=== PATIENT | male | born 1940 | race Caucasian/White ===

== ENCOUNTER 2019-01-13 16:33 | Inpatient (IN) | payer MEDICARE ==
[2019-01-13] MEDS ORDERED: SODIUM CHLORIDE 0.9% 1,000 ML IV STA ×2 (16:54→18:44)
--- NOTE | 2019-01-13 16:54 | ED ---
Weakness HPI - General Chief complaint: Weakness Stated complaint: Fall Time Seen by Provider: 01/13/19 16:40 Source: patient, family, EMS, RN notes reviewed, old records reviewed Mode of arrival: EMS Limitations: physical limitation - History of Present Illness Initial comments: This is a 78-year-old male the ER for evaluation patient is a poor historian presents with daughter for evaluation of weakness and inability to ambulate inability to stand up. Patient has significant medical history history of dementia is a poor historian. Patient unable to history history obtained from prior charting as well as patient, patient is no prior ER visits this hospital. Very rarely does go to the hospital. No recent trauma no headaches or chest pain or shortness breath or abdominal pain MD Complaint: generalized weakness, lack of energy, difficulty walking -: days(s) Location: generalized, LLE, RLE Severity: mild Severity scale (1-10): 3 Consistency: constant Improves with: none Worsens with: none Context: history of similar Associated Symptoms: denies other symptoms - Related Data Home Medications Medication Instructions Recorded Confirmed Acetaminophen/Diphenhydramine 2 tab PO HS 01/13/19 01/13/19 [Tylenol PM 500-25mg] Aspirin 81 mg PO AC-BRKFST 01/13/19 01/13/19 Atorvastatin [Lipitor] 40 mg PO HS 01/13/19 01/13/19 Bumetanide 1 mg PO AC-BRKFST 01/13/19 01/13/19 Carvedilol [Coreg] 3.125 mg PO AC-BID 01/13/19 01/13/19 Cholecalciferol [Vitamin D3 (25 1,000 unit PO AC-BRKFST 01/13/19 01/13/19 Mcg = 1000 Iu)] Donepezil [Aricept] 10 mg PO AC-BRKFST 01/13/19 01/13/19 Fluticasone Nasal [place] [Flonase 2 spr EA NOSTRIL DAILY PRN 01/13/19 01/13/19 Nasal [place]] Gabapentin [Neurontin] 300 mg PO ACHS 01/13/19 01/13/19 Glucagon Emergency Kit 1 mg IM ONCE PRN 01/13/19 01/13/19 Hydroxychloroquine Sulfate 200 mg PO AC-BID 01/13/19 01/13/19 [Plaquenil] Insulin Detemir [Levemir Flextouch] 78 unit SQ HS 01/13/19 01/13/19 Insulin Detemir [Levemir Flextouch] 80 unit SQ AC-BRKFST 01/13/19 01/13/19 Insulin Lispro [humaLOG Kwikpen] 10 unit SQ AC-BRKFST 01/13/19 01/13/19 Insulin Lispro [humaLOG Kwikpen] 14 unit SQ AC-LUNCH 01/13/19 01/13/19 Insulin Lispro [humaLOG Kwikpen] 17 unit SQ AC-SUPPER 01/13/19 01/13/19 Magnesium Oxide 400 mg PO AC-BID 01/13/19 01/13/19 Metoclopramide [Reglan] 5 mg PO ACHS 01/13/19 01/13/19 Metolazone [Zaroxolyn] 2.5 mg PO AC-BID 01/13/19 01/13/19 Nitroglycerin Sl Tabs [Nitrostat] 0.4 mg SUBLINGUAL Q5M PRN 01/13/19 01/13/19 Olopatadine HCl [Patanol] 2 drops BOTH EYES DAILY PRN 01/13/19 01/13/19 [place]-3 Fatty Acids/Fish Oil [Fish 1 cap PO AC-LUNCH 01/13/19 01/13/19 Oil 1,000 mg Softgel] Potassium Chloride ER [K-Dur 10] 10 meq PO TID 01/13/19 01/13/19 Tamsulosin [Flomax] 0.4 mg PO AC-SUPPER 01/13/19 01/13/19 Triamcinolone 0.1% Cream [Kenalog 1 applic TOPICAL BID PRN 01/13/19 01/13/19 0.1% Cream] clonazePAM [Klonopin ODT Wafer] 0.25 mg PO BID@0900,1700 01/13/19 01/13/19 clonazePAM [Klonopin ODT Wafer] 0.5 mg PO HS 01/13/19 01/13/19 metFORMIN HCL [Glucophage] 1,000 mg PO AC-LUNCH 01/13/19 01/13/19 Allergies Allergy/AdvReac Type Severity Reaction Status Date / Time clarithromycin [From Biaxin] Allergy Rash/Hives Verified 01/13/19 17:51 ibuprofen [From Motrin] Allergy Unknown Verified 01/13/19 17:51 Penicillins Allergy Rash/Hives Verified 01/13/19 17:51 Review of Systems ROS Statement: Those systems with pertinent positive or pertinent negative responses have been documented in the HPI. ROS Other: All systems not noted in ROS Statement are negative. Past Medical History Past Medical History: Dementia, Diabetes Mellitus, Hyperlipidemia, Hypertension, Rheumatoid Arthritis (RA) Additional Past Medical History / Comment(s): Neuropathy Past Surgical History: Heart Catheterization With Stent, Orthopedic Surgery Additional Past Surgical History / Comment(s): Right knee replacement, Past Psychological History: Anxiety Smoking Status: Former smoker Past Alcohol Use History: None Reported Past Drug Use History: None Reported General Exam Limitations: physical limitation General appearance: alert, in no apparent distress Head exam: Present: atraumatic, normocephalic, normal inspection Eye exam: Present: normal appearance, PERRL, EOMI. Absent: scleral icterus, conjunctival injection, periorbital swelling ENT exam: Present: normal exam, mucous membranes moist Neck exam: Present: normal inspection. Absent: tenderness, meningismus, lymphadenopathy Respiratory exam: Present: normal lung sounds bilaterally. Absent: respiratory distress, wheezes, rales, rhonchi, stridor Cardiovascular Exam: Present: regular rate, normal rhythm, normal heart sounds. Absent: systolic murmur, diastolic murmur, rubs, gallop, clicks GI/Abdominal exam: Present: soft, normal bowel sounds. Absent: distended, tenderness, guarding, rebound, rigid Extremities exam: Present: normal inspection, full ROM, normal capillary refill. Absent: tenderness, pedal edema, joint swelling, calf tenderness Back exam: Present: normal inspection Neurological exam: Present: alert, oriented X3, CN II-XII intact Psychiatric exam: Present: normal affect, normal mood Skin exam: Present: warm, dry, intact, normal color. Absent: rash Course Vital Signs 01/13/19 16:36 Temperature 98.2 F Pulse Rate 70 Respiratory 18 Rate Blood Pressure 126/53 O2 Sat by Pulse 96 Oximetry - Reevaluation(s) Reevaluation #1: 01/13/19 18:46 medical record reviewed Reevaluation #2: 01/13/19 18:46 No improvement in symptoms EKG Findings - EKG Comments: EKG Findings:: EKG shows sinus rhythm rate of 69, DE 200, QRS 90, QTc 304 Medical Decision Making - Medical Decision Making 78 male the ER for evaluation weakness significant weakness and inability to ambulate inability to stand up from sitting. Patient be admitted for further evaluation of dehydration. Elevated lactic acid, abnormal lab values - Lab Data Result diagrams: 01/13/19 17:12 01/13/19 17:12 Lab Results 01/13/19 01/13/19 01/13/19 Range/Units 17:12 17:12 17:12 WBC 11.1 H (3.8-10.6) k/uL RBC 4.32 (4.30-5.90) m/uL Hgb 11.9 L (13.0-17.5) gm/dL Hct 36.5 L (39.0-53.0) % MCV 84.5 (80.0-100.0) fL MCH 27.7 (25.0-35.0) pg MCHC 32.7 (31.0-37.0) g/dL RDW 16.1 H (11.5-15.5) % Plt Count 226 (150-450) k/uL Neutrophils % 79 % Lymphocytes % 14 % Monocytes % 3 % Eosinophils % 3 % Basophils % 0 % Neutrophils # 8.8 H (1.3-7.7) k/uL Lymphocytes # 1.5 (1.0-4.8) k/uL Monocytes # 0.4 (0-1.0) k/uL Eosinophils # 0.3 (0-0.7) k/uL Basophils # 0.0 (0-0.2) k/uL Poikilocytosis Slight Anisocytosis Slight PT (9.0-12.0) sec INR (<1.2) APTT (22.0-30.0) sec Sodium 140 (137-145) mmol/L Potassium 4.5 (3.5-5.1) mmol/L Chloride 98 (98-107) mmol/L Carbon Dioxide 31 H (22-30) mmol/L Anion Gap 11 mmol/L BUN 34 H (9-20) mg/dL Creatinine 1.35 H (0.66-1.25) mg/dL Est GFR (CKD-EPI)AfAm 57 (>60 ml/min/1.73 sqM) Est GFR (CKD-EPI)NonAf 50 (>60 ml/min/1.73 sqM) Glucose 101 H (74-99) mg/dL Plasma Lactic Acid Alon 3.7 H* (0.7-2.0) mmol/L Calcium 9.4 (8.4-10.2) mg/dL Phosphorus 3.4 (2.5-4.5) mg/dL Magnesium 1.7 (1.6-2.3) mg/dL Total Bilirubin 0.9 (0.2-1.3) mg/dL AST 59 (17-59) U/L ALT 17 L (21-72) U/L Alkaline Phosphatase 91 (38-126) U/L Creatine Kinase 84 (55-170) U/L Troponin I (0.000-0.034) ng/mL Total Protein 7.0 (6.3-8.2) g/dL Albumin 3.9 (3.5-5.0) g/dL TSH 2.630 (0.465-4.680) mIU/L 01/13/19 01/13/19 Range/Units 17:12 17:12 WBC (3.8-10.6) k/uL RBC (4.30-5.90) m/uL Hgb (13.0-17.5) gm/dL Hct (39.0-53.0) % MCV (80.0-100.0) fL MCH (25.0-35.0) pg MCHC (31.0-37.0) g/dL RDW (11.5-15.5) % Plt Count (150-450) k/uL Neutrophils % % Lymphocytes % % Monocytes % % Eosinophils % % Basophils % % Neutrophils # (1.3-7.7) k/uL Lymphocytes # (1.0-4.8) k/uL Monocytes # (0-1.0) k/uL Eosinophils # (0-0.7) k/uL Basophils # (0-0.2) k/uL Poikilocytosis Anisocytosis PT 11.0 (9.0-12.0) sec INR 1.0 (<1.2) APTT 25.2 (22.0-30.0) sec Sodium (137-145) mmol/L Potassium (3.5-5.1) mmol/L Chloride (98-107) mmol/L Carbon Dioxide (22-30) mmol/L Anion Gap mmol/L BUN (9-20) mg/dL Creatinine (0.66-1.25) mg/dL Est GFR (CKD-EPI)AfAm (>60 ml/min/1.73 sqM) Est GFR (CKD-EPI)NonAf (>60 ml/min/1.73 sqM) Glucose (74-99) mg/dL Plasma Lactic Acid Alon (0.7-2.0) mmol/L Calcium (8.4-10.2) mg/dL Phosphorus (2.5-4.5) mg/dL Magnesium (1.6-2.3) mg/dL Total Bilirubin (0.2-1.3) mg/dL AST (17-59) U/L ALT (21-72) U/L Alkaline Phosphatase (38-126) U/L Creatine Kinase (55-170) U/L Troponin I <0.012 (0.000-0.034) ng/mL Total Protein (6.3-8.2) g/dL Albumin (3.5-5.0) g/dL TSH (0.465-4.680) mIU/L - Radiology Data Radiology results: report reviewed (Chest x-rays negative for acute disease), image reviewed Disposition Clinical Impression: Dehydration, Weakness, Lactic acidosis Disposition: ADMITTED IP TO THIS [facility] Condition: Fair Is patient prescribed a controlled substance at d/c from ED?: No Referrals: Isis Reyes DO [Primary Care Provider] - 1-2 days
[2019-01-13 17:25] LABS: Anisocytosis Slight; Basophils % (A) 0 %; Eosinophils # (A) 0.3 k/uL (0-0.7); Eosinophils % (A) 3 %; HCT 36.5 % (39.0-53.0); HGB 11.9 gm/dL (13.0-17.5); Lymphocytes # (A) 1.5 k/uL (1.0-4.8); Lymphocytes % (A) 14 %; MCH 27.7 pg (25.0-35.0); MCHC 32.7 g/dL (31.0-37.0); MCV 84.5 fL (80.0-100.0); Mean Platelet Volume 7.2; Monocytes # (A) 0.4 k/uL (0-1.0); Monocytes % (A) 3 %; Neutrophils # (A) 8.8 k/uL (1.3-7.7); Neutrophils % (A) 79 %; Platelet Count 226 k/uL (150-450); Poikilocytosis Slight; RBC 4.32 m/uL (4.30-5.90); RDW 16.1 % (11.5-15.5); WBC 11.1 k/uL (3.8-10.6)
[2019-01-13 17:33] LABS: Partial Thromboplastin Time 25.2 sec (22.0-30.0)
[2019-01-13 17:36] LABS: Albumin 3.9 g/dL (3.5-5.0); Calcium 9.4 mg/dL (8.4-10.2); Magnesium 1.7 mg/dL (1.6-2.3); Phosphorus 3.4 mg/dL (2.5-4.5); Potassium 4.5 mmol/L (3.5-5.1); Total Bilirubin 0.9 mg/dL (0.2-1.3)
--- NOTE | 2019-01-13 17:57 | XR ---
EXAMINATION TYPE: XR chest 2V DATE OF EXAM: 01/13/2019 COMPARISON: NONE HISTORY: Weakness TECHNIQUE: Frontal and lateral views of the chest are obtained. FINDINGS: There is no heart failure nor confluent pneumonic infiltrate. Costophrenic angles are júnior r. Bony thorax is intact. IMPRESSION: No active cardiopulmonary disease.
[2019-01-13] MEDS ORDERED: ONDANSETRON 4 MG/2 ML VIAL IVP STA (18:44)
[2019-01-13] MEDS ORDERED: ONDANSETRON 4 MG/2 ML VIAL IVP PRN (18:44)
[2019-01-13] MEDS ORDERED: SODIUM CHLORIDE 0.9% 1,000 ML IV ONE (18:44)
[2019-01-13] MEDS ORDERED: SODIUM CHLORIDE 0.9% 500 ML 500 ML IV STA (18:44)
[2019-01-14 04:37] LABS: Appearance,Urine Clear (Clear); Bilirubin,Urine Negative (Negative); Blood,Urine Negative (Negative); Color,Urine Yellow; Glucose,Urine (UA) Negative (Negative); Ketones,Urine Negative (Negative); Leukocyte Esterase,Urine Negative (Negative); Nitrite,Urine Negative (Negative); PH, Urine 5.5 (5.0-8.0); Protein,Urine Trace (Negative); Specific Gravity,Urine 1.018 (1.001-1.035); Urobilinogen,Urine <2.0 mg/dL (<2.0)
[2019-01-14 07:12] LABS: Glucose,Whole Blood 136 mg/dL (75-99)
[2019-01-14 11:18] LABS: Glucose,Whole Blood 194 mg/dL (75-99)
[2019-01-14 12:44] VITALS: BMI 38.7
[2019-01-14] MEDS ORDERED: FLUTICASONE 50MCG/SPRAY NASAL 16GM EA NOSTRIL PRN (13:12)
[2019-01-14] MEDS ORDERED: TRIAMCINOLONE 0.1% CREAM 80 GM TUBE TOPICAL PRN (13:12)
[2019-01-14] MEDS ORDERED: GLUCAGON 1 MG/ML VIAL IM PRN (13:12)
[2019-01-14] MEDS ORDERED: NITROGLYCERIN SL TABS 0.4 MG TAB SUBLINGUAL PRN (13:12)
[2019-01-14] MEDS ORDERED: KETOTIFEN 0.025% OPHTH DROPS 5 ML BTL BOTH EYES PRN (13:12)
--- NOTE | 2019-01-14 14:01 | CT ---
EXAMINATION TYPE: CT brain wo con DATE OF EXAM: 01/14/2019 COMPARISON: None HISTORY: weakness, confusion, possible parkinson's CT DLP: 1072.3 mGycm Automated exposure control for dose reduction was used. TECHNIQUE: CT scan of the head is performed without contrast. FINDINGS: There is no acute intracranial hemorrhage or midline shift identified. There is diffuse v entricular and sulcal prominence consistent with diffuse age-related cerebral atrophy. There is low- attenuation in the periventricular white matter consistent with chronic small vessel ischemic change. The globes are intact and the visualized sinuses are clear. There is an old fracture deformity of the left lamina papyracea. Cerumen is incidentally noted within the bilateral external auditory canal s. Atherosclerosis is seen of the intracranial vasculature. IMPRESSION: 1. No acute intracranial hemorrhage or midline shift. 2. Diffuse age-related cerebral atrophy and chronic small vessel ischemic change noted. Regarding the possible diagnosis of Parkinson's syndrome Nori scan could be considered for further evaluation.
[2019-01-14] MEDS: INSULIN ASPART (NovoLOG) 100 UNIT/ML VIAL SQ SCH ×4 (14:35→21:39)
[2019-01-14] MEDS: POTASSIUM CHLORIDE ER 10 MEQ TAB.ER.PRT PO SCH ×2 (15:24→21:44)
--- NOTE | 2019-01-14 15:33 | HP ---
HISTORY AND PHYSICAL DATE OF SERVICE: 01/14/2019 CHIEF COMPLAINT: Weakness and fall. HISTORY OF PRESENT ILLNESS: This is a 78-year-old gentleman with a past medical history of multiple medical problems including dementia, diabetes, hyperlipidemia, hypertension, rheumatoid, neuropathy, history of CAD, stent being followed by Dr. Reyes in the outpatient setting. Patient recently moved from the [facility]. The patient apparently had weakness. The patient able to stand up and patient had multiple falls and patient was taken to [facility] for further evaluation and treatment. The patient is mildly confused, I am unable to give a coherent history. Most of the history taken from my discussion staff and review of chart at this time. PAST MEDICAL HISTORY: History of dementia, diabetes, hypertension, hyperlipidemia, rheumatoid arthritis, neuropathy, history of CAD, stent. MEDICATIONS: Home medications are: 1. Glucophage 1000 mg p.o. a.c. lunch. 2. Klonopin 0.25 mg p.o. b.i.d. 3. Kenalog 1 application b.i.d. p.r.n. 4. Flomax 0.4 daily. 5. K-Dur 10 mg p.o. t.i.d. 6. Fish oil 1 p.o. a.c. lunch. 7. Patanol 2 drops p.r.n. 8. Nitrostat 0.4 sublingual p.r.n. 9. Zaroxolyn 2.5 mg p.o. b.i.d. 10.Reglan 5 mg q. a.c. and at bedtime. 11.Magnesium oxide 400 mg a.c. b.i.d. 12.Humalog 14 units a.c. lunch, 10 units breakfast, 17 supper, and 8 units breakfast and 78 units q.h.s. 13.Plaquenil 200 mg a.c. b.i.d. 14.Glucagon Emergency Kit 1 mg IM p.r.n. 15.Neurontin 300 mg q.h.s. 16.Flonase 2 sprays daily p.r.n. 17.Aricept 10 mg a.c. breakfast. 18.Vitamin D3 1000 p.o. with breakfast. 19.Coreg 3.125 mg p.o. b.i.d. 20.Bumex 1 mg p.o. breakfast. 21.Lipitor 40 mg q.h.s. 22.Aspirin 81 mg a.c. breakfast. 23.Tylenol 500 mg 2 tablets p.o. q.h.s. ALLERGIES: BIAXIN, MOTRIN, PENICILLIN. FAMILY HISTORY: History of CVA, TIA, gastric ulcer surgical repair. SOCIAL HISTORY: Previous history of smoking. No history of current smoking, alcohol intake. REVIEW OF SYSTEMS: Could not be taken because the patient is mildly confused. PHYSICAL EXAM: Patient is conscious, confused. Pulse 64, blood pressure 115/60, respirations 17, temperature is 98.6, pulse ox 100% on room air. HEENT: Conjunctivae normal. Oral mucosa moist. NECK: No jugular venous distention. No lymph node enlargement. CARDIOVASCULAR: S1, S2, no stenosis. RESPIRATION: Breath sounds diminished at the bases. A few scattered rhonchi, no crackles. ABDOMEN: Soft, nontender. No mass. LEGS: Nontender. NERVOUS SYSTEM: Please note diffuse tremors, parkinsonian tremors, increased tone also present. Gait dysfunction present. LYMPHATICS: No lymph nodes present in the neck of axillae. JOINTS: No active arthropathy. LABS: WBC 11.9, hemoglobin is 11.9, sodium 140, potassium 4.5. Lactic acid 2.7. UA noted. The chest x-ray personally reviewed by me showed no acute abnormality. A CT of the brain was also ordered today which showed no acute abnormality. Diffuse age-related atrophy and chronic small-vessel disease. ASSESSMENT: 1. Weakness and gait dysfunction, possible acute Parkinson's syndrome, rule out acute stroke. 2. Dementia. 3. History of multiple falls. 4. Diabetes type 2. 5. Hyperlipidemia. 6. Hypertension. 7. Rheumatoid arthritis history. 8. History of neuropathy. 9. History of coronary artery disease, stent. 10.History of anxiety. 11.Remote history of nicotine dependence. 12.Obesity, body mass of 38.7. RECOMMENDATION: In this 78-year-old gentleman who presented with multiple complex medical issues, at this time I recommend to continue current medical management and symptomatic treatment. Neuro checks. CT scan did not show any acute abnormality. Monitor blood sugars closely. Antiplatelet agents. DVT prophylaxis. I would also recommend Neurology consultation. PT,OT evaluation and social work consultation for possible ECF rehab. The prognosis extremely guarded because of multiple complex medical issues. Please note patient has significant gait instability at this point, and increased tones and tremors as well. MMODL / IJN: [id number] /
--- NOTE | 2019-01-14 16:00 | P.CNNES ---
History of Present Illness Consult date: 01/14/19 Requesting physician: Tamiko Sellers Reason for Consult: Weakness ?PD Chief complaint: Falls History of Present Illness: This is a 78 RH male h/o HTN, DM, dementia, RA, neuropathy, CAD s/p angioplasty here because of recurrent falls. at bedside states patient has been having a tremor in his hands for over 10 years. It started in the left hand then several years moved to the right. It is primarily present at rest and disappears on action. Patient denies any previous head/neck trauma, concussion or [employer] infection. No Lhermitte's or cervical radicular symptoms. No tremor elsewhere in his body, e.g. head/chin, voice, neck, trunk, legs. The tremor does affect his fine motor tasks because if he pauses his hands in motion, his tremor returns. Denies any hypophonia, hoarseness or bulbar dysfunction. Denies any postural dizziness or urinary or fecal incontinence. 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 Also confounding the picture is h/o right knee surgery x2. believes since his 2nd surgery, his walking/balance has declined. does not recall him ever seen a neurologist. Review of Systems I have performed a 14-point organ ROS with patient; pertinents are as per HPI. Past Medical History Past Medical History: Dementia, Diabetes Mellitus, Hyperlipidemia, Hypertension, Rheumatoid Arthritis (RA) Additional Past Medical History / Comment(s): Neuropathy History of Any Multi-Drug Resistant Organisms: None Reported Past Surgical History: Heart Catheterization With Stent, Orthopedic Surgery Additional Past Surgical History / Comment(s): 2 stents per patient, Right knee replacement, hernia repair, Past Anesthesia/Blood Transfusion Reactions: No Reported Reaction Additional Past Anesthesia/Blood Transfusion Reaction / Comment(s): per patient he has had a blood transfusion without reaction Date of Last Stent Placement:: unk Past Psychological History: Anxiety Smoking Status: Former smoker Past Alcohol Use History: None Reported Past Drug Use History: None Reported Additional Drug Use History / Comment(s): patient states he used to chew tobacco mainly, but also smoked lightly. - Past Family History Father Additional Family Medical History / Comment(s): gastric ulcers with surgical repair. Mother Family Medical History: CVA/TIA Medications and Allergies Home Medications Medication Instructions Recorded Confirmed Type Acetaminophen/Diphenhydramine 2 tab PO HS 01/13/19 01/13/19 History [Tylenol PM 500-25mg] Aspirin 81 mg PO AC-BRKFST 01/13/19 01/13/19 History Atorvastatin [Lipitor] 40 mg PO 01/13/19 01/13/19 History Bumetanide 1 mg PO AC-BRKFST 01/13/19 01/13/19 History Carvedilol [Coreg] 3.125 mg PO AC-BID 01/13/19 01/13/19 History Cholecalciferol [Vitamin D3 (25 1,000 unit PO AC-BRKFST 01/13/19 01/13/19 History Mcg = 1000 Iu)] Donepezil [Aricept] 10 mg PO AC-BRKFST 01/13/19 01/13/19 History Fluticasone Nasal [place] [Flonase 2 spr EA NOSTRIL DAILY PRN 01/13/19 01/13/19 History Nasal [place]] Gabapentin [Neurontin] 300 mg PO [facility] 01/13/19 01/13/19 History Glucagon Emergency Kit 1 mg IM ONCE PRN 01/13/19 01/13/19 History Hydroxychloroquine Sulfate 200 mg PO AC-BID 01/13/19 01/13/19 History [Plaquenil] Insulin Detemir [Levemir Flextouch] 78 unit SQ 01/13/19 01/13/19 History Insulin Detemir [Levemir Flextouch] 80 unit SQ AC-BRKFST 01/13/19 01/13/19 History Insulin Lispro [humaLOG Kwikpen] 10 unit SQ AC-BRKFST 01/13/19 01/13/19 History Insulin Lispro [humaLOG Kwikpen] 14 unit SQ AC-LUNCH 01/13/19 01/13/19 History Insulin Lispro [humaLOG Kwikpen] 17 unit SQ AC-SUPPER 01/13/19 01/13/19 History Magnesium Oxide 400 mg PO AC-BID 01/13/19 01/13/19 History Metoclopramide [Reglan] 5 [facility] 01/13/19 01/13/19 History Metolazone [Zaroxolyn] 2.5 mg PO AC-BID 01/13/19 01/13/19 History Nitroglycerin Sl Tabs [Nitrostat] 0.4 mg SUBLINGUAL Q5M PRN 01/13/19 01/13/19 History Olopatadine HCl [Patanol] 2 drops BOTH EYES DAILY PRN 01/13/19 01/13/19 History [place]-3 Fatty Acids/Fish Oil [Fish 1 cap PO AC-LUNCH 01/13/19 01/13/19 History Oil 1,000 mg Softgel] Potassium Chloride ER [K-Dur 10] 10 meq PO TID 01/13/19 01/13/19 History Tamsulosin [Flomax] 0.4 mg PO AC-SUPPER 01/13/19 01/13/19 History Triamcinolone 0.1% Cream [Kenalog 1 applic TOPICAL BID PRN 01/13/19 01/13/19 History 0.1% Cream] clonazePAM [Klonopin ODT Wafer] 0.25 mg PO BID@0900,1700 01/13/19 01/13/19 History clonazePAM [Klonopin ODT Wafer] 0.5 mg PO HS 01/13/19 01/13/19 History metFORMIN HCL [Glucophage] 1,000 mg PO AC-LUNCH 01/13/19 01/13/19 History Allergies Allergy/AdvReac Type Severity Reaction Status Date / Time clarithromycin [From Biaxin] Allergy Rash/Hives Verified 01/13/19 17:51 ibuprofen [From Motrin] Allergy Unknown Verified 01/13/19 17:51 Penicillins Allergy Rash/Hives Verified 01/13/19 17:51 Physical Examination - Vital Signs Vital Signs: Vital Signs Temp Pulse Pulse Pulse Resp BP BP 01/14/19 11:43 98.6 F 64 17 115/63 01/14/19 08:00 64 16 01/14/19 05:04 97.5 F L 64 16 116/65 01/13/19 23:00 98.8 F 64 16 99/52 01/13/19 22:15 98.0 F 66 18 117/61 01/13/19 19:16 65 18 117/46 01/13/19 16:36 98.2 F 70 18 126/53 Pulse Ox 01/14/19 11:43 100 01/14/19 08:00 01/14/19 05:04 96 01/13/19 23:00 94 L 01/13/19 22:15 97 01/13/19 19:16 95 01/13/19 16:36 96 Intake and Output 01/14/19 01/14/19 01/14/19 06:59 14:59 22:59 Output Total 400 Balance -400 Output: Urine 400 Other: Voiding Method Urinal Urinal # Voids 3 Weight 108.862 kg Gen NAD Pleasant and cooperative HEENT NCAT Sclera without icterus O/P clear Neck Supple No carotid bruits Cor RRR no m/r/g Lungs Distant BS bilaterally Abd Obese o/w soft NT +BS Ext Right knee surgical scar Warm to touch Neuro MS A+Ox2 Able to provide some history Occasional phonemic but no semantic paraphasia Mild perseveration but no echolalia or echopraxia, word salad or neologism Able to follow 2-step commands consistently CN PERRL Blinks to threat bilaterally EOMI no nystagmus but hypometric saccades No ORI V1-3 intact to LT Decreased eye blink frequency and facial expressions Symmetric smile Hearing intact to normal voice bilaterally Speech not dysarthric or hypophonic Equal elevation of palate Tongue midline with symmetric shrug bilaterally Motor Normal bulk Some cogwheeling in bilateral elbow Low amplitude resting tremor in bilateral hand that disappears on action No other adventitious movements Bradykinesia on bilateral finger tapping No pronator or leg drift Strength 4+/5 sym throughout Sens Diminished to PP/temp in distal BLE No obvious neglect Coord No dysmetria on FTN bilaterally He does have a sensory ataxia on HTS bilaterally DTRs Tr throughout Toes mute bilaterally no ankle clonus Gait Deferred Results - Laboratory Findings CBC and BMP: 01/13/19 17:12 01/13/19 17:12 Abnormal Lab Findings: Abnormal Labs 01/13/19 01/13/19 01/13/19 17:12 17:12 17:12 WBC 11.1 H Hgb 11.9 L Hct 36.5 L RDW 16.1 H Neutrophils # 8.8 H Carbon Dioxide 31 H BUN 34 H Creatinine 1.35 H Glucose 101 H POC Glucose (mg/dL) Plasma Lactic Acid Alon 3.7 H* ALT 17 L Urine Protein 01/13/19 01/14/19 01/14/19 20:46 01:37 04:00 WBC Hgb Hct RDW Neutrophils # Carbon Dioxide BUN Creatinine Glucose POC Glucose (mg/dL) Plasma Lactic Acid Alon 2.7 H* 2.1 H* ALT Urine Protein Trace H 01/14/19 01/14/19 07:10 11:18 WBC Hgb Hct RDW Neutrophils # Carbon Dioxide BUN Creatinine Glucose POC Glucose (mg/dL) 136 H 194 H Plasma Lactic Acid Alon ALT Urine Protein - Diagnostic Findings Additional findings: CT Head wo cont 01/14/19. No ICH. Nil acute. Global atrophy. Ventricular size not disproportionate to the degree of cerebral atrophy. I have reviewed neuroimages myself. 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 The full trial of levodopa will need to be carried on as outpatient. Please make referral to one of the local neurologists upon discharge -hga1c, B12, RPR, SPEP, immunofixation as part of his PN labs (and also reversible labs for dementia) -PT/OT evals. May need rehab -Fall precautions -d/w patient/family in detail. All questions answered -Neurology will be available again on 01/17/19. Thank you for this consultation. Please call with ?. Time with Patient: Greater than 30 (Time spent in direct patient care, greater than 50% of which was spent in [id number] counseling and coordination of care: 70 minutes)
[2019-01-14 17:09] LABS: Glucose,Whole Blood 148 mg/dL (75-99)
[2019-01-14] MEDS: CARVEDILOL 3.125 MG TAB PO SCH (17:24)
[2019-01-14] MEDS: clonazePAM 0.5 MG TAB PO SCH ×2 (17:24→21:44)
[2019-01-14] MEDS: MAGNESIUM OXIDE 400 MG TAB PO SCH (17:24)
[2019-01-14] MEDS: GABAPENTIN 300 MG CAP PO SCH ×2 (17:25→21:44)
[2019-01-14] MEDS: HYDROXYCHLOROQUINE SULFATE 200 MG TAB PO SCH (17:27)
[2019-01-14] MEDS: METOLAZONE 2.5 MG TAB PO SCH (17:29)
[2019-01-14] MEDS: METOCLOPRAMIDE 5 MG TAB PO SCH ×2 (17:29→21:44)
[2019-01-14] MEDS: TAMSULOSIN 0.4 MG CAP.ER.24H PO SCH (17:29)
[2019-01-14] MEDS: CARBIDOPA-LEVODOPA 25-100 MG 1 EACH TAB PO SCH (17:29)
[2019-01-14 21:17] LABS: Glucose,Whole Blood 122 mg/dL (75-99)
[2019-01-14] MEDS: INSULIN DETEMIR (LEVEMIR) 100 UNIT/ML SYR SQ SCH (21:44)
[2019-01-14] MEDS: ATORVASTATIN 40 MG TAB PO SCH (21:44)
[2019-01-14] MEDS: ACETAMINOPHEN TAB 500 MG TAB PO SCH (21:44)
[2019-01-14] MEDS: diphenhydrAMINE 25 MG CAP PO SCH (21:44)
[2019-01-15 07:21] LABS: Glucose,Whole Blood 119 mg/dL (75-99)
[2019-01-15] MEDS: INSULIN ASPART (NovoLOG) 100 UNIT/ML VIAL SQ SCH ×7 (08:20→20:46)
[2019-01-15] MEDS: POTASSIUM CHLORIDE ER 10 MEQ TAB.ER.PRT PO SCH ×3 (08:29→21:23)
[2019-01-15] MEDS: clonazePAM 0.5 MG TAB PO SCH ×3 (08:29→21:23)
[2019-01-15] MEDS: HYDROXYCHLOROQUINE SULFATE 200 MG TAB PO SCH ×2 (08:29→17:35)
[2019-01-15] MEDS: METOLAZONE 2.5 MG TAB PO SCH ×2 (08:29→17:36)
[2019-01-15] MEDS: ASPIRIN 81 MG PO SCH (08:30)
[2019-01-15] MEDS: CHOLECALCIFEROL 1,000 UNIT TAB PO SCH (08:30)
[2019-01-15] MEDS: CARVEDILOL 3.125 MG TAB PO SCH ×2 (08:30→17:35)
[2019-01-15] MEDS: INSULIN DETEMIR (LEVEMIR) 100 UNIT/ML SYR SQ SCH ×2 (08:30→21:24)
[2019-01-15] MEDS: DONEPEZIL 10 MG TAB PO SCH (08:30)
[2019-01-15] MEDS: BUMETANIDE 1 MG TAB PO SCH (08:30)
[2019-01-15] MEDS: GABAPENTIN 300 MG CAP PO SCH ×4 (08:30→21:23)
[2019-01-15] MEDS: CARBIDOPA-LEVODOPA 25-100 MG 1 EACH TAB PO SCH ×2 (08:30→21:24)
[2019-01-15] MEDS: METOCLOPRAMIDE 5 MG TAB PO SCH ×4 (08:30→21:24)
[2019-01-15] MEDS: MAGNESIUM OXIDE 400 MG TAB PO SCH ×2 (08:30→17:35)
[2019-01-15 11:46] LABS: Glucose,Whole Blood 181 mg/dL (75-99)
[2019-01-15] MEDS ORDERED: NON-FORMULARY DRUG (Omega-3 Fatty Acids/Fish Oil [Fish Oil 1,000 Mg Softgel] 1 CAP) PO SCH (12:30)
[2019-01-15] MEDS: metFORMIN 500 MG TAB PO SCH (12:52)
[2019-01-15] MEDS ORDERED: BISACODYL 10 MG SUPP RECTAL STA (13:37)
--- NOTE | 2019-01-15 16:42 | PN ---
PROGRESS NOTE DATE OF SERVICE: 01/15/2019 This 78-year-old gentleman who was admitted with weakness and gait dysfunction is being closely monitored at this time. The patient is also being evaluated for rehab. No chest pain. No palpitation. The patient has been on a trial of carbidopa levodopa by Neurology for possible Parkinson's disease. The patient also complains of constipation. The patient also has urinary retention. Past medical history reviewed. REVIEW OF SYSTEMS: CARDIOVASCULAR SYSTEM: No angina, palpitations. RESPIRATORY SYSTEM: As mentioned earlier. GI: No nausea, vomiting. : No dysuria or retention. NERVOUS SYSTEM: No numbness, weakness. CURRENT MEDICATIONS: Reviewed. They include: 1. Tylenol 100 mg at bedtime p.r.n. 2. Aspirin 81 mg. 3. Lipitor 40 mg. 4. Bumex 1 mg b.i.d. 5. Sinemet 25/100 p.o. b.i.d. 6. Coreg 3.125 mg b.i.d. 7. Vitamin D3. 8. Klonopin 0.25 mg. 9. Benadryl. 10.Aricept 10 mg. 11.Flonase. 12.Neurontin 300 mg. 13.Glucagon. 14.Plaquenil 200 mg p.o. b.i.d. 15.NovoLog scale 14, 17 and 10 units. 16.Levemir 78 units subcutaneously at bedtime and 80 mg subcutaneously. 17.Zaditor at bedtime. 18.Magnesium oxide 400 mg b.i.d. 19.Glucophage 1000 mg. 20.Reglan 5 mg before meals and at bedtime. 21.Zaroxolyn 2.5 mg before meals b.i.d. 22.Nitrostat. 23.Zofran. 24.K-Dur. 25.Flomax 0.4. 26.Kenalog. PHYSICAL EXAMINATION: Patient is alert, oriented x3. Pulse 67, blood pressure 179/72, respirations 16, temperature 97.8, pulse ox 93% on room air. HEENT: Conjunctivae normal. NECK: No jugular venous distention. CARDIOVASCULAR SYSTEM: S1, S2 muffled. RESPIRATORY SYSTEM: Breath sounds diminished at the bases. A few scattered rhonchi and crackles. ABDOMEN: Soft, non-tender. LEGS: No edema. No swelling. NERVOUS SYSTEM: Diffusely weak. LABS: Today's labs are not available. Creatinine was 1.35. ASSESSMENT: 1. Weakness and gait dysfunction; possible Parkinson's syndrome. Stroke unlikely. 2. Dementia. 3. History of multiple falls. 4. Gait dysfunction. 5. Diabetes mellitus, type 2. 6. Hypertension. 7. Hyperlipidemia. 8. History of rheumatoid arthritis. 9. History of neuropathy. 10.Urinary retention. 11.History of coronary artery disease, stent. 12.History of anxiety. 13.Remote history of nicotine dependence. 14.Obesity with body mass index of 38.7. 15.Constipation. 16.FULL CODE. RECOMMENDATIONS AND DISCUSSION: In this 78-year-old gentleman who presented with multiple medical issues, we will monitor the patient closely, continue the current management, continue symptomatic treatment. Otherwise at this time I recommend continuing the current medications, continue with Sinemet. Otherwise, I would also recommend q.6 bladder scan. If is more than 300, straight cath. Continue to monitor. Continue the Flomax. Continue with PT/OT evaluation; possible ECF rehab. Colace for constipation. Prognosis guarded because of multiple complex medical issues as listed above. Further recommendations to follow. MMODL / IJN: [id number] /
[2019-01-15] MEDS ORDERED: NA PHOS,M-B/NA PHOS,DI-BA 133 ML ENEMA RECTAL ONE (16:45)
[2019-01-15 16:58] LABS: Glucose,Whole Blood 150 mg/dL (75-99)
[2019-01-15 17:02] LABS: Protein, Total 5.5 g/dL (6.2-8.2)
[2019-01-15] MEDS: TAMSULOSIN 0.4 MG CAP.ER.24H PO SCH (17:35)
[2019-01-15 18:18] LABS: Hemoglobin A1C 6.2 % (4.0-6.0)
[2019-01-15 20:02] LABS: Glucose,Whole Blood 120 mg/dL (75-99)
[2019-01-15] MEDS: ACETAMINOPHEN TAB 500 MG TAB PO SCH (21:23)
[2019-01-15] MEDS: diphenhydrAMINE 25 MG CAP PO SCH (21:23)
[2019-01-15] MEDS: ATORVASTATIN 40 MG TAB PO SCH (21:23)
[2019-01-15] MEDS: DOCUSATE 100 MG CAP PO SCH (21:23)
[2019-01-16 07:01] LABS: Glucose,Whole Blood 76 mg/dL (75-99)
[2019-01-16 07:58] LABS: Calcium 8.4 mg/dL (8.4-10.2); Potassium 3.1 mmol/L (3.5-5.1)
[2019-01-16] MEDS: METOCLOPRAMIDE 5 MG TAB PO SCH ×4 (09:14→21:06)
[2019-01-16] MEDS: DONEPEZIL 10 MG TAB PO SCH (09:14)
[2019-01-16] MEDS: MAGNESIUM OXIDE 400 MG TAB PO SCH ×2 (09:14→17:01)
[2019-01-16] MEDS: CARVEDILOL 3.125 MG TAB PO SCH ×2 (09:15→17:01)
[2019-01-16] MEDS: BUMETANIDE 1 MG TAB PO SCH (09:15)
[2019-01-16] MEDS: GABAPENTIN 300 MG CAP PO SCH ×4 (09:15→21:05)
[2019-01-16] MEDS: clonazePAM 0.5 MG TAB PO SCH ×3 (09:15→21:05)
[2019-01-16] MEDS: POTASSIUM CHLORIDE ER 10 MEQ TAB.ER.PRT PO SCH ×3 (09:15→21:11)
[2019-01-16] MEDS: METOLAZONE 2.5 MG TAB PO SCH ×2 (09:15→17:01)
[2019-01-16] MEDS: HYDROXYCHLOROQUINE SULFATE 200 MG TAB PO SCH ×2 (09:15→17:01)
[2019-01-16] MEDS: ASPIRIN 81 MG PO SCH (09:15)
[2019-01-16] MEDS: CARBIDOPA-LEVODOPA 25-100 MG 1 EACH TAB PO SCH ×2 (09:15→21:06)
[2019-01-16] MEDS: CHOLECALCIFEROL 1,000 UNIT TAB PO SCH (09:15)
[2019-01-16] MEDS: DOCUSATE 100 MG CAP PO SCH ×2 (09:15→20:45)
[2019-01-16] MEDS: INSULIN DETEMIR (LEVEMIR) 100 UNIT/ML SYR SQ SCH ×2 (09:15→20:45)
[2019-01-16] MEDS: INSULIN ASPART (NovoLOG) 100 UNIT/ML VIAL SQ SCH ×7 (09:16→20:45)
[2019-01-16 09:22] LABS: Anisocytosis Slight; Basophils % (A) 0 %; Eosinophils # (A) 0.3 k/uL (0-0.7); Eosinophils % (A) 4 %; HCT 34.5 % (39.0-53.0); Hypochromasia Slight; Lymphocytes # (A) 1.1 k/uL (1.0-4.8); Lymphocytes % (A) 13 %; MCH 27.8 pg (25.0-35.0); MCHC 31.9 g/dL (31.0-37.0); MCV 87.1 fL (80.0-100.0); Mean Platelet Volume 7.4; Monocytes # (A) 0.3 k/uL (0-1.0); Monocytes % (A) 4 %; Neutrophils # (A) 6.8 k/uL (1.3-7.7); Neutrophils % (A) 79 %; Platelet Count 222 k/uL (150-450); RBC 3.96 m/uL (4.30-5.90); RDW 16.2 % (11.5-15.5); WBC 8.6 k/uL (3.8-10.6)
[2019-01-16 11:23] LABS: Glucose,Whole Blood 113 mg/dL (75-99)
[2019-01-16] MEDS: metFORMIN 500 MG TAB PO SCH (13:02)
[2019-01-16] MEDS ORDERED: Potassium Replacement Protocol 1 EACH MISC MISCELLANE PRN (15:04)
[2019-01-16] MEDS: TAMSULOSIN 0.4 MG CAP.ER.24H PO SCH (17:01)
[2019-01-16 17:29] LABS: Glucose,Whole Blood 98 mg/dL (75-99)
--- NOTE | 2019-01-16 18:25 | PN ---
PROGRESS NOTE DATE OF SERVICE: 01/16/2019. This 78-year-old gentleman was admitted with gait dysfunction is suspected of Parkinsonian disorder. The patient also has significant difficulties with falls and gait dysfunction. ECF rehab is being contemplated. Patient also has urinary difficulties at this time. Patient is already taking Flomax. No chest pain. No palpitations. No shortness of breath. PHYSICAL EXAM: Alert and oriented times two. Pulse 62, blood pressure 126/69, respiration 18, temperature 97.8, pulse ox 99% on room air. HEENT is conjunctivae normal. Oral mucosa moist. NECK is no jugular venous distention. No carotid bruit. No lymph node enlargement. CARDIOVASCULAR: S1, S2 muffled. RESPIRATION: Breath sounds diminished in the bases. No rhonchi. No crackles. ABDOMEN: Soft, obese, nontender. LEGS no edema. NERVOUS SYSTEM: Diffusely weak. LABS: WBC 8.2, hemoglobin 11. Glucose 113. ASSESSMENT: 1. Weakness and gait dysfunction, possible Parkinson's syndrome, stroke, unlikely. 2. Dementia. 3. History of multiple falls. 4. Gait dysfunction. 5. Diabetes type 2. 6. Hypertension. 7. History of hyperlipidemia. 8. History of rheumatoid arthritis. 9. History of neuropathy. 10.History of urinary retention. 11.History of coronary artery disease/stent. 12.History of anxiety. 13.Remote history of nicotine dependence. 14.Obesity with body mass index of 38.7. 15.Constipation. 16.FULL CODE. RECOMMENDATIONS AND DISCUSSION: Recommend to continue current medications, continue symptomatic treatment. Otherwise, continue with carbidopa, L-dopa. Continue with antiplatelet agents. PT/OT evaluation, possible ECF rehab. Continue with Flomax. Increase ambulation. Further recommendations to follow. Also recommend close followup with Dr. Reyes after discharge from the ECF. MMODL / IJN: [id number] /
[2019-01-16 20:17] LABS: Glucose,Whole Blood 91 mg/dL (75-99)
[2019-01-16] MEDS: ATORVASTATIN 40 MG TAB PO SCH (21:05)
[2019-01-16] MEDS: diphenhydrAMINE 25 MG CAP PO SCH (21:05)
[2019-01-16] MEDS: ACETAMINOPHEN TAB 500 MG TAB PO SCH (21:07)
[2019-01-17 06:54] LABS: Glucose,Whole Blood 102 mg/dL (75-99)
[2019-01-17] MEDS: clonazePAM 0.5 MG TAB PO SCH ×3 (08:50→21:45)
[2019-01-17] MEDS: POTASSIUM CHLORIDE ER 10 MEQ TAB.ER.PRT PO SCH ×3 (08:51→21:46)
[2019-01-17] MEDS: ASPIRIN 81 MG PO SCH (08:51)
[2019-01-17] MEDS: CARVEDILOL 3.125 MG TAB PO SCH ×2 (08:51→17:28)
[2019-01-17] MEDS: MAGNESIUM OXIDE 400 MG TAB PO SCH ×2 (08:51→17:28)
[2019-01-17] MEDS: DOCUSATE 100 MG CAP PO SCH ×2 (08:51→21:45)
[2019-01-17] MEDS: CHOLECALCIFEROL 1,000 UNIT TAB PO SCH (08:51)
[2019-01-17] MEDS: GABAPENTIN 300 MG CAP PO SCH ×4 (08:51→21:45)
[2019-01-17] MEDS: BUMETANIDE 1 MG TAB PO SCH (08:52)
[2019-01-17] MEDS: DONEPEZIL 10 MG TAB PO SCH (08:52)
[2019-01-17] MEDS: METOCLOPRAMIDE 5 MG TAB PO SCH ×4 (08:53→21:46)
[2019-01-17] MEDS: HYDROXYCHLOROQUINE SULFATE 200 MG TAB PO SCH ×2 (08:53→17:27)
[2019-01-17] MEDS: CARBIDOPA-LEVODOPA 25-100 MG 1 EACH TAB PO SCH ×2 (08:54→21:44)
[2019-01-17] MEDS: METOLAZONE 2.5 MG TAB PO SCH ×2 (08:54→17:28)
[2019-01-17] MEDS: INSULIN ASPART (NovoLOG) 100 UNIT/ML VIAL SQ SCH ×7 (08:59→22:17)
[2019-01-17 09:15] LABS: Basophils % (A) 0 %; Eosinophils # (A) 0.3 k/uL (0-0.7); Eosinophils % (A) 4 %; HCT 32.7 % (39.0-53.0); HGB 10.6 gm/dL (13.0-17.5); Lymphocytes % (A) 12 %; MCH 27.2 pg (25.0-35.0); MCHC 32.3 g/dL (31.0-37.0); MCV 84.2 fL (80.0-100.0); Mean Platelet Volume 6.3; Monocytes # (A) 0.3 k/uL (0-1.0); Monocytes % (A) 4 %; Neutrophils # (A) 6.1 k/uL (1.3-7.7); Neutrophils % (A) 79 %; Platelet Count 213 k/uL (150-450); RBC 3.88 m/uL (4.30-5.90); RDW 15.7 % (11.5-15.5); WBC 7.8 k/uL (3.8-10.6)
[2019-01-17] MEDS: INSULIN DETEMIR (LEVEMIR) 100 UNIT/ML SYR SQ SCH ×2 (09:16→21:45)
[2019-01-17 09:25] LABS: Calcium 8.2 mg/dL (8.4-10.2); Potassium 3.4 mmol/L (3.5-5.1)
[2019-01-17 11:23] LABS: Glucose,Whole Blood 153 mg/dL (75-99)
[2019-01-17] MEDS: metFORMIN 500 MG TAB PO SCH (12:45)
--- NOTE | 2019-01-17 12:47 | P.PN ---
Subjective Progress Note Date: 01/17/19 Principal diagnosis: Falls Possible PD Started carbidopa/levodopa 25/100mg one tab po bid since 3 days ago. Patient denies any side effects, e.g. nausea, dizziness, confusion, palpitations, leg swelling. Tremor around the same. Awaiting placement. No new neuro c/o. Objective - Vital Signs Vital signs: Vital Signs Temp 98.1 F 01/17/19 12:25 Pulse 69 01/17/19 12:25 Resp 17 01/17/19 12:25 BP 145/70 01/17/19 12:25 Pulse Ox 100 01/17/19 12:25 Intake & Output 01/16/19 01/17/19 01/17/19 18:59 06:59 18:59 Intake Total 240 Output Total 221 523 Balance -221 -283 Intake: Oral 240 Output: Urine 300 Post Void Residual 221 223 Other: Voiding Method Diaper Urinal Incontinent Diaper Incontinent # Voids 1 2 # Bowel Movements 1 - Exam Gen NAD Pleasant and cooperative MS A+Ox2 Speech fluent Able to follow 2-step commands consistently CN Decreased facial expressions/eyeblink frequency and hypometric saccades o/w II-XII grossly intact no nystagmus Motor Normal bulk Some cogwheeling in bilateral elbow Low amplitude resting tremor in bilateral hand that disappears on action Bradykinesia on bilateral finger tapping Strength 4+/5 sym throughout Sens Diminished to PP/temp in distal BLE Coord No dysmetria on FTN bilaterally DTRs Tr throughout Gait Deferred - Labs CBC & Chem 7: 01/17/19 08:37 01/17/19 08:37 Labs: Abnormal Lab Results - Last 24 Hours (Table) 01/17/19 01/17/19 01/17/19 Range/Units 06:52 08:37 08:37 RBC 3.88 L (4.30-5.90) m/uL Hgb 10.6 L (13.0-17.5) gm/dL Hct 32.7 L (39.0-53.0) % RDW 15.7 H (11.5-15.5) % Potassium 3.4 L (3.5-5.1) mmol/L Carbon Dioxide 32 H (22-30) mmol/L Glucose 131 H (74-99) mg/dL POC Glucose (mg/dL) 102 H (75-99) mg/dL Calcium 8.2 L (8.4-10.2) mg/dL 01/17/19 Range/Units 11:22 RBC (4.30-5.90) m/uL Hgb (13.0-17.5) gm/dL Hct (39.0-53.0) % RDW (11.5-15.5) % Potassium (3.5-5.1) mmol/L Carbon Dioxide (22-30) mmol/L Glucose (74-99) mg/dL POC Glucose (mg/dL) 153 H (75-99) mg/dL Calcium (8.4-10.2) mg/dL TSH 2.63 B12 790 TPPA NR Assessment and Plan Assessment: Possible Parkinson's disease 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 This will need to be followed up as outpatient. Primary team please refer to outpatient neurology for follow-up in next 3 weeks -Dosing instructions and potential side effects of levodopa again explained to patient -Most PN/reversible labs have returned unrevealing; some still pending -Fall precautions -PT/OT/placement -d/w patient in detail. All questions answered -Fine for discharge from acute neuro standpoint. Will revisit prn. Please call with new ?. Thank you again for this consultation. Time with Patient: Less than 30 (Time spent in direct patient care, greater than 50% of which was spent in [id number] counseling and coordination of care: 25 minutes)
--- NOTE | 2019-01-17 16:52 | P.PN ---
Subjective Progress Note Date: 01/17/19 Principal diagnosis: Gait ataxia Patient is a 78-year-old male with a known history of diabetes type 2 insulin independent, diabetic peripheral neuropathy and morbid obesity and other multiple medical problems was admitted to the hospital with gait dysfunction and suspected of possibly is disease. Patient also has significant difficulties with falls and gait dysfunction. Patient was having tremors. Patient was seen by neurology and was started on carbidopa/ levodopa this time. Patients, seems to be improved. No complaints of chest pain or shortness of breath. No nausea vomiting or abdominal pain. Patient is undergoing PT OT and will need rehab transfer. Patient did have some urinary retention problems. Currently taking Flomax. No fever no chills. No other acute overnight issues. Current medications reviewed. Active Medications Acetaminophen (Tylenol Tab) 100 mg PO [facility] Last Admin: 01/16/19 21:07 Dose: 100 mg Documented by: Aspirin (Aspirin) 81 mg PO -[facility] Last Admin: 01/17/19 08:51 Dose: 81 mg Documented by: Atorvastatin Calcium (Lipitor) 40 mg PO [facility] Last Admin: 01/16/19 21:05 Dose: 40 mg Documented by: Bumetanide (Bumex) 1 mg PO -[facility] Last Admin: 01/17/19 08:52 Dose: 1 mg Documented by: Carbidopa/Levodopa (Sinemet 25-100) 1 each PO BID [facility] Last Admin: 01/17/19 08:54 Dose: 1 each Documented by: Carvedilol (Coreg) 3.125 mg PO AC-BID [facility] Last Admin: 01/17/19 08:51 Dose: 3.125 mg Documented by: Cholecalciferol (Vitamin D3 (25 Mcg = 1000 Iu)) 1,000 unit PO -[facility] Last Admin: 01/17/19 08:51 Dose: 1,000 unit Documented by: Clonazepam (Klonopin) 0.5 mg PO [facility] Last Admin: 01/16/19 21:05 Dose: 0.5 mg Documented by: Clonazepam (Klonopin) 0.25 mg PO BID@0900,1700 [facility] Last Admin: 01/17/19 08:50 Dose: 0.25 mg Documented by: Diphenhydramine HCl (Benadryl) 50 mg PO [facility] Last Admin: 01/16/19 21:05 Dose: 50 mg Documented by: Docusate Sodium (Colace) 100 mg PO BID [facility] Last Admin: 01/17/19 08:51 Dose: 100 mg Documented by: Donepezil HCl (Aricept) 10 mg PO AC-BRKFST [facility] Last Admin: 01/17/19 08:52 Dose: 10 mg Documented by: Fluticasone Propionate (Flonase Nasal [place]) 2 spray EA NOSTRIL DAILY PRN PRN Reason: Allergy Symptoms Gabapentin (Neurontin) 300 mg PO [facility] Last Admin: 01/17/19 12:45 Dose: 300 mg Documented by: Glucagon (Glucagon) 1 mg IM ONCE PRN PRN Reason: Hypoglycemia Hydroxychloroquine Sulfate (Plaquenil) 200 mg PO AC-BID [facility] Last Admin: 01/17/19 08:53 Dose: 200 mg Documented by: Insulin Aspart (Novolog) 0 unit SQ [facility]; Protocol Last Admin: 01/17/19 12:45 Dose: 2 unit Documented by: Insulin Aspart (Novolog) 17 unit SQ AC-SUPPER [facility] Last Admin: 01/16/19 17:35 Dose: Not Given Documented by: Insulin Aspart (Novolog) 14 unit SQ AC-LUNCH [facility] Last Admin: 01/17/19 12:46 Dose: Not Given Documented by: Insulin Aspart (Novolog) 10 unit SQ -KT [facility] Last Admin: 01/17/19 09:00 Dose: Not Given Documented by: Insulin Detemir (Levemir) 80 unit SQ AC-BRKFST [facility] Last Admin: 01/17/19 09:16 Dose: 80 unit Documented by: Insulin Detemir (Levemir) 78 unit SQ [facility] Last Admin: 01/16/19 20:45 Dose: Not Given Documented by: Ketotifen Fumarate (Zaditor) 1 drops BOTH EYES DAILY PRN PRN Reason: Allergy Symptoms Magnesium Oxide (Mag-Ox) 400 mg PO AC-BID [facility] Last Admin: 01/17/19 08:51 Dose: 400 mg Documented by: Metformin HCl (Glucophage) 1,000 mg PO AC-LUNCH [facility] Last Admin: 01/17/19 12:45 Dose: 1,000 mg Documented by: Metoclopramide HCl (Reglan) 5 mg PO [facility] Last Admin: 01/17/19 13:33 Dose: 5 mg Documented by: Metolazone (Zaroxolyn) 2.5 mg PO AC-BID [facility] Last Admin: 01/17/19 08:54 Dose: 2.5 mg Documented by: Miscellaneous Information (Potassium Per Protocol) 1 each MISCELLANE DAILY PRN; Protocol PRN Reason: Per Protocol Nitroglycerin (Nitrostat) 0.4 mg SUBLINGUAL Q5M PRN PRN Reason: Chest Pain Ondansetron HCl (Zofran) 4 mg IVP Q6HR PRN PRN Reason: Nausea And Vomiting Potassium Chloride (K-Dur 10) 10 meq PO TID [facility] Last Admin: 01/17/19 08:51 Dose: 10 meq Documented by: Tamsulosin HCl (Flomax) 0.4 mg PO AC-SUPPER [facility] Last Admin: 01/16/19 17:01 Dose: 0.4 mg Documented by: Triamcinolone Acetonide (Kenalog) 1 applic TOPICAL BID PRN PRN Reason: Rash Objective - Vital Signs Vital signs: Vital Signs Temp 98.1 F 01/17/19 12:25 Pulse 69 01/17/19 12:25 Resp 17 01/17/19 16:00 BP 145/70 01/17/19 12:25 Pulse Ox 100 01/17/19 12:25 Intake & Output 01/16/19 01/17/19 01/17/19 18:59 06:59 18:59 Intake Total 240 960 Output Total 221 523 416 Balance -221 -283 544 Intake: Oral 240 960 Output: Urine 300 300 Post Void Residual 221 223 116 Other: Voiding Method Diaper Urinal Urinal Incontinent Diaper Diaper Incontinent Incontinent # Voids 1 2 4 # Bowel Movements 1 - Exam PHYSICAL EXAMINATION: Patient is lying in the bed comfortably, no acute distress, awake alert and oriented. Mildly obese. HEENT: Normocephalic. Neck is supple. Pupils reactive. Nostrils clear. Oral cavity is moist. Ears reveal no drainage. Neck reveals no JVD, carotid bruits, or thyromegaly. CHEST EXAMINATION: Trachea is central. Symmetrical expansion. Bibasilar diminished air entry. Lung espitia clear to auscultation and percussion. CARDIAC: Normal S1, S2 with no gallops. No murmurs ABDOMEN: Soft. Bowel sounds normal. No organomegaly. No abdominal bruits. Extremities: 2+ edema. No clubbing or cyanosis Neurologically awake, alert, oriented x3 with well-coordinated movements. No focal deficits noted Skin: No rash or skin lesions. Psychiatric: Coperative. Nonsuicidal Musculoskeletal: No joint swelling or deformity. Normal range of motion. - Labs CBC & Chem 7: 01/17/19 08:37 01/17/19 08:37 Labs: Abnormal Lab Results - Last 24 Hours (Table) 01/17/19 01/17/19 01/17/19 Range/Units 06:52 08:37 08:37 RBC 3.88 L (4.30-5.90) m/uL Hgb 10.6 L (13.0-17.5) gm/dL Hct 32.7 L (39.0-53.0) % RDW 15.7 H (11.5-15.5) % Potassium 3.4 L (3.5-5.1) mmol/L Carbon Dioxide 32 H (22-30) mmol/L Glucose 131 H (74-99) mg/dL POC Glucose (mg/dL) 102 H (75-99) mg/dL Calcium 8.2 L (8.4-10.2) mg/dL 01/17/19 Range/Units 11:22 RBC (4.30-5.90) m/uL Hgb (13.0-17.5) gm/dL Hct (39.0-53.0) % RDW (11.5-15.5) % Potassium (3.5-5.1) mmol/L Carbon Dioxide (22-30) mmol/L Glucose (74-99) mg/dL POC Glucose (mg/dL) 153 H (75-99) mg/dL Calcium (8.4-10.2) mg/dL Assessment and Plan Assessment: Weakness and ataxic gait dysfunction possible Parkinson's disease. Unlikely CK CVA. Seen by neurology. Started on carbidopa/levodopa Dementia History of multiple falls Gait dysfunction Diabetes type 2 insulin-dependent Hypertension hyperlipidemia Rheumatoid arthritis Diabetic peripheral neuropathy Urinary retention currently on Flomax History of coronary artery disease status post and placement Anxiety Previous history of nicotine dependence Morbid obesity BMI of 38.7 Constipation improved DVT prophylaxis with Lovenox subcutaneous. Plan: Patient was started on carbidopa/levodopa as per neurology. Continue with home medications and insulin dosing. Continue with home diuretics in the form of metolazone. PT OT follow-up. Bladder scan as needed for urinary retention. Increase ambulation and activity. Patient will need rehab transfer. Prognosis is guarded with multiple medical problems and comorbid conditions. Discussed with his at bedside in detail. Time with Patient: Greater than 30
[2019-01-17 16:56] LABS: Glucose,Whole Blood 126 mg/dL (75-99)
[2019-01-17] MEDS: TAMSULOSIN 0.4 MG CAP.ER.24H PO SCH (17:28)
[2019-01-17] MEDS ORDERED: ENOXAPARIN 40 MG/0.4 ML SYRINGE SQ SCH (18:00)
[2019-01-17 20:24] LABS: Glucose,Whole Blood 142 mg/dL (75-99)
[2019-01-17] MEDS ORDERED: ACETAMINOPHEN TAB 500 MG TAB PO SCH (21:15)
[2019-01-17] MEDS: ATORVASTATIN 40 MG TAB PO SCH (21:44)
[2019-01-17] MEDS: diphenhydrAMINE 25 MG CAP PO SCH (21:45)
[2019-01-17] MEDS: ACETAMINOPHEN TAB 500 MG TAB PO SCH (22:16)
[2019-01-18 02:50] LABS: Glucose,Whole Blood 76 mg/dL (75-99)
[2019-01-18 05:21] LABS: Glucose,Whole Blood 73 mg/dL (75-99)
[2019-01-18 07:03] LABS: Glucose,Whole Blood 89 mg/dL (75-99)
[2019-01-18] MEDS: HYDROXYCHLOROQUINE SULFATE 200 MG TAB PO SCH (07:34)
[2019-01-18] MEDS: METOCLOPRAMIDE 5 MG TAB PO SCH ×2 (07:34→12:53)
[2019-01-18] MEDS: BUMETANIDE 1 MG TAB PO SCH (07:34)
[2019-01-18] MEDS: ASPIRIN 81 MG PO SCH (07:34)
[2019-01-18] MEDS: GABAPENTIN 300 MG CAP PO SCH ×2 (07:34→12:52)
[2019-01-18] MEDS: POTASSIUM CHLORIDE ER 10 MEQ TAB.ER.PRT PO SCH (07:35)
[2019-01-18] MEDS: CARBIDOPA-LEVODOPA 25-100 MG 1 EACH TAB PO SCH (07:35)
[2019-01-18] MEDS: DOCUSATE 100 MG CAP PO SCH (07:35)
[2019-01-18] MEDS: clonazePAM 0.5 MG TAB PO SCH (07:35)
[2019-01-18] MEDS: METOLAZONE 2.5 MG TAB PO SCH (07:35)
[2019-01-18] MEDS: CARVEDILOL 3.125 MG TAB PO SCH (07:35)
[2019-01-18] MEDS: CHOLECALCIFEROL 1,000 UNIT TAB PO SCH (07:35)
[2019-01-18] MEDS: DONEPEZIL 10 MG TAB PO SCH (07:35)
[2019-01-18] MEDS: MAGNESIUM OXIDE 400 MG TAB PO SCH (07:35)
[2019-01-18 09:11] LABS: Potassium 3.7 mmol/L (3.5-5.1)
[2019-01-18] MEDS: INSULIN ASPART (NovoLOG) 100 UNIT/ML VIAL SQ SCH ×4 (09:18→12:52)
[2019-01-18] MEDS: INSULIN DETEMIR (LEVEMIR) 100 UNIT/ML SYR SQ SCH (09:20)
[2019-01-18 09:21] LABS: Glucose,Whole Blood 187 mg/dL (75-99)
[2019-01-18 09:32] LABS: Anisocytosis Slight; Basophils % (A) 0 %; Eosinophils # (A) 0.3 k/uL (0-0.7); Eosinophils % (A) 5 %; HCT 36.3 % (39.0-53.0); HGB 11.4 gm/dL (13.0-17.5); Lymphocytes % (A) 15 %; MCH 27.2 pg (25.0-35.0); MCHC 31.5 g/dL (31.0-37.0); MCV 86.6 fL (80.0-100.0); Mean Platelet Volume 6.8; Monocytes # (A) 0.2 k/uL (0-1.0); Monocytes % (A) 3 %; Neutrophils # (A) 5.1 k/uL (1.3-7.7); Neutrophils % (A) 75 %; Platelet Count 242 k/uL (150-450); RBC 4.19 m/uL (4.30-5.90); RDW 16.2 % (11.5-15.5); WBC 6.8 k/uL (3.8-10.6)
[2019-01-18 11:27] LABS: Glucose,Whole Blood 185 mg/dL (75-99)
[2019-01-18 12:35] VITALS: BP 146/83; PULSE 67; RESP 16; TEMP 97.6
[2019-01-18] MEDS: metFORMIN 500 MG TAB PO SCH (12:52)
[2019-01-18 13:20] LABS: Albumin 2.66 g/dL (3.80-4.90); Gamma Globulin 0.68 g/dL (0.70-1.50)
--- NOTE | 2019-01-18 14:29 | P.DS ---
Providers Date of admission: 01/15/19 15:36 Expected date of discharge: 01/18/19 Attending physician: Tamiko Sellers Consults: 01/14/19 12:46 Consult Physician Routine Consulting Provider: Casie Anderson Consult Reason/Comments: weakness, possible parkinsons Do you want consulting provider notified?: Yes Primary care physician: Isis Reyes Hospital Course: Discharge diagnosis Weakness and ataxic gait dysfunction possible Parkinson's disease. Started on carbidopa/levodopa. Unlikely acute CVA. Seen by neurology. Dementia with mild cognitive impairment. History of multiple falls Gait dysfunction Diabetes type 2 insulin-dependent Hypertension hyperlipidemia Rheumatoid arthritis Diabetic peripheral neuropathy Urinary retention currently on Flomax History of coronary artery disease status post and placement Anxiety Previous history of nicotine dependence Morbid obesity BMI of 38.7 Constipation improved DVT prophylaxis with Lovenox subcutaneous. Hospital course Patient is a 78-year-old male with a known history of diabetes type 2 insulin independent, diabetic peripheral neuropathy and morbid obesity and other multiple medical problems was admitted to the hospital with gait dysfunction and suspected of possibly is disease. Patient also has significant difficulties with falls and gait dysfunction. Patient was having tremors. Patient was seen by neurology and was started on carbidopa/ levodopa this time. Patients, seems to be improved. No complaints of chest pain or shortness of breath. No nausea vomiting or abdominal pain. Patient is undergoing PT OT and will need rehab transfer. Patient did have some urinary retention problems. Currently taking Flomax. No fever no chills. No other acute overnight issues. patient is to be follow-up with neurology in the clinic. PHYSICAL EXAMINATION: Patient is lying in the bed comfortably, no acute distress, awake alert and oriented. Mildly obese. HEENT: Normocephalic. Neck is supple. Pupils reactive. Nostrils clear. Oral cavity is moist. Ears reveal no drainage. Neck reveals no JVD, carotid bruits, or thyromegaly. CHEST EXAMINATION: Trachea is central. Symmetrical expansion. Bibasilar diminished air entry. Lung espitia clear to auscultation and percussion. CARDIAC: Normal S1, S2 with no gallops. No murmurs ABDOMEN: Soft. Bowel sounds normal. No organomegaly. No abdominal bruits. Extremities: 2+ edema. No clubbing or cyanosis Neurologically awake, alert, oriented x3 with well-coordinated movements. No focal deficits noted Skin: No rash or skin lesions. Psychiatric: Coperative. Nonsuicidal Musculoskeletal: No joint swelling or deformity. Normal range of motion. Vital Signs 01/18/19 01/18/19 08:17 12:16 Temperature 97.6 F Pulse Rate [ 67 Pulse Oximetery ] Respiratory 16 Rate Blood Pressure 146/83 [Right Arm] O2 Sat by Pulse 94 L 95 Oximetry Total time taken greater than 35 minutes including 18 minutes for counseling and coordination of care. Patient Condition at Discharge: Fair Plan - Discharge Summary Discharge Rx Participant: No New Discharge Prescriptions: New Carbidopa-Levodopa 25-100 mg [Sinemet 25-100 mg] 1 each PO BID #30 tab Continue Triamcinolone 0.1% Cream [Kenalog 0.1% Cream] 1 applic TOPICAL BID PRN PRN Reason: Rash Nitroglycerin Sl Tabs [Nitrostat] 0.4 mg SUBLINGUAL Q5M PRN PRN Reason: Chest Pain Olopatadine HCl [Patanol] 2 drops BOTH EYES DAILY PRN PRN Reason: Allergy Symptoms Tamsulosin [Flomax] 0.4 mg PO AC-SUPPER Metoclopramide [Reglan] 5 mg PO ACHS Fluticasone Nasal [place] [Flonase Nasal [place]] 2 spr EA NOSTRIL DAILY PRN PRN Reason: Allergy Symptoms Carvedilol [Coreg] 3.125 mg PO AC-BID Hydroxychloroquine Sulfate [Plaquenil] 200 mg PO AC-BID Donepezil [Aricept] 10 mg PO AC-BRKFST Bumetanide 1 mg PO AC-BRKFST Atorvastatin [Lipitor] 40 mg PO HS Gabapentin [Neurontin] 300 mg PO ACHS Acetaminophen/Diphenhydramine [Tylenol PM 500-25mg] 2 tab PO HS Aspirin 81 mg PO AC-BRKFST Magnesium Oxide 400 mg PO AC-BID Cholecalciferol [Vitamin D3 (25 Mcg = 1000 Iu)] 1,000 unit PO AC-BRKFST Potassium Chloride ER [K-Dur 10] 10 meq PO TID [place]-3 Fatty Acids/Fish Oil [Fish Oil 1,000 mg Softgel] 1 cap PO AC-LUNCH metFORMIN HCL [Glucophage] 1,000 mg PO AC-LUNCH clonazePAM [Klonopin ODT Wafer] 0.5 mg PO HS clonazePAM [Klonopin ODT Wafer] 0.25 mg PO BID@0900,1700 Metolazone [Zaroxolyn] 2.5 mg PO AC-BID Insulin Lispro [humaLOG Kwikpen] 17 unit SQ AC-SUPPER Insulin Lispro [humaLOG Kwikpen] 10 unit SQ AC-BRKFST Insulin Lispro [humaLOG Kwikpen] 14 unit SQ AC-LUNCH Insulin Detemir [Levemir Flextouch] 78 unit SQ HS Insulin Detemir [Levemir Flextouch] 80 unit SQ AC-BRKFST Glucagon Emergency Kit 1 mg IM ONCE PRN PRN Reason: Hypoglycemia Discharge Medication List Acetaminophen/Diphenhydramine [Tylenol PM 500-25mg] 2 tab PO HS 01/13/19 [History] Aspirin 81 mg PO AC-BRKFST 01/13/19 [History] Atorvastatin [Lipitor] 40 mg PO HS 01/13/19 [History] Bumetanide 1 mg PO AC-BRKFST 01/13/19 [History] Carvedilol [Coreg] 3.125 mg PO AC-BID 01/13/19 [History] Cholecalciferol [Vitamin D3 (25 Mcg = 1000 Iu)] 1,000 unit PO AC-BRKFST 01/13/19 [History] Donepezil [Aricept] 10 mg PO AC-BRKFST 01/13/19 [History] Fluticasone Nasal [place] [Flonase Nasal [place]] 2 spr EA NOSTRIL DAILY PRN 01/13/19 [History] Gabapentin [Neurontin] 300 mg PO [facility] 01/13/19 [History] Glucagon Emergency Kit 1 mg IM ONCE PRN 01/13/19 [History] Hydroxychloroquine Sulfate [Plaquenil] 200 mg PO AC-BID 01/13/19 [History] Insulin Detemir [Levemir Flextouch] 78 unit SQ [facility] 01/13/19 [History] Insulin Detemir [Levemir Flextouch] 80 unit SQ AC-BRKFST 01/13/19 [History] Insulin Lispro [humaLOG Kwikpen] 10 unit SQ AC-BRKFST 01/13/19 [History] Insulin Lispro [humaLOG Kwikpen] 14 unit SQ AC-LUNCH 01/13/19 [History] Insulin Lispro [humaLOG Kwikpen] 17 unit SQ AC-SUPPER 01/13/19 [History] Magnesium Oxide 400 mg PO AC-BID 01/13/19 [History] Metoclopramide [Reglan] 5 mg PO ACHS 01/13/19 [History] Metolazone [Zaroxolyn] 2.5 mg PO AC-BID 01/13/19 [History] Nitroglycerin Sl Tabs [Nitrostat] 0.4 mg SUBLINGUAL Q5M PRN 01/13/19 [History] Olopatadine HCl [Patanol] 2 drops BOTH EYES DAILY PRN 01/13/19 [History] [place]-3 Fatty Acids/Fish Oil [Fish Oil 1,000 mg Softgel] 1 cap PO AC-LUNCH 01/13/19 [History] Potassium Chloride ER [K-Dur 10] 10 meq PO TID 01/13/19 [History] Tamsulosin [Flomax] 0.4 mg PO AC-SUPPER 01/13/19 [History] Triamcinolone 0.1% Cream [Kenalog 0.1% Cream] 1 applic TOPICAL BID PRN 01/13/19 [History] clonazePAM [Klonopin ODT [place]] 0.25 mg PO BID@0900,1700 01/13/19 [History] clonazePAM [Klonopin ODT [place]] 0.5 mg PO HS 01/13/19 [History] metFORMIN HCL [Glucophage] 1,000 mg PO AC-LUNCH 01/13/19 [History] Carbidopa-Levodopa 25-100 mg [Sinemet 25-100 mg] 1 each PO BID #30 tab 01/17/19 [Rx] Follow up Appointment(s)/Referral(s): Isis Reyes DO [Primary Care Provider] - 1-2 days Discharge Disposition: TRANSFER TO SNF/ECF
== END 2019-01-18 15:25 | DRG 57 ==
LOC: EC 16:33 → 3NMEDONC 18:44 → OBSVTOIN 01-15 15:36
PROVIDERS: ADMIT Hospitalist; ATTEND Hospitalist
DX: G20 Parkinson's disease (principal); E87.2 Acidosis; E11.42 Type 2 diabetes mellitus with diabetic polyneuropathy; E86.0 Dehydration; E66.01 Morbid (severe) obesity due to excess calories; F02.80 Dementia in other diseases classified elsewhere, unspecified severity, without behavioral disturbance, psychotic disturbance, mood disturbance, and anxiety; M06.9 Rheumatoid arthritis, unspecified; E78.5 Hyperlipidemia, unspecified; I10 Essential (primary) hypertension; I25.10 Atherosclerotic heart disease of native coronary artery without angina pectoris; L82.1 Other seborrheic keratosis; K59.00 Constipation, unspecified; F41.9 Anxiety disorder, unspecified; R29.6 Repeated falls; R33.9 Retention of urine, unspecified; R32 Unspecified urinary incontinence; R26.0 Ataxic gait; Z68.38 Body mass index [BMI] 38.0-38.9, adult; Z79.4 Long term (current) use of insulin; Z79.899 Other long term (current) drug therapy; Z79.82 Long term (current) use of aspirin; Z88.6 Allergy status to analgesic agent; Z88.1 Allergy status to other antibiotic agents; Z88.0 Allergy status to penicillin; Z87.891 Personal history of nicotine dependence; Z96.651 Presence of right artificial knee joint; Z95.5 Presence of coronary angioplasty implant and graft
CPT/HCPCS: 36415; 70450; 71046; 80048; 80053; 81003; 82550; 82607; 83036; 83605; 83735; 84100; 84165; 84443; 84484; 85025; 85610; 85730; 86334; 86780; 87086; 93005; 94760; 96361; 96374; 99285

== ENCOUNTER → 2019-03-01 | Outpatient (CLI) | payer MEDICARE ==
[2019-03-01 12:04] LABS: Basophils % (A) 0 %; Eosinophils # (A) 0.4 k/uL (0-0.7); Eosinophils % (A) 4 %; HCT 38.7 % (39.0-53.0); HGB 12.5 gm/dL (13.0-17.5); Lymphocytes # (A) 1.1 k/uL (1.0-4.8); Lymphocytes % (A) 12 %; MCH 27.1 pg (25.0-35.0); MCHC 32.3 g/dL (31.0-37.0); MCV 83.8 fL (80.0-100.0); Mean Platelet Volume 6.9; Monocytes # (A) 0.2 k/uL (0-1.0); Monocytes % (A) 3 %; Neutrophils # (A) 7.2 k/uL (1.3-7.7); Neutrophils % (A) 80 %; Platelet Count 225 k/uL (150-450); Poikilocytosis Slight; RBC 4.61 m/uL (4.30-5.90); RDW 15.9 % (11.5-15.5)
[2019-03-01 17:27] LABS: T4, Free (Free Thyroxine) 1.1 ng/dL (0.80-1.80)
[2019-03-01 17:53] LABS: African American GFR (CKD) 73.6 (60.0-200.0); Albumin 4.4 g/dL (3.80-4.90); Albumin/Globulin Ratio 2.1 (1.60-3.17); Anion Gap 12.5 mmol/L (4.00-12.00); BUN/Creat Ratio 18.18 Ratio (12.00-20.00); Calcium 9.5 mg/dL (8.7-10.3); Carbon Dioxide 32.5 mmol/L (21.6-31.8); Globulin 2.1 g/dL (1.6-3.3); Potassium 3.6 mmol/L (3.5-5.5); Total Bilirubin 0.3 mg/dL (0.3-1.2); Total Protein 6.5 g/dL (6.2-8.2)
[2019-03-01 18:32] LABS: Vitamin D 25 Hydroxy 32.3 ng/mL (30.0-100.0)
== END | disposition home or self-care (01) ==
LOC: LABWHC1 11:17
PROVIDERS: ATTEND Nurse Practitioner Acute Care
DX: E55.9 Vitamin D deficiency, unspecified (principal); R41.3 Other amnesia
CPT/HCPCS: 36415; 80053; 82306; 82607; 84207; 84439; 84443; 84481; 85025

== ENCOUNTER → 2019-03-10 | Outpatient (CLI) | payer MEDICARE ==
[~2019-03-10] MED LIST: IODINE/POTASS IOD (LUGOLS) 8 ML BTL TOPICAL ONE
--- NOTE | 2019-03-11 16:25 | NM ---
EXAMINATION TYPE: NM DatScan Brain SPECT DATE OF EXAM: 03/10/2019 COMPARISON: CT brain 01/14/2019 HISTORY: Tremor TECHNIQUE: 10 drops of Lugol's solution was administered 1 hour prior to injection as a thyroid bloc corry agent. After the administration of 4.26 mCi I-123 Ioflupane DaTscan. Images obtained 3 hours p ost injection. SPECT images of the brain were acquired with axial and coronal reconstructions. FINDINGS: Radiopharmaceutical uptake along the striata is symmetric and comma shaped. IMPRESSION: Normal MAURILIO scan
== END | disposition home or self-care (01) ==
LOC: RADNMMAIN 10:45
PROVIDERS: ATTEND Psychiatry & Neurology Neurology
DX: G25.0 Essential tremor (principal)
CPT/HCPCS: 78607; A9584

== ENCOUNTER → 2019-03-10 | Outpatient (CLI) | payer MEDICARE ==
[2019-03-10 17:52] LABS: African American GFR (CKD) 73.6 (60.0-200.0); Albumin 4.1 g/dL (3.80-4.90); Albumin/Globulin Ratio 2.16 (1.60-3.17); Anion Gap 12.6 mmol/L (4.00-12.00); BUN/Creat Ratio 15.45 Ratio (12.00-20.00); Carbon Dioxide 31.4 mmol/L (21.6-31.8); Chol/HDL Ratio 2.68; Globulin 1.9 g/dL (1.6-3.3); LDL Cholesterol,Calculated 19.2 mg/dL (0.0-131.0); Potassium 3.4 mmol/L (3.5-5.5); Total Bilirubin 0.4 mg/dL (0.3-1.2); VLDL Calculation 27.8 mg/dL (5.00-40.00)
== END | disposition home or self-care (01) ==
LOC: LABWHC1 09:41
PROVIDERS: ATTEND Internal Medicine Interventional Cardiology
DX: E78.2 Mixed hyperlipidemia (principal); Z12.5 Encounter for screening for malignant neoplasm of prostate
CPT/HCPCS: 80061; 80053; 36415; G0103

== ENCOUNTER 2019-05-26 14:09 | Inpatient (IN) | payer MEDICARE ==
[2019-05-26] MEDS ORDERED: SODIUM CHLORIDE 0.9% 500 ML 500 ML IV STA ×2 (14:32→16:12)
--- NOTE | 2019-05-26 14:35 | ED ---
General Adult HPI - General Chief complaint: Weakness Stated complaint: Fall Time Seen by Provider: 05/26/19 14:18 Source: patient, RN notes reviewed Mode of arrival: EMS Limitations: no limitations - History of Present Illness Initial comments: 78-year-old male with a past medical history of diabetes, dementia, hyperlipidemia, hypertension presents to the emergency department for a chief complaint of multiple falls. Patient fell 3 times in the past 4 days. The last time was when he was getting out of bed. States that he feels generally weak and his legs gave out. States that he may have hit his head but does not have headache at this time. Patient is noted to be taking Plavix. Patient does have a cardiac history and has had 2 previous stents. He denies any specific complaints at this time.Patient has no other complaints at this time including shortness of breath, chest pain, abdominal pain, nausea or vomiting, headache, or visual changes. - Related Data Home Medications Medication Instructions Recorded Confirmed Acetaminophen/Diphenhydramine 2 tab PO 01/13/19 01/13/19 [Tylenol PM 500-25mg] Aspirin 81 mg PO AC-BRKFST 01/13/19 01/13/19 Atorvastatin [Lipitor] 40 mg PO 01/13/19 01/13/19 Bumetanide 1 mg PO AC-BRKFST 01/13/19 01/13/19 Carvedilol [Coreg] 3.125 mg PO AC-BID 01/13/19 01/13/19 Cholecalciferol [Vitamin D3 (25 1,000 unit PO AC-T 01/13/19 01/13/19 Mcg = 1000 Iu)] Donepezil [Aricept] 10 mg PO AC-BRKFST 01/13/19 01/13/19 Fluticasone Nasal Patriot [Flonase 2 spr EA NOSTRIL DAILY PRN 01/13/19 01/13/19 Nasal Patriot] Gabapentin [Neurontin] 300 mg PO [facility] 01/13/19 01/13/19 Glucagon Emergency Kit 1 mg IM ONCE PRN 01/13/19 01/13/19 Hydroxychloroquine Sulfate 200 mg PO AC-BID 01/13/19 01/13/19 [Plaquenil] Insulin Detemir [Levemir Flextouch] 78 unit SQ HS 01/13/19 01/13/19 Insulin Detemir [Levemir Flextouch] 80 unit SQ AC-BRKFST 01/13/19 01/13/19 Insulin Lispro [humaLOG Kwikpen] 10 unit SQ AC-BRKFST 01/13/19 01/13/19 Insulin Lispro [humaLOG Kwikpen] 14 unit SQ AC-LUNCH 01/13/19 01/13/19 Insulin Lispro [humaLOG Kwikpen] 17 unit SQ AC-SUPPER 01/13/19 01/13/19 Magnesium Oxide 400 mg PO AC-BID 01/13/19 01/13/19 Metoclopramide [Reglan] 5 mg PO ACHS 01/13/19 01/13/19 Metolazone [Zaroxolyn] 2.5 mg PO AC-BID 01/13/19 01/13/19 Nitroglycerin Sl Tabs [Nitrostat] 0.4 mg SUBLINGUAL Q5M PRN 01/13/19 01/13/19 Olopatadine HCl [Patanol] 2 drops BOTH EYES DAILY PRN 01/13/19 01/13/19 [place]-3 Fatty Acids/Fish Oil [Fish 1 cap PO AC-LUNCH 01/13/19 01/13/19 Oil 1,000 mg Softgel] Potassium Chloride ER [K-Dur 10] 10 meq PO TID 01/13/19 01/13/19 Tamsulosin [Flomax] 0.4 mg PO AC-SUPPER 01/13/19 01/13/19 Triamcinolone 0.1% Cream [Kenalog 1 applic TOPICAL BID PRN 01/13/19 01/13/19 0.1% Cream] clonazePAM [Klonopin ODT Wafer] 0.25 mg PO BID@0900,1700 01/13/19 01/13/19 clonazePAM [Klonopin ODT Wafer] 0.5 mg PO HS 01/13/19 01/13/19 metFORMIN HCL [Glucophage] 1,000 mg PO AC-LUNCH 01/13/19 01/13/19 Previous Rx's Medication Instructions Recorded Carbidopa-Levodopa 25-100 mg 1 each PO BID #30 tab 01/17/19 [Sinemet 25-100 mg] Allergies Allergy/AdvReac Type Severity Reaction Status Date / Time clarithromycin [From Biaxin] Allergy Rash/Hives Verified 05/26/19 14:23 ibuprofen [From Motrin] Allergy Unknown Verified 05/26/19 14:23 Penicillins Allergy Rash/Hives Verified 05/26/19 14:23 Review of Systems ROS Statement: Those systems with pertinent positive or pertinent negative responses have been documented in the HPI. ROS Other: All systems not noted in ROS Statement are negative. Past Medical History Past Medical History: Dementia, Diabetes Mellitus, Hyperlipidemia, Hypertension, Rheumatoid Arthritis (RA) Additional Past Medical History / Comment(s): Neuropathy History of Any Multi-Drug Resistant Organisms: MRSA Date of last positivie culture/infection: 03/31/19 MDRO Source:: Toe,Left first Past Surgical History: Heart Catheterization With Stent, Orthopedic Surgery Additional Past Surgical History / Comment(s): 2 stents per patient, Right knee replacement, hernia repair, Past Anesthesia/Blood Transfusion Reactions: No Reported Reaction Additional Past Anesthesia/Blood Transfusion Reaction / Comment(s): per patient he has had a blood transfusion without reaction Date of Last Stent Placement:: unk Past Psychological History: Anxiety Smoking Status: Former smoker Past Alcohol Use History: None Reported Past Drug Use History: None Reported - Past Family History Father Additional Family Medical History / Comment(s): gastric ulcers with surgical repair. Mother Family Medical History: CVA/TIA General Exam Limitations: no limitations General appearance: alert, in no apparent distress Head exam: Present: atraumatic, normocephalic, normal inspection Eye exam: Present: normal appearance, PERRL, EOMI. Absent: scleral icterus, conjunctival injection, periorbital swelling ENT exam: Present: normal exam, mucous membranes moist Neck exam: Present: normal inspection, full ROM. Absent: tenderness, meningismus, lymphadenopathy Respiratory exam: Present: normal lung sounds bilaterally. Absent: respiratory distress, wheezes, rales, rhonchi, stridor Cardiovascular Exam: Present: regular rate, normal rhythm, normal heart sounds. Absent: systolic murmur, diastolic murmur, rubs, gallop, clicks GI/Abdominal exam: Present: soft, normal bowel sounds. Absent: distended, tenderness, guarding, rebound, rigid exam: Present: normal inspection, other (Celia BRITT present for exam). Absent: testicular tenderness, urethral discharge, scrotal swelling, vertical testicular lie, circumcision Extremities exam: Present: normal capillary refill (dp pulses 2+ and equal bilat, cap refill < 2 seconds) Neurological exam: Present: alert, oriented X3, other (GCS 15) Course Vital Signs 05/26/19 14:21 Temperature 98.2 F Pulse Rate 78 Respiratory 20 Rate Blood Pressure 141/89 O2 Sat by Pulse 94 L Oximetry - Reevaluation(s) Reevaluation #1: 05/26/19 14:36 Pt was admitted in December for significant difficulty with falls and gait dysfunction. He was started on carbidopa and levodopa for tremors at that time. EKG Findings - EKG Comments: EKG Findings:: Normal sinus rhythm, ventricular rate 88, NE interval 164, QTC 452 Medical Decision Making - Medical Decision Making 78-year-old male presents to the emergency department for a chief complaint of falls. Patient has had 3 falls in 4 days due to generalized weakness. States his legs give out because he feels so weak. Patient needs assistance sitting up in bed. CBC does show a mild psychosis of 12.7. CMP generally unremarkable. Lactic is 2.3, likely related to dehydration. Patient does not meet sepsis criteria Patient was given a liter of fluids. Magnesium of 1.5 was replaced orally. Chest x-ray shows stable cardiomegaly no acute process. CT shows no acute fracture or dislocation in the cervical spine. No acute intracranial hemorrhage, mass effect, or midline shift. There is diffuse cerebral atrophy and redemonstration of nonspecific white matter change. It is noted that patient was admitted for similar complaints in December and was started on levodopa/carbidopa with neurology. I did attempt in the patient and patient could not even stand up out of bed. Given patient's degree of weakness and high risk for falls on blood thinners he'll be admitted for further evaluation and possible rehabilitation. Dr. Fung discussed this case with Dr. Sellers who accepted this admission. - Lab Data Result diagrams: 05/26/19 14:34 05/26/19 14:34 Lab Results 05/26/19 05/26/19 05/26/19 Range/Units 14:34 14:34 14:34 WBC 12.7 H (3.8-10.6) k/uL RBC 4.37 (4.30-5.90) m/uL Hgb 12.0 L (13.0-17.5) gm/dL Hct 36.8 L (39.0-53.0) % MCV 84.2 (80.0-100.0) fL MCH 27.4 (25.0-35.0) pg MCHC 32.5 (31.0-37.0) g/dL RDW 15.9 H (11.5-15.5) % Plt Count 205 (150-450) k/uL Neutrophils % 86 % Lymphocytes % 8 % Monocytes % 4 % Eosinophils % 1 % Basophils % 0 % Neutrophils # 10.9 H (1.3-7.7) k/uL Lymphocytes # 1.1 (1.0-4.8) k/uL Monocytes # 0.5 (0-1.0) k/uL Eosinophils # 0.1 (0-0.7) k/uL Basophils # 0.0 (0-0.2) k/uL PT (9.0-12.0) sec INR (<1.2) APTT (22.0-30.0) sec Sodium 139 (137-145) mmol/L Potassium 3.9 (3.5-5.1) mmol/L Chloride 97 L (98-107) mmol/L Carbon Dioxide 33 H (22-30) mmol/L Anion Gap 9 mmol/L BUN 19 (9-20) mg/dL Creatinine 1.12 (0.66-1.25) mg/dL Est GFR (CKD-EPI)AfAm 72 (>60 ml/min/1.73 sqM) Est GFR (CKD-EPI)NonAf 62 (>60 ml/min/1.73 sqM) Glucose 198 H (74-99) mg/dL Plasma Lactic Acid Alon 2.3 H* (0.7-2.0) mmol/L Calcium 9.0 (8.4-10.2) mg/dL Magnesium 1.5 L (1.6-2.3) mg/dL Total Bilirubin 0.8 (0.2-1.3) mg/dL AST 24 (17-59) U/L ALT 23 (21-72) U/L Alkaline Phosphatase 91 (38-126) U/L Troponin I (0.000-0.034) ng/mL NT-Pro-B Natriuret Pep pg/mL Total Protein 6.5 (6.3-8.2) g/dL Albumin 3.7 (3.5-5.0) g/dL TSH 2.180 (0.465-4.680) mIU/L Urine Color Urine Appearance (Clear) Urine pH (5.0-8.0) Ur Specific [place] (1.001-1.035) Urine Protein (Negative) Urine Glucose (UA) (Negative) Urine Ketones (Negative) Urine Blood (Negative) Urine Nitrite (Negative) Urine Bilirubin (Negative) Urine Urobilinogen (<2.0) mg/dL Ur Leukocyte Esterase (Negative) 05/26/19 05/26/19 05/26/19 Range/Units 14:34 14:34 14:34 WBC (3.8-10.6) k/uL RBC (4.30-5.90) m/uL Hgb (13.0-17.5) gm/dL Hct (39.0-53.0) % MCV (80.0-100.0) fL MCH (25.0-35.0) pg MCHC (31.0-37.0) g/dL RDW (11.5-15.5) % Plt Count (150-450) k/uL Neutrophils % % Lymphocytes % % Monocytes % % Eosinophils % % Basophils % % Neutrophils # (1.3-7.7) k/uL Lymphocytes # (1.0-4.8) k/uL Monocytes # (0-1.0) k/uL Eosinophils # (0-0.7) k/uL Basophils # (0-0.2) k/uL PT 11.2 (9.0-12.0) sec INR 1.1 (<1.2) APTT 26.2 (22.0-30.0) sec Sodium (137-145) mmol/L Potassium (3.5-5.1) mmol/L Chloride (98-107) mmol/L Carbon Dioxide (22-30) mmol/L Anion Gap mmol/L BUN (9-20) mg/dL Creatinine (0.66-1.25) mg/dL Est GFR (CKD-EPI)AfAm (>60 ml/min/1.73 sqM) Est GFR (CKD-EPI)NonAf (>60 ml/min/1.73 sqM) Glucose (74-99) mg/dL Plasma Lactic Acid Alon (0.7-2.0) mmol/L Calcium (8.4-10.2) mg/dL Magnesium (1.6-2.3) mg/dL Total Bilirubin (0.2-1.3) mg/dL AST (17-59) U/L ALT (21-72) U/L Alkaline Phosphatase (38-126) U/L Troponin I <0.012 (0.000-0.034) ng/mL NT-Pro-B Natriuret Pep 548 pg/mL Total Protein (6.3-8.2) g/dL Albumin (3.5-5.0) g/dL TSH (0.465-4.680) mIU/L Urine Color Urine Appearance (Clear) Urine pH (5.0-8.0) Ur Specific [place] (1.001-1.035) Urine Protein (Negative) Urine Glucose (UA) (Negative) Urine Ketones (Negative) Urine Blood (Negative) Urine Nitrite (Negative) Urine Bilirubin (Negative) Urine Urobilinogen (<2.0) mg/dL Ur Leukocyte Esterase (Negative) 05/26/19 Range/Units 14:34 WBC (3.8-10.6) k/uL RBC (4.30-5.90) m/uL Hgb (13.0-17.5) gm/dL Hct (39.0-53.0) % MCV (80.0-100.0) fL MCH (25.0-35.0) pg MCHC (31.0-37.0) g/dL RDW (11.5-15.5) % Plt Count (150-450) k/uL Neutrophils % % Lymphocytes % % Monocytes % % Eosinophils % % Basophils % % Neutrophils # (1.3-7.7) k/uL Lymphocytes # (1.0-4.8) k/uL Monocytes # (0-1.0) k/uL Eosinophils # (0-0.7) k/uL Basophils # (0-0.2) k/uL PT (9.0-12.0) sec INR (<1.2) APTT (22.0-30.0) sec Sodium (137-145) mmol/L Potassium (3.5-5.1) mmol/L Chloride (98-107) mmol/L Carbon Dioxide (22-30) mmol/L Anion Gap mmol/L BUN (9-20) mg/dL Creatinine (0.66-1.25) mg/dL Est GFR (CKD-EPI)AfAm (>60 ml/min/1.73 sqM) Est GFR (CKD-EPI)NonAf (>60 ml/min/1.73 sqM) Glucose (74-99) mg/dL Plasma Lactic Acid Alon (0.7-2.0) mmol/L Calcium (8.4-10.2) mg/dL Magnesium (1.6-2.3) mg/dL Total Bilirubin (0.2-1.3) mg/dL AST (17-59) U/L ALT (21-72) U/L Alkaline Phosphatase (38-126) U/L Troponin I (0.000-0.034) ng/mL NT-Pro-B Natriuret Pep pg/mL Total Protein (6.3-8.2) g/dL Albumin (3.5-5.0) g/dL TSH (0.465-4.680) mIU/L Urine Color Light Yellow Urine Appearance Clear (Clear) Urine pH 7.0 (5.0-8.0) Ur Specific [place] 1.009 (1.001-1.035) Urine Protein Negative (Negative) Urine Glucose (UA) Negative (Negative) Urine Ketones Negative (Negative) Urine Blood Negative (Negative) Urine Nitrite Negative (Negative) Urine Bilirubin Negative (Negative) Urine Urobilinogen <2.0 (<2.0) mg/dL Ur Leukocyte Esterase Negative (Negative) Disposition Clinical Impression: Ataxia, Weakness Disposition: ADMITTED IP TO THIS HOSP Condition: Fair Is patient prescribed a controlled substance at d/c from ED?: No Referrals: Isis Reyes DO [Primary Care Provider] - 1-2 days Time of Disposition: 16:15
[2019-05-26 14:57] LABS: Basophils % (A) 0 %; Eosinophils # (A) 0.1 k/uL (0-0.7); Eosinophils % (A) 1 %; HCT 36.8 % (39.0-53.0); Lymphocytes # (A) 1.1 k/uL (1.0-4.8); Lymphocytes % (A) 8 %; MCH 27.4 pg (25.0-35.0); MCHC 32.5 g/dL (31.0-37.0); MCV 84.2 fL (80.0-100.0); Mean Platelet Volume 6.3; Monocytes # (A) 0.5 k/uL (0-1.0); Monocytes % (A) 4 %; Neutrophils # (A) 10.9 k/uL (1.3-7.7); Neutrophils % (A) 86 %; Platelet Count 205 k/uL (150-450); RBC 4.37 m/uL (4.30-5.90); RDW 15.9 % (11.5-15.5); WBC 12.7 k/uL (3.8-10.6)
[2019-05-26 14:58] LABS: Albumin 3.7 g/dL (3.5-5.0); Magnesium 1.5 mg/dL (1.6-2.3); Potassium 3.9 mmol/L (3.5-5.1); Total Bilirubin 0.8 mg/dL (0.2-1.3); Total Protein 6.5 g/dL (6.3-8.2)
[2019-05-26 15:00] LABS: Appearance,Urine Clear (Clear); Bilirubin,Urine Negative (Negative); Blood,Urine Negative (Negative); Color,Urine Light Yellow; Glucose,Urine (UA) Negative (Negative); Ketones,Urine Negative (Negative); Leukocyte Esterase,Urine Negative (Negative); Nitrite,Urine Negative (Negative); Protein,Urine Negative (Negative); Specific Gravity,Urine 1.009 (1.001-1.035); Urobilinogen,Urine <2.0 mg/dL (<2.0)
[2019-05-26 15:02] LABS: INR 1.1 (<1.2); Partial Thromboplastin Time 26.2 sec (22.0-30.0); Prothrombin Time 11.2 sec (9.0-12.0)
--- NOTE | 2019-05-26 15:16 | XR ---
EXAMINATION TYPE: XR chest 2V DATE OF EXAM: 05/26/2019 COMPARISON: 01/13/2019 HISTORY: Weakness TECHNIQUE: Frontal and lateral views of the chest are obtained. FINDINGS: There is no focal air space opacity, pleural effusion, or pneumothorax seen. The cardiac silhouette size is enlarged. The osseous structures are intact. IMPRESSION: And stable cardiomegaly. No acute cardiopulmonary process.
--- NOTE | 2019-05-26 15:35 | CT ---
EXAMINATION TYPE: CT brain maria m mcgrath DATE OF EXAM: 05/26/2019 COMPARISON: 01/14/2019 HISTORY: Frequent falls. Head and neck pain. CT DLP: 1830.2 mGycm. Automated Exposure Control for Dose Reduction was Utilized. TECHNIQUE: CT scan of the head and cervical spine are performed without contrast. FINDINGS: There is no acute intracranial hemorrhage or midline shift identified. There is diffuse v entricular and sulcal prominence consistent with diffuse age-related cerebral atrophy. There is low- attenuation in the periventricular white matter consistent with chronic small vessel ischemic change. The globes are intact and the visualized sinuses are clear. Old fracture deformity of the left lami na papyracea. There is some patient motion slightly limiting the evaluation of the cervical spine. Multilevel uncov ertebral hypertrophy and facet arthropathy are seen with small posterior disc osteophyte complexes. O verall moderate degenerative disc disease of the cervical spine. Spinal canal limited on CT however n o high-grade spinal canal stenosis is seen. There is straightening of usual cervical lordosis. Athero sclerosis of the carotid arteries is seen. Cervical spine is visualized in its entirety from C1 throu gh upper thoracic levels and demonstrates satisfactory alignment without evidence of acute fracture o r dislocation. Prevertebral soft tissue appears within normal limits. The C1-C2 articulation is unr emarkable. IMPRESSION: 1. There is no acute fracture or dislocation evident in the cervical spine. 2. No acute intracranial hemorrhage, mass effect, or midline shift is seen. 3. Moderate degenerative disc disease of the cervical spine and straightening of the usual cervical l ordosis that may relate to muscular sprain/spasm or patient positioning. 4. Diffuse cerebral atrophy and redemonstration of nonspecific white matter change, likely on the bas is of chronic microangiopathy.
[2019-05-26] MEDS ORDERED: MAGNESIUM OXIDE 400 MG TAB PO STA (15:41)
[2019-05-26] MEDS ORDERED: DIPH,PERTUS(ACELL)TETVAC-LF 0.5 ML VIAL IM ONE (16:12)
[2019-05-26] MEDS ORDERED: NALOXONE 0.4 MG/ML 1 ML VIAL IV PRN (16:15)
[2019-05-26] MEDS: SODIUM CHLORIDE 0.9% 1,000 ML IV SCH (16:26)
[2019-05-26] MEDS ORDERED: MORPHINE SULFATE 4 MG/ML SYRINGE IVP PRN (17:12)
[2019-05-26] MEDS: HYDROcodone/APAP 5-325MG 1 EACH TAB PO PRN (18:24)
[2019-05-26] MEDS ORDERED: FLUTICASONE 50MCG/SPRAY NASAL 16GM EA NOSTRIL PRN (20:43)
[2019-05-26] MEDS ORDERED: KETOTIFEN 0.025% OPHTH DROPS 5 ML BTL BOTH EYES PRN (20:43)
[2019-05-26] MEDS ORDERED: TRIAMCINOLONE 0.1% CREAM 80 GM TUBE TOPICAL PRN (20:43)
[2019-05-26] MEDS ORDERED: NITROGLYCERIN SL TABS 0.4 MG TAB SUBLINGUAL PRN (20:43)
[2019-05-26] MEDS ORDERED: METOCLOPRAMIDE 5 MG TAB PO PRN (20:43)
[2019-05-26] MEDS ORDERED: TEMAZEPAM 15 MG CAP PO PRN (20:46)
[2019-05-26] MEDS: INSULIN ASPART (NovoLOG) 100 UNIT/ML VIAL SQ SCH ×2 (21:06→22:32)
[2019-05-26 21:13] LABS: Glucose,Whole Blood 173 mg/dL (75-99)
[2019-05-26] MEDS: HEPARIN SODIUM,PORCINE 5,000 UNIT/ML 1 ML VIAL SQ SCH (22:31)
[2019-05-26] MEDS: GABAPENTIN 300 MG CAP PO SCH (22:31)
[2019-05-26] MEDS: ASPIRIN 81 MG PO SCH (22:31)
[2019-05-26] MEDS: ATORVASTATIN 40 MG TAB PO SCH (22:31)
[2019-05-26] MEDS: INSULIN DETEMIR (LEVEMIR) 100 UNIT/ML SYR SQ SCH (22:32)
--- NOTE | 2019-05-27 00:08 | HP ---
HISTORY AND PHYSICAL DATE OF SERVICE: 05/26/2019. CHIEF COMPLAINTS: Shortness of breath and weakness. HISTORY OF PRESENT ILLNESS: This 78-year-old gentleman with a past medical history of multiple medical problems including history of dementia, history of diabetes, hypertension, hyperlipidemia, rheumatoid, arthritis,neuropathy, history of MRSA, history of coronary artery disease stent being followed by Dr. Reyes in the outpatient setting was previously admitted to [facility] a couple months ago. The patient had possible Parkinson disease and the patient started on carbidopa L-dopa. The patient was sent to the rehab at that time. The patient improved significantly from the rehab, but currently the patient is having increasing falls and as well as some shortness of breath and weakness. The patient also has epigastric discomfort and the patient was taken to [facility] and admitted to the hospital for further evaluation and treatment. There is no history of fever, rigors or chills. No history of headache, loss of consciousness, seizures at this time. PAST MEDICAL HISTORY: History of dementia, diabetes type 2, hypertension, hyperlipidemia, history of rheumatoid arthritis, history of neuropathy, CAD, stent, history of Parkinson's. MEDICATIONS: Prior to admission include home medications are: 1. Kenalog cream 1 application topically b.i.d. p.r.n. 2. Flomax 0.4 daily. 3. Patanol 2 drops both eyes. 4. Nitrostat 0.4 mg p.r.n. 5. Glucovance Emergency Kit. 6. Glucophage 1000 mg a.c. lunch. 7. Klonopin 0.5 mg q.h.s. 8. Fish oil 1 p.o. Q lunch. 9. Reglan 5 mg q.i.d. a.c. and q.h.s. 10.14 units subcu a.c. lunch and 17 units supper. 11.Flonase 2 sprays daily p.r.n. 12.Lipitor 40 mg q.h.s. 13.Aspirin 81 mg q.48 hours. 14.Tylenol p.m. 1000 mg 2 tablets p.o. q.h.s. 15.Detrol LA 4 mg p.o. daily. 16.Aricept 10 mg a.c. breakfast. 17.Zaroxolyn 2.5 mg a.c. b.i.d. 18.Magnesium oxide 400 mg p.o. b.i.d. 19.Levemir 40 units subcu a.c. b.i.d. 20.Vitamin D3 1000 daily. 21.K-Dur 40 mEq p.o. daily. 22.Humalog 10 units a.c. with breakfast. 23.Plaquenil 200 mg a.c. b.i.d. 24.Neurontin 300 mg p.o. daily. 25.Coreg 3.125 mg p.o. b.i.d. 26.Bumex 1 mg a.c. breakfast. 27.Klonopin 0.5 mg b.i.d. ALLERGIES: BIAXIN, MOTRIN, PENICILLIN. FAMILY HISTORY: History of CVA, TIA, gastric ulcers family. SOCIAL HISTORY: Previous history of smoking. No history of current smoking, alcohol intake. REVIEW OF SYSTEMS: ENT diminished vision. Diminished hearing. CARDIOVASCULAR: No angina. RESPIRATION as mentioned earlier. GI: No nausea or vomiting. no dysuria or hematuria. Nervous systems: No numbness or weakness. ALLERGIES/IMMUNOLOGY: No asthma or hayfever. MUSCULOSKELETAL as mentioned earlier. HEMATOLOGY: No history of anemia. ENDOCRINE: Diabetes and hypothyroidism. CONSTITUTIONAL: As mentioned earlier. DERMATOLOGY: Negative. RHEUMATOLOGY negative. PSYCHIATRY as mentioned. PHYSICAL EXAMINATION: Alert and oriented x3. Pulse is 74. Blood pressure is 144/67, respiration 18, temperature 99.8, pulse ox 98% on room air. Conjunctivae normal. Oral mucosa moist. Neck is no jugular venous distention. No lymph node enlargement. Cardiovascular system: S1, S2 muffled. RESPIRATORY: Breath sounds diminished in the bases. A few scattered rhonchi and crackles. ABDOMEN: Soft obese, nontender. No mass palpable. LEGS: Minimal edema. NERVOUS SYSTEM: Higher functions as mentioned earlier. Moves all four extremities. SKIN: No ulcer, no rash and no bleeding. JOINTS: No active arthropathy. Chest x-ray personally reviewed by me showed evidence of stable cardiomegaly and CT of the cervical spine and head shows no acute fracture, moderate DJD disease and labs are WBC 12.2, hemoglobin is 12, sodium 130, potassium 3.9 and creatinine is 1.12. Lactic acid 2.3, UA noted. ASSESSMENT: 1. Generalized tiredness and weakness possibly dehydration with gait dysfunction. 2. Multiple falls and possible degenerative joint disease. 3. Parkinson disease. 4. Increased WBC. 5. Elevated lactic acid with no evidence of infection. 6. History of dementia. 7. Diabetes mellitus type 2. 8. Hypertension. 9. Hyperlipidemia. 10.History of peripheral neuropathy history of MRSA. 11.History of coronary artery disease stent. 12.History of anxiety. 13.Remote history of nicotine dependence. RECOMMENDATIONS AND DISCUSSION: This 78-year-old gentleman with multiple complex medical issues, we will monitor the patient closely continue the current management and symptomatic treatment. Otherwise, at this time I recommend resume the home medications. Gentle hydration. Otherwise continue to monitor. Prognosis guarded because of multiple complex medical conditions. Repeat OT evaluation also considered. MMODL / IJN: [id number] / IVAN
[2019-05-27] MEDS: SODIUM CHLORIDE 0.9% 1,000 ML IV SCH ×2 (02:10→15:48)
[2019-05-27 07:28] LABS: Glucose,Whole Blood 143 mg/dL (75-99)
[2019-05-27] MEDS: CHOLECALCIFEROL 1,000 UNIT TAB PO SCH (07:30)
[2019-05-27] MEDS: POTASSIUM CHLORIDE ER 20 MEQ TAB.ER PO SCH ×3 (07:30→11:40)
[2019-05-27] MEDS: CARVEDILOL 3.125 MG TAB PO SCH ×2 (07:30→16:51)
[2019-05-27] MEDS: DONEPEZIL 10 MG TAB PO SCH (07:30)
[2019-05-27] MEDS: PANTOPRAZOLE 40 MG TABLET PO SCH (07:30)
[2019-05-27] MEDS ORDERED: BUMETANIDE 1 MG TAB PO SCH (07:30)
[2019-05-27] MEDS: INSULIN DETEMIR (LEVEMIR) 100 UNIT/ML SYR SQ SCH ×2 (07:30→21:18)
[2019-05-27] MEDS: INSULIN ASPART (NovoLOG) 100 UNIT/ML VIAL SQ SCH ×7 (07:31→21:17)
[2019-05-27] MEDS: MAGNESIUM OXIDE 400 MG TAB PO SCH ×2 (07:31→16:51)
[2019-05-27] MEDS: OXYBUTYNIN XL 5 MG TAB.ER.24 PO SCH (07:31)
[2019-05-27] MEDS: HEPARIN SODIUM,PORCINE 5,000 UNIT/ML 1 ML VIAL SQ SCH ×2 (07:31→21:17)
[2019-05-27] MEDS: HYDROXYCHLOROQUINE SULFATE 200 MG TAB PO SCH ×2 (07:31→16:52)
[2019-05-27] MEDS: HYDROcodone/APAP 5-325MG 1 EACH TAB PO PRN (07:35)
[2019-05-27] MEDS: GABAPENTIN 300 MG CAP PO SCH ×4 (07:35→21:17)
[2019-05-27 09:23] LABS: Basophils % (A) 0 %; Eosinophils # (A) 0.3 k/uL (0-0.7); Eosinophils % (A) 3 %; HCT 33.4 % (39.0-53.0); HGB 11.1 gm/dL (13.0-17.5); Lymphocytes % (A) 10 %; MCH 28.3 pg (25.0-35.0); MCHC 33.2 g/dL (31.0-37.0); MCV 85.1 fL (80.0-100.0); Monocytes # (A) 0.3 k/uL (0-1.0); Monocytes % (A) 3 %; Neutrophils # (A) 8.1 k/uL (1.3-7.7); Neutrophils % (A) 82 %; Platelet Count 193 k/uL (150-450); RBC 3.92 m/uL (4.30-5.90); RDW 15.6 % (11.5-15.5); WBC 9.8 k/uL (3.8-10.6)
[2019-05-27 09:38] LABS: Calcium 8.2 mg/dL (8.4-10.2); Potassium 3.4 mmol/L (3.5-5.1)
--- NOTE | 2019-05-27 09:55 | CDI ---
Documentation Clarification Form Date: 05/27/2019 9:45:43 AM From: Soheila Campoverde RN CCDS Admit Date: 05/26/2019 4:09:00 PM Patient Name: Andrade Bran Visit Number: [id number] Discharge Date: ATTENTION: The Clinical Documentation Specialists (CDI) and [facility] Coding Staff appreciate your assistance in clarifying documentation. Please respond to the clarification below the line at the bottom and electronically sign. The CDI & [facility] Coding staff will review the response and follow-up if needed. Please note: Queries are made part of the Legal Health Record. If you have any questions, please contact the author of this message via ITS. Dr. Tamiko Sellers Elevated lactic acid with no evidence of infection is documented in the H & P Past medical history/Risk Factors: 78-year-old male presents to the ED for increasing falls, shortness of breath and weakness. Medical History - DM2; RA; HTN; CAD; Possible Parkinsons Clinical Indicators: 05/26/2019 Lactic Acid 2.3; re check 05/26 1.4 Vital signs: 141/89 78 98.2 20 94% ra Treatment: 0.9ns 500cc/bolus x2 followed by 75cc/hr In your professional opinion, can you please clarify if the above clinical indicators and treatment signify any of the following? * Lactic Acidosis * Metabolic Acidosis * Unable to determine * Other, please specify (Last Revision: March 2017) Unable to determine MTDD
[2019-05-27] MEDS ORDERED: Potassium Replacement Protocol 1 EACH MISC MISCELLANE PRN (10:11)
[2019-05-27] MEDS: MULTIVITAMINS, THERA 1 EACH TAB PO SCH (11:39)
[2019-05-27] MEDS: FOLIC ACID 1 MG TAB PO SCH (11:39)
[2019-05-27] MEDS: metFORMIN 500 MG TAB PO SCH (11:40)
[2019-05-27] MEDS: IPRATROPIUM-ALBUTEROL 3 ML NEB INHALATION SCH ×3 (11:41→18:57)
[2019-05-27 12:03] LABS: Glucose,Whole Blood 186 mg/dL (75-99)
[2019-05-27] MEDS ORDERED: NON FORMULARY DRUG (Omega-3 Fatty Acids/Fish Oil [Fish Oil 1,000 Mg Softgel] 1 CAP) PO SCH (12:30)
[2019-05-27] MEDS: FUROSEMIDE 10 MG/ML 4 ML VIAL IV SCH (15:48)
--- NOTE | 2019-05-27 16:26 | PN ---
PROGRESS NOTE DATE OF SERVICE: 05/27/2019 This 78-year-old gentleman admitted with shortness of breath exacerbation as well as weakness is being closely monitored at this time. Chest x-ray showed some cardiomegaly and evidence of some CHF, although ejection fraction was normal previously. The patient is also started on bronchodilators as well as monitoring of the blood sugars. Patient is being closely monitored. Past medical history reviewed. REVIEW OF SYSTEMS: CARDIOVASCULAR SYSTEM: No angina, palpitations. RESPIRATORY SYSTEM: As mentioned earlier. GI: As mentioned earlier. : No dysuria or retention. NERVOUS SYSTEM: No numbness, weakness. CURRENT MEDICATIONS: Reviewed. They include: 1. [place] 5 mg q.4 p.r.n. 2. DuoNeb q.i.d. and p.r.n. 3. Aspirin 81 mg. 4. Lipitor 40 mg. 5. Coreg 3.125 mg p.o. b.i.d. 6. Vitamin D3 daily. 7. Aricept 10 mg daily. 8. Flonase. 9. Folic acid 1 mg p.o. daily. 10.Lasix 40 mg IV daily. 11.Neurontin 300 mg at bedtime. 12.Heparin 5000 units subcutaneously b.i.d. 13.Plaquenil 200 mg before meals b.i.d. 14.NovoLog scale. 15.Levemir 45 units subcutaneously b.i.d. 16.Zaditor. 17.Glucophage 1000 mg with lunch. 18.Potassium supplementation. 19.Narcan. 20.Nitrostat. 21.Ditropan XL 10 mg p.o. daily. 22.Protonix 40 mg daily. 23.K-Dur 20 mEq. 24.Flomax. 25.Restoril. 26.Kenalog application. PHYSICAL EXAMINATION: Patient is alert, oriented x3. Pulse is 103, blood pressure 121/82, respirations 16, temperature 98.1, pulse ox 98% on room air. HEENT: Conjunctivae normal. Oral mucosa moist. NECK: No jugular venous distention. No carotid bruit. No lymph node enlargement. CARDIOVASCULAR SYSTEM: S1, S2 muffled. RESPIRATORY SYSTEM: Breath sounds diminished at the bases. A few scattered rhonchi and crackles. Expiratory wheezing also present. ABDOMEN: Soft, obese, non-tender. LEGS: Minimal edema. NERVOUS SYSTEM: Higher functions as mentioned earlier. Moves all 4 limbs. No focal motor or sensory deficit. LYMPHATICS: No lymph node palpable in neck, axillae or groin. SKIN: No ulcer, rash, bleeding. JOINTS: No active deforming arthropathy. LABS: WBC 9.8, hemoglobin 11.1. Glucose 186. Calcium is 8.2. ASSESSMENT: 1. Shortness of breath, possibly multifactorial, with chronic obstructive pulmonary disease, acute exacerbation. 2. Rule out congestive heart failure, acute exacerbation; ejection fraction unknown. 3. Generalized tiredness and weakness; possible dehydration and gait dysfunction. 4. Multiple falls and possible degenerative joint disease. 5. Parkinson's disease. 6. Increased white count. 7. Elevated lactic acid with no evidence of infections. 8. History of dementia. 9. Diabetes mellitus, type 2. 10.Hypertension. 11.Hyperlipidemia. 12.History of peripheral neuropathy with methicillin-resistant Staphylococcus aeruginosa. 13.History of coronary artery disease, stent. 14.History of anxiety. 15.Remote history of nicotine dependence. RECOMMENDATIONS AND DISCUSSION: At this time I recommend to continue current medications, continue with the monitoring, symptomatic treatment. I recommend adding a small dose of diuretics 40 mg IV daily. Monitor fluid/electrolyte balance closely. Continue the rest of the medications. Will monitor closely. PT/OT evaluation; evaluate for possible ECF rehab. Guarded prognosis because of multiple complex medical issues. Further recommendations to follow. MMODL / IJN: [id number] /
[2019-05-27 16:50] LABS: Glucose,Whole Blood 164 mg/dL (75-99)
[2019-05-27] MEDS: TAMSULOSIN 0.4 MG CAP.ER.24H PO SCH (16:51)
[2019-05-27 21:00] LABS: Glucose,Whole Blood 159 mg/dL (75-99)
[2019-05-27] MEDS: ATORVASTATIN 40 MG TAB PO SCH (21:17)
[2019-05-28] MEDS: SODIUM CHLORIDE 0.9% 1,000 ML IV SCH ×2 (03:57→21:18)
[2019-05-28] MEDS: IPRATROPIUM-ALBUTEROL 3 ML NEB INHALATION SCH ×4 (07:00→18:49)
[2019-05-28 07:12] LABS: Glucose,Whole Blood 108 mg/dL (75-99)
[2019-05-28] MEDS: FOLIC ACID 1 MG TAB PO SCH (08:05)
[2019-05-28] MEDS: DONEPEZIL 10 MG TAB PO SCH (08:05)
[2019-05-28] MEDS: PANTOPRAZOLE 40 MG TABLET PO SCH (08:06)
[2019-05-28] MEDS: OXYBUTYNIN XL 5 MG TAB.ER.24 PO SCH (08:06)
[2019-05-28] MEDS: MAGNESIUM OXIDE 400 MG TAB PO SCH ×2 (08:06→16:51)
[2019-05-28] MEDS: HEPARIN SODIUM,PORCINE 5,000 UNIT/ML 1 ML VIAL SQ SCH ×2 (08:06→21:18)
[2019-05-28] MEDS: POTASSIUM CHLORIDE ER 20 MEQ TAB.ER PO SCH (08:06)
[2019-05-28] MEDS: CHOLECALCIFEROL 1,000 UNIT TAB PO SCH (08:06)
[2019-05-28] MEDS: CARVEDILOL 3.125 MG TAB PO SCH ×2 (08:06→16:53)
[2019-05-28] MEDS: GABAPENTIN 300 MG CAP PO SCH ×4 (08:06→21:18)
[2019-05-28] MEDS: MULTIVITAMINS, THERA 1 EACH TAB PO SCH (08:06)
[2019-05-28] MEDS: FUROSEMIDE 10 MG/ML 4 ML VIAL IV SCH (08:07)
[2019-05-28] MEDS: INSULIN DETEMIR (LEVEMIR) 100 UNIT/ML SYR SQ SCH ×2 (08:07→21:17)
[2019-05-28] MEDS: HYDROXYCHLOROQUINE SULFATE 200 MG TAB PO SCH ×2 (08:07→16:51)
[2019-05-28] MEDS: INSULIN ASPART (NovoLOG) 100 UNIT/ML VIAL SQ SCH ×7 (08:08→21:08)
[2019-05-28 08:31] LABS: Basophils % (A) 0 %; Eosinophils # (A) 0.2 k/uL (0-0.7); Eosinophils % (A) 2 %; HCT 37.7 % (39.0-53.0); HGB 12.2 gm/dL (13.0-17.5); Lymphocytes # (A) 1.6 k/uL (1.0-4.8); Lymphocytes % (A) 12 %; MCH 27.7 pg (25.0-35.0); MCHC 32.5 g/dL (31.0-37.0); MCV 85.4 fL (80.0-100.0); Mean Platelet Volume 6.2; Monocytes # (A) 0.4 k/uL (0-1.0); Monocytes % (A) 3 %; Neutrophils # (A) 10.8 k/uL (1.3-7.7); Neutrophils % (A) 82 %; Platelet Count 280 k/uL (150-450); RBC 4.41 m/uL (4.30-5.90); RDW 15.8 % (11.5-15.5); WBC 13.2 k/uL (3.8-10.6)
[2019-05-28 08:50] LABS: Calcium 8.6 mg/dL (8.4-10.2)
[2019-05-28 09:02] LABS: Potassium 4.2 mmol/L (3.5-5.1)
[2019-05-28 11:37] LABS: Glucose,Whole Blood 165 mg/dL (75-99)
[2019-05-28] MEDS: metFORMIN 500 MG TAB PO SCH (12:26)
--- NOTE | 2019-05-28 14:16 | P.CNNES ---
History of Present Illness Consult date: 05/27/19 Reason for Consult: Ataxia, weakness Chief complaint: Multiple falls History of Present Illness: HISTORY OF PRESENT ILLNESS: Thank you for allowing me to evaluate Mr. Andrade Bran. Mr. Bran is a 78-year-old male with past medical history of diabetes, dementia, hyperlipidemia, hypertension, rheumatoid arthritis, neuropathy, anxiety, presents [facility] for multiple falls, consulting neurology for ataxia and weakness. Patient states that he lives his daughter, and he has been having difficulty with walking for almost 2 years. His daughter usually comes to wake him up in the morning, and once he's up, he's able to get around somewhat but still needs assistance. Has been using a walker for years. Patient noticed that he was having more difficulty with walking and started falling more frequently. He doesn't say that it was from feeling off-balance, but his legs would just "give out." Does not report having lost consciousness during these falls. He always fell on his buttocks. Denies recent sickness, fever, nausea, vomiting, double/blurry vision, headache, dizziness, numbness, tingling. He states he always feels week. PAST MEDICAL HISTORY: diabetes, dementia, hyperlipidemia, hypertension, rheumatoid arthritis, neuropathy, anxiety PAST SURGICAL HISTORY: Heart catheterization with stent, right knee replacement, hernia repair HOME MEDICATIONS: Aspirin, atorvastatin, bumetanide, carvedilol, omeprazole, Flonase, gabapentin, insulin, hydroxychloroquine, magnesium oxide, Reglan, metolazone, omega-3, potassium chloride, tamsulosin, clonazepam, metformin ALLERGIES: Clarithromycin, ibuprofen, penicillins SOCIAL HISTORY: Former smoker. FAMILY HISTORY: Father had gastric ulcers. Mother had/TIA REVIEW OF SYSTEMS: The 14 systems are reviewed and no additional points are identified compared to the review of systems documented history and physical PHYSICAL EXAMINATION: VITAL SIGNS: T 98.2 HR 69 RR 18 BP 153/70 O2 sat 94% on RA GEN.: NAD, pleasant and cooperative HEENT: NCAT, sclera without icterus NECK: Supple SKIN AND EXTREMITIES: Warm to touch, no edema NEURO: MENTAL STATUS: Patient alert and oriented to self, place, time. Able to name the current president. Speech fluent, able to name and repeat, following all commands readily. No right and left disorientation neglect. CRANIAL NERVES II THROUGH XII: II: Pupils are equal and reactive to light symmetrically. No afferent pupillary defect. Visual espitia are intact. III, IV, : No ptosis. Extraocular movements full. No nystagmus. V: Facial sensation intact from V1-3. VII. No clear facial asymmetry. VIII: Hearing intact to finger rub bilaterally. IX, X: Symmetric palate elevation. XI: Shoulder shrug intact. XII: Tongue midline without fasciculation or atrophy. MOTOR: Normal bulk/tone. No pronator drift or tremor. Strength is 5/5 throughout all 4 extremities. SENSORY: Intact to light touch in all 4 extremities. REFLEXES: 1+ throughout. Toes are downgoing. No clonus. Ish's is absent COORDINATION: Finger to nose intact. No dysmetria. GAIT: Needs much assistance to sit him up, but once he's sitting down, he's able to keep himself in a seated position. Was able to get him to stand with a walker, took a few steps, but patient reported feeling tired and wanted to sit s oon after. Atalgic gait even with walker, favoring L side. DIAGNOSTIC TESTING: LABORATORY: WBC 9.8 hemoglobin 11.1 platelet 193 sodium 140 potassium 3.4 chloride 99 bicarb 31 BUN 18 creatinine 0.97 glucose 185 AST 24 ALT 23 alk phos 91 troponin <0.012 TSH 2.180 urinalysis negative TSH 2.180 03/10/19: Total cholesterol 75 LDL 19 HDL 28 TG 139 IMAGING: CT head and C-spine without contrast 05/26/2019: There is no acute fracture or dislocation evident in the cervical spine. No acute intracranial hemorrhage, mass effect, or midline shift is seen. Diffuse cerebral atrophy and redemonstration of nonspecific white matter change, likely on the basis of chronic microangiopathy. EKG: Normal sinus rhythm ASSESSMENT/RECOMMENDATIONS: 78-year-old male with past medical history of diabetes, dementia, hyperlipidemi a, hypertension, rheumatoid arthritis, neuropathy, anxiety, presents [facility] for multiple falls, consulting neurology for ataxia and weakness. At this time, patient with no focal neuro deficit. Patient has been having chronic issues with gait, likely due to his weight, pain in R knee, and generalized weakness from mostly being bed-bound. However, patient also with multiple risk factors for stroke. Will obtain MRI brain w/o contrast and then consider further stroke work-up and management. Neurology is not available over the weekend in- house. However, feel free to [employer] message me over the weekend if you have any questions or concerns Past Medical History Past Medical History: Dementia, Diabetes Mellitus, Hyperlipidemia, Hypertension, Rheumatoid Arthritis (RA) Additional Past Medical History / Comment(s): Neuropathy History of Any Multi-Drug Resistant Organisms: MRSA Date of last positivie culture/infection: 03/31/19 MDRO Source:: Toe,Left first Past Surgical History: Heart Catheterization With Stent, Orthopedic Surgery Additional Past Surgical History / Comment(s): 2 stents per patient, Right knee replacement, hernia repair, Past Anesthesia/Blood Transfusion Reactions: No Reported Reaction Additional Past Anesthesia/Blood Transfusion Reaction / Comment(s): per patient he has had a blood transfusion without reaction Date of Last Stent Placement:: unk Past Psychological History: Anxiety Smoking Status: Never smoker Past Alcohol Use History: None Reported Past Drug Use History: None Reported Additional Drug Use History / Comment(s): patient states he used to chew tobacco mainly, but also smoked lightly. - Past Family History Father Additional Family Medical History / Comment(s): gastric ulcers with surgical repair. Mother Family Medical History: CVA/TIA Medications and Allergies Home Medications Medication Instructions Recorded Confirmed Type Acetaminophen/Diphenhydramine 2 tab PO HS 01/13/19 05/26/19 History [Tylenol PM 500-25mg] Aspirin 81 mg PO Q48H 01/13/19 05/26/19 History Atorvastatin [Lipitor] 40 mg PO HS 01/13/19 05/26/19 History Bumetanide 1 mg PO AC-BRKFST 01/13/19 05/26/19 History Carvedilol [Coreg] 3.125 mg PO AC-BID 01/13/19 05/26/19 History Cholecalciferol [Vitamin D3 (25 1,000 unit PO AC-BRKFST 01/13/19 05/26/19 History Mcg = 1000 Iu)] Donepezil [Aricept] 10 mg PO AC-BRKFST 01/13/19 05/26/19 History Fluticasone Nasal [place] [Flonase 2 spr EA NOSTRIL DAILY PRN 01/13/19 05/26/19 History Nasal [place]] Gabapentin [Neurontin] 300 mg PO ACHS 01/13/19 05/26/19 History Glucagon Emergency Kit 1 mg IM ONCE PRN 01/13/19 05/26/19 History Hydroxychloroquine Sulfate 200 mg PO AC-BID 01/13/19 05/26/19 History [Plaquenil] Insulin Detemir [Levemir Flextouch] 45 unit SQ BID 01/13/19 05/26/19 History Insulin Lispro [humaLOG Kwikpen] 10 unit SQ AC-BRKFST 01/13/19 05/26/19 History Insulin Lispro [humaLOG Kwikpen] 14 unit SQ AC-LUNCH 01/13/19 05/26/19 History Insulin Lispro [humaLOG Kwikpen] 17 unit SQ AC-SUPPER 01/13/19 05/26/19 History Magnesium Oxide 400 mg PO AC-BID 01/13/19 05/26/19 History Metoclopramide [Reglan] 5 mg PO ACHS PRN 01/13/19 05/26/19 History Metolazone [Zaroxolyn] 2.5 mg PO AC-BID 01/13/19 05/26/19 History Nitroglycerin Sl Tabs [Nitrostat] 0.4 mg SUBLINGUAL Q5M PRN 01/13/19 05/26/19 History Olopatadine HCl [Patanol] 2 drops BOTH EYES DAILY PRN 01/13/19 05/26/19 History [place]-3 Fatty Acids/Fish Oil [Fish 1 cap PO AC-LUNCH 01/13/19 05/26/19 History Oil 1,000 mg Softgel] Tamsulosin [Flomax] 0.4 mg PO AC-SUPPER 01/13/19 05/26/19 History Triamcinolone 0.1% Cream [Kenalog 1 applic TOPICAL BID PRN 01/13/19 05/26/19 History 0.1% Cream] clonazePAM [Klonopin ODT Wafer] 0.25 mg PO BID@0900,1700 01/13/19 05/26/19 History clonazePAM [Klonopin ODT Wafer] 0.5 mg PO HS 01/13/19 05/26/19 History metFORMIN HCL [Glucophage] 1,000 mg PO AC-LUNCH 01/13/19 05/26/19 History Potassium Chloride ER [K-Dur 20] 40 meq PO DAILY 05/26/19 05/26/19 History Tolterodine Tartrate [Detrol LA] 4 mg PO DAILY 05/26/19 05/26/19 History Allergies Allergy/AdvReac Type Severity Reaction Status Date / Time clarithromycin [From Biaxin] Allergy Rash/Hives Verified 05/26/19 17:49 ibuprofen [From Motrin] Allergy Unknown Verified 05/26/19 17:49 Penicillins Allergy Rash/Hives Verified 05/26/19 17:49 Physical Examination - Vital Signs Vital Signs: Vital Signs Temp Pulse Pulse Resp BP BP Pulse Ox 05/27/19 06:23 98.2 F 69 18 153/70 94 L 05/26/19 23:00 98.2 F 75 24 134/77 94 L 05/26/19 20:31 75 18 143/67 94 L 05/26/19 19:34 99.8 F H 76 18 144/67 96 05/26/19 16:31 116/56 05/26/19 16:29 98.1 F 74 19 98 05/26/19 14:21 98.2 F 78 20 141/89 94 L Intake and Output 05/26/19 05/27/19 05/27/19 22:59 06:59 14:59 Other: # Voids 1 2 Weight 125.645 kg Results - Laboratory Findings CBC and BMP: 05/28/19 08:02 05/28/19 08:02 Abnormal Lab Findings: Abnormal Labs 05/26/19 05/26/19 05/26/19 14:34 14:34 14:34 WBC 12.7 H RBC Hgb 12.0 L Hct 36.8 L RDW 15.9 H Neutrophils # 10.9 H Potassium Chloride 97 L Carbon Dioxide 33 H Glucose 198 H POC Glucose (mg/dL) Plasma Lactic Acid Alon 2.3 H* Calcium Magnesium 1.5 L 05/26/19 05/27/19 05/27/19 21:10 07:26 08:56 WBC RBC 3.92 L Hgb 11.1 L Hct 33.4 L RDW 15.6 H Neutrophils # 8.1 H Potassium Chloride Carbon Dioxide Glucose POC Glucose (mg/dL) 173 H 143 H Plasma Lactic Acid Alon Calcium Magnesium 05/27/19 08:56 WBC RBC Hgb Hct RDW Neutrophils # Potassium 3.4 L Chloride Carbon Dioxide 31 H Glucose 185 H POC Glucose (mg/dL) Plasma Lactic Acid Alon Calcium 8.2 L Magnesium
[2019-05-28 16:49] LABS: Glucose,Whole Blood 83 mg/dL (75-99)
[2019-05-28] MEDS: TAMSULOSIN 0.4 MG CAP.ER.24H PO SCH (16:52)
--- NOTE | 2019-05-28 20:53 | PN ---
PROGRESS NOTE DATE OF SERVICE: 05/28/2019. This 78-year-old gentleman admitted with shortness of breath, possibly multifactorial, COPD and CHF acute exacerbation, also had complaints of generalized weakness and tiredness. The patient apparently does not want to go to the previous rehab because of the prior bad experience according to him. The patient is being seen by multiple consultants including neurology who recommended further workup also. The patient is being closely monitored at this time. MRI of the brain is pending which ordered by Dr. Hayes to rule out the possibility of acute stroke. PAST MEDICAL HISTORY: Reviewed. REVIEW OF SYSTEMS: Cardiovascular: As mentioned earlier. Respiration as mentioned earlier. GI as mentioned earlier. : No dysuria or retention. CENTRAL NERVOUS SYSTEM: No numbness or weakness. CURRENT MEDICATIONS: Reviewed and include: 1. [place] 5 mg q.4 p.r.n. 2. DuoNeb q.i.d. and p.r.n. 3. Aspirin 81 mg q.48 hours. 4. Coreg 3.125 mg b.i.d. 5. Vitamin D3 1000 daily. 6. Aricept 10 mg daily. 7. Flonase. 8. Folic acid 1 mg daily. 9. Lasix 40 mg IV daily. 10.Neurontin 300 mg q.h.s. 11.Heparin 5000 subcu b.i.d. 12.Plaquenil 200 mg a.c. b.i.d. 13.NovoLog scale. 14.Levemir 45 units subcutaneously b.i.d. 16.Glucophage 1000 mg p.o. a.c. lunch. 17.Morphine sulfate. 18.Narcan. 19.Ditropan. 20.K-Dur. 21.Flomax. 22.Restoril. 23.Kenalog. Doses are reviewed. PHYSICAL EXAM: Patient is alert, oriented x3. Pulse is 72. Blood pressure 94/60, respirations 16, temp 97.5, pulse ox 98% on room air. HEENT: Conjunctivae normal. NECK: No JVD. CARDIOVASCULAR: S1, S2 muffled. RESPIRATORY SYSTEM: Breath sounds diminished at the bases. A few scattered rhonchi and crackles. ABDOMEN: Soft, nontender. No mass palpable. LEGS: No edema. No swelling. NERVOUS SYSTEM: Higher functions as mentioned earlier. Moves all four extremities. Mild diffuse weakness. LYMPHATICS: No lymph nodes palpable in the neck, axillae or groin. SKIN: No ulcer. No rashes. No bleeding. JOINTS: No active deforming arthropathy. LABS: WBC 13.2, hemoglobin 12.2, sodium 141, potassium 4.2. ASSESSMENT: 1. Shortness of breath possibly multifactorial including chronic obstructive pulmonary disease acute exacerbation as well as congestive heart failure acute exacerbation with ejection fraction unknown. 2. Dullness, tiredness and weakness possibly dehydration, gait dysfunction. Rule out acute stroke. MRI pending. 3. Multiple falls and possible degenerative joint disease. 4. Parkinson disease. 5. Increased WBC. 6. Elevated lactic acid with no evidence of infections. 7. History of dementia. 8. Diabetes mellitus type 2. 9. Hypertension. 10.Hyperlipidemia. 11.History of peripheral neuropathy with MRSA. 12.History of coronary artery disease/ stent. 13.History of anxiety. 14.Remote history of nicotine dependence. 15.FULL CODE. RECOMMENDATIONS AND DISCUSSION: In this 78-year-old gentleman who presented with multiple complex medical issues, we will monitor the patient closely, continue the current medications, management and symptomatic treatment. Continue with a small dose of IV diuretics. Monitor fluid and electrolytes balance closely. Monitor blood sugars closely. Continue the antiplatelet agents. Closely follow with Neurology and MRI scan. Otherwise, continue to monitor. PT/OT evaluation. Guarded prognosis. Further recommendations to follow. See orders for details. MMODL / IJN: [id number] / MTDD
[2019-05-28 21:03] LABS: Glucose,Whole Blood 99 mg/dL (75-99)
[2019-05-28] MEDS: ASPIRIN 81 MG PO SCH (21:18)
[2019-05-28] MEDS: ATORVASTATIN 40 MG TAB PO SCH (21:18)
[2019-05-29 07:06] LABS: Glucose,Whole Blood 165 mg/dL (75-99)
[2019-05-29] MEDS: IPRATROPIUM-ALBUTEROL 3 ML NEB INHALATION SCH ×4 (07:09→19:35)
[2019-05-29] MEDS: CHOLECALCIFEROL 1,000 UNIT TAB PO SCH (07:52)
[2019-05-29] MEDS: MULTIVITAMINS, THERA 1 EACH TAB PO SCH (07:52)
[2019-05-29] MEDS: GABAPENTIN 300 MG CAP PO SCH ×4 (07:53→21:04)
[2019-05-29] MEDS: FUROSEMIDE 10 MG/ML 4 ML VIAL IV SCH (07:53)
[2019-05-29] MEDS: POTASSIUM CHLORIDE ER 20 MEQ TAB.ER PO SCH (07:53)
[2019-05-29] MEDS: OXYBUTYNIN XL 5 MG TAB.ER.24 PO SCH (07:53)
[2019-05-29] MEDS: PANTOPRAZOLE 40 MG TABLET PO SCH (07:53)
[2019-05-29] MEDS: FOLIC ACID 1 MG TAB PO SCH (07:53)
[2019-05-29] MEDS: MAGNESIUM OXIDE 400 MG TAB PO SCH ×2 (07:53→17:19)
[2019-05-29] MEDS: DONEPEZIL 10 MG TAB PO SCH (07:53)
[2019-05-29] MEDS: CARVEDILOL 3.125 MG TAB PO SCH ×2 (07:53→17:19)
[2019-05-29] MEDS: HEPARIN SODIUM,PORCINE 5,000 UNIT/ML 1 ML VIAL SQ SCH ×2 (07:54→21:04)
[2019-05-29] MEDS: INSULIN ASPART (NovoLOG) 100 UNIT/ML VIAL SQ SCH ×7 (07:54→20:54)
[2019-05-29] MEDS: HYDROXYCHLOROQUINE SULFATE 200 MG TAB PO SCH ×2 (07:55→17:19)
[2019-05-29] MEDS: INSULIN DETEMIR (LEVEMIR) 100 UNIT/ML SYR SQ SCH ×2 (07:58→21:04)
[2019-05-29] MEDS: SODIUM CHLORIDE 0.9% 1,000 ML IV SCH (07:59)
[2019-05-29 08:05] LABS: Basophils % (A) 0 %; Eosinophils # (A) 0.3 k/uL (0-0.7); Eosinophils % (A) 3 %; HCT 35.2 % (39.0-53.0); HGB 11.8 gm/dL (13.0-17.5); Lymphocytes # (A) 1.3 k/uL (1.0-4.8); Lymphocytes % (A) 16 %; MCH 28.7 pg (25.0-35.0); MCHC 33.4 g/dL (31.0-37.0); MCV 85.7 fL (80.0-100.0); Mean Platelet Volume 7.3; Monocytes # (A) 0.2 k/uL (0-1.0); Monocytes % (A) 3 %; Neutrophils # (A) 6.4 k/uL (1.3-7.7); Neutrophils % (A) 77 %; Platelet Count 258 k/uL (150-450); RBC 4.11 m/uL (4.30-5.90); RDW 15.6 % (11.5-15.5); WBC 8.4 k/uL (3.8-10.6)
[2019-05-29 08:18] LABS: Calcium 8.2 mg/dL (8.4-10.2)
[2019-05-29 11:55] LABS: Glucose,Whole Blood 155 mg/dL (75-99)
[2019-05-29] MEDS: metFORMIN 500 MG TAB PO SCH (12:08)
[2019-05-29 17:11] LABS: Glucose,Whole Blood 110 mg/dL (75-99)
[2019-05-29] MEDS: TAMSULOSIN 0.4 MG CAP.ER.24H PO SCH (17:19)
--- NOTE | 2019-05-29 19:25 | PN ---
PROGRESS NOTE DATE OF SERVICE: 05/29/2019 This 78-year-old gentleman admitted with shortness of breath which is multifactorial, COPD, CHF exacerbation being closely monitored at this time. The patient also had significant weakness and gait dysfunction. MRI of the brain is pending at this time. Neurology is following the patient closely. PT/OT evaluation is also ongoing at this time. EXAM: Alert and oriented x2. Pulse is 57, blood pressure 114/60, respirations 16, temperature 97.9, pulse ox 94% on room air. skin: Normal. HEENT: Conjunctivae normal. Oral mucosa moist. NECK: No jugular venous distention. No lymph node enlargement. CARDIOVASCULAR: S1, S2. RESPIRATORY: Diminished breath sounds at the bases. A few scattered rhonchi and crackles. ABDOMEN: Soft, obese, nontender. LEGS: No edema, no swelling. NERVOUS SYSTEM: No focal deficits. LABS: WBC 8.2, hemoglobin 11.8, sodium 139, potassium 4, calcium is 8.2. ASSESSMENT: 1. Shortness of breath possibly multifactorial including chronic obstructive pulmonary disease acute exacerbation as well as congestive heart failure acute exacerbation with ejection fraction unknown. 2. Tiredness, weakness possibly secondary to dehydration and gait dysfunction. Rule out acute stroke. MRI of the brain pending. 3. Multiple falls and possible degenerative joint disease. 4. Parkinson's disease. 5. Increased WBC. 6. Elevated lactic acid with no evidence of infection. 7. History of dementia. 8. Diabetes mellitus type 2. 9. Hypertension. 10.Hyperlipidemia. 11.History of peripheral neuropathy and MRSA. 12.History of coronary artery disease, stent. 13.History of anxiety. 14.Remote history of nicotine dependence. 15.FULL CODE. RECOMMENDATIONS AND DISCUSSION: Recommend to continue current medical management, continue to monitor and symptomatic treatment. Continue with combination of diuretics and bronchodilators. I would continue with current medications. Monitor blood sugars closely. PT/OT evaluation, possible ECF rehab. Guarded prognosis. Further recommendations to follow. MMODL / IJN: [id number] /
[2019-05-29 20:00] LABS: Glucose,Whole Blood 116 mg/dL (75-99)
[2019-05-29] MEDS: ATORVASTATIN 40 MG TAB PO SCH (21:04)
[2019-05-30] MEDS: IPRATROPIUM-ALBUTEROL 3 ML NEB INHALATION SCH ×4 (07:15→19:51)
[2019-05-30 07:19] LABS: Glucose,Whole Blood 183 mg/dL (75-99)
[2019-05-30] MEDS: INSULIN DETEMIR (LEVEMIR) 100 UNIT/ML SYR SQ SCH ×2 (08:30→21:05)
[2019-05-30] MEDS: FOLIC ACID 1 MG TAB PO SCH (08:31)
[2019-05-30] MEDS: MULTIVITAMINS, THERA 1 EACH TAB PO SCH (08:31)
[2019-05-30] MEDS: CARVEDILOL 3.125 MG TAB PO SCH ×2 (08:31→16:59)
[2019-05-30] MEDS: MAGNESIUM OXIDE 400 MG TAB PO SCH ×2 (08:31→16:59)
[2019-05-30] MEDS: DONEPEZIL 10 MG TAB PO SCH (08:31)
[2019-05-30] MEDS: PANTOPRAZOLE 40 MG TABLET PO SCH (08:31)
[2019-05-30] MEDS: GABAPENTIN 300 MG CAP PO SCH ×4 (08:31→21:07)
[2019-05-30] MEDS: OXYBUTYNIN XL 5 MG TAB.ER.24 PO SCH (08:31)
[2019-05-30] MEDS: CHOLECALCIFEROL 1,000 UNIT TAB PO SCH (08:32)
[2019-05-30] MEDS: HEPARIN SODIUM,PORCINE 5,000 UNIT/ML 1 ML VIAL SQ SCH ×2 (08:32→21:07)
[2019-05-30] MEDS: POTASSIUM CHLORIDE ER 20 MEQ TAB.ER PO SCH (08:32)
[2019-05-30] MEDS: FUROSEMIDE 10 MG/ML 4 ML VIAL IV SCH (08:32)
[2019-05-30] MEDS: HYDROXYCHLOROQUINE SULFATE 200 MG TAB PO SCH ×2 (08:33→17:02)
--- NOTE | 2019-05-30 08:38 | P.PN ---
Subjective This is a pleasant 78 years old male with past medical history of dementia, diabetes mellitus, hyperlipidemia, hypertension, rheumatoid arthritis, n europathy and chronic ataxia, coronary artery disease status post stent placement, osteoarthritis mainly in the right knee status post replacement. Patient presents because he fell 3 times over 2 days without losing consciousness, patient states that he has chronic ataxia and he uses a walker however over the last 2 weeks his been getting slightly weaker, he denies respiratory or urinary symptoms however this morning he said he is a little bit short of breath, and on examination he has some suprapubic discomfort. On reviewing his medical records he has few spikes of leukocytosis and he had a fever one time 2 days ago, no more fever over the last 2 days. Repeat labs from this morning are pending. Patient had regular bowel movement, no rash. No chest pain, no coughing. Patient has been evaluated by neurologist and recommended MRI of the brain and echo which are pending. Review of systems CONSTITUTIONAL: No fever, no malaise, no fatigue. HEENT: No recent visual problems or hearing problems. Denied any sore throat. CARDIOVASCULAR: No orthopnea, PND, no palpitations, no syncope. PULMONARY: no cough, no hemoptysis. GASTROINTESTINAL: No diarrhea, no nausea, no vomiting, no abdominal pain. Normoactive bowel sounds. NEUROLOGICAL: No headaches, no weakness, no numbness. HEMATOLOGICAL: Denies any bleeding or petechiae. GENITOURINARY: Denies any burning micturition, frequency, or urgency. MUSCULOSKELETAL/RHEUMATOLOGICAL: Denies any joint pain, swelling, or any muscle pain. ENDOCRINE: Denies any polyuria or polydipsia. Active Medications Generic Name Dose Route Start Last Admin Trade Name Kongq PRN Reason Stop Dose Admin Hydrocodone Bitart/Acetaminophen 1 each 05/26/19 18:09 05/27/19 07:35 [place] 5-325 PO 1 each Q4HR PRN Administration Pain Albuterol/Ipratropium 3 ml 05/27/19 12:00 05/30/19 07:15 Duoneb 0.5 Mg-3 Mg/3 Ml Soln INHALATION 3 ml RT-QID FERNANDO Administration Aspirin 81 mg 05/26/19 21:00 05/28/19 21:18 Aspirin PO 81 mg Q48H FERNANDO Administration Atorvastatin Calcium 40 mg 05/26/19 21:00 05/29/19 21:04 Lipitor PO 40 mg HS FERNANDO Administration Carvedilol 3.125 mg 05/27/19 07:30 05/30/19 08:31 Coreg PO 3.125 mg AC-BID FERNANDO Administration Cholecalciferol 1,000 unit 05/27/19 07:30 05/30/19 08:32 Vitamin D3 (25 Mcg = 1000 Iu) PO 1,000 unit AC-BRKFST FERNANDO Administration Donepezil HCl 10 mg 05/27/19 07:30 05/30/19 08:31 Aricept PO 10 mg AC-BRKFST FERNANDO Administration Fluticasone Propionate 2 spray 05/26/19 20:43 Flonase Nasal [place] EA NOSTRIL DAILY PRN Allergy Symptoms Folic Acid 1 mg 05/27/19 12:00 05/30/19 08:31 Folic Acid PO 1 mg DAILY@1200 FERNANDO Administration Furosemide 40 mg 05/27/19 15:45 05/30/19 08:32 Lasix IV 40 mg DAILY FERNANDO Administration Gabapentin 300 mg 05/26/19 21:00 05/30/19 08:31 Neurontin PO 300 mg ACHS FERNANDO Administration Heparin Sodium (Porcine) 5,000 unit 05/26/19 21:00 05/30/19 08:32 Heparin SQ 5,000 unit Q12HR FERNANDO Administration Hydroxychloroquine Sulfate 200 mg 05/27/19 07:30 05/30/19 08:33 Plaquenil PO 200 mg AC-BID FERNANDO Administration Insulin Aspart 0 unit 05/26/19 17:30 05/29/19 20:54 Novolog SQ Not Given ACHS [facility] Protocol Insulin Aspart 17 unit 05/27/19 17:30 05/29/19 17:15 Novolog SQ Not Given AC-SUPPER FERNANDO Insulin Aspart 14 unit 05/27/19 12:30 05/29/19 12:08 Novolog SQ 14 unit AC-LUNCH FERNANDO Administration Insulin Aspart 10 unit 05/27/19 07:30 05/29/19 07:54 Novolog SQ 10 unit AC-BRKFST FERNANDO Administration Insulin Detemir 45 unit 05/26/19 21:00 05/30/19 08:30 Levemir SQ 45 unit BID@0700,2100 FERNANDO Administration Ketotifen Fumarate 2 drops 05/26/19 20:43 Zaditor BOTH EYES DAILY PRN Allergy Symptoms Magnesium Oxide 400 mg 05/27/19 07:30 05/30/19 08:31 Mag-Ox PO 400 mg AC-BID FERNANDO Administration Metformin HCl 1,000 mg 05/27/19 12:30 05/29/19 12:08 Glucophage PO 1,000 mg AC-LUNCH FERNANDO Administration Metoclopramide HCl 5 mg 05/26/19 20:43 Reglan PO ACHS PRN GERD Miscellaneous Information 1 each 05/27/19 10:11 Potassium Per Protocol MISCELLANE DAILY PRN Per Protocol Protocol Morphine Sulfate 4 mg 05/26/19 17:12 05/26/19 17:23 Morphine Sulfate (Inj) IVP 4 mg Q6HR PRN Administration Pain Multivitamins 1 each 05/27/19 12:00 05/30/19 08:31 Theragran PO 1 each DAILY@1200 FERNANDO Administration Naloxone HCl 0.2 mg 05/26/19 16:15 Narcan IV Q2M PRN Opioid Reversal Nitroglycerin 0.4 mg 05/26/19 20:43 Nitrostat SUBLINGUAL Q5M PRN Chest Pain Oxybutynin Chloride 10 mg 05/27/19 09:00 05/30/19 08:31 Ditropan Xl PO 10 mg DAILY FERNANDO Administration Pantoprazole Sodium 40 mg 05/27/19 07:30 05/30/19 08:31 Protonix PO 40 mg AC-BRKFST FERNANDO Administration Potassium Chloride 40 meq 05/27/19 09:00 05/30/19 08:32 K-Dur 20 PO 40 meq DAILY FERNANDO Administration Tamsulosin HCl 0.4 mg 05/27/19 17:30 05/29/19 17:19 Flomax PO 0.4 mg AC-SUPPER FERNANDO Administration Temazepam 15 mg 05/26/19 20:46 Restoril PO HS PRN Insomnia Triamcinolone Acetonide 1 applic 05/26/19 20:43 Kenalog TOPICAL BID PRN Rash Objective - Vital Signs Vital signs: Vital Signs Temp 97.8 F 05/30/19 04:30 Pulse 98 05/30/19 07:26 Resp 20 05/30/19 04:30 BP 136/72 05/30/19 04:30 Pulse Ox 95 05/30/19 04:30 Intake & Output 05/29/19 05/30/19 05/30/19 18:59 06:59 18:59 Intake Total 0 300 Balance 0 300 Intake: Intake, IV Titration 0 Amount Sodium Chloride 0.9% 1, 0 000 ml @ 75 mls/hr IV . [id number] FERNANDO Rx#:[id number] Oral 300 Other: # Voids 1 - Exam -GENERAL: The patient is alert and oriented x3, not in any acute distress. Obese HEENT: Pupils are round and equally reacting to light. EOMI. No scleral icterus. No conjunctival pallor. Normocephalic, atraumatic. No pharyngeal erythema. No thyromegaly. CARDIOVASCULAR: S1 and S2 present. No murmurs, rubs, or gallops. PULMONARY: Chest is clear to auscultation, no wheezing or crackles. ABDOMEN: Soft, nontender, nondistended, normoactive bowel sounds. No palpable organomegaly. MUSCULOSKELETAL: No joint swelling or deformity. -EXTREMITIES: No cyanosis, clubbing, or pedal edema. About 3 inches ecchymosis in the left upper forearm with redness and swelling no tenderness, the area is more warm than the surrounding area, and there is close want NEUROLOGICAL: Gross neurological examination did not reveal any focal deficits. SKIN: No rashes. no petechiae. - Labs CBC & Chem 7: 05/29/19 07:39 05/29/19 07:39 Labs: Abnormal Lab Results - Last 24 Hours (Table) 05/29/19 05/29/19 05/29/19 Range/Units 11:49 17:10 19:56 POC Glucose (mg/dL) 155 H 110 H 116 H (75-99) mg/dL 05/30/19 Range/Units 07:09 POC Glucose (mg/dL) 183 H (75-99) mg/dL Assessment and Plan Assessment: Multiple falls Left forearm ecchymosis and possible cellulitis Generalized weakness Obesity History of mild dementia Diabetes mellitus Hyperlipidemia Hypertension Chronic rheumatoid arthritis including right hand for 10 years Chronic ataxia for 4-5 years Neuropathy Primary osteoarthritis status post right knee replacement Plan: This is a pleasant 78 years old male who presents with multiple falls and ecchymosis on the left forearm, patient has been evaluated by neurologist who recommended MRI of the brain and echocardiogram which are pending. Patient is suspected to have infection in his body, possible place is the ecchymosis and cellulitis of the left forearm as it is more warm than the surrounding area, redness is obscured by the ecchymosis. However we'll repeat urinalysis and chest x-ray. start the patient on Keflex for possible cellulitis.. Follow-up recommendation by neurologist. Labs and medication were reviewed.. Continue same treatment. Continue with symptomatic treatment. Resume home medication. Monitor lytes and vitals. DVT and GI prophylaxis. Further recommendations of the clinical course of the patient DVT prophylaxis: Subcutaneous heparin GI Prophylaxis: Protonix PT/OT: Pending Prognosis is guarded
[2019-05-30 09:03] LABS: Basophils % (A) 0 %; Eosinophils # (A) 0.3 k/uL (0-0.7); Eosinophils % (A) 4 %; HCT 36.6 % (39.0-53.0); HGB 12.2 gm/dL (13.0-17.5); Lymphocytes # (A) 1.4 k/uL (1.0-4.8); Lymphocytes % (A) 16 %; MCH 28.6 pg (25.0-35.0); MCHC 33.3 g/dL (31.0-37.0); MCV 85.8 fL (80.0-100.0); Mean Platelet Volume 6.4; Monocytes # (A) 0.3 k/uL (0-1.0); Monocytes % (A) 3 %; Neutrophils # (A) 6.7 k/uL (1.3-7.7); Neutrophils % (A) 75 %; Platelet Count 293 k/uL (150-450); RBC 4.26 m/uL (4.30-5.90); RDW 15.9 % (11.5-15.5); WBC 8.9 k/uL (3.8-10.6)
[2019-05-30 09:06] LABS: Appearance,Urine Clear (Clear); Bilirubin,Urine Negative (Negative); Blood,Urine Negative (Negative); Color,Urine Yellow; Glucose,Urine (UA) Negative (Negative); Ketones,Urine Negative (Negative); Leukocyte Esterase,Urine Negative (Negative); Nitrite,Urine Negative (Negative); Protein,Urine Trace (Negative); Specific Gravity,Urine 1.014 (1.001-1.035); Urobilinogen,Urine <2.0 mg/dL (<2.0)
[2019-05-30 09:38] LABS: Calcium 8.8 mg/dL (8.4-10.2); Magnesium 1.6 mg/dL (1.6-2.3); Potassium 4.1 mmol/L (3.5-5.1)
[2019-05-30] MEDS: CLINDAMYCIN 150 MG CAP PO SCH ×2 (09:55→21:07)
[2019-05-30] MEDS: INSULIN ASPART (NovoLOG) 100 UNIT/ML VIAL SQ SCH ×7 (09:57→21:02)
[2019-05-30 09:59] LABS: Glucose,Whole Blood 257 mg/dL (75-99)
[2019-05-30 11:59] LABS: Glucose,Whole Blood 212 mg/dL (75-99)
[2019-05-30] MEDS: metFORMIN 500 MG TAB PO SCH (12:35)
--- NOTE | 2019-05-30 13:10 | ECHOF ---
Referral Reason:chf MEASUREMENTS -------- HEIGHT: 167.6 cm WEIGHT: 125.6 kg BP: 123/71 RVIDd: 3.9 cm (< 3.3) IVSd: 1.5 cm (0.6 - 1.1) LVIDd: 4.0 cm (3.9 - 5.3) LVPWd: 1.5 cm (0.6 - 1.1) IVSs: 1.9 cm LVIDs: 2.5 cm LVPWs: 2.2 cm LA Diam: 4.0 cm (2.7 - 3.8) LAESV Index (A-L): 41.98 ml/m Ao Diam: 3.2 cm (2.0 - 3.7) AV Cusp: 1.9 cm (1.5 - 2.6) MV EXCURSION: 17.007 mm (> 18.000) MV EF SLOPE: 75 mm/s (70 - 150) EPSS: 0.3 cm AV maxP.00 mmHg AV meanP.04 mmHg AR PHT: 1006 ms RAP: 15.00 mmHg RVSP: 42.51 mmHg FINDINGS -------- Atrial fibrillation. This was a technically difficult study with suboptimal views. The left ventricular size is normal. There is moderate concentric left ventricular hypertrophy. O verall left ventricular systolic function is normal with, an EF between 55 - 60 %. The right ventricle is mild to moderately enlarged. LA is severely dilated >40 ml/m2 The right atrium was not well visualized. 5 ml of Lumason was utilized for enhancement of images. Interatrial and interventricular septum intact. There is mild aortic valve sclerosis. There is mild aortic regurgitation. There is mild aortic st enosis present. Peak/mean gradient across the Aortic Valve is 20.00mmHg / 11.04mmHg. Mild mitral annular calcification present. Mild tricuspid regurgitation present. There is mild pulmonary hypertension. The right ventricular systolic pressure, as measured by Doppler, is 42.51mmHg. The pulmonic valve was not well visualized. The aortic root size is normal. The inferior vena cava is dilated with poor inspiratory collapse which is consistent with estimated r ight atrial pressure of 15 mmHg. There is no pericardial effusion. CONCLUSIONS -------- 1. Atrial fibrillation. 2. This was a technically difficult study with suboptimal views. 3. The left ventricular size is normal. 4. There is moderate concentric left ventricular hypertrophy. 5. Overall left ventricular systolic function is normal with, an EF between 55 - 60 %. 6. The right ventricle is mild to moderately enlarged. 7. LA is severely dilated >40 ml/m2 8. The right atrium was not well visualized. 9. 5 ml of Lumason was utilized for enhancement of images. 10. Interatrial and interventricular septum intact. 11. There is mild aortic valve sclerosis. 12. There is mild aortic regurgitation. 13. There is mild aortic stenosis present. 14. Peak/mean gradient across the Aortic Valve is 20.00mmHg / 11.04mmHg. 15. Mild mitral annular calcification present. 16. Mild tricuspid regurgitation present. 17. There is mild pulmonary hypertension. 18. The right ventricular systolic pressure, as measured by Doppler, is 42.51mmHg. 19. The pulmonic valve was not well visualized. 20. The aortic root size is normal. 21. The inferior vena cava is dilated with poor inspiratory collapse which is consistent with estimat ed right atrial pressure of 15 mmHg. 22. There is no pericardial effusion. CRTS: Clementina Morales RDCS
--- NOTE | 2019-05-30 15:12 | XR ---
EXAMINATION TYPE: XR chest 1V DATE OF EXAM: 05/30/2019 COMPARISON: 05/26/2019 HISTORY: Shortness of breath TECHNIQUE: Single frontal view of the chest is obtained. FINDINGS: There is no focal air space opacity, pleural effusion, or pneumothorax seen. The cardiac silhouette size is enlarged. The osseous structures are intact. IMPRESSION: Stable cardiomegaly. No acute process.
[2019-05-30 16:52] LABS: Glucose,Whole Blood 110 mg/dL (75-99)
[2019-05-30] MEDS: TAMSULOSIN 0.4 MG CAP.ER.24H PO SCH (16:59)
[2019-05-30 18:11] LABS: Glucose,Whole Blood 91 mg/dL (75-99)
--- NOTE | 2019-05-30 19:47 | P.PN ---
Subjective Progress Note Date: 05/30/19 Patient is laying comfortably in the bed. Offers no complaints. Patient states that he came to the hospital because he fell 3 times in 2 days. His legs got weak and fell. MRI was initiated by Dr. Hayes, but patient could not fit in the MRI scanner. Patient denies any neck pain. He does have back pain since he had low back surgery 10-15 years ago but is "livable". Denies any numbness or tingling in the legs. He has diabetes. Patient also has been seen by Dr. Anderson in December 2018. Parkinson's was suspected and he was given a trial of Sinemet. Patient is on Reglan, 5 mg at night as needed. Although it is not a large toes, but still can produce drug-induced parkinsonism. Patient's computed tomography scan of the head showed no acute fracture or dislocation of the cervical spine. No acute intracranial process. Moderate degenerative disc disease of the cervical spine and straightening of the usual cervical lordosis that may related to muscular strain/spasm or patient positioning. Diffuse white matter change likely on the basis of chronic microangiopathy. Patient has a normal MAURILIO scan on 03/11/2019. Patient's blood test shows negative RPR, hemoglobin A1c 6.2 on 01/15/2019. B12 1890 on 03/01/2019 with B6 low 4. Thyroid functions are normal. Immune fixation electrophoresis was difficult to exclude a paraprotein in the IgG and [place] region. Correlation needed. Objective - Vital Signs Vital signs: Vital Signs Temp 97.2 F L 05/30/19 12:40 Pulse 87 05/30/19 15:42 Resp 18 05/30/19 12:40 BP 151/89 05/30/19 12:40 Pulse Ox 98 05/30/19 15:28 Intake & Output 05/30/19 05/30/19 05/31/19 06:59 18:59 06:59 Intake Total 300 Balance 300 Intake: Oral 300 Other: # Voids 1 2 - Exam Patient's mental status, speech and language functions appear stable. His muscle strength is normal in the arms and legs. Reflexes are trace and symmetric and plantars are possible withdrawal. No clonus. - Labs CBC & Chem 7: 05/30/19 08:42 05/30/19 08:42 Labs: Abnormal Lab Results - Last 24 Hours (Table) 05/29/19 05/30/19 05/30/19 Range/Units 19:56 07:09 08:40 RBC (4.30-5.90) m/uL Hgb (13.0-17.5) gm/dL Hct (39.0-53.0) % RDW (11.5-15.5) % BUN (9-20) mg/dL Glucose (74-99) mg/dL POC Glucose (mg/dL) 116 H 183 H (75-99) mg/dL Urine Protein Trace H (Negative) 05/30/19 05/30/19 05/30/19 Range/Units 08:42 08:42 09:57 RBC 4.26 L (4.30-5.90) m/uL Hgb 12.2 L (13.0-17.5) gm/dL Hct 36.6 L (39.0-53.0) % RDW 15.9 H (11.5-15.5) % BUN 23 H (9-20) mg/dL Glucose 215 H (74-99) mg/dL POC Glucose (mg/dL) 257 H (75-99) mg/dL Urine Protein (Negative) 05/30/19 05/30/19 Range/Units 11:50 16:41 RBC (4.30-5.90) m/uL Hgb (13.0-17.5) gm/dL Hct (39.0-53.0) % RDW (11.5-15.5) % BUN (9-20) mg/dL Glucose (74-99) mg/dL POC Glucose (mg/dL) 212 H 110 H (75-99) mg/dL Urine Protein (Negative) Assessment and Plan Assessment: * Frequent falls, possible multifactorial. Patient has possible mild diabetic neuropathy, with sensory ataxia. 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 MAURILIO negative for idiopathic Parkinson's disease. * Vitamin B6 deficiency * History of lumbar surgery in the past. Plan: * Suggest discontinuing Reglan, if possible. * We will start vitamin B6 50 mg daily for vitamin B6 deficiency. * Consider PT and OT. * Your medical management.
[2019-05-30 20:18] LABS: Glucose,Whole Blood 86 mg/dL (75-99)
[2019-05-30] MEDS: ASPIRIN 81 MG PO SCH (21:07)
[2019-05-30] MEDS: ATORVASTATIN 40 MG TAB PO SCH (21:07)
[2019-05-31 07:23] LABS: Glucose,Whole Blood 172 mg/dL (75-99)
[2019-05-31] MEDS: HEPARIN SODIUM,PORCINE 5,000 UNIT/ML 1 ML VIAL SQ SCH ×2 (07:23→20:33)
[2019-05-31] MEDS: INSULIN DETEMIR (LEVEMIR) 100 UNIT/ML SYR SQ SCH ×2 (07:23→21:03)
[2019-05-31] MEDS: INSULIN ASPART (NovoLOG) 100 UNIT/ML VIAL SQ SCH ×7 (07:23→21:02)
[2019-05-31] MEDS: GABAPENTIN 300 MG CAP PO SCH ×4 (07:24→20:33)
[2019-05-31] MEDS: FUROSEMIDE 10 MG/ML 4 ML VIAL IV SCH (07:24)
[2019-05-31] MEDS: POTASSIUM CHLORIDE ER 20 MEQ TAB.ER PO SCH (07:24)
[2019-05-31] MEDS: CARVEDILOL 3.125 MG TAB PO SCH (07:24)
[2019-05-31] MEDS: PANTOPRAZOLE 40 MG TABLET PO SCH (07:24)
[2019-05-31] MEDS: CLINDAMYCIN 150 MG CAP PO SCH ×2 (07:24→21:02)
[2019-05-31] MEDS: HYDROXYCHLOROQUINE SULFATE 200 MG TAB PO SCH ×2 (07:24→19:03)
[2019-05-31] MEDS: MAGNESIUM OXIDE 400 MG TAB PO SCH ×2 (07:24→17:23)
[2019-05-31] MEDS: CHOLECALCIFEROL 1,000 UNIT TAB PO SCH (07:24)
[2019-05-31] MEDS: PYRIDOXINE 50 MG TAB PO SCH (07:25)
[2019-05-31] MEDS: OXYBUTYNIN XL 5 MG TAB.ER.24 PO SCH (07:25)
[2019-05-31] MEDS: DONEPEZIL 10 MG TAB PO SCH (07:25)
[2019-05-31] MEDS: IPRATROPIUM-ALBUTEROL 3 ML NEB INHALATION SCH ×4 (07:33→21:05)
[2019-05-31 09:24] LABS: Basophils % (A) 0 %; Eosinophils # (A) 0.2 k/uL (0-0.7); Eosinophils % (A) 3 %; HCT 36.2 % (39.0-53.0); HGB 11.4 gm/dL (13.0-17.5); Lymphocytes % (A) 12 %; MCH 27.1 pg (25.0-35.0); MCHC 31.6 g/dL (31.0-37.0); MCV 85.8 fL (80.0-100.0); Mean Platelet Volume 6.3; Monocytes # (A) 0.3 k/uL (0-1.0); Monocytes % (A) 3 %; Neutrophils # (A) 6.9 k/uL (1.3-7.7); Neutrophils % (A) 82 %; Platelet Count 280 k/uL (150-450); RBC 4.21 m/uL (4.30-5.90); RDW 15.8 % (11.5-15.5); WBC 8.4 k/uL (3.8-10.6)
[2019-05-31 09:34] LABS: Calcium 8.6 mg/dL (8.4-10.2); Magnesium 1.4 mg/dL (1.6-2.3); Potassium 3.7 mmol/L (3.5-5.1)
--- NOTE | 2019-05-31 11:39 | P.PN ---
Subjective This is a pleasant 78 years old male with past medical history of dementia, diabetes mellitus, hyperlipidemia, hypertension, rheumatoid arthritis, n europathy and chronic ataxia, coronary artery disease status post stent placement, osteoarthritis mainly in the right knee status post replacement. Patient presents because he fell 3 times over 2 days without losing consciousness, patient states that he has chronic ataxia and he uses a walker however over the last 2 weeks his been getting slightly weaker, he denies respiratory or urinary symptoms however this morning he said he is a little bit short of breath, and on examination he has some suprapubic discomfort. On reviewing his medical records he has few spikes of leukocytosis and he had a fever one time 2 days ago, no more fever over the last 2 days. Repeat labs from this morning are pending. Patient had regular bowel movement, no rash. No chest pain, no coughing. Patient has been evaluated by neurologist and recommended MRI of the brain and echo which are pending. 05/31/2019 Patient feels stronger today about 80% better, however he still feeling wobbly although also there is improvement in his balance problem, patient could not do MRI of the brain because of his body habitus, however echocardiogram is showing ejection fraction of 55-60% with moderate concentric left ventricular hypertrophy and atrial fibrillation, we will check EKG and we are going to consult cardiology. Low magnesium is been replaced. Reglan has been is continuing as per neurologist recommendation however patient was not getting it completely. Objective - Vital Signs Vital signs: Vital Signs Temp 97.6 F 05/31/19 04:45 Pulse 80 05/31/19 11:31 Resp 20 05/31/19 04:45 BP 149/76 05/31/19 04:45 Pulse Ox 93 L 05/31/19 07:35 Intake & Output 05/30/19 05/31/19 05/31/19 18:59 06:59 18:59 Intake Total 300 Balance 300 Intake: Oral 300 Other: Voiding Method Urinal # Voids 2 2 # Bowel Movements 1 - Exam -GENERAL: The patient is alert and oriented x3, not in any acute distress. Obese HEENT: Pupils are round and equally reacting to light. EOMI. No scleral icterus. No conjunctival pallor. Normocephalic, atraumatic. No pharyngeal erythema. No thyromegaly. CARDIOVASCULAR: S1 and S2 present. No murmurs, rubs, or gallops. PULMONARY: Chest is clear to auscultation, no wheezing or crackles. ABDOMEN: Soft, nontender, nondistended, normoactive bowel sounds. No palpable organomegaly. MUSCULOSKELETAL: No joint swelling or deformity. -EXTREMITIES: No cyanosis, clubbing, or pedal edema. About 3 inches ecchymosis in the left upper forearm with redness and swelling no tenderness, the area is more warm than the surrounding area, and there is close want NEUROLOGICAL: Gross neurological examination did not reveal any focal deficits. SKIN: No rashes. no petechiae. - Labs CBC & Chem 7: 05/31/19 08:39 05/31/19 08:39 Labs: Abnormal Lab Results - Last 24 Hours (Table) 05/30/19 05/30/19 05/31/19 Range/Units 11:50 16:41 07:16 RBC (4.30-5.90) m/uL Hgb (13.0-17.5) gm/dL Hct (39.0-53.0) % RDW (11.5-15.5) % Chloride (98-107) mmol/L BUN (9-20) mg/dL Glucose (74-99) mg/dL POC Glucose (mg/dL) 212 H 110 H 172 H (75-99) mg/dL Magnesium (1.6-2.3) mg/dL 05/31/19 05/31/19 Range/Units 08:39 08:39 RBC 4.21 L (4.30-5.90) m/uL Hgb 11.4 L (13.0-17.5) gm/dL Hct 36.2 L (39.0-53.0) % RDW 15.8 H (11.5-15.5) % Chloride 97 L (98-107) mmol/L BUN 23 H (9-20) mg/dL Glucose 187 H (74-99) mg/dL POC Glucose (mg/dL) (75-99) mg/dL Magnesium 1.4 L (1.6-2.3) mg/dL Assessment and Plan Assessment: Multiple falls Left forearm ecchymosis and possible cellulitis, improving Generalized weakness, improving Abnormal echocardiogram with atrial fibrillation and LVH. Ejection fraction 55- 60% Obesity History of mild dementia Diabetes mellitus Hyperlipidemia Hypertension Chronic rheumatoid arthritis including right hand for 10 years Chronic ataxia for 4-5 years Neuropathy Primary osteoarthritis status post right knee replacement Plan: This is a pleasant 78 years old male who presents with multiple falls and ecchymosis on the left forearm, patient has been evaluated by neurologist who recommended MRI of the brain could not be done because of body habitus. Left forearm cellulitis is better, strength is better. Continue with oral clindamycin. Consult cardiology for his abnormal echo with LVH and atrial fibrillation. Labs and medication were reviewed.. Continue same treatment. Continue with symptomatic treatment. Resume home medication. Monitor lytes and vitals. DVT and GI prophylaxis. Further recommendations of the clinical course of the patient DVT prophylaxis: Subcutaneous heparin GI Prophylaxis: Protonix PT/OT: Recommended subacute rehab, patient was reluctant. Discussed with the patient and he is thinking about it Prognosis is guarded
[2019-05-31 11:46] LABS: Glucose,Whole Blood 178 mg/dL (75-99)
[2019-05-31] MEDS: FOLIC ACID 1 MG TAB PO SCH (11:48)
[2019-05-31] MEDS: MULTIVITAMINS, THERA 1 EACH TAB PO SCH (11:48)
[2019-05-31] MEDS: MAGNESIUM SULFATE-D5W PMX 1 GM in DEXTROSE/WATER 1 100ML.BAG IVPB SCH ×3 (11:48→14:20)
[2019-05-31] MEDS: metFORMIN 500 MG TAB PO SCH (11:48)
--- NOTE | 2019-05-31 13:00 | P.CRDCN ---
History of Present Illness History of present illness: HISTORY OF PRESENTING ILLNESS This is a pleasant 78-year-old male past medical history significant for coronary artery disease status post PCI in [place] exact details unavailable, hypertension, dyslipidemia, diabetes mellitus, chronic lower extremity edema and dementia. He follows in the office with Dr. Beach. We have been asked to see in consultation for abnormal echocardiogram. He initially presented to the emergency department with symptoms of generalized weakness and ataxia. He has been seen by neurology and an MRI requested, however he has been unable to complete. Questionable parkinsonian symptoms vs neuropathy. He is seen and examined sitting up in the chair in no acute distress. He denies chest pain, dizziness, shortness of breath, palpitations or diaphoresis. He also denies any LOC and states that when he falls it is due to loss of balance and lower extremity weakness. He states his stenting was done over 5-yrs ago in [place], he recently established here in [facility] with Dr. Beach and underwent a Lexiscan stress test that showed partial reversibility in the apex. Echocardiogram obtained also at that time revealed preserved LV systolic func tion with EF 55%, mild-moderate AR, mild MR, mild and mild TR. Repeat done here per PCP was similar. There was a comment about a-fib in the findings prompting this consultation. DIAGNOSTICS EKG reveals sinus mechanism heart rate of 73. Chest xray on admission negative for an acute cardiopulmonary process. Repeat yesterday stable with no acute cardiopulmonary process. CT of the brain is negative for an acute process with moderate degenerative disc disease of the cervical spine and straightening of the usual cervical lordosis. Diffuse cerebral atrophy with nonspecific white matter changes likely the basis of chronic microangiopathy. Laboratory reviewed, WBC 8.4, hemoglobin 11.4, platelets 280, sodium 139, potassium 3.7, creatinine 1.4, magnesium 1.4, cardiac enzymes negative 1, NT pr oBNP 548, lactic acid on admission 2. 3 repeat 1.4. Current cardiac medications include Bumex 1 mg daily, carvedilol 3.125 mg twice a day, Zaroxolyn 2.5 mg twice a day, aspirin 81 mg every other day and atorvastatin 40 mg at that time. REVIEW OF SYSTEMS At the time of my exam: CONSTITUTIONAL: Denies fever or chills. CARDIOVASCULAR: Denies chest pain, shortness of breath, orthopnea, PND or palpit ations. RESPIRATORY: Denies cough. GASTROINTESTINAL: Denies abdominal pain, diarrhea, constipation, nausea or vomiting. MUSCULOSKELETAL: Denies myalgias. NEUROLOGIC: Denies numbness, tingling or weakness. ENDOCRINE: Denies fatigue, weight change, polydipsia or polyurina. GENITOURINARY: Denies burning, hematuria or urgency with micturation. HEMATOLOGIC: Denies history of anemia or bleeding. PHYSICAL EXAMINATION Blood pressure 149/76 heart rate 88 afebrile and maintaining oxygen saturation on room air. CONSTITUTIONAL: No apparent distress. Obese. HEENT: Head is normocephalic. Pupils are equal, round. Sclerae anicteric. Mucous membranes of the mouth are moist. No JVD. No carotid bruit. CHEST EXAMINATION: Lungs are clear to auscultation. No chest wall tenderness is noted on palpation or with deep breathing. Diminished bilaterally. HEART EXAMINATION: Irregular rate and rhythm. S1, S2 heard. Systolic ejection murmurs, gallops or rub. Distant and tachycardic. ABDOMEN: Soft, nontender. Positive bowel sounds. EXTREMITIES: 1+ peripheral pulses, bilateral 1+ pitting lower extremity edema and no calf tenderness. Ecchymosis and skin tears noted to left arm below the elbow. NEUROLOGIC EXAMINATION: Patient is awake, alert and oriented x3. ASSESSMENT Paroxysmal atrial fibrillation with variable ventricular rates Frequent falls Generalized weakness Hypomagnesemia Valvular heart disease History of coronary artery disease status post prior PCI, exact details unavailable Hypertension Dyslipidemia Diabetes mellitus Obesity, BMI 44 History of dementia PLAN Replace magnesium per protocol. Repeat EKG. Transfer to [facility] with telemetry for closer monitoring. detention anti-coagulation should be considered for thrombo-embolic protection, however given his frequent falls and ataxia this may not be appropriate at this time. Will discuss with neurology. Increase coreg to 6.25 mg BID. Thank you kindly for this consultation. Nurse Practitioner note has been reviewed, I agree with a documented findings and plan of care. Patient was seen and examined. Past Medical History Past Medical History: Dementia, Diabetes Mellitus, Hyperlipidemia, Hypertension, Rheumatoid Arthritis (RA) Additional Past Medical History / Comment(s): Neuropathy History of Any Multi-Drug Resistant Organisms: MRSA Date of last positivie culture/infection: 03/31/19 MDRO Source:: Toe,Left first Past Surgical History: Heart Catheterization With Stent, Orthopedic Surgery Additional Past Surgical History / Comment(s): 2 stents per patient, Right knee replacement, hernia repair, Past Anesthesia/Blood Transfusion Reactions: No Reported Reaction Additional Past Anesthesia/Blood Transfusion Reaction / Comment(s): per patient he has had a blood transfusion without reaction Date of Last Stent Placement:: unk Past Psychological History: Anxiety Smoking Status: Never smoker Past Alcohol Use History: None Reported Past Drug Use History: None Reported Additional Drug Use History / Comment(s): patient states he used to chew tobacco mainly, but also smoked lightly. - Past Family History Father Additional Family Medical History / Comment(s): gastric ulcers with surgical repair. Mother Family Medical History: CVA/TIA Medications and Allergies Home Medications Medication Instructions Recorded Confirmed Type Acetaminophen/Diphenhydramine 2 tab PO HS 01/13/19 05/26/19 History [Tylenol PM 500-25mg] Aspirin 81 mg PO Q48H 01/13/19 05/26/19 History Atorvastatin [Lipitor] 40 mg PO HS 01/13/19 05/26/19 History Bumetanide 1 mg PO AC-BRKFST 01/13/19 05/26/19 History Carvedilol [Coreg] 3.125 mg PO AC-BID 01/13/19 05/26/19 History Cholecalciferol [Vitamin D3 (25 1,000 unit PO AC-BRKFST 01/13/19 05/26/19 History Mcg = 1000 Iu)] Donepezil [Aricept] 10 mg PO AC-BRKFST 01/13/19 05/26/19 History Fluticasone Nasal [place] [Flonase 2 spr EA NOSTRIL DAILY PRN 01/13/19 05/26/19 History Nasal [place]] Gabapentin [Neurontin] 300 mg PO ACHS 01/13/19 05/26/19 History Glucagon Emergency Kit 1 mg IM ONCE PRN 01/13/19 05/26/19 History Hydroxychloroquine Sulfate 200 mg PO AC-BID 01/13/19 05/26/19 History [Plaquenil] Insulin Detemir [Levemir Flextouch] 45 unit SQ BID 01/13/19 05/26/19 History Insulin Lispro [humaLOG Kwikpen] 10 unit SQ AC-BRKFST 01/13/19 05/26/19 History Insulin Lispro [humaLOG Kwikpen] 14 unit SQ AC-LUNCH 01/13/19 05/26/19 History Insulin Lispro [humaLOG Kwikpen] 17 unit SQ AC-SUPPER 01/13/19 05/26/19 History Magnesium Oxide 400 mg PO AC-BID 01/13/19 05/26/19 History Metoclopramide [Reglan] 5 mg PO ACHS PRN 01/13/19 05/26/19 History Metolazone [Zaroxolyn] 2.5 mg PO AC-BID 01/13/19 05/26/19 History Nitroglycerin Sl Tabs [Nitrostat] 0.4 mg SUBLINGUAL Q5M PRN 01/13/19 05/26/19 History Olopatadine HCl [Patanol] 2 drops BOTH EYES DAILY PRN 01/13/19 05/26/19 History [place]-3 Fatty Acids/Fish Oil [Fish 1 cap PO AC-LUNCH 01/13/19 05/26/19 History Oil 1,000 mg Softgel] Tamsulosin [Flomax] 0.4 mg PO AC-SUPPER 01/13/19 05/26/19 History Triamcinolone 0.1% Cream [Kenalog 1 applic TOPICAL BID PRN 01/13/19 05/26/19 History 0.1% Cream] clonazePAM [Klonopin ODT Wafer] 0.25 mg PO BID@0900,1700 01/13/19 05/26/19 History clonazePAM [Klonopin ODT Wafer] 0.5 mg PO HS 01/13/19 05/26/19 History metFORMIN HCL [Glucophage] 1,000 mg PO AC-LUNCH 01/13/19 05/26/19 History Potassium Chloride ER [K-Dur 20] 40 meq PO DAILY 05/26/19 05/26/19 History Tolterodine Tartrate [Detrol LA] 4 mg PO DAILY 05/26/19 05/26/19 History Allergies Allergy/AdvReac Type Severity Reaction Status Date / Time clarithromycin [From Biaxin] Allergy Rash/Hives Verified 05/26/19 17:49 ibuprofen [From Motrin] Allergy Unknown Verified 05/26/19 17:49 Penicillins Allergy Rash/Hives Verified 05/26/19 17:49 Physical Exam Vitals: Vital Signs Temp Pulse Pulse Resp BP Pulse Ox 05/31/19 11:42 88 05/31/19 11:31 80 05/31/19 07:47 88 05/31/19 07:35 88 93 L 05/31/19 04:45 97.6 F 91 20 149/76 93 L 05/30/19 22:00 98.1 F 104 H 20 117/71 95 05/30/19 20:05 76 05/30/19 19:51 76 05/30/19 15:42 87 05/30/19 15:28 87 98 05/30/19 12:40 97.2 F L 91 18 151/89 100 Intake and Output 05/30/19 05/31/19 05/31/19 22:59 06:59 14:59 Intake Total 200 100 Balance 200 100 Intake: Oral 200 100 Other: Voiding Method Urinal # Voids 1 2 # Bowel Movements 1 Results 05/31/19 08:39 05/31/19 08:39 CBC 05/31/19 Range/Units 08:39 WBC 8.4 (3.8-10.6) k/uL RBC 4.21 L (4.30-5.90) m/uL Hgb 11.4 L (13.0-17.5) gm/dL Hct 36.2 L (39.0-53.0) % Plt Count 280 (150-450) k/uL Comprehensive Metabolic Panel 05/31/19 Range/Units 08:39 Sodium 139 (137-145) mmol/L Potassium 3.7 (3.5-5.1) mmol/L Chloride 97 L (98-107) mmol/L Carbon Dioxide 29 (22-30) mmol/L BUN 23 H (9-20) mg/dL Creatinine 1.24 (0.66-1.25) mg/dL Glucose 187 H (74-99) mg/dL Calcium 8.6 (8.4-10.2) mg/dL Current Medications Generic Name Dose Route Start Last Admin Trade Name Freq PRN Reason Stop Dose Admin Hydrocodone Bitart/Acetaminophen 1 each 05/26/19 18:09 05/27/19 07:35 [place] 5-325 PO 1 each Q4HR PRN Administration Pain Albuterol/Ipratropium 3 ml 05/27/19 12:00 05/31/19 11:29 Duoneb 0.5 Mg-3 Mg/3 Ml Soln INHALATION 3 ml RT-QID FERNANDO Administration Aspirin 81 mg 05/26/19 21:00 05/30/19 21:07 Aspirin PO 81 mg Q48H FERNANDO Administration Atorvastatin Calcium 40 mg 05/26/19 21:00 05/30/19 21:07 Lipitor PO 40 mg HS FERNANDO Administration Carvedilol 3.125 mg 05/27/19 07:30 05/31/19 07:24 Coreg PO 3.125 mg AC-BID FERNANDO Administration Cholecalciferol 1,000 unit 05/27/19 07:30 05/31/19 07:24 Vitamin D3 (25 Mcg = 1000 Iu) PO 1,000 unit AC-BRKFST FERNANDO Administration Clindamycin HCl 300 mg 05/30/19 09:00 05/31/19 07:24 Cleocin PO 06/02/19 09:01 300 mg BID FERNANDO Administration Donepezil HCl 10 mg 05/27/19 07:30 05/31/19 07:25 Aricept PO 10 mg AC-BRKFST FERNANDO Administration Fluticasone Propionate 2 spray 05/26/19 20:43 Flonase Nasal [place] EA NOSTRIL DAILY PRN Allergy Symptoms Folic Acid 1 mg 05/27/19 12:00 05/31/19 11:48 Folic Acid PO 1 mg DAILY@1200 FERNANDO Administration Furosemide 40 mg 05/27/19 15:45 05/31/19 07:24 Lasix IV 40 mg DAILY FERNANDO Administration Gabapentin 300 mg 05/26/19 21:00 05/31/19 11:48 Neurontin PO 300 mg ACHS FERNANDO Administration Heparin Sodium (Porcine) 5,000 unit 05/26/19 21:00 05/31/19 07:23 Heparin SQ 5,000 unit Q12HR FERNANDO Administration Hydroxychloroquine Sulfate 200 mg 05/27/19 07:30 05/31/19 07:24 Plaquenil PO 200 mg AC-BID FERNANDO Administration Magnesium Sulfate/Dextrose 1 100 mls @ 100 mls/hr 05/31/19 12:00 gm/ IV Solution IVPB 05/31/19 13:59 Q1H FERNANDO Insulin Aspart 0 unit 05/26/19 17:30 05/31/19 07:23 Novolog SQ 2 unit ACHS FERNANDO Administration Protocol Insulin Aspart 17 unit 05/27/19 17:30 05/30/19 18:10 Novolog SQ Not Given AC-SUPPER FERNANDO Insulin Aspart 14 unit 05/27/19 12:30 05/30/19 12:35 Novolog SQ 14 unit AC-LUNCH FERNANDO Administration Insulin Aspart 10 unit 05/27/19 07:30 05/31/19 07:23 Novolog SQ 10 unit AC-BRKFST FERNANDO Administration Insulin Detemir 45 unit 05/26/19 21:00 05/31/19 07:23 Levemir SQ 45 unit BID@0700,2100 FERNANDO Administration Ketotifen Fumarate 2 drops 05/26/19 20:43 Zaditor BOTH EYES DAILY PRN Allergy Symptoms Magnesium Oxide 400 mg 05/27/19 07:30 05/31/19 07:24 Mag-Ox PO 400 mg AC-BID FERNANDO Administration Metformin HCl 1,000 mg 05/27/19 12:30 05/31/19 11:48 Glucophage PO 1,000 mg AC-LUNCH FERNANDO Administration Miscellaneous Information 1 each 05/27/19 10:11 Potassium Per Protocol MISCELLANE DAILY PRN Per Protocol Protocol Morphine Sulfate 4 mg 05/26/19 17:12 05/26/19 17:23 Morphine Sulfate (Inj) IVP 4 mg Q6HR PRN Administration Pain Multivitamins 1 each 05/27/19 12:00 05/31/19 11:48 Theragran PO 1 each DAILY@1200 FERNANDO Administration Naloxone HCl 0.2 mg 05/26/19 16:15 Narcan IV Q2M PRN Opioid Reversal Nitroglycerin 0.4 mg 05/26/19 20:43 Nitrostat SUBLINGUAL Q5M PRN Chest Pain Oxybutynin Chloride 10 mg 05/27/19 09:00 05/31/19 07:25 Ditropan Xl PO 10 mg DAILY FERNANDO Administration Pantoprazole Sodium 40 mg 05/27/19 07:30 05/31/19 07:24 Protonix PO 40 mg AC-BRKFST FERNANDO Administration Potassium Chloride 40 meq 05/27/19 09:00 05/31/19 07:24 K-Dur 20 PO 40 meq DAILY FERNANDO Administration Pyridoxine HCl 50 mg 05/31/19 09:00 05/31/19 07:25 Vitamin B-6 PO 50 mg DAILY FERNANDO Administration Tamsulosin HCl 0.4 mg 05/27/19 17:30 05/30/19 16:59 Flomax PO 0.4 mg AC-SUPPER FERNANDO Administration Temazepam 15 mg 05/26/19 20:46 Restoril PO HS PRN Insomnia Triamcinolone Acetonide 1 applic 05/26/19 20:43 Kenalog TOPICAL BID PRN Rash Intake and Output 05/30/19 05/31/19 05/31/19 22:59 06:59 14:59 Intake Total 200 100 Balance 200 100 Intake: Oral 200 100 Other: Voiding Method Urinal # Voids 1 2 # Bowel Movements 1 05/31/19 08:39 05/31/19 08:39
--- NOTE | 2019-05-31 16:47 | P.PN ---
Subjective Progress Note Date: 05/31/19 Patient is laying comfortably in the recliner. Offers no complaints. Patient now has been diagnosed with atrial fibrillation for which cardiology has seen the patient. Patient states that he came to the hospital because he fell 3 times in 2 days. His legs got weak and fell. Patient states that he has history of falls in the past. He is a walker at home. MRI of the brain was initiated by Dr. Hayes, but patient could not fit in the MRI scanner. Patient denies any neck pain. He does have back pain since he had low back surgery 10-15 years ago but the pain is "livable". Denies any numbness or tingling in the legs. He has diabetes. Patient also has been seen by Dr. Anderson in December 2018. Parkinson's was suspected and he was given a trial of Sinemet. Patient is on Reglan, 5 mg at night as nee ded. Although it is not a large dose, but still can produce drug-induced parkinsonism. Patient's computed tomography scan of the head showed no acute fracture or dislocation of the cervical spine. No acute intracranial process. Moderate degenerative disc disease of the cervical spine and straightening of the usual cervical lordosis that may related to muscular strain/spasm or patient positioni ng. Diffuse white matter change likely on the basis of chronic microangiopathy. Patient has a normal MAURILIO scan on 03/11/2019. Patient's blood test shows negative RPR, hemoglobin A1c 6.2 on 01/15/2019. B12 1890 on 03/01/2019 with B6 low 4. Thyroid functions are normal. Immune fixation electrophoresis was difficult to exclude a paraprotein in the IgG and [place] region. Correlation needed. Objective - Vital Signs Vital signs: Vital Signs Temp 98.0 F 05/31/19 13:46 Pulse 94 05/31/19 16:14 Resp 18 05/31/19 13:46 BP 105/65 05/31/19 13:46 Pulse Ox 93 L 05/31/19 16:09 Intake & Output 05/30/19 05/31/19 05/31/19 18:59 06:59 18:59 Intake Total 300 540 Balance 300 540 Intake: Oral 300 540 Other: Voiding Method Urinal # Voids 2 2 2 # Bowel Movements 1 - Exam Patient's mental status, speech and language functions appear stable. His muscle strength is normal in the arms and legs. Reflexes are trace and symmetric and plantars are possible withdrawal. No clonus. - Labs CBC & Chem 7: 05/31/19 08:39 05/31/19 08:39 Labs: Abnormal Lab Results - Last 24 Hours (Table) 05/30/19 05/31/19 05/31/19 Range/Units 16:41 07:16 08:39 RBC 4.21 L (4.30-5.90) m/uL Hgb 11.4 L (13.0-17.5) gm/dL Hct 36.2 L (39.0-53.0) % RDW 15.8 H (11.5-15.5) % Chloride (98-107) mmol/L BUN (9-20) mg/dL Glucose (74-99) mg/dL POC Glucose (mg/dL) 110 H 172 H (75-99) mg/dL Magnesium (1.6-2.3) mg/dL 05/31/19 05/31/19 Range/Units 08:39 11:43 RBC (4.30-5.90) m/uL Hgb (13.0-17.5) gm/dL Hct (39.0-53.0) % RDW (11.5-15.5) % Chloride 97 L (98-107) mmol/L BUN 23 H (9-20) mg/dL Glucose 187 H (74-99) mg/dL POC Glucose (mg/dL) 178 H (75-99) mg/dL Magnesium 1.4 L (1.6-2.3) mg/dL Assessment and Plan Assessment: * Frequent falls, possible multifactorial. Patient has possible mild diabetic neuropathy, with sensory ataxia. 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 MAURILIO negative for idiopathic Parkinson's disease. * Paroxysmal atrial fibrillation. * Vitamin B6 deficiency, on replacement * History of lumbar surgery in the past. Plan: * Patient has paroxysmal atrial fibrillation. He does have multiple vascular risk factors. May start anticoagulation, although need to discuss risks and benefits of long-term anticoagulation with the patient. I tried to explain the patient about the risk and benefits, and he understands. He was recommended to use walker regularly to prevent falls. Neurologically clear for starting anticoagulation. * Suggest discontinuing Reglan, if possible. * PT and OT evaluate gait and fall risk. * Your medical management.
[2019-05-31 16:52] LABS: Glucose,Whole Blood 112 mg/dL (75-99)
[2019-05-31] MEDS: TAMSULOSIN 0.4 MG CAP.ER.24H PO SCH (17:23)
[2019-05-31] MEDS: CARVEDILOL 6.25 MG TAB PO SCH (17:23)
[2019-05-31 20:14] LABS: Glucose,Whole Blood 89 mg/dL (75-99)
[2019-05-31] MEDS: ATORVASTATIN 40 MG TAB PO SCH (20:33)
[2019-05-31] MEDS ORDERED: SIMETHICONE 80 MG CHEWABLE PO PRN (21:00)
[2019-06-01 06:48] LABS: Basophils % (A) 0 %; Eosinophils # (A) 0.3 k/uL (0-0.7); Eosinophils % (A) 3 %; HGB 10.7 gm/dL (13.0-17.5); Lymphocytes # (A) 1.1 k/uL (1.0-4.8); Lymphocytes % (A) 12 %; MCH 26.9 pg (25.0-35.0); MCHC 31.6 g/dL (31.0-37.0); Mean Platelet Volume 6.9; Monocytes # (A) 0.3 k/uL (0-1.0); Monocytes % (A) 4 %; Neutrophils # (A) 7.7 k/uL (1.3-7.7); Neutrophils % (A) 80 %; Platelet Count 265 k/uL (150-450); RDW 15.9 % (11.5-15.5); WBC 9.5 k/uL (3.8-10.6)
[2019-06-01] MEDS: CHOLECALCIFEROL 1,000 UNIT TAB PO SCH (06:48)
[2019-06-01] MEDS: CARVEDILOL 6.25 MG TAB PO SCH ×2 (06:48→17:58)
[2019-06-01] MEDS: DONEPEZIL 10 MG TAB PO SCH (06:48)
[2019-06-01] MEDS: PANTOPRAZOLE 40 MG TABLET PO SCH ×2 (06:48→17:58)
[2019-06-01] MEDS: GABAPENTIN 300 MG CAP PO SCH ×4 (06:48→21:02)
[2019-06-01] MEDS: MAGNESIUM OXIDE 400 MG TAB PO SCH ×2 (06:48→17:58)
[2019-06-01] MEDS: HYDROXYCHLOROQUINE SULFATE 200 MG TAB PO SCH ×2 (06:48→17:58)
[2019-06-01 06:56] LABS: Calcium 8.7 mg/dL (8.4-10.2); Magnesium 1.8 mg/dL (1.6-2.3); Potassium 3.5 mmol/L (3.5-5.1)
[2019-06-01 07:02] LABS: Glucose,Whole Blood 100 mg/dL (75-99)
[2019-06-01] MEDS: INSULIN DETEMIR (LEVEMIR) 100 UNIT/ML SYR SQ SCH ×2 (07:09→21:01)
[2019-06-01] MEDS: INSULIN ASPART (NovoLOG) 100 UNIT/ML VIAL SQ SCH ×7 (07:09→21:02)
[2019-06-01] MEDS: CALCIUM CARBONATE 500 MG CHEWABLE PO PRN (07:09)
[2019-06-01] MEDS: IPRATROPIUM-ALBUTEROL 3 ML NEB INHALATION SCH ×4 (08:51→20:58)
[2019-06-01] MEDS: FUROSEMIDE 10 MG/ML 4 ML VIAL IV SCH (08:57)
[2019-06-01] MEDS: HEPARIN SODIUM,PORCINE 5,000 UNIT/ML 1 ML VIAL SQ SCH (08:58)
[2019-06-01] MEDS: OXYBUTYNIN XL 5 MG TAB.ER.24 PO SCH (08:58)
[2019-06-01] MEDS: POTASSIUM CHLORIDE ER 20 MEQ TAB.ER PO SCH (08:58)
[2019-06-01] MEDS: CLINDAMYCIN 150 MG CAP PO SCH ×2 (08:59→21:02)
[2019-06-01] MEDS: PYRIDOXINE 50 MG TAB PO SCH (08:59)
[2019-06-01 10:12] VITALS: RESP 18
--- NOTE | 2019-06-01 10:19 | P.PN ---
Subjective This is a pleasant 78 years old male with past medical history of dementia, diabetes mellitus, hyperlipidemia, hypertension, rheumatoid arthritis, n europathy and chronic ataxia, coronary artery disease status post stent placement, osteoarthritis mainly in the right knee status post replacement. Patient presents because he fell 3 times over 2 days without losing consciousness, patient states that he has chronic ataxia and he uses a walker however over the last 2 weeks his been getting slightly weaker, he denies respiratory or urinary symptoms however this morning he said he is a little bit short of breath, and on examination he has some suprapubic discomfort. On reviewing his medical records he has few spikes of leukocytosis and he had a fever one time 2 days ago, no more fever over the last 2 days. Repeat labs from this morning are pending. Patient had regular bowel movement, no rash. No chest pain, no coughing. Patient has been evaluated by neurologist and recommended MRI of the brain and echo which are pending. 05/31/2019 Patient feels stronger today about 80% better, however he still feeling wobbly although also there is improvement in his balance problem, patient could not do MRI of the brain because of his body habitus, however echocardiogram is showing ejection fraction of 55-60% with moderate concentric left ventricular hypertrophy and atrial fibrillation, we will check EKG and we are going to consult cardiology. Low magnesium is been replaced. Reglan has been is continuing as per neurologist recommendation however patient was not getting it completely. 06/01/2019 Patient is awake and alert, he was transferred to the select unit yesterday because he was found to be in A. fib. Today he was complaining from some epigastric discomfort with gas, no specific pain however he has some mild tenderness,his discomfort was not relieved by Tums which she requested yesterday. We will increase his Protonix. In view of his A. fib , patient was recommended to start on anticoagulation and cleared by neurologist to start him on before meals. I explained in details the risks and benefits of anticoagulation and he verbalized understanding to start the therapy. Strength feels better today. Left arm cellulitis is improving Discussed with staff Review of systems CONSTITUTIONAL: No fever, no malaise, HEENT: No recent visual problems or hearing problems. Denied any sore throat. CARDIOVASCULAR: No orthopnea, PND, no palpitations, no syncope. PULMONARY: No shortness of breath, no cough, no hemoptysis. GASTROINTESTINAL: No diarrhea, no nausea, no vomiting, no abdominal pain. Normoactive bowel sounds. NEUROLOGICAL: No headaches, no specific limb weakness, no numbness. HEMATOLOGICAL: Denies any bleeding or petechiae. GENITOURINARY: Denies any burning micturition, frequency, or urgency. MUSCULOSKELETAL/RHEUMATOLOGICAL: Denies any joint pain, swelling, or any muscle pain. Active Medications Generic Name Dose Route Start Last Admin Trade Name Freq PRN Reason Stop Dose Admin Hydrocodone Bitart/Acetaminophen 1 each 05/26/19 18:09 05/27/19 07:35 [place] 5-325 PO 1 each Q4HR PRN Administration Pain Albuterol/Ipratropium 3 ml 05/27/19 12:00 06/01/19 08:51 Duoneb 0.5 Mg-3 Mg/3 Ml Soln INHALATION 3 ml RT-QID FERNANDO Administration Aspirin 81 mg 05/26/19 21:00 05/30/19 21:07 Aspirin PO 81 mg Q48H FERNANDO Administration Atorvastatin Calcium 40 mg 05/26/19 21:00 05/31/19 20:33 Lipitor PO 40 mg HS FERNANDO Administration Calcium Carbonate/Glycine 500 mg 05/31/19 22:03 06/01/19 07:09 Tums PO 500 mg QID PRN Administration Heartburn Carvedilol 6.25 mg 05/31/19 17:30 06/01/19 06:48 Coreg PO 6.25 mg BID-W/MEALS FERNANDO Administration Cholecalciferol 1,000 unit 05/27/19 07:30 06/01/19 06:48 Vitamin D3 (25 Mcg = 1000 Iu) PO 1,000 unit AC-BRKFST FERNANDO Administration Clindamycin HCl 300 mg 05/30/19 09:00 06/01/19 08:59 Cleocin PO 06/02/19 09:01 300 mg BID FERNANDO Administration Donepezil HCl 10 mg 05/27/19 07:30 06/01/19 06:48 Aricept PO 10 mg AC-BRKFST FERNANDO Administration Fluticasone Propionate 2 spray 05/26/19 20:43 Flonase Nasal [place] EA NOSTRIL DAILY PRN Allergy Symptoms Folic Acid 1 mg 05/27/19 12:00 05/31/19 11:48 Folic Acid PO 1 mg DAILY@1200 FERNANDO Administration Furosemide 40 mg 05/27/19 15:45 06/01/19 08:57 Lasix IV 40 mg DAILY FERNANDO Administration Gabapentin 300 mg 05/26/19 21:00 06/01/19 06:48 Neurontin PO 300 mg ACHS FERNANDO Administration Heparin Sodium (Porcine) 5,000 unit 05/26/19 21:00 06/01/19 08:58 Heparin SQ 5,000 unit Q12HR FRENANDO Administration Hydroxychloroquine Sulfate 200 mg 05/27/19 07:30 06/01/19 06:48 Plaquenil PO 200 mg AC-BID FERNANDO Administration Insulin Aspart 0 unit 05/26/19 17:30 06/01/19 08:11 Novolog SQ Not Given ACHS FERNANDO Protocol Insulin Aspart 17 unit 05/27/19 17:30 05/31/19 17:23 Novolog SQ 17 unit AC-SUPPER FERNANDO Administration Insulin Aspart 14 unit 05/27/19 12:30 05/31/19 12:29 Novolog SQ 14 unit AC-LUNCH FERNANDO Administration Insulin Aspart 10 unit 05/27/19 07:30 06/01/19 07:09 Novolog SQ 10 unit AC-BRKFST FERNANDO Administration Insulin Detemir 45 unit 05/26/19 21:00 06/01/19 07:09 Levemir SQ 45 unit BID@0700,2100 FERNANDO Administration Ketotifen Fumarate 2 drops 05/26/19 20:43 Zaditor BOTH EYES DAILY PRN Allergy Symptoms Magnesium Oxide 400 mg 05/27/19 07:30 06/01/19 06:48 Mag-Ox PO 400 mg AC-BID FERNANDO Administration Metformin HCl 1,000 mg 05/27/19 12:30 05/31/19 11:48 Glucophage PO 1,000 mg AC-LUNCH FERNANDO Administration Miscellaneous Information 1 each 05/27/19 10:11 Potassium Per Protocol MISCELLANE DAILY PRN Per Protocol Protocol Morphine Sulfate 4 mg 05/26/19 17:12 05/26/19 17:23 Morphine Sulfate (Inj) IVP 4 mg Q6HR PRN Administration Pain Multivitamins 1 each 05/27/19 12:00 05/31/19 11:48 Theragran PO 1 each DAILY@1200 FERNANDO Administration Naloxone HCl 0.2 mg 05/26/19 16:15 Narcan IV Q2M PRN Opioid Reversal Nitroglycerin 0.4 mg 05/26/19 20:43 Nitrostat SUBLINGUAL Q5M PRN Chest Pain Oxybutynin Chloride 10 mg 05/27/19 09:00 06/01/19 08:58 Ditropan Xl PO 10 mg DAILY FERNANDO Administration Pantoprazole Sodium 40 mg 06/01/19 17:30 Protonix PO AC-BID FERNANDO Potassium Chloride 40 meq 05/27/19 09:00 06/01/19 08:58 K-Dur 20 PO 40 meq DAILY FERNANDO Administration Pyridoxine HCl 50 mg 05/31/19 09:00 06/01/19 08:59 Vitamin B-6 PO 50 mg DAILY FERANNDO Administration Simethicone 240 mg 05/31/19 21:00 05/31/19 21:41 Mylicon Chew PO 240 mg BID PRN Administration Bloating Tamsulosin HCl 0.4 mg 05/27/19 17:30 05/31/19 17:23 Flomax PO 0.4 mg AC-SUPPER FERNANDO Administration Temazepam 15 mg 05/26/19 20:46 Restoril PO HS PRN Insomnia Triamcinolone Acetonide 1 applic 05/26/19 20:43 Kenalog TOPICAL BID PRN Rash Objective - Vital Signs Vital signs: Vital Signs Temp 97.5 F L 06/01/19 03:57 Pulse 88 06/01/19 09:03 Resp 20 06/01/19 03:57 BP 121/58 06/01/19 03:57 Pulse Ox 97 06/01/19 03:57 Intake & Output 05/31/19 06/01/19 06/01/19 18:59 06:59 18:59 Intake Total 740 240 Output Total 400 500 Balance 340 -500 240 Weight 127.6 kg Intake: Intake, IV Titration 200 Amount Magnesium Sulfate-D5w Pmx 200 1 gm In Dextrose/Water 1 100ml.bag @ 100 mls/hr IVPB Q1H FERNANDO Rx#: [id number] Oral 540 240 Output: Urine 400 500 Other: Voiding Method Urinal Urinal # Voids 1 - Exam -GENERAL: The patient is alert and oriented x3, not in any acute distress. Obese HEENT: Pupils are round and equally reacting to light. EOMI. No scleral icterus. No conjunctival pallor. Normocephalic, atraumatic. No pharyngeal erythema. No thyromegaly. CARDIOVASCULAR: S1 and S2 present. No murmurs, rubs, or gallops. PULMONARY: Chest is clear to auscultation, no wheezing or crackles. ABDOMEN: Soft, nontender, nondistended, normoactive bowel sounds. No palpable organomegaly. MUSCULOSKELETAL: No joint swelling or deformity. -EXTREMITIES: No cyanosis, clubbing, or pedal edema. About 3 inches ecchymosis in the left upper forearm with redness and swelling no tenderness, the area is less warm and less red NEUROLOGICAL: Gross neurological examination did not reveal any focal deficits. SKIN: No rashes. no petechiae. - Labs CBC & Chem 7: 06/01/19 06:16 06/01/19 06:16 Labs: Abnormal Lab Results - Last 24 Hours (Table) 05/31/19 05/31/19 06/01/19 Range/Units 11:43 16:50 06:16 RBC 4.00 L (4.30-5.90) m/uL Hgb 10.7 L (13.0-17.5) gm/dL Hct 34.0 L (39.0-53.0) % RDW 15.9 H (11.5-15.5) % POC Glucose (mg/dL) 178 H 112 H (75-99) mg/dL 06/01/19 Range/Units 07:01 RBC (4.30-5.90) m/uL Hgb (13.0-17.5) gm/dL Hct (39.0-53.0) % RDW (11.5-15.5) % POC Glucose (mg/dL) 100 H (75-99) mg/dL Assessment and Plan Assessment: new onset atrial fibrillation Multiple falls Left forearm ecchymosis and cellulitis, improving Generalized weakness, improving Abnormal echocardiogram with atrial fibrillation and LVH. Ejection fraction 55- 60% Obesity History of mild dementia Diabetes mellitus Hyperlipidemia Hypertension Chronic rheumatoid arthritis including right hand for 10 years Chronic ataxia for 4-5 years Neuropathy Primary osteoarthritis status post right knee replacement Plan: This is a pleasant 78 years old male who presents with multiple falls and ecchymosis on the left forearm, patient has been evaluated by neurologist who recommended MRI of the brain could not be done because of body habitus. Left forearm cellulitis is better, strength is better. Continue with oral clindamycin. cardiology consult is appreciated. The recommended to start the patient on anticoagulation which neurologist is agreeable. I discussed the benefits and risks with the patient and he agrees to start anticoagulation.we will discuss with cardiology team about the best options.increase Protonix to twice daily. Labs and medication were reviewed.. Continue same treatment. Continue with symptomatic treatment. Resume home medication. Monitor lytes and vitals. DVT and GI prophylaxis. Further recommendations of the clinical course of the patient DVT prophylaxis: Subcutaneous heparin GI Prophylaxis: Protonix PT/OT: Recommended subacute rehab, patient was agreeable this time. Prognosis is guarded
[2019-06-01] MEDS: MULTIVITAMINS, THERA 1 EACH TAB PO SCH (11:51)
[2019-06-01] MEDS: metFORMIN 500 MG TAB PO SCH (11:52)
[2019-06-01] MEDS: FOLIC ACID 1 MG TAB PO SCH (11:52)
[2019-06-01 11:59] LABS: Glucose,Whole Blood 62 mg/dL (75-99)
--- NOTE | 2019-06-01 14:49 | P.PN ---
Subjective Progress Note Date: 06/01/19 Patient is laying comfortably in the recliner. Offers no complaints. Patient now has been diagnosed with atrial fibrillation for which cardiology has seen the patient. Patient states that he walked in the hallway with the therapist using his walker. He did not feel dizzy. Patient states that he came to the hospital because he fell 3 times in 2 days. His legs got weak and fell. Patient states that he has history of falls in the past. He is a walker at home. MRI of the brain was initiated by Dr. Hayes, but patient could not fit in the MRI scanner. Patient denies any neck pain. He does have back pain since he had low back surgery 10-15 years ago but the pain is "livable". Denies any numbness or tingling in the legs. He has diabetes. Patient also has been seen by Dr. Anderson in December 2018. Parkinson's was suspected and he was given a trial of Sinemet. Patient is on Reglan, 5 mg at night as needed. Although it is not a large dose, but still can produce drug-induced parkinsonism. Patient's computed tomography scan of the head showed no acute fracture or dislocation of the cervical spine. No acute intracranial process. Moderate degenerative disc disease of the cervical spine and straightening of the usual cervical lordosis that may related to muscular strain/spasm or patient po sitioning. Diffuse white matter change likely on the basis of chronic microangiopathy. Patient has a normal MAURILIO scan on 03/11/2019. Patient's blood test shows negative RPR, hemoglobin A1c 6.2 on 01/15/2019. B12 1890 on 03/01/2019 with B6 low 4. Thyroid functions are normal. Immune fixation electrophoresis was difficult to exclude a paraprotein in the IgG and [place] region. Correlation needed. Objective - Vital Signs Vital signs: Vital Signs Temp 97.7 F 06/01/19 08:00 Pulse 73 06/01/19 14:03 Resp 18 06/01/19 08:00 BP 125/66 06/01/19 14:03 Pulse Ox 97 06/01/19 08:00 Intake & Output 05/31/19 06/01/19 06/01/19 18:59 06:59 18:59 Intake Total 740 480 Output Total 400 500 Balance 340 -500 480 Weight 127.6 kg Intake: Intake, IV Titration 200 Amount Magnesium Sulfate-D5w Pmx 200 1 gm In Dextrose/Water 1 100ml.bag @ 100 mls/hr IVPB Q1H [facility] Rx#: [id number] Oral 540 480 Output: Urine 400 500 Other: Voiding Method Urinal Urinal # Voids 1 1 - Exam Patient's mental status, speech and language functions appear stable. His muscle strength is normal in the arms and legs. Reflexes are trace and symmetric and plantars are possible withdrawal. No clonus. Patient has no tremors of outstretched hands. No significant tremors for [id number] testing. Occasional tremor at rest was noted in the right hand. Orthostatics was performed. His supine blood pressure was 125/66 with pulse rate 72. On standing up the blood pressure was 122/69 with pulse rate of 77. - Labs CBC & Chem 7: 06/01/19 06:16 06/01/19 06:16 Labs: Abnormal Lab Results - Last 24 Hours (Table) 05/31/19 06/01/19 06/01/19 Range/Units 16:50 06:16 07:01 RBC 4.00 L (4.30-5.90) m/uL Hgb 10.7 L (13.0-17.5) gm/dL Hct 34.0 L (39.0-53.0) % RDW 15.9 H (11.5-15.5) % POC Glucose (mg/dL) 112 H 100 H (75-99) mg/dL 06/01/19 Range/Units 11:56 RBC (4.30-5.90) m/uL Hgb (13.0-17.5) gm/dL Hct (39.0-53.0) % RDW (11.5-15.5) % POC Glucose (mg/dL) 62 L (75-99) mg/dL Assessment and Plan Assessment: * Frequent falls, possible multifactorial. Patient has possible mild diabetic neuropathy, with sensory ataxia. 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 MAURILIO negative for idiopathic Parkinson's disease. * Paroxysmal atrial fibrillation. * Vitamin B6 deficiency, on replacement * History of lumbar surgery in the past. * Morbid obesity. Plan: * Patient has paroxysmal atrial fibrillation. He does have multiple vascular risk factors. May start anticoagulation, although need to discuss risks and benefits of long-term anticoagulation with the patient. * Patient is off Reglan now. * We will check carotid Doppler because of recurrent falls, to rule out carotid stenosis. * PT and OT evaluate gait and fall risk.
--- NOTE | 2019-06-01 15:52 | P.PN ---
Subjective Progress Note Date: 06/01/19 This is a pleasant 78-year-old male past medical history significant for coronary artery disease status post PCI in [place] exact details unavailable, hypertension, dyslipidemia, diabetes mellitus, chronic lower extremity edema and dementia. He follows in the office with Dr. Beach. We have been asked to see in consultation for abnormal echocardiogram. He initially presented to the emergency department with symptoms of generalized weakness and ataxia. He has been seen by neurology and an MRI requested, however he has been unable to complete. Questionable parkinsonian symptoms vs neuropathy. He is seen and examined sitting up in the chair in no acute distress. He denies chest pain, dizziness, shortness of breath, palpitations or diaphoresis. He also denies any LOC and states that when he falls it is due to loss of balance and lower extremity weakness. He states his stenting was done over 5-yrs ago in [place], he recently established here in [facility] with Dr. Beach and underwent a Lexiscan stress test that showed partial reversibility in the apex. Echocardiogram obtained also at that time revealed preserved LV systolic function with EF 55%, mild-moderate AR, mild MR, mild and mild TR. Repeat done here per PCP was similar. There was a comment about a-fib which was recent cardiology was initially consulted. He is in atrial fibrillation today the rate remains under adequate control. Blood pressures are stable, no orthostatics, heart rate in the 70s. Objective - Vital Signs Vital signs: Vital Signs Temp 97.7 F 06/01/19 08:00 Pulse 88 06/01/19 15:46 Resp 18 06/01/19 08:00 BP 125/66 06/01/19 14:03 Pulse Ox 97 06/01/19 08:00 Intake & Output 05/31/19 06/01/19 06/01/19 18:59 06:59 18:59 Intake Total 740 480 Output Total 400 500 Balance 340 -500 480 Weight 127.6 kg Intake: Intake, IV Titration 200 Amount Magnesium Sulfate-D5w Pmx 200 1 gm In Dextrose/Water 1 100ml.bag @ 100 mls/hr IVPB Q1H [facility]ERNA[facility]O Rx#: [id number] Oral 540 480 Output: Urine 400 500 Other: Voiding Method Urinal Urinal # Voids 1 1 - Exam PHYSICAL EXAMINATION Blood pressure 149/76 heart rate 88 afebrile and maintaining oxygen saturation on room air. CONSTITUTIONAL: No apparent distress. Obese. HEENT: Head is normocephalic. Pupils are equal, round. Sclerae anicteric. Mucous membranes of the mouth are moist. No JVD. No carotid bruit. CHEST EXAMINATION: Lungs are clear to auscultation. No chest wall tenderness is noted on palpation or with deep breathing. Diminished bilaterally. HEART EXAMINATION: Irregular rate and rhythm. S1, S2 heard. Systolic ejection mu rmurs, gallops or rub. Distant and tachycardic. ABDOMEN: Soft, nontender. Positive bowel sounds. EXTREMITIES: 1+ peripheral pulses, bilateral 1+ pitting lower extremity edema and no calf tenderness. Ecchymosis and skin tears noted to left arm below the elbow. NEUROLOGIC EXAMINATION: Patient is awake, alert and oriented x3. - Labs CBC & Chem 7: 06/01/19 06:16 06/01/19 06:16 Labs: Abnormal Lab Results - Last 24 Hours (Table) 05/31/19 06/01/19 06/01/19 Range/Units 16:50 06:16 07:01 RBC 4.00 L (4.30-5.90) m/uL Hgb 10.7 L (13.0-17.5) gm/dL Hct 34.0 L (39.0-53.0) % RDW 15.9 H (11.5-15.5) % POC Glucose (mg/dL) 112 H 100 H (75-99) mg/dL 06/01/19 Range/Units 11:56 RBC (4.30-5.90) m/uL Hgb (13.0-17.5) gm/dL Hct (39.0-53.0) % RDW (11.5-15.5) % POC Glucose (mg/dL) 62 L (75-99) mg/dL Assessment and Plan Plan: ASSESSMENT and plan and #1 Paroxysmal atrial fibrillation with variable ventricular rates #2Frequent falls #3Generalized weakness #4Hypomagnesemia #5Valvular heart disease #6History of coronary artery disease status post prior PCI, exact details unavailable #7Hypertension #8Dyslipidemia #9Diabetes mellitus #10Obesity, BMI 44 #11History of dementia Plan From cardiology's perspective, we'll recommend to continue the patient on his current medications. He may be transferred to medical surgical unit from our perspective. DNP note has been reviewed, I agree with a documented findings and plan of care. Patient was seen and examined.
--- NOTE | 2019-06-01 16:29 | US ---
EXAMINATION TYPE: US carotid duplex BILAT DATE OF EXAM: 06/01/2019 COMPARISON: NONE CLINICAL HISTORY: Recurrent falls, rule out stenosis. Stenosis, exam done portable. EXAM MEASUREMENTS: RIGHT: Peak Systolic Velocity (PSV) cm/sec ----- Right CCA: 43.1 ----- Right ICA: 96.7 ----- Right ECA: 86.3 ICA/CCA ratio: 2.2 RIGHT: End Diastole cm/sec ----- Right CCA: 8.3 ----- Right ICA: 27.3 ----- Right ECA: 0.0 LEFT: Peak Systolic Velocity (PSV) cm/sec ----- Left CCA: 49.1 ----- Left ICA: 86.2 ----- Left ECA: 87.4 ICA/CCA ratio: 1.8 LEFT: End Diastole cm/sec ----- Left CCA: 10.6 ----- Left ICA: 23.8 ----- Left ECA: 0.0 VERTEBRALS (direction of flow): Right Vertebral: Antegrade Left Vertebral: Antegrade Rhythm: Normal Difficult and limited study due to patient body habitus and thick neck IMPRESSION: Bilateral intimal thickening, plaque bilateral bulb, no elevated velocities, right ICA/C CA ratio 2.2 Criteria for Assigning % of Stenosis / Diameter reduction (Estimation based on the indirect measurements of the internal carotid artery velocities (ICA PSV). 1. Normal (no stenosis)=ICA PSV < 125 cm/s: ratio < 2.0: ICA EDV<40 cm/s. 2. Less than 50% stenosis=ICA PSV < 125 cm/s: ratio < 2.0: ICA EDV<40 cm/s. 3. 50 to 69% stenosis=ICA PSV of 125 to 230 cm/s: ration 2.0 ? 4.0: ICA EDV 40-100 cm/s. 4. Greater than 70% stenosis to near occlusion= ICA PSV > 230 cm/s: ratio > 4.0: ICA EDV > 100 cm/s. 5. Near occlusion= ICA PSV velocities may be low or undetectable: variable ratio and ICA EDV. 6. Total occlusion=unable to detect flow.
[2019-06-01 16:59] LABS: Glucose,Whole Blood 127 mg/dL (75-99)
[2019-06-01] MEDS: TAMSULOSIN 0.4 MG CAP.ER.24H PO SCH (17:58)
[2019-06-01 20:12] LABS: Glucose,Whole Blood 136 mg/dL (75-99)
[2019-06-01] MEDS: APIXABAN 5 MG TAB PO SCH (21:02)
[2019-06-01] MEDS: ATORVASTATIN 40 MG TAB PO SCH (21:02)
[2019-06-01] MEDS: ASPIRIN 81 MG PO SCH (21:02)
[2019-06-02 02:00] LABS: Glucose,Whole Blood 95 mg/dL (75-99)
[2019-06-02] MEDS: CALCIUM CARBONATE 500 MG CHEWABLE PO PRN (06:32)
[2019-06-02] MEDS: CARVEDILOL 6.25 MG TAB PO SCH (06:33)
[2019-06-02] MEDS: DONEPEZIL 10 MG TAB PO SCH (06:33)
[2019-06-02] MEDS: MAGNESIUM OXIDE 400 MG TAB PO SCH (06:33)
[2019-06-02] MEDS: CHOLECALCIFEROL 1,000 UNIT TAB PO SCH (06:33)
[2019-06-02] MEDS: GABAPENTIN 300 MG CAP PO SCH ×2 (06:33→12:25)
[2019-06-02] MEDS: PANTOPRAZOLE 40 MG TABLET PO SCH (06:33)
[2019-06-02] MEDS: HYDROXYCHLOROQUINE SULFATE 200 MG TAB PO SCH (06:34)
[2019-06-02] MEDS: IPRATROPIUM-ALBUTEROL 3 ML NEB INHALATION SCH ×2 (06:41→11:26)
[2019-06-02 06:51] LABS: Glucose,Whole Blood 96 mg/dL (75-99)
[2019-06-02] MEDS: INSULIN DETEMIR (LEVEMIR) 100 UNIT/ML SYR SQ SCH (06:52)
[2019-06-02] MEDS: INSULIN ASPART (NovoLOG) 100 UNIT/ML VIAL SQ SCH ×4 (06:52→12:25)
[2019-06-02 07:15] LABS: Anisocytosis Slight; Basophils % (A) 0 %; Eosinophils # (A) 0.3 k/uL (0-0.7); Eosinophils % (A) 3 %; HCT 33.3 % (39.0-53.0); HGB 10.6 gm/dL (13.0-17.5); Lymphocytes % (A) 10 %; MCH 27.5 pg (25.0-35.0); MCHC 31.9 g/dL (31.0-37.0); MCV 86.3 fL (80.0-100.0); Monocytes # (A) 0.3 k/uL (0-1.0); Monocytes % (A) 3 %; Neutrophils # (A) 8.3 k/uL (1.3-7.7); Neutrophils % (A) 83 %; Platelet Count 256 k/uL (150-450); RBC 3.86 m/uL (4.30-5.90); RDW 16.1 % (11.5-15.5)
[2019-06-02] MEDS: POTASSIUM CHLORIDE ER 20 MEQ TAB.ER PO SCH (10:35)
[2019-06-02] MEDS: FUROSEMIDE 10 MG/ML 4 ML VIAL IV SCH (10:35)
[2019-06-02] MEDS: FOLIC ACID 1 MG TAB PO SCH (10:36)
[2019-06-02] MEDS: PYRIDOXINE 50 MG TAB PO SCH (10:36)
[2019-06-02] MEDS: OXYBUTYNIN XL 5 MG TAB.ER.24 PO SCH (10:36)
[2019-06-02] MEDS: CLINDAMYCIN 150 MG CAP PO SCH (10:36)
[2019-06-02] MEDS: APIXABAN 5 MG TAB PO SCH (10:36)
[2019-06-02 11:26] VITALS: BMI 45.6
[2019-06-02] MEDS ORDERED: DOCUSATE 100 MG CAP PO SCH (12:00)
[2019-06-02 12:20] LABS: Glucose,Whole Blood 145 mg/dL (75-99)
[2019-06-02] MEDS: metFORMIN 500 MG TAB PO SCH (12:25)
[2019-06-02] MEDS: MULTIVITAMINS, THERA 1 EACH TAB PO SCH (12:26)
--- NOTE | 2019-06-02 12:44 | CDI ---
Documentation Clarification Form Date: 06/02/2019 12:40pm From: Soheila Campoverde RN CCDS Admit Date: 05/26/2019 4:09:00 PM Patient Name: Andrade Bran Visit Number: [id number] Discharge Date: ATTENTION: The Clinical Documentation Specialists (CDI) and [facility] Coding Staff appreciate your assistance in clarifying documentation. Please respond to the clarification below the line at the bottom and electronically sign. The CDI & [facility] Coding staff will review the response and follow-up if needed. Please note: Queries are made part of the Legal Health Record. If you have any questions, please contact the author of this message via ITS. Dr. Figueroa Sheet The patients principal diagnosis has not been clearly identified and requires clarification. 78-year-old male presents with increasing falls, shortness of breath and weakness. History/Risk factors: Falling, chronic ataxia, morbid obesity, Parkinsons. Medical history Dementia; DM2; HTN, Hyperlipidemia, RA , History of neuropathy, CAD with stent; Parkinsons Clinical Indicators: Lab findings: 05/26/2019 Wbc 12.7; Neutrophils 10.9; chl 97; carbon dioxide 33; Lactic acid 2.3; BNP 538; mag 1.5; Echo 05/30/2019 moderate concentric left ventricular hypertrophy. Overall left ventricular systolic function is normal with an EF between 55-60% Vital Signs: 05/26/2019 141/89 78 98.2 20 94% ra Other Clinical Indicators: Treatment:05/26 NovoLog ACHS; Levemir 45Units bid: Duoneb; Coreg 3.125 mg po bid; Lasix 40mg iv daily; Bumex 1mg po x1; 05/31 Coreg po bid; 05/30 Clindamycin 300 mg po bid; Consults: Neuro _05/31 frequent falls, possible multifactorial. Patient has possible mild diabetic neuropathy, with sensory ataxia. 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 MAURILIO negative for idopathic In your professional opinion, can you please clarify which diagnoses, after study, accounted for the patients presenting symptoms and was the reason chiefly responsible for the admission? Shortness of breath due to COPD exacerbation ruled in or ruled out Shortness of breath due to CHF exacerbation ruled in or ruled out, Frequent Falls due to mild diabetic neuropathy, with sensory ataxia rule in or rule out Frequent Falls due to mild parkinsonism, which is possible medication induced vs vascular rule in or rule out Other i think pt shortness of breath is related to his a fib , with possible effect from his infection as well (Last Revision: September 2017) MTDD
[2019-06-02 13:07] VITALS: BP 113/56; PULSE 58; TEMP 97.9
--- NOTE | 2019-06-02 13:10 | P.DS ---
Providers Date of admission: 05/26/19 16:09 Attending physician: Tamiko Sellers Consults: 05/26/19 16:16 Consult Physician Routine Consulting Provider: Renee Hayes Consult Reason/Comments: ataxia, weakness Do you want consulting provider notified?: Yes 05/31/19 11:36 Consult Physician Urgent Consulting Provider: Sandra Finch Consult Reason/Comments: Atrial fibrillation and LVH on echocardiogram Do you want consulting provider notified?: Yes Primary care physician: Isis Reyes [facility] Course: Diagnoses: Multiple falls, neurologist recommended MRI of the brain however patient could not fit New onset A. fib noticed on echocardiogram Left forearm ecchymosis and possible cellulitis. Improved Hypomagnesemia Low vitamin B6 Generalized weakness Obesity History of mild dementia Diabetes mellitus Hyperlipidemia Hypertension Chronic rheumatoid arthritis including right hand for 10 years Chronic ataxia for 4-5 years Neuropathy Primary osteoarthritis status post right knee replacement Hospital course: This is a pleasant 78 years old male with past medical history of dementia, diabetes mellitus, hyperlipidemia, hypertension, rheumatoid arthritis, neuropathy and chronic ataxia, coronary artery disease status post stent placement, osteoarthritis mainly in the right knee status post replacement. Patient presents because he fell 3 times over 2 days without losing consciousness, patient states that he has chronic ataxia and he uses a walker however over the last 2 weeks his been getting slightly weaker, On reviewing his medical records he has few spikes of leukocytosis and he had a fever one time 2 days ago, no more fever over the last 2-3 days. Patient had regular bowel movement, no rash. No chest pain, no coughing. No new urinary symptoms. However he has ecchymosis in his left upper forearm which looks infected as it was more warm and more red, patient was started on a short course of oral clindamycin and area is improving with less redness and warmth. Echocardiogram showing atrial fibrillation, ejection fraction 55-60% with moderate concentric left ventricular hypertrophy, with mild aortic stenosis.. Fruit Or Nut Farmworker recommended starting anticoagulation with Eliquis cleared by neurologist which he did. I explained the risks of Eliquis to the patient extensively over several occasions including but not limited to the risk of intracerebral hemorrhage/Samra bleeding, GI bleed, organ dysfunction and/or and he verbalized understanding and agrees to continue with therapy. Patient has been evaluated by neurologist and recommended MRI of the brain however patient could not fit into the machine, patient is referred to outpatient. Physical therapist recommended subacute rehab, patient was reluctant to go to rehab however I discussed the case with him and explained the benefits and the risks and he agrees to talk to the social director. Patient was cleared for discharge by cardiology and neurology team Problems and management plan were discussed with the patient and he verbalized understanding and acceptance Patient was found stable and can be discharged home however he needs follow-up as an outpatient. Patient was instructed to follow up with PCP within one week and patient agrees. Patient agrees with the appointments made for him with the neurologist on 06/17 at 11:00 am , cardiology office will contact the patient for appointment and he agrees. Gen: patient is a AAOx3, no distress CVS: S1-S2, RRR, no murmur Lungs: B/L CTA, no wheezing Abdomen: soft, no distention, no tenderness, positive bowel sounds Extremity: no leg edema or induration Time spent more than 35 minutes Patient Condition at Discharge: Fair Plan - Discharge Summary New Discharge Prescriptions: New Carvedilol [Coreg] 6.25 mg PO BID-W/MEALS tab Ipratropium-Albuterol Nebulize [Duoneb 0.5 mg-3 mg/3 ml Soln] 3 ml INHALATION RT-QID PRN ampul.neb PRN Reason: Shortness Of Breath Or Wheezing Apixaban [Eliquis] 5 mg PO BID tab Furosemide [Lasix] 40 mg PO DAILY #30 tablet Simethicone Chew [Mylicon Chew] 240 mg PO BID PRN chew PRN Reason: Bloating INSULIN ASPART (NovoLOG) [NovoLOG (formulary)] 0 unit SQ ACHS vial Pantoprazole [Protonix] 40 mg PO AC-BID tablet. Calcium Carbonate [Tums] 500 mg PO QID PRN chew PRN Reason: Heartburn Pyridoxine [Vitamin B-6] 50 mg PO DAILY tab HYDROcodone/APAP 5-325MG [[place] 5-325] 1 tab PO DAILY PRN 3 Days #3 tab PRN Reason: Pain Continue Triamcinolone 0.1% Cream [Kenalog 0.1% Cream] 1 applic TOPICAL BID PRN PRN Reason: Rash Nitroglycerin Sl Tabs [Nitrostat] 0.4 mg SUBLINGUAL Q5M PRN PRN Reason: Chest Pain Olopatadine HCl [Patanol] 2 drops BOTH EYES DAILY PRN PRN Reason: Allergy Symptoms Tamsulosin [Flomax] 0.4 mg PO AC-SUPPER Fluticasone Nasal [place] [Flonase Nasal [place]] 2 spr EA NOSTRIL DAILY PRN PRN Reason: Allergy Symptoms Hydroxychloroquine Sulfate [Plaquenil] 200 mg PO AC-BID Donepezil [Aricept] 10 mg PO AC-BRKFST Atorvastatin [Lipitor] 40 mg PO HS Acetaminophen/Diphenhydramine [Tylenol PM 500-25mg] 2 tab PO HS Magnesium Oxide 400 mg PO AC-BID Cholecalciferol [Vitamin D3 (25 Mcg = 1000 Iu)] 1,000 unit PO AC-BRKFST [place]-3 Fatty Acids/Fish Oil [Fish Oil 1,000 mg Softgel] 1 cap PO AC-LUNCH metFORMIN HCL [Glucophage] 1,000 mg PO AC-LUNCH Insulin Lispro [humaLOG Kwikpen] 17 unit SQ AC-SUPPER Insulin Lispro [humaLOG Kwikpen] 10 unit SQ AC-BRKFST Insulin Lispro [humaLOG Kwikpen] 14 unit SQ AC-LUNCH Insulin Detemir [Levemir Flextouch] 45 unit SQ BID Tolterodine Tartrate [Detrol LA] 4 mg PO DAILY Potassium Chloride ER [K-Dur 20] 40 meq PO DAILY Gabapentin [Neurontin] 300 mg PO ACHS #4 cap Discontinued Metoclopramide [Reglan] 5 mg PO ACHS PRN PRN Reason: GERD Carvedilol [Coreg] 3.125 mg PO AC-BID Bumetanide 1 mg PO AC-BRKFST Aspirin 81 mg PO Q48H clonazePAM [Klonopin ODT Wafer] 0.5 mg PO HS clonazePAM [Klonopin ODT Wafer] 0.25 mg PO BID@0900,1700 Metolazone [Zaroxolyn] 2.5 mg PO AC-BID Glucagon Emergency Kit 1 mg IM ONCE PRN PRN Reason: Hypoglycemia Discharge Medication List Acetaminophen/Diphenhydramine [Tylenol PM 500-25mg] 2 tab PO HS 01/13/19 [History] Atorvastatin [Lipitor] 40 mg PO HS 01/13/19 [History] Cholecalciferol [Vitamin D3 (25 Mcg = 1000 Iu)] 1,000 unit PO AC-BRKFST 01/13/19 [History] Donepezil [Aricept] 10 mg PO AC-BRKFST 01/13/19 [History] Fluticasone Nasal [place] [Flonase Nasal [place]] 2 spr EA NOSTRIL DAILY PRN 01/13/19 [History] Hydroxychloroquine Sulfate [Plaquenil] 200 mg PO AC-BID 01/13/19 [History] Insulin Detemir [Levemir Flextouch] 45 unit SQ BID 01/13/19 [History] Insulin Lispro [humaLOG Kwikpen] 10 unit SQ AC-BRKFST 01/13/19 [History] Insulin Lispro [humaLOG Kwikpen] 14 unit SQ AC-LUNCH 01/13/19 [History] Insulin Lispro [humaLOG Kwikpen] 17 unit SQ AC-SUPPER 01/13/19 [History] Magnesium Oxide 400 mg PO AC-BID 01/13/19 [History] Nitroglycerin Sl Tabs [Nitrostat] 0.4 mg SUBLINGUAL Q5M PRN 01/13/19 [History] Olopatadine HCl [Patanol] 2 drops BOTH EYES DAILY PRN 01/13/19 [History] [place]-3 Fatty Acids/Fish Oil [Fish Oil 1,000 mg Softgel] 1 cap PO AC-LUNCH 01/13/19 [History] Tamsulosin [Flomax] 0.4 mg PO AC-SUPPER 01/13/19 [History] Triamcinolone 0.1% Cream [Kenalog 0.1% Cream] 1 applic TOPICAL BID PRN 01/13/19 [History] metFORMIN HCL [Glucophage] 1,000 mg PO AC-LUNCH 01/13/19 [History] Potassium Chloride ER [K-Dur 20] 40 meq PO DAILY 05/26/19 [History] Tolterodine Tartrate [Detrol LA] 4 mg PO DAILY 05/26/19 [History] Apixaban [Eliquis] 5 mg PO BID tab 06/02/19 [Rx] Calcium Carbonate [Tums] 500 mg PO QID PRN chew 06/02/19 [Rx] Carvedilol [Coreg] 6.25 mg PO BID-W/MEALS tab 06/02/19 [Rx] Furosemide [Lasix] 40 mg PO DAILY #30 tablet 06/02/19 [Rx] Gabapentin [Neurontin] 300 mg PO ACHS #4 cap 06/02/19 [Rx] HYDROcodone/APAP 5-325MG [[place] 5-325] 1 tab PO DAILY PRN 3 Days #3 tab 06/02/19 [Rx] INSULIN ASPART (NovoLOG) [NovoLOG (formulary)] 0 unit SQ ACHS vial 06/02/19 [Rx] Ipratropium-Albuterol Nebulize [Duoneb 0.5 mg-3 mg/3 ml Soln] 3 ml INHALATION RT-QID PRN ampul.neb 06/02/19 [Rx] Pantoprazole [Protonix] 40 mg PO AC-BID tablet. 06/02/19 [Rx] Pyridoxine [Vitamin B-6] 50 mg PO DAILY tab 06/02/19 [Rx] Simethicone Chew [Mylicon Chew] 240 mg PO BID PRN chew 06/02/19 [Rx] Follow up Appointment(s)/Referral(s): Dora Gupta MD [STAFF PHYSICIAN] - 06/17/19 11:15 am (need MRI as outpt , could not fit in the hospital machine ) Isis Reyes DO [Primary Care Provider] - 10 Days [facility], [NON-STAFF] - Sandra Finch MD [STAFF PHYSICIAN] - 2 Weeks ([facility] will call patient to schedule follow-up appointment) Activity/Diet/Wound Care/Special Instructions: Cardiac diet Activity is limited till you see your doctor pt was started recently on eliquis, please monitor for any signs or symptoms of bleeding and monitor hemoglobin/hematocrit closely every 2-3 days. Discharge Disposition: TRANSFER TO SNF/ECF
--- NOTE | 2019-06-02 15:01 | P.PN ---
Subjective Progress Note Date: 06/02/19 This is a pleasant 78-year-old male past medical history significant for coronary artery disease status post PCI in [place] exact details unavailable, hypertension, dyslipidemia, diabetes mellitus, chronic lower extremity edema and dementia. He follows in the office with Dr. Beach. We have been asked to see in consultation for abnormal echocardiogram. He initially presented to the emergency department with symptoms of generalized weakness and ataxia. He has been seen by neurology and an MRI requested, however he has been unable to complete. Questionable parkinsonian symptoms vs neuropathy. He is seen and examined sitting up in the chair in no acute distress. He denies chest pain, dizziness, shortness of breath, palpitations or diaphoresis. He also denies any LOC and states that when he falls it is due to loss of balance and lower extremity weakness. He states his stenting was done over 5-yrs ago in [place], he recently established here in [facility] with Dr. Beach and underwent a Lexiscan stress test that showed partial reversibility in the apex. Echocardiogram obtained also at that time revealed preserved LV systolic function with EF 55%, mild-moderate AR, mild MR, mild and mild TR. Repeat done here per PCP was similar. There was a comment about a-fib which was recent cardiology was initially consulted. He is in atrial fibrillation today the rate remains under adequate control. Blood pressures are stable, no orthostatics, heart rate in the 70s. 06/02/2019 Patient was seen and examined this morning, hemodynamically stable. Anticipating transferred to rehab today. Heart rate in the 50s. Objective - Vital Signs Vital signs: Vital Signs Temp 97.9 F 06/02/19 11:55 Pulse 58 L 06/02/19 11:55 Resp 18 06/02/19 11:55 BP 113/56 06/02/19 11:55 Pulse Ox 93 L 06/02/19 11:55 Intake & Output 06/01/19 06/02/19 06/02/19 18:59 06:59 18:59 Intake Total 720 360 Output Total 181 330 2825 Balance 420 -400 -740 Weight 128.2 kg 128.2 kg Intake: Oral 720 360 Output: Urine 203 258 6779 Other: Voiding Method Urinal # Voids 1 1 # Bowel Movements 1 - Exam PHYSICAL EXAMINATION Blood pressure 149/76 heart rate 88 afebrile and maintaining oxygen saturation on room air. CONSTITUTIONAL: No apparent distress. Obese. HEENT: Head is normocephalic. Pupils are equal, round. Sclerae anicteric. Mucous membranes of the mouth are moist. No JVD. No carotid bruit. CHEST EXAMINATION: Lungs are clear to auscultation. No chest wall tenderness is noted on palpation or with deep breathing. Diminished bilaterally. HEART EXAMINATION: Irregular rate and rhythm. S1, S2 heard. Systolic ejection murmurs, gallops or rub. Distant and tachycardic. ABDOMEN: Soft, nontender. Positive bowel sounds. EXTREMITIES: 1+ peripheral pulses, bilateral 1+ pitting lower extremity edema and no calf tenderness. Ecchymosis and skin tears noted to left arm below the elbow. NEUROLOGIC EXAMINATION: Patient is awake, alert and oriented x3. - Labs CBC & Chem 7: 06/02/19 06:51 06/01/19 06:16 Labs: Abnormal Lab Results - Last 24 Hours (Table) 06/01/19 06/01/19 06/02/19 Range/Units 16:57 20:09 06:51 RBC 3.86 L (4.30-5.90) m/uL Hgb 10.6 L (13.0-17.5) gm/dL Hct 33.3 L (39.0-53.0) % RDW 16.1 H (11.5-15.5) % Neutrophils # 8.3 H (1.3-7.7) k/uL POC Glucose (mg/dL) 127 H 136 H (75-99) mg/dL 06/02/19 Range/Units 12:12 RBC (4.30-5.90) m/uL Hgb (13.0-17.5) gm/dL Hct (39.0-53.0) % RDW (11.5-15.5) % Neutrophils # (1.3-7.7) k/uL POC Glucose (mg/dL) 145 H (75-99) mg/dL Assessment and Plan Plan: ASSESSMENT and plan and #1 Paroxysmal atrial fibrillation with variable ventricular rates #2Frequent falls #3Generalized weakness #4Hypomagnesemia #5Valvular heart disease #6History of coronary artery disease status post prior PCI, exact details unavailable #7Hypertension #8Dyslipidemia #9Diabetes mellitus #10Obesity, BMI 44 #11History of dementia Plan From cardiology's perspective, we'll recommend to continue the patient on his current medications. He may be transferred to rehab for manic perspective. DNP note has been reviewed, I agree with a documented findings and plan of care. Patient was seen and examined.
== END 2019-06-02 15:15 | DRG 603 ==
LOC: EC 14:09 → 4MS4W 16:09 → 3SCARD 05-31 14:58
PROVIDERS: ADMIT Hospitalist; ATTEND Hospitalist
DX: L03.114 Cellulitis of left upper limb (principal); J44.1 Chronic obstructive pulmonary disease with (acute) exacerbation; Z68.41 Body mass index [BMI] 40.0-44.9, adult; I48.0 Paroxysmal atrial fibrillation; E11.40 Type 2 diabetes mellitus with diabetic neuropathy, unspecified; E11.51 Type 2 diabetes mellitus with diabetic peripheral angiopathy without gangrene; E66.01 Morbid (severe) obesity due to excess calories; E78.5 Hyperlipidemia, unspecified; E83.42 Hypomagnesemia; E86.0 Dehydration; F02.80 Dementia in other diseases classified elsewhere, unspecified severity, without behavioral disturbance, psychotic disturbance, mood disturbance, and anxiety; G20 Parkinson's disease; I11.0 Hypertensive heart disease with heart failure; I25.10 Atherosclerotic heart disease of native coronary artery without angina pectoris; I50.9 Heart failure, unspecified; M06.9 Rheumatoid arthritis, unspecified; M17.11 Unilateral primary osteoarthritis, right knee; Z96.651 Presence of right artificial knee joint; M50.30 Other cervical disc degeneration, unspecified cervical region; R29.6 Repeated falls; Z87.891 Personal history of nicotine dependence; Z79.4 Long term (current) use of insulin; Z79.82 Long term (current) use of aspirin; Z79.899 Other long term (current) drug therapy; Z86.14 Personal history of Methicillin resistant Staphylococcus aureus infection; Z91.81 History of falling; Z95.5 Presence of coronary angioplasty implant and graft; Z83.79 Family history of other diseases of the digestive system; Z82.3 Family history of stroke; Z88.6 Allergy status to analgesic agent; Z88.1 Allergy status to other antibiotic agents; Z88.0 Allergy status to penicillin; I08.3 Combined rheumatic disorders of mitral, aortic and tricuspid valves; E53.1 Pyridoxine deficiency; R27.0 Ataxia, unspecified
CPT/HCPCS: 36415; 70450; 71045; 71046; 72125; 80048; 80053; 81003; 83605; 83735; 83880; 84132; 84443; 84484; 85025; 85610; 85730; 90471; 90715; 93005; 93306; 93880; 94640; 94760; 96361; 96374; 99285

== ENCOUNTER → 2020-01-25 | Outpatient (CLI) | payer MEDICARE ==
--- NOTE | 2020-01-25 09:24 | US ---
EXAMINATION TYPE: US abdomen complete DATE OF EXAM: 01/25/2020 COMPARISON: NONE CLINICAL HISTORY: R10.11 RUQ PAIN. EXAM MEASUREMENTS: Liver Length: 21.4 cm Gallbladder Wall: 0.2 cm CBD: 0.3 cm Spleen: 13.7 cm Right Kidney: 10.5 x 6.0 x 4.4 cm Left Kidney: 12.7 x 5.7 x 5.2cm Morbidly obese patient, unable to move for examiner. Non-diagnostic study. Pancreas: Obscured by bowel gas/obesity Liver: unable to penetrate, hepatomegaly Gallbladder: possible sludge, very limited visualization Evidence for sonographic Mustafa's sign: no CBD: very limited visualization Spleen: splenomegaly Right Kidney: limited views Left Kidney: measures large Upper IVC: wnl Abd Aorta: Obscured by overlying bowel gas/obesity IMPRESSION: 1. Extremely limited examination due to patient body habitus and ability to cooperate with the examin ation. 2. There may be some sludge within the gallbladder. 3. Hepatomegaly and mild fatty infiltration of the liver is present.
== END | disposition home or self-care (01) ==
LOC: RADUSWWP 08:22
PROVIDERS: ATTEND Family Medicine
DX: K76.0 Fatty (change of) liver, not elsewhere classified (principal); R16.2 Hepatomegaly with splenomegaly, not elsewhere classified; K82.8 Other specified diseases of gallbladder
CPT/HCPCS: 76700

== ENCOUNTER → 2020-02-09 | Outpatient (CLI) | payer MEDICARE, BC ==
--- NOTE | 2020-02-10 07:31 | NM ---
Nuclear medicine hepatobiliary scan. HISTORY: Pain. DOSAGE: The patient received 8 ounces of ensure plus and 5.0 mCi of Technetium 99m Choletec. FINDINGS: There is normal hepatic extraction. The gallbladder is seen by 60 minutes. There is bilia ry to bowel clearance by 30 minutes. Ejection fraction is 92%. IMPRESSION: 1. The gallbladder is seen at the upper limits of normal in time at 60 minutes. Correlate clinically. 2. Ejection fraction of 92% can occasionally be associated with hyperdynamic gallbladder correlate cl inically.
== END | disposition home or self-care (01) ==
LOC: RADNMMAIN 14:32
PROVIDERS: ATTEND Family Medicine
DX: R10.11 Right upper quadrant pain (principal); R19.7 Diarrhea, unspecified
CPT/HCPCS: 78226; A9537

== ENCOUNTER → 2020-11-15 | Outpatient (CLI) | payer MEDICARE, BC ==
--- NOTE | 2020-11-15 16:56 | CONS ---
CONSULTATION DATE OF SERVICE: 11/15/2020 This 80-year-old gentleman has [facility] for obstructive sleep apnea-hypopnea syndrome. HISTORY OF PRESENT ILLNESS/SLEEP-WAKE EVALUATION: The patient was diagnosed with obstructive sleep apnea-hypopnea syndrome about 25 years ago. He has been on treatment with CPAP since that time every night for the whole night. His last CPAP unit is about 7 years old. At present he sleeps well with the machine, with rare awakenings, but he has problems because when he puts his mask on he feels the pressure in the mask is low. His sleep schedule is from 10 p.m. to 8 a.m. Usually no problems with falling asleep. He sleeps on the back position. No significant amount of movements during sleep. No snoring with the machine. No history of sleep paralysis, cataplexy or hypnagogic hallucinations. [place] Sleepiness Scale increased to 11. Patient may take some naps during the day. I checked his CPAP unit. It is in automatic regimen. Range of the pressure is from 14 to 18, average pressure 16.3. Usage is 100% of nights and 29/30 nights for more than 4 hours, average 9.5 hours per night. Leak is L/minute, which is high. Apnea- hypopnea index is 3.7. RAMP is off. Patient is using AirTouch F20 medium-sized full- face mask. PAST MEDICAL HISTORY: Positive for hypertension, hyperlipidemia, prostate carcinoma, diabetes mellitus, atrial fibrillation, right knee problems. PAST SURGICAL HISTORY: Right knee replacement, surgery for carpal tunnel syndrome, radiation therapy for prostate carcinoma. SOCIAL HISTORY: Negative for smoking or using alcohol. MEDICATIONS: 1. Metformin 500 mg twice a day. 2. Atorvastatin 40 mg once a day. 3. [place] 5/325 mg. 4. Donepezil 10 mg once a day. 5. Tolterodine 4 mg once a day. 6. Humalog. 7. Levemir. 8. Gabapentin 300 mg once a day. 9. Hydrochloroquine 200 mg twice a day. 10.Tamsulosin 0.4 mg once a day. 11.Carvedilol 6.25 mg twice a day. 12.Pantoprazole 40 mg once a day. 13.Eliquis 5 mg twice a day. 14.Lasix 40 mg once a day. 15.Simethicone 240 mg one tablet twice a day as needed. 16.Fluticasone propionate 50 mcg 2 sprays in each nostril daily. 17.Nitroglycerin as needed. REVIEW OF SYSTEMS: No fevers. No double vision. No recent chest pain. No shortness of breath. No abdominal pain. No bleeding episodes. No blood in the urine. No seizure episodes. Sometimes sleepiness during the day. FAMILY HISTORY: during sleep. PHYSICAL EXAMINATION: GENERAL: A pleasant gentleman, significantly obese, in wheelchair, without distress. VITAL SIGNS: BP 172/64, HR 70, RR 20, height 5 feet 5 inches, weight 292.8, body mass index 48.5, temperature 95.7, oxygen saturation at room air 99%. HEENT: PERRLA, EOMI. Evaluation of oropharynx showed tongue protrudes midline. Low position of soft palate. NECK: Supple. No JVD. Thyroid is not palpable. Wide neck. LUNGS: Clear to percussion and to auscultation. Good air exchange. No wheezing or rhonchi. HEART: S1, S2 regular. No murmurs, gallops or rubs. ABDOMEN: Obese. EXTREMITIES: No clubbing or cyanosis. FRONT LOADER RESIDENTIAL DRIVER: Awake, alert, and oriented X3. Cranial nerves 2 to 7 intact. There is no fasciculation or atrophy. noted. No focal deficits observed. IMPRESSION: 1. Obstructive sleep apnea-hypopnea syndrome for 25 years. The patient continues to use his CPAP equipment 100% of the time. Normal respiration on CPAP, according to reading from the machine. Patient benefitting from CPAP treatment. 2. Morbid obesity. BMI 48.5. 3. Hypertension. 4. Hyperlipidemia. 5. History of atrial fibrillation. heart rate at the present time. 6. History of prostate carcinoma, status post radiation therapy. 7. Diabetes mellitus. 8. Status post right knee replacement. PLAN: 1. Continue treatment with CPAP equipment every night for the whole night. 2. I adjusted minimal CPAP pressure to 15. 3. I demonstrated for the patient and family how to start the machine and wait a few seconds until the pressure in the machine picks up to the level of 15, and at that time he should put the mask on. For the first few seconds, the machine is just increasing pressure and it may not be enough pressure for the patient. 4. Aggressive losing weight program. 5. No driving if feeling sleepiness. 6. I offered to write a prescription for the patient for all necessary CPAP supplies at the present time, but he told me that he has some extra masks at home and does not need any prescription at the present time. 7. Follow-up visit in 6 months. 8. To obtain results of previous sleep studies and titrations. Thank you very much for referring this patient for evaluation. Sincerely, Som Vega MD, PhD, FAASM Diplomat of [place] [employer] [place] [employer] Property Portfolio Officer of [facility] [place] MMODL / IJN: [id number] /
== END ==
LOC: SLEEP 13:59
PROVIDERS: ATTEND Internal Medicine
DX: G47.33 Obstructive sleep apnea (adult) (pediatric) (principal); E66.01 Morbid (severe) obesity due to excess calories; I10 Essential (primary) hypertension; E78.5 Hyperlipidemia, unspecified; I48.91 Unspecified atrial fibrillation; E11.9 Type 2 diabetes mellitus without complications; Z85.46 Personal history of malignant neoplasm of prostate; Z96.651 Presence of right artificial knee joint; Z92.3 Personal history of irradiation; Z68.42 Body mass index [BMI] 45.0-49.9, adult; Z88.0 Allergy status to penicillin; Z88.1 Allergy status to other antibiotic agents; Z88.8 Allergy status to other drugs, medicaments and biological substances
CPT/HCPCS: 99211

== ENCOUNTER 2020-11-29 07:09 | Day surgery (SDC) | payer MEDICARE, BC ==
[2020-11-27 15:35] VITALS: BMI 48.4
[~2020-11-29 07:09] MED LIST changes: -IODINE/POTASS IOD (LUGOLS) 8 ML BTL TOPICAL ONE; +LACTATED RINGERS 1,000 ML IV SCH
[2020-11-29 07:58] LABS: Glucose,Whole Blood 160 mg/dL (75-99)
[2020-11-29 08:00] VITALS: TEMP 96.4
[2020-11-29] MEDS ORDERED: PROPOFOL 10 MG/ML 20 ML VIAL IV ONE (08:25)
--- NOTE | 2020-11-29 08:58 | P.PCN ---
Date of Procedure: 11/29/20 Description of Procedure: BRIEF HISTORY: Patient is a 80-year-old male presenting for outpatient colonoscopy for history of colon polyps. No change in bowel habits. Patient currently on regimen for constipation. No blood per rectum. He does report occasional abdominal pain. He does report a history of colon polyps in the past. He believes his last colonoscopy was 9 years ago. PROCEDURE PERFORMED: Colonoscopy with polypectomy. PREOPERATIVE DIAGNOSIS: History of colon polyps, patient reports last colonoscopy 9 years ago. ESTIMATED BLOOD LOSS: Minimal. IV sedation per Anesthesia. PROCEDURE: After informed consent was obtained, the patient, was brought into the endoscopy unit. IV sedation was administered by Anesthesia under continuous monitoring. Digital rectal examination was normal. Initially the Olympus CF-190 flexible video colonoscope was then inserted in the rectum, gradually advanced into the cecum without any difficulty. Careful examination was performed as the scope was gradually being withdrawn. Ileocecal valve and the appendiceal orifice were visualized and appeared normal. Prep was excellent. Mucosa of the cecum, ascending colon, transverse colon, descending colon, sigmoid colon, and rectum appeared normal, with a few scattered diverticula noted in the left colon. A sessile 6 mm hepatic flexure polyp was removed with cold snare polypectomy. 2 diminutive polyps measuring 1-2 mm in size removed with cold forcep polypectomy from the transverse colon. Retroflexion was performed in the rectum and no lesions were seen, and internal hemorrhoids were seen. The patient tolerated the procedure well. IMPRESSION: Sessile hepatic flexure polyp removed with cold snare polypectomy. 2 diminutive polyps in the transverse colon removed with cold forcep polypectomy. Mild left colonic diverticulosis. Internal hemorrhoids. RECOMMENDATIONS: Findings of this examination were discussed with the patient .and his family. Okay to resume diet. Okay to resume medications, except for anticoagulation which will be resumed tomorrow. Await pathology from polypectomies. Continue current medical management. Given patient's advanced age and multiple medical comorbidities no further screening, however if any worrisome signs or symptoms develop would recommend endoscopic evaluation.
[2020-11-29 09:13] VITALS: BP 100/52; PULSE 65; RESP 18
== END 2020-11-29 09:30 | disposition home or self-care (01) ==
LOC: ORWHC2ENDO 07:09
PROVIDERS: ATTEND Internal Medicine
DX: Z12.11 Encounter for screening for malignant neoplasm of colon (principal); Z86.010 Personal history of colon polyps; K59.00 Constipation, unspecified; K57.90 Diverticulosis of intestine, part unspecified, without perforation or abscess without bleeding; D12.3 Benign neoplasm of transverse colon; K64.8 Other hemorrhoids; I48.91 Unspecified atrial fibrillation; I10 Essential (primary) hypertension; G47.33 Obstructive sleep apnea (adult) (pediatric); J44.9 Chronic obstructive pulmonary disease, unspecified; E11.9 Type 2 diabetes mellitus without complications; F03.90 Unspecified dementia, unspecified severity, without behavioral disturbance, psychotic disturbance, mood disturbance, and anxiety; Z88.0 Allergy status to penicillin; Z88.2 Allergy status to sulfonamides; K21.9 Gastro-esophageal reflux disease without esophagitis; K44.9 Diaphragmatic hernia without obstruction or gangrene; Z79.899 Other long term (current) drug therapy; Z98.890 Other specified postprocedural states
CPT/HCPCS: 88305; 45380; 45385; J2704

== ENCOUNTER 2021-01-27 15:01 | Emergency (ER) | payer MEDICARE, BC ==
[2021-01-27] MEDS ORDERED: SODIUM CHLORIDE 0.9% 1,000 ML IV STA (15:27)
[2021-01-27] MEDS ORDERED: IPRATROPIUM-ALBUTEROL 3 ML NEB INHALATION STA ×2 (15:27→17:22)
[2021-01-27 15:46] LABS: Anisocytosis Slight; Basophils % (A) 0 %; Eosinophils # (A) 0.2 k/uL (0-0.7); Eosinophils % (A) 2 %; HCT 33.6 % (39.0-53.0); HGB 11.1 gm/dL (13.0-17.5); Lymphocytes % (A) 10 %; MCH 27.9 pg (25.0-35.0); MCHC 33.1 g/dL (31.0-37.0); MCV 84.4 fL (80.0-100.0); Mean Platelet Volume 7.4; Monocytes # (A) 0.3 k/uL (0-1.0); Monocytes % (A) 3 %; Neutrophils # (A) 8.4 k/uL (1.3-7.7); Neutrophils % (A) 84 %; Platelet Count 242 k/uL (150-450); RBC 3.99 m/uL (4.30-5.90); RDW 17.3 % (11.5-15.5); WBC 9.9 k/uL (3.8-10.6)
--- NOTE | 2021-01-27 15:47 | ED ---
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 None today he denies any other complaints at this time he has used inhalers in the past but has none at this time MD Complaint: shortness of breath - Related Data Home Medications Medication Instructions Recorded Confirmed Acetaminophen/Diphenhydramine 2 tab PO HS 01/13/19 01/27/21 [Tylenol PM 500-25mg] Atorvastatin [Lipitor] 40 mg PO HS 01/13/19 01/27/21 Cholecalciferol [Vitamin D3 (25 1,000 unit PO HS 01/13/19 01/27/21 Mcg = 1000 Iu)] Donepezil [Aricept] 10 mg PO AC-BRKFST 01/13/19 01/27/21 Fluticasone Nasal [place] [Flonase 2 spr EA NOSTRIL DAILY PRN 01/13/19 01/27/21 Nasal [place]] Insulin Detemir [Levemir Flextouch] 34 unit SQ BID 01/13/19 01/27/21 Insulin Lispro [humaLOG Kwikpen] 14 unit SQ AC-BRKFST 01/13/19 01/27/21 Insulin Lispro [humaLOG Kwikpen] 16 unit SQ AC-LUNCH 01/13/19 01/27/21 Insulin Lispro [humaLOG Kwikpen] 20 unit SQ AC-SUPPER 01/13/19 01/27/21 Nitroglycerin Sl Tabs [Nitrostat] 0.4 mg SUBLINGUAL Q5M PRN 01/13/19 01/27/21 [place]-3 Fatty Acids/Fish Oil [Fish 1 cap PO AC-LUNCH 01/13/19 01/27/21 Oil 1,000 mg Softgel] Tamsulosin [Flomax] 0.4 mg PO AC-SUPPER 01/13/19 01/27/21 metFORMIN HCL [Glucophage] 1,000 mg PO AC-LUNCH 01/13/19 01/27/21 Tolterodine Tartrate [Detrol LA] 4 mg PO DAILY 05/26/19 01/27/21 Allopurinol [Zyloprim] 150 mg PO DAILY 11/27/20 01/27/21 carvediloL [Coreg] 6.25 mg PO BID 11/27/20 01/27/21 Cyanocobalamin (Vitamin B-12) 1,000 mcg PO HS 01/27/21 01/27/21 [Vitamin B-12] HYDROcodone/APAP 5-325MG [[place] 1 tab PO TID PRN 01/27/21 01/27/21 5-325] Insulin Lispro [humaLOG Kwikpen] See Protocol SQ AC-TID PRN 01/27/21 01/27/21 Previous Rx's Medication Instructions Recorded Apixaban [Eliquis] 5 mg PO BID tab 06/02/19 Furosemide [Lasix] 40 mg PO DAILY #30 tablet 06/02/19 Gabapentin [Neurontin] 300 mg PO ACHS #4 cap 06/02/19 Pantoprazole [Protonix] 40 mg PO AC-BID tablet. 06/02/19 Ipratropium/Albuterol Sulfate 2 puff INHALATION QID #1 inhaler 01/27/21 [Combivent Respimat Inhaler] predniSONE [Deltasone] 20 mg PO BID #10 tab 01/27/21 Allergies Allergy/AdvReac Type Severity Reaction Status Date / Time clarithromycin [From Biaxin] Allergy Rash/Hives Verified 01/27/21 16:15 ibuprofen [From Motrin] Allergy Unknown Verified 01/27/21 16:15 Penicillins Allergy Rash/Hives Verified 01/27/21 16:15 Review of Systems ROS Statement: Those systems with pertinent positive or pertinent negative responses have been documented in the HPI. ROS Other: All systems not noted in ROS Statement are negative. Past Medical History Past Medical History: Dementia, Diabetes Mellitus, Hyperlipidemia, Hypertension, Rheumatoid Arthritis (RA) Additional Past Medical History / Comment(s): Neuropathy History of Any Multi-Drug Resistant Organisms: MRSA Date of last positivie culture/infection: 03/31/19 MDRO Source:: Toe,Left first Past Surgical History: Heart Catheterization With Stent, Orthopedic Surgery Additional Past Surgical History / Comment(s): 2 stents per patient, Right knee replacement, hernia repair, Past Anesthesia/Blood Transfusion Reactions: No Reported Reaction Additional Past Anesthesia/Blood Transfusion Reaction / Comment(s): per patient he has had a blood transfusion without reaction Date of Last Stent Placement:: unk Past Psychological History: Anxiety Smoking Status: Never smoker Past Alcohol Use History: None Reported Past Drug Use History: None Reported - Past Family History Father Additional Family Medical History / Comment(s): gastric ulcers with surgical repair. Mother Family Medical History: CVA/TIA General Exam - General Exam Comments Initial Comments: This is a well-developed nourished awake alert oriented times 3 male Limitations: no limitations General appearance: alert, in no apparent distress Head exam: Present: atraumatic, normocephalic, normal inspection Eye exam: Present: normal appearance, PERRL, EOMI. Absent: scleral icterus, co njunctival injection, periorbital swelling ENT exam: Present: normal exam, mucous membranes moist Neck exam: Present: normal inspection. Absent: tenderness, meningismus, lymphadenopathy Respiratory exam: Present: decreased breath sounds. Absent: respiratory distress, wheezes, rales, rhonchi, stridor Cardiovascular Exam: Present: regular rate, normal rhythm, normal heart sounds. Absent: systolic murmur, diastolic murmur, rubs, gallop, clicks GI/Abdominal exam: Present: soft, normal bowel sounds. Absent: distended, tenderness, guarding, rebound, rigid Extremities exam: Present: normal inspection, full ROM, normal capillary refill. Absent: tenderness, pedal edema, joint swelling, calf tenderness Back exam: Present: normal inspection Neurological exam: Present: alert, oriented X3, CN II-XII intact Psychiatric exam: Present: normal affect, normal mood Skin exam: Present: warm, dry, intact, normal color. Absent: rash Course Vital Signs 01/27/21 01/27/21 01/27/21 15:03 15:14 15:52 Temperature 98.0 F Pulse Rate 77 76 70 Respiratory 16 20 18 Rate Blood Pressure 153/78 O2 Sat by Pulse 94 L 95 Oximetry 01/27/21 01/27/2101/27/21 15:59 16:25 17:30 Temperature Pulse Rate 73 69 70 Respiratory 18 20 18 Rate Blood Pressure 144/88 O2 Sat by Pulse 94 L Oximetry 01/27/21 01/27/21 17:42 17:48 Temperature Pulse Rate 73 69 Respiratory 18 20 Rate Blood Pressure 149/89 O2 Sat by Pulse 95 Oximetry - Reevaluation(s) Reevaluation #1: 01/27/21 17:54 Patient initially was doing well he did desaturate mildly with exertion after the initial treatment repeat is much improved with saturations in the mid 90s. He feels much better he will be discharged after her treatment is completed. Medical Decision Making - Lab Data Result diagrams: 01/27/21 15:35 01/27/21 15:35 Lab Results 01/27/21 01/27/21 01/27/21 Range/Units 15:35 15:35 15:35 WBC 9.9 (3.8-10.6) k/uL RBC 3.99 L (4.30-5.90) m/uL Hgb 11.1 L (13.0-17.5) gm/dL Hct 33.6 L (39.0-53.0) % MCV 84.4 (80.0-100.0) fL MCH 27.9 (25.0-35.0) pg MCHC 33.1 (31.0-37.0) g/dL RDW 17.3 H (11.5-15.5) % Plt Count 242 (150-450) k/uL MPV 7.4 Neutrophils % 84 % Lymphocytes % 10 % Monocytes % 3 % Eosinophils % 2 % Basophils % 0 % Neutrophils # 8.4 H (1.3-7.7) k/uL Lymphocytes # 1.0 (1.0-4.8) k/uL Monocytes # 0.3 (0-1.0) k/uL Eosinophils # 0.2 (0-0.7) k/uL Basophils # 0.0 (0-0.2) k/uL Anisocytosis Slight PT 11.7 (9.0-12.0) sec INR 1.1 (<1.2) APTT 26.0 (22.0-30.0) sec D-Dimer 0.34 (<0.60) mg/L FEU Sodium 139 (137-145) mmol/L Potassium 3.8 (3.5-5.1) mmol/L Chloride 101 (98-107) mmol/L Carbon Dioxide 29 (22-30) mmol/L Anion Gap 9 mmol/L BUN 20 (9-20) mg/dL Creatinine 0.98 (0.66-1.25) mg/dL Est GFR (CKD-EPI)AfAm 84 (>60 ml/min/1.73 sqM) Est GFR (CKD-EPI)NonAf 73 (>60 ml/min/1.73 sqM) Glucose 149 H (74-99) mg/dL Plasma Lactic Acid Alon (0.7-2.0) mmol/L Calcium 9.0 (8.4-10.2) mg/dL Magnesium 1.5 L (1.6-2.3) mg/dL Total Bilirubin 0.5 (0.2-1.3) mg/dL AST 38 (17-59) U/L ALT 43 (4-49) U/L Alkaline Phosphatase 96 (38-126) U/L Creatine Kinase 39 L (55-170) U/L Troponin I (0.000-0.034) ng/mL NT-Pro-B Natriuret Pep pg/mL Total Protein 6.3 (6.3-8.2) g/dL Albumin 3.7 (3.5-5.0) g/dL 01/27/21 01/27/21 01/27/21 Range/Units 15:35 15:35 15:35 WBC (3.8-10.6) k/uL RBC (4.30-5.90) m/uL Hgb (13.0-17.5) gm/dL Hct (39.0-53.0) % MCV (80.0-100.0) fL MCH (25.0-35.0) pg MCHC (31.0-37.0) g/dL RDW (11.5-15.5) % Plt Count (150-450) k/uL MPV Neutrophils % % Lymphocytes % % Monocytes % % Eosinophils % % Basophils % % Neutrophils # (1.3-7.7) k/uL Lymphocytes # (1.0-4.8) k/uL Monocytes # (0-1.0) k/uL Eosinophils # (0-0.7) k/uL Basophils # (0-0.2) k/uL Anisocytosis PT (9.0-12.0) sec INR (<1.2) APTT (22.0-30.0) sec D-Dimer (<0.60) mg/L FEU Sodium (137-145) mmol/L Potassium (3.5-5.1) mmol/L Chloride (98-107) mmol/L Carbon Dioxide (22-30) mmol/L Anion Gap mmol/L BUN (9-20) mg/dL Creatinine (0.66-1.25) mg/dL Est GFR (CKD-EPI)AfAm (>60 ml/min/1.73 sqM) Est GFR (CKD-EPI)NonAf (>60 ml/min/1.73 sqM) Glucose (74-99) mg/dL Plasma Lactic Acid Alon 1.5 (0.7-2.0) mmol/L Calcium (8.4-10.2) mg/dL Magnesium (1.6-2.3) mg/dL Total Bilirubin (0.2-1.3) mg/dL AST (17-59) U/L ALT (4-49) U/L Alkaline Phosphatase (38-126) U/L Creatine Kinase (55-170) U/L Troponin I <0.012 (0.000-0.034) ng/mL NT-Pro-B Natriuret Pep 777 pg/mL Total Protein (6.3-8.2) g/dL Albumin (3.5-5.0) g/dL - EKG Data -: EKG Interpreted by Ct EKG shows normal: sinus rhythm EKG Comments: Sinus rhythm a 76. Interval 166 QRS duration 78 QT since QTC 400/450 low- voltage QRS nonspecific ST configuration Disposition Clinical Impression: Acute bronchospasm Disposition: HOME SELF-CARE Condition: Good Instructions (If sedation given, give patient instructions): Bronchospasm (ED) Prescriptions: Ipratropium/Albuterol Sulfate [Combivent Respimat Inhaler] 2 puff INHALATION QID #1 inhaler predniSONE [Deltasone] 20 mg PO BID #10 tab Is patient prescribed a controlled substance at d/c from ED?: No Referrals: Isis Reyes DO [Primary Care Provider] - 1-2 days
[2021-01-27 16:00] LABS: Albumin 3.7 g/dL (3.5-5.0); Magnesium 1.5 mg/dL (1.6-2.3); Potassium 3.8 mmol/L (3.5-5.1); Total Bilirubin 0.5 mg/dL (0.2-1.3); Total Protein 6.3 g/dL (6.3-8.2)
[2021-01-27 16:05] LABS: INR 1.1 (<1.2); Prothrombin Time 11.7 sec (9.0-12.0)
--- NOTE | 2021-01-27 16:41 | XR ---
EXAMINATION TYPE: XR chest 2V DATE OF EXAM: 01/27/2021 COMPARISON: 05/30/2019 HISTORY: Short of breath TECHNIQUE: 2 views FINDINGS: There is no heart failure nor confluent pneumonic infiltrate. Costophrenic angles are clear . There are chest leads. IMPRESSION: No active cardiopulmonary disease. Normal heart. No change.
[2021-01-27] MEDS ORDERED: methylPREDNISolone SOD SUCCI 125 MG/2 ML VIAL IV STA (17:22)
[2021-01-27] MEDS ORDERED: MAGNESIUM SULFATE-D5W PMX 1 GM in DEXTROSE/WATER 1 100ML.BAG IVPB ONE (17:23)
[2021-01-27 17:53] VITALS: BP 149/89; RESP 20
[2021-01-27 18:49] VITALS: PULSE 71; TEMP 98.2
== END 2021-01-27 19:02 | disposition home or self-care (01) ==
LOC: EC 15:01
DX: J98.01 Acute bronchospasm (principal); E11.40 Type 2 diabetes mellitus with diabetic neuropathy, unspecified; E78.5 Hyperlipidemia, unspecified; I10 Essential (primary) hypertension; F03.90 Unspecified dementia, unspecified severity, without behavioral disturbance, psychotic disturbance, mood disturbance, and anxiety; F41.9 Anxiety disorder, unspecified; Z88.0 Allergy status to penicillin; Z88.6 Allergy status to analgesic agent; Z79.4 Long term (current) use of insulin; Z79.01 Long term (current) use of anticoagulants; Z96.651 Presence of right artificial knee joint
CPT/HCPCS: 99285; 96365; 96375; 96361; 36415; 94640 ×2; 93005; 85379; 83880; 80053; 82550; 83605; 83735; 84484; 85025; 85610; 85730; 71046; J2930; J3475

== ENCOUNTER 2021-04-05 15:08 | Emergency (ER) | payer MEDICARE, BC ==
[2021-04-05 15:19] VITALS: BP 143/75; PULSE 70; TEMP 98.2
[2021-04-05 15:40] VITALS: RESP 16
[2021-04-05 16:26] LABS: Anisocytosis Slight; Basophils % (A) 0 %; Eosinophils # (A) 0.3 k/uL (0-0.7); Eosinophils % (A) 3 %; HCT 33.5 % (39.0-53.0); HGB 10.6 gm/dL (13.0-17.5); Hypochromasia Slight; Lymphocytes # (A) 1.3 k/uL (1.0-4.8); Lymphocytes % (A) 15 %; MCH 26.5 pg (25.0-35.0); MCHC 31.7 g/dL (31.0-37.0); MCV 83.7 fL (80.0-100.0); Mean Platelet Volume 7.4; Monocytes # (A) 0.3 k/uL (0-1.0); Monocytes % (A) 3 %; Neutrophils # (A) 6.4 k/uL (1.3-7.7); Neutrophils % (A) 77 %; Platelet Count 242 k/uL (150-450); Poikilocytosis Slight; RBC 4.01 m/uL (4.30-5.90); RDW 16.7 % (11.5-15.5); WBC 8.3 k/uL (3.8-10.6)
[2021-04-05 16:30] LABS: Albumin 3.7 g/dL (3.5-5.0); Calcium 8.9 mg/dL (8.4-10.2); Potassium 3.9 mmol/L (3.5-5.1); Total Bilirubin 0.4 mg/dL (0.2-1.3); Total Protein 6.5 g/dL (6.3-8.2)
[2021-04-05 16:37] LABS: INR 1.1 (<1.2); Partial Thromboplastin Time 25.7 sec (22.0-30.0); Prothrombin Time 11.2 sec (9.0-12.0)
--- NOTE | 2021-04-05 16:38 | XR ---
EXAMINATION TYPE: XR chest 2V DATE OF EXAM: 04/05/2021 COMPARISON: 01/27/2021 INDICATION: Difficulty breathing, dyspnea TECHNIQUE: Frontal and lateral views of the chest are obtained. FINDINGS: The heart size is upper limits of normal. The pulmonary vasculature is normal. The lungs are clear. IMPRESSION: 1. No acute pulmonary process
--- NOTE | 2021-04-05 17:54 | ED ---
General Adult HPI - General Chief complaint: Shortness of Breath Stated complaint: O2 was at 74 SOB Time Seen by Provider: 04/05/21 15:36 Source: patient, RN notes reviewed, old records reviewed Mode of arrival: wheelchair Limitations: no limitations - History of Present Illness Initial comments: I evaluated the patient when he was placed in a room. Patient is an 80-year-old male who presents emergency Department complaining of chronic slightly worsening shortness of breath ongoing over the last few months. Patient presents today because while they were checking his vital signs at home, the pulse ox running a high heart rate as well as possible low oxygen saturations. He states he feels unchanged from earlier. They called his physician who recommended that he come to the emergency department for evaluation. Patient currently denies any chest pain, shortness breath, abdominal pain, nausea, vomiting. He is on blood thinners and denies any lower extremity acute edema or pain. He is having chronic lower extremity edema. States that the shortness of breath he experiences is intermittent and not associated with activity. He states it is harder to move around but this is chronic. Denies any cough, fevers. Was vaccinated for COVID-19. He has no other acute complaints at this time. Patient presents with his over concern for worsening shortness of breath.Denies orthopnea or paroxysmal nocturnal dyspnea. - Related Data Home Medications Medication Instructions Recorded Confirmed Acetaminophen/Diphenhydramine 2 tab PO HS 01/13/19 04/05/21 [Tylenol PM 500-25mg] Atorvastatin [Lipitor] 40 mg PO HS 01/13/19 04/05/21 Cholecalciferol [Vitamin D3 (25 1,000 unit PO HS 01/13/19 04/05/21 Mcg = 1000 Iu)] Donepezil [Aricept] 10 mg PO DAILY 01/13/19 04/05/21 Fluticasone Nasal [place] [Flonase 2 spr EA NOSTRIL DAILY PRN 01/13/19 04/05/21 Nasal [place]] Insulin Detemir [Levemir Flextouch 34 unit SQ BID 01/13/19 04/05/21 Pen] Insulin Lispro [humaLOG Kwikpen] 16 unit SQ AC-BRKFST 01/13/19 04/05/21 Insulin Lispro [humaLOG Kwikpen] 20 unit SQ AC-LUNCH 01/13/19 04/05/21 Insulin Lispro [humaLOG Kwikpen] 24 unit SQ AC-SUPPER 01/13/19 04/05/21 Nitroglycerin Sl Tabs [Nitrostat] 0.4 mg SUBLINGUAL Q5M PRN 01/13/19 04/05/21 [place]-3 Fatty Acids/Fish Oil [Fish 1 cap PO AC-LUNCH 01/13/19 04/05/21 Oil 1,000 mg Softgel] Tamsulosin [Flomax] 0.4 mg PO W/SUPPER 01/13/19 04/05/21 metFORMIN HCL [Glucophage] 1,000 mg PO AC-LUNCH 01/13/19 04/05/21 Tolterodine Tartrate [Detrol LA] 4 mg PO DAILY 05/26/19 04/05/21 Allopurinol [Zyloprim] 100 mg PO BID 11/27/20 04/05/21 carvediloL [Coreg] 6.25 mg PO BID 11/27/20 04/05/21 Cyanocobalamin (Vitamin B-12) 1,000 mcg PO HS 01/27/21 04/05/21 [Vitamin B-12] HYDROcodone/APAP 5-325MG [[place] 1 tab PO DAILY PRN 01/27/21 04/05/21 5-325] Insulin Lispro [humaLOG Kwikpen] See Protocol SQ AC-TID PRN 01/27/21 04/05/21 Ascorbic Acid [Vitamin C with [place] 1,000 mg PO DAILY 04/05/21 04/05/21 Hips] Calcium Carbonate [Tums] 500 mg PO QID PRN 04/05/21 04/05/21 Docusate [Colace] 300 mg PO HS 04/05/21 04/05/21 Magnesium Oxide [Parra] 1,000 mg PO DAILY 04/05/21 04/05/21 Pantoprazole [Protonix] 40 mg PO BID-W/MEALS 04/05/21 04/05/21 Psyllium [place] 100% [Metamucil 6 gm PO DAILY 04/05/21 04/05/21 Packet] Triamcinolone 0.1% Cream [Kenalog 1 applicatio TOPICAL DAILY PRN 04/05/21 04/05/21 0.1% Cream] Previous Rx's Medication Instructions Recorded Apixaban [Eliquis] 5 mg PO BID tab 06/02/19 Furosemide [Lasix] 40 mg PO DAILY #30 tablet 06/02/19 Gabapentin [Neurontin] 300 mg PO ACHS #4 cap 06/02/19 Allergies Allergy/AdvReac Type Severity Reaction Status Date / Time clarithromycin [From Biaxin] Allergy Rash/Hives Verified 04/05/21 16:27 ibuprofen [From Motrin] Allergy Unknown Verified 04/05/21 16:27 Penicillins Allergy Rash/Hives Verified 04/05/21 16:27 Review of Systems ROS Statement: Those systems with pertinent positive or pertinent negative responses have been documented in the HPI. Review of Systems: CONST: Denies fever EYES: Denies blurry vision ENT: Denies nasal congestion C/V: Denies Chest pain RESP: Endorses shortness of breath GI: Denies abdominal pain : Denies dysuria SKIN: Denies rash. MSK: Denies joint pain. NEURO: Denies headache ROS Other: All systems not noted in ROS Statement are negative. Past Medical History Past Medical History: Dementia, Diabetes Mellitus, Hyperlipidemia, Hypertension, Rheumatoid Arthritis (RA) Additional Past Medical History / Comment(s): Neuropathy History of Any Multi-Drug Resistant Organisms: MRSA Date of last positivie culture/infection: 03/31/19 MDRO Source:: Toe,Left first Past Surgical History: Heart Catheterization With Stent, Orthopedic Surgery Additional Past Surgical History / Comment(s): 2 stents per patient, Right knee replacement, hernia repair, biopsy on left ear Past Anesthesia/Blood Transfusion Reactions: No Reported Reaction Additional Past Anesthesia/Blood Transfusion Reaction / Comment(s): per patient he has had a blood transfusion without reaction Date of Last Stent Placement:: unk Past Psychological History: Anxiety Smoking Status: Never smoker Past Alcohol Use History: None Reported Past Drug Use History: None Reported - Past Family History Father Additional Family Medical History / Comment(s): gastric ulcers with surgical repair. Mother Family Medical History: CVA/TIA General Exam - General Exam Comments Initial Comments: General: Appears in no acute distress. HEAD: Normal with no signs of head trauma. EYES: PERRLA, EOMI, conjunctiva normal, no discharge. ENT: Hearing grossly intact, normal oropharynx. RESPIRATORY: Clear breath sounds bilaterally. No wheezes, rales, or rhonchi. C/V: Regular rate and rhythm. S1 and S2 auscultated. Peripheral pulses are 2+ intact throughout. Patient has very mild 1+ pitting edema just above the ankles bilaterally. ABD: Abd is soft, nontender, nondistended EXT: Normal range of motion, no obvious deformity SKIN: No rashes or lesions observed on exposed skin. NEURO: Alert and oriented 4. No focal deficits. Limitations: no limitations Course Vital Signs 04/05/21 04/05/21 15:15 15:35 Temperature 98.2 F Pulse Rate 70 Respiratory 18 16 Rate Blood Pressure 143/75 O2 Sat by Pulse 99 Oximetry Medical Decision Making - Medical Decision Making Based on the patient's presentation and physical exam, I'm concerned for possible cardiac versus pulmonary etiology for his current complaints. They seem to be chronic in nature. I am uncertain if the results at home were accurate as his vital signs are stable and within normal limits at this time. However we will obtain troponin, BNP, basic labs, EKG, chest x-ray. He is not requiring oxygen at this time. He is in no acute complaints at this time. Patient was in agreement with this plan. He'll be connected to continuous cardiac monitoring while he is here in the department. Patient is already on our course chronically and I have low suspicion for pulmonary embolism at this time. EKG shows no signs of ischemia. His normal sinus rhythm. Chest x-ray shows no acute cardio primary process. I will trace studies are remarkable for a normocytic anemia with a hemoglobin of 10.6. Troponin is negative. BNP is within normal limits. Covid is negative. The remainder of his labs are unremarkable. On reevaluation, patient remains asymptomatic. I discussed results of laboratory studies and imaging with him. I believe it is safer to be discharged home, as these appear to be chronic complaints and there is no reason to admit him to the hospital at this time for acute intervention. I do believe that he requires follow-up with his primary care physician which was in agreement. I instructed the patient to follow up with their PCP in the next 3 days. I explained that the patient should return to the emergency department if they experience any worsening symptoms. Strict return precautions were discussed with the patient. The patient expressed understanding of these instructions. I answered all questions that the patient had. The patient was discharged home in good condition with their prescriptions and follow up information. - Lab Data Result diagrams: 04/05/21 16:11 04/05/21 16:11 Lab Results 04/05/21 04/05/21 04/05/21 Range/Units 16:11 16:11 16:11 WBC 8.3 (3.8-10.6) k/uL RBC 4.01 L (4.30-5.90) m/uL Hgb 10.6 L (13.0-17.5) gm/dL Hct 33.5 L (39.0-53.0) % MCV 83.7 (80.0-100.0) fL MCH 26.5 (25.0-35.0) pg MCHC 31.7 (31.0-37.0) g/dL RDW 16.7 H (11.5-15.5) % Plt Count 242 (150-450) k/uL MPV 7.4 Neutrophils % 77 % Lymphocytes % 15 % Monocytes % 3 % Eosinophils % 3 % Basophils % 0 % Neutrophils # 6.4 (1.3-7.7) k/uL Lymphocytes # 1.3 (1.0-4.8) k/uL Monocytes # 0.3 (0-1.0) k/uL Eosinophils # 0.3 (0-0.7) k/uL Basophils # 0.0 (0-0.2) k/uL Hypochromasia Slight Poikilocytosis Slight Anisocytosis Slight PT 11.2 (9.0-12.0) sec INR 1.1 (<1.2) APTT 25.7 (22.0-30.0) sec Sodium 139 (137-145) mmol/L Potassium 3.9 (3.5-5.1) mmol/L Chloride 100 (98-107) mmol/L Carbon Dioxide 29 (22-30) mmol/L Anion Gap 10 mmol/L BUN 14 (9-20) mg/dL Creatinine 0.93 (0.66-1.25) mg/dL Est GFR (CKD-EPI)AfAm 89 (>60 ml/min/1.73 sqM) Est GFR (CKD-EPI)NonAf 77 (>60 ml/min/1.73 sqM) Glucose 167 H (74-99) mg/dL Calcium 8.9 (8.4-10.2) mg/dL Total Bilirubin 0.4 (0.2-1.3) mg/dL AST 32 (17-59) U/L ALT 15 (4-49) U/L Alkaline Phosphatase 94 (38-126) U/L Troponin I (0.000-0.034) ng/mL NT-Pro-B Natriuret Pep pg/mL Total Protein 6.5 (6.3-8.2) g/dL Albumin 3.7 (3.5-5.0) g/dL Coronavirus (PCR) (Not Detectd) 04/05/21 04/05/21 04/05/21 Range/Units 16:11 16:11 16:14 WBC (3.8-10.6) k/uL RBC (4.30-5.90) m/uL Hgb (13.0-17.5) gm/dL Hct (39.0-53.0) % MCV (80.0-100.0) fL MCH (25.0-35.0) pg MCHC (31.0-37.0) g/dL RDW (11.5-15.5) % Plt Count (150-450) k/uL MPV Neutrophils % % Lymphocytes % % Monocytes % % Eosinophils % % Basophils % % Neutrophils # (1.3-7.7) k/uL Lymphocytes # (1.0-4.8) k/uL Monocytes # (0-1.0) k/uL Eosinophils # (0-0.7) k/uL Basophils # (0-0.2) k/uL Hypochromasia Poikilocytosis Anisocytosis PT (9.0-12.0) sec INR (<1.2) APTT (22.0-30.0) sec Sodium (137-145) mmol/L Potassium (3.5-5.1) mmol/L Chloride (98-107) mmol/L Carbon Dioxide (22-30) mmol/L Anion Gap mmol/L BUN (9-20) mg/dL Creatinine (0.66-1.25) mg/dL Est GFR (CKD-EPI)AfAm (>60 ml/min/1.73 sqM) Est GFR (CKD-EPI)NonAf (>60 ml/min/1.73 sqM) Glucose (74-99) mg/dL Calcium (8.4-10.2) mg/dL Total Bilirubin (0.2-1.3) mg/dL AST (17-59) U/L ALT (4-49) U/L Alkaline Phosphatase (38-126) U/L Troponin I <0.012 (0.000-0.034) ng/mL NT-Pro-B Natriuret Pep 299 pg/mL Total Protein (6.3-8.2) g/dL Albumin (3.5-5.0) g/dL Coronavirus (PCR) Not Detected (Not Detectd) - EKG Data -: EKG Interpreted by Me EKG Comments: 12-lead Electrocardiogram Interpretation Note EKG was reviewed and interpreted by myself. 12-lead ECG performed at 1534 is interpreted by me as revealing normal sinus rhythm at a rate of 69 beats per minute. [place] is normal. [place] interval is 170 ms, QRS duration is 80 ms, QTc is 439 ms.. There were no ST or T wave abnormalities to suggest myocardial ischemia or injury. R wave progression across the precordium was satisfactory. By my interpretation this EKG is non-diagnostic for acute ischemia. Disposition Clinical Impression: Chronic dyspnea, Well adult exam Disposition: HOME SELF-CARE Condition: Good Instructions (If sedation given, give patient instructions): Normal Exam (ED) Is patient prescribed a controlled substance at d/c from ED?: No Referrals: Isis Reyes DO [Primary Care Provider] - 1-2 days
== END 2021-04-05 18:30 | disposition home or self-care (01) ==
LOC: EC 15:08
DX: R06.00 Dyspnea, unspecified (principal); Z00.00 Encounter for general adult medical examination without abnormal findings; E11.40 Type 2 diabetes mellitus with diabetic neuropathy, unspecified; E78.5 Hyperlipidemia, unspecified; I10 Essential (primary) hypertension; M06.9 Rheumatoid arthritis, unspecified; F41.9 Anxiety disorder, unspecified; Z79.4 Long term (current) use of insulin; Z79.01 Long term (current) use of anticoagulants
CPT/HCPCS: 36415; 71046; 80053; 83880; 84484; 85025; 85610; 85730; 87635; 93005; 99285

== ENCOUNTER 2021-04-08 15:18 | Emergency (ER) | payer MEDICARE, BC ==
--- NOTE | 2021-04-08 19:57 | ED ---
General Adult HPI - General Chief complaint: Abdominal Pain Stated complaint: Abd pain Time Seen by Provider: 04/08/21 18:30 Source: patient, family, RN notes reviewed, old records reviewed Mode of arrival: ambulatory Limitations: no limitations - History of Present Illness Initial comments: This is a 80-year-old well-appearing obese male that presents to the emergency room with complaints of abdominal pain for 3 weeks. He states that he was seen here for the shortness of breath on and had blood work and x-ray done was told to follow up with his primary care doctor. Patient states he does have an appointment with his primary care doctor on Thursday however the pain is worsened and he's been having diarrhea every day 2-3 times a day. He denies any hematochezia or hematemesis. Denies shortness of breath or chest pain. -: week(s) (3) Location: abdomen Radiation: non-radiation - Related Data Home Medications Medication Instructions Recorded Confirmed Acetaminophen/Diphenhydramine 2 tab PO HS 01/13/19 04/08/21 [Tylenol PM 500-25mg] Atorvastatin [Lipitor] 40 mg PO HS 01/13/19 04/08/21 Cholecalciferol [Vitamin D3 (25 1,000 unit PO HS 01/13/19 04/08/21 Mcg = 1000 Iu)] Donepezil [Aricept] 10 mg PO DAILY 01/13/19 04/08/21 Fluticasone Nasal [place] [Flonase 2 spr EA NOSTRIL DAILY PRN 01/13/19 04/08/21 Nasal [place]] Insulin Detemir [Levemir Flextouch 34 unit SQ BID 01/13/19 04/08/21 Pen] Insulin Lispro [humaLOG Kwikpen] 16 unit SQ AC-BRKFST 01/13/19 04/08/21 Insulin Lispro [humaLOG Kwikpen] 20 unit SQ AC-LUNCH 01/13/19 04/08/21 Insulin Lispro [humaLOG Kwikpen] 24 unit SQ AC-SUPPER 01/13/19 04/08/21 Nitroglycerin Sl Tabs [Nitrostat] 0.4 mg SUBLINGUAL Q5M PRN 01/13/19 04/08/21 [place]-3 Fatty Acids/Fish Oil [Fish 1 cap PO AC-LUNCH 01/13/19 04/08/21 Oil 1,000 mg Softgel] Tamsulosin [Flomax] 0.4 mg PO W/SUPPER 01/13/19 04/08/21 metFORMIN HCL [Glucophage] 1,000 mg PO AC-LUNCH 01/13/19 04/08/21 Tolterodine Tartrate [Detrol LA] 4 mg PO DAILY 05/26/19 04/08/21 Allopurinol [Zyloprim] 100 mg PO BID 11/27/20 04/08/21 carvediloL [Coreg] 6.25 mg PO BID 11/27/20 04/08/21 Cyanocobalamin (Vitamin B-12) 1,000 mcg PO HS 01/27/21 04/08/21 [Vitamin B-12] HYDROcodone/APAP 5-325MG [[place] 1 tab PO DAILY PRN 01/27/21 04/08/21 5-325] Insulin Lispro [humaLOG Kwikpen] See Protocol SQ AC-TID PRN 01/27/21 04/08/21 Ascorbic Acid [Vitamin C with Veronica 1,000 mg PO DAILY 04/05/21 04/08/21 Hips] Calcium Carbonate [Tums] 500 mg PO QID PRN 04/05/21 04/08/21 Docusate [Colace] 300 mg PO HS 04/05/21 04/08/21 Magnesium Oxide [Parra] 1,000 mg PO DAILY 04/05/21 04/08/21 Pantoprazole [Protonix] 40 mg PO BID-W/MEALS 04/05/21 04/08/21 Psyllium Husk 100% [Metamucil 6 gm PO DAILY 04/05/21 04/08/21 Packet] Triamcinolone 0.1% Cream [Kenalog 1 applicatio TOPICAL DAILY PRN 04/05/21 04/08/21 0.1% Cream] Previous Rx's Medication Instructions Recorded Apixaban [Eliquis] 5 mg PO BID tab 06/02/19 Furosemide [Lasix] 40 mg PO DAILY #30 tablet 06/02/19 Gabapentin [Neurontin] 300 mg PO ACHS #4 cap 06/02/19 Allergies Allergy/AdvReac Type Severity Reaction Status Date / Time clarithromycin [From Biaxin] Allergy Rash/Hives Verified 04/08/21 19:05 ibuprofen [From Motrin] Allergy Unknown Verified 04/08/21 19:05 Penicillins Allergy Rash/Hives Verified 04/08/21 19:05 Review of Systems ROS Statement: Those systems with pertinent positive or pertinent negative responses have been documented in the HPI. ROS Other: All systems not noted in ROS Statement are negative. Past Medical History Past Medical History: Dementia, Diabetes Mellitus, Hyperlipidemia, Hypertension, Rheumatoid Arthritis (RA) Additional Past Medical History / Comment(s): Neuropathy History of Any Multi-Drug Resistant Organisms: MRSA Date of last positivie culture/infection: 03/31/19 MDRO Source:: Toe,Left first Past Surgical History: Heart Catheterization With Stent, Orthopedic Surgery Additional Past Surgical History / Comment(s): 2 stents per patient, Right knee replacement, hernia repair, biopsy on left ear Past Anesthesia/Blood Transfusion Reactions: No Reported Reaction Additional Past Anesthesia/Blood Transfusion Reaction / Comment(s): per patient he has had a blood transfusion without reaction Date of Last Stent Placement:: unk Past Psychological History: Anxiety Smoking Status: Never smoker Past Alcohol Use History: None Reported Past Drug Use History: None Reported - Past Family History Father Additional Family Medical History / Comment(s): gastric ulcers with surgical repair. Mother Family Medical History: CVA/TIA General Exam Limitations: no limitations General appearance: alert, in no apparent distress Head exam: Present: atraumatic, normocephalic, normal inspection Eye exam: Present: normal appearance, EOMI ENT exam: Present: normal exam, normal oropharynx, mucous membranes moist Neck exam: Present: normal inspection, full ROM. Absent: tenderness, meningismus, lymphadenopathy Respiratory exam: Present: normal lung sounds bilaterally. Absent: respiratory distress, wheezes, rales, rhonchi, stridor, accessory muscle use Cardiovascular Exam: Present: regular rate, normal rhythm, normal heart sounds. Absent: systolic murmur, diastolic murmur, rubs, gallop, clicks GI/Abdominal exam: Present: distended, tenderness. Absent: guarding, rebound, rigid Extremities exam: Present: full ROM, pedal edema (trace). Absent: tenderness Back exam: Present: normal inspection, full ROM. Absent: tenderness, CVA tenderness (R), CVA tenderness (L), rash noted Neurological exam: Present: alert, oriented X3 Psychiatric exam: Present: normal affect, normal mood Skin exam: Present: warm, dry, intact, normal color. Absent: rash, cyanosis, diaphoretic Course Vital Signs 04/08/21 04/08/21 16:39 22:44 Temperature 98.6 F 97.8 F Pulse Rate 77 75 Respiratory 22 16 Rate Blood Pressure 140/64 138/60 O2 Sat by Pulse 98 99 Oximetry EKG Findings - EKG Results: EKG: sinus rhythm (Ventricular rate 69, [place] interval of 0.194, QRS 0.86, QTC 0.450) Medical Decision Making - Medical Decision Making CT abdomen shows an incidental 5 mm right middle lobe nodule that patient states his doctor is also aware of and they've been watching. There is no pelvic adenopathy. There is no free air. Pancreas, liver and gallbladder are unremarkable. There is no acute abnormalities within the bowel. There is a small fat-containing left inguinal hernia seen. Patient states that he has been using MiraLAX and Colace. He was directed to stop those medications related to the diarrhea. Patient does have an appointment with his primary care doctor on Thursday. Instructed to return to the emergency room with any worsening symptoms. - Lab Data Result diagrams: 04/08/21 19:55 04/08/21 19:55 Lab Results 04/08/21 04/08/21 04/08/21 Range/Units 19:55 19:55 19:55 WBC 10.7 H (3.8-10.6) k/uL RBC 4.42 (4.30-5.90) m/uL Hgb 11.5 L (13.0-17.5) gm/dL Hct 37.2 L (39.0-53.0) % MCV 84.1 (80.0-100.0) fL MCH 25.9 (25.0-35.0) pg MCHC 30.8 L (31.0-37.0) g/dL RDW 16.5 H (11.5-15.5) % Plt Count 256 (150-450) k/uL MPV 7.2 Neutrophils % 76 % Lymphocytes % 16 % Monocytes % 4 % Eosinophils % 3 % Basophils % 0 % Neutrophils # 8.1 H (1.3-7.7) k/uL Lymphocytes # 1.7 (1.0-4.8) k/uL Monocytes # 0.4 (0-1.0) k/uL Eosinophils # 0.3 (0-0.7) k/uL Basophils # 0.0 (0-0.2) k/uL Hypochromasia Moderate Poikilocytosis Slight Anisocytosis Slight PT 11.7 (9.0-12.0) sec INR 1.1 (<1.2) APTT 23.4 (22.0-30.0) sec Sodium (137-145) mmol/L Potassium (3.5-5.1) mmol/L Chloride (98-107) mmol/L Carbon Dioxide (22-30) mmol/L Anion Gap mmol/L BUN (9-20) mg/dL Creatinine (0.66-1.25) mg/dL Est GFR (CKD-EPI)AfAm (>60 ml/min/1.73 sqM) Est GFR (CKD-EPI)NonAf (>60 ml/min/1.73 sqM) Glucose (74-99) mg/dL Plasma Lactic Acid Alon (0.7-2.0) mmol/L Calcium (8.4-10.2) mg/dL Total Bilirubin (0.2-1.3) mg/dL AST (17-59) U/L ALT (4-49) U/L Alkaline Phosphatase (38-126) U/L Troponin I (0.000-0.034) ng/mL Total Protein (6.3-8.2) g/dL Albumin (3.5-5.0) g/dL Amylase (30-110) U/L Lipase (23-300) U/L Urine Color Light Yellow Urine Appearance Clear (Clear) Urine pH 5.0 (5.0-8.0) Ur Specific [place] 1.006 (1.001-1.035) Urine Protein Negative (Negative) Urine Glucose (UA) Negative (Negative) Urine Ketones Negative (Negative) Urine Blood Negative (Negative) Urine Nitrite Negative (Negative) Urine Bilirubin Negative (Negative) Urine Urobilinogen <2.0 (<2.0) mg/dL Ur Leukocyte Esterase Negative (Negative) 04/08/21 04/08/21 04/08/21 Range/Units 19:55 19:55 19:55 WBC (3.8-10.6) k/uL RBC (4.30-5.90) m/uL Hgb (13.0-17.5) gm/dL Hct (39.0-53.0) % MCV (80.0-100.0) fL MCH (25.0-35.0) pg MCHC (31.0-37.0) g/dL RDW (11.5-15.5) % Plt Count (150-450) k/uL MPV Neutrophils % % Lymphocytes % % Monocytes % % Eosinophils % % Basophils % % Neutrophils # (1.3-7.7) k/uL Lymphocytes # (1.0-4.8) k/uL Monocytes # (0-1.0) k/uL Eosinophils # (0-0.7) k/uL Basophils # (0-0.2) k/uL Hypochromasia Poikilocytosis Anisocytosis PT (9.0-12.0) sec INR (<1.2) APTT (22.0-30.0) sec Sodium 137 (137-145) mmol/L Potassium 4.7 (3.5-5.1) mmol/L Chloride 104 (98-107) mmol/L Carbon Dioxide 22 (22-30) mmol/L Anion Gap 11 mmol/L BUN 12 (9-20) mg/dL Creatinine 0.97 (0.66-1.25) mg/dL Est GFR (CKD-EPI)AfAm 85 (>60 ml/min/1.73 sqM) Est GFR (CKD-EPI)NonAf 74 (>60 ml/min/1.73 sqM) Glucose 128 H (74-99) mg/dL Plasma Lactic Acid Alon 2.0 (0.7-2.0) mmol/L Calcium 9.0 (8.4-10.2) mg/dL Total Bilirubin 0.7 (0.2-1.3) mg/dL AST 68 H (17-59) U/L ALT 18 (4-49) U/L Alkaline Phosphatase 81 (38-126) U/L Troponin I <0.012 (0.000-0.034) ng/mL Total Protein 7.2 (6.3-8.2) g/dL Albumin 4.0 (3.5-5.0) g/dL Amylase 34 (30-110) U/L Lipase 33 (23-300) U/L Urine Color Urine Appearance (Clear) Urine pH (5.0-8.0) Ur Specific [place] (1.001-1.035) Urine Protein (Negative) Urine Glucose (UA) (Negative) Urine Ketones (Negative) Urine Blood (Negative) Urine Nitrite (Negative) Urine Bilirubin (Negative) Urine Urobilinogen (<2.0) mg/dL Ur Leukocyte Esterase (Negative) Disposition Clinical Impression: (Ruled Out): Abdominal pain Disposition: HOME SELF-CARE Condition: Good Instructions (If sedation given, give patient instructions): Abdominal Pain (ED) Additional Instructions: Keep your appointment with the primary care doctor this Thursday. Return to the emergency room with any new or worsening symptoms including increased pain, fevers or bloody stools Is patient prescribed a controlled substance at d/c from ED?: No Referrals: Isis Reyes DO [Primary Care Provider] - 1-2 days Time of Disposition: 22:18
[2021-04-08 20:16] LABS: Anisocytosis Slight; Appearance,Urine Clear (Clear); Basophils % (A) 0 %; Bilirubin,Urine Negative (Negative); Blood,Urine Negative (Negative); Color,Urine Light Yellow; Eosinophils # (A) 0.3 k/uL (0-0.7); Eosinophils % (A) 3 %; Glucose,Urine (UA) Negative (Negative); HCT 37.2 % (39.0-53.0); HGB 11.5 gm/dL (13.0-17.5); Hypochromasia Moderate; Ketones,Urine Negative (Negative); Leukocyte Esterase,Urine Negative (Negative); Lymphocytes # (A) 1.7 k/uL (1.0-4.8); Lymphocytes % (A) 16 %; MCH 25.9 pg (25.0-35.0); MCHC 30.8 g/dL (31.0-37.0); MCV 84.1 fL (80.0-100.0); Mean Platelet Volume 7.2; Monocytes # (A) 0.4 k/uL (0-1.0); Monocytes % (A) 4 %; Neutrophils # (A) 8.1 k/uL (1.3-7.7); Neutrophils % (A) 76 %; Nitrite,Urine Negative (Negative); Platelet Count 256 k/uL (150-450); Poikilocytosis Slight; Protein,Urine Negative (Negative); RBC 4.42 m/uL (4.30-5.90); RDW 16.5 % (11.5-15.5); Specific Gravity,Urine 1.006 (1.001-1.035); Urobilinogen,Urine <2.0 mg/dL (<2.0); WBC 10.7 k/uL (3.8-10.6)
[2021-04-08 20:27] LABS: Total Bilirubin 0.7 mg/dL (0.2-1.3); Total Protein 7.2 g/dL (6.3-8.2)
[2021-04-08 20:28] LABS: Potassium 4.7 mmol/L (3.5-5.1)
[2021-04-08 20:32] LABS: INR 1.1 (<1.2); Partial Thromboplastin Time 23.4 sec (22.0-30.0); Prothrombin Time 11.7 sec (9.0-12.0)
--- NOTE | 2021-04-08 21:59 | CT ---
EXAMINATION TYPE: CT abdomen pelvis wo con DATE OF EXAM: 04/08/2021 COMPARISON: Ultrasound 01/25/2020. HISTORY: abd pain CT DLP: 2089 mGycm Automated exposure control for dose reduction was used. TECHNIQUE: Helical acquisition of images was performed from the lung bases through the pelvis. FINDINGS: LUNG BASES: No acute abnormality is appreciated. Incidental 5 mm right middle lobe nodule. LIVER/GB: No significant abnormality is appreciated. PANCREAS: No significant abnormality is seen. SPLEEN: No significant abnormality is seen. ADRENALS: No significant abnormality is seen. KIDNEYS: No significant abnormality is seen. FREE AIR: No free air is visualized RETROPERITONEAL ADENOPATHY: None visualized REPRODUCTIVE ORGANS: No significant abnormality is seen URINARY BLADDER: No significant abnormality is seen. PELVIC ADENOPATHY: None visualized. OSSEOUS STRUCTURES: Mild to moderate lumbar spondylosis with minimal grade 1 anterolisthesis at L4-L 5. BOWEL: No acute abnormality is seen. Small fat-containing left inguinal hernia seen. OTHER: Moderate to advanced atherosclerotic disease. IMPRESSION: Incidental 5 mm right middle lobe nodule. Per 2017 Fleischner Society guidelines, if the patient is low risk no follow up is needed unless suspicious morphology or upper lobe location, then consider 12 month follow-up. If patient is high risk (significant history of smoking or other known risk factors ), follow up CT may be obtained in 12 months to ensure resolution or stability. OTHERWISE NO ACUTE ABNORMALITY. Small left inguinal hernia.
[2021-04-08 22:46] VITALS: BP 138/60; PULSE 75; RESP 16; TEMP 97.8
== END 2021-04-08 22:47 | disposition home or self-care (01) ==
LOC: EC 15:18
DX: K40.90 Unilateral inguinal hernia, without obstruction or gangrene, not specified as recurrent (principal); I10 Essential (primary) hypertension; E11.9 Type 2 diabetes mellitus without complications; F03.90 Unspecified dementia, unspecified severity, without behavioral disturbance, psychotic disturbance, mood disturbance, and anxiety; E78.5 Hyperlipidemia, unspecified; F41.9 Anxiety disorder, unspecified; Z79.4 Long term (current) use of insulin; Z79.01 Long term (current) use of anticoagulants; Z88.0 Allergy status to penicillin; Z88.6 Allergy status to analgesic agent; Z96.651 Presence of right artificial knee joint
CPT/HCPCS: 36415; 74176; 80053; 81003; 82150; 83605; 83690; 84484; 85025; 85610; 85730; 93005; 99284

== ENCOUNTER 2021-05-20 22:38 | Inpatient (IN) | payer MEDICARE, BC ==
[2021-05-20] MEDS ORDERED: DILTIAZEM DRIP BOLUS FROM BAG 1 MG SOLN IV ONE (23:21)
--- NOTE | 2021-05-20 23:23 | ED ---
Chest Pain HPI - General Chief Complaint: Chest Pain Stated Complaint: AFIB Time Seen by Provider: 05/20/21 22:45 Source: patient, EMS Mode of arrival: EMS Limitations: no limitations - History of Present Illness MD Complaint: chest pain Onset/Timin -: hour(s) Onset: during rest Pain Location: substernal Pain Radiation: none Severity: moderate Quality: sharp Consistency: constant Improves With: nitroglycerin Worsens With: nothing Treatments Prior to Arrival: aspirin, nitroglycerin - Related Data Home Medications Medication Instructions Recorded Confirmed Acetaminophen/Diphenhydramine 2 tab PO HS 01/13/19 04/08/21 [Tylenol PM 500-25mg] Atorvastatin [Lipitor] 40 mg PO HS 01/13/19 04/08/21 Cholecalciferol [Vitamin D3 (25 1,000 unit PO HS 01/13/19 04/08/21 Mcg = 1000 Iu)] Donepezil [Aricept] 10 mg PO DAILY 01/13/19 04/08/21 Fluticasone Nasal [place] [Flonase 2 spr EA NOSTRIL DAILY PRN 01/13/19 04/08/21 Nasal [place]] Insulin Detemir [Levemir Flextouch 34 unit SQ BID 01/13/19 04/08/21 Pen] Insulin Lispro [humaLOG Kwikpen] 16 unit SQ AC-BRKFST 01/13/19 04/08/21 Insulin Lispro [humaLOG Kwikpen] 20 unit SQ AC-LUNCH 01/13/19 04/08/21 Insulin Lispro [humaLOG Kwikpen] 24 unit SQ AC-SUPPER 01/13/19 04/08/21 Nitroglycerin Sl Tabs [Nitrostat] 0.4 mg SUBLINGUAL Q5M PRN 01/13/19 04/08/21 [place]-3 Fatty Acids/Fish Oil [Fish 1 cap PO AC-LUNCH 01/13/19 04/08/21 Oil 1,000 mg Softgel] Tamsulosin [Flomax] 0.4 mg PO W/SUPPER 01/13/19 04/08/21 metFORMIN HCL [Glucophage] 1,000 mg PO AC-LUNCH 01/13/19 04/08/21 Tolterodine Tartrate [Detrol LA] 4 mg PO DAILY 05/26/19 04/08/21 Allopurinol [Zyloprim] 100 mg PO BID 11/27/20 04/08/21 carvediloL [Coreg] 6.25 mg PO BID 11/27/20 04/08/21 Cyanocobalamin (Vitamin B-12) 1,000 mcg PO HS 01/27/21 04/08/21 [Vitamin B-12] HYDROcodone/APAP 5-325MG [[place] 1 tab PO DAILY PRN 01/27/21 04/08/21 5-325] Insulin Lispro [humaLOG Kwikpen] See Protocol SQ AC-TID PRN 01/27/21 04/08/21 Ascorbic Acid [Vitamin C with Ver[place] 1,000 mg PO DAILY 04/05/21 04/08/21 Hips] Calcium Carbonate [Tums] 500 mg PO QID PRN 04/05/21 04/08/21 Docusate [Colace] 300 mg PO HS 04/05/21 04/08/21 Magnesium Oxide [Parra] 1,000 mg PO DAILY 04/05/21 04/08/21 Pantoprazole [Protonix] 40 mg PO BID-W/MEALS 04/05/21 04/08/21 Psyllium Husk 100% [Metamucil 6 gm PO DAILY 04/05/21 04/08/21 Packet] Triamcinolone 0.1% Cream [Kenalog 1 applicatio TOPICAL DAILY PRN 04/05/21 04/08/21 0.1% Cream] Previous Rx's Medication Instructions Recorded Apixaban [Eliquis] 5 mg PO BID tab 06/02/19 Furosemide [Lasix] 40 mg PO DAILY #30 tablet 06/02/19 Gabapentin [Neurontin] 300 mg PO ACHS #4 cap 06/02/19 Allergies Allergy/AdvReac Type Severity Reaction Status Date / Time clarithromycin [From Biaxin] Allergy Rash/Hives Verified 04/08/21 19:05 ibuprofen [From Motrin] Allergy Unknown Verified 04/08/21 19:05 Penicillins Allergy Rash/Hives Verified 04/08/21 19:05 Review of Systems ROS Statement: Those systems with pertinent positive or pertinent negative responses have been documented in the HPI. ROS Other: All systems not noted in ROS Statement are negative. Constitutional: Denies: fever, chills Respiratory: Denies: cough, dyspnea Cardiovascular: Reports: chest pain. Denies: palpitations, orthopnea, edema, syncope Gastrointestinal: Reports: diarrhea (Chronic intermittent). Denies: abdominal pain, nausea, vomiting, constipation, melena, hematochezia Genitourinary: Denies: dysuria, hematuria Musculoskeletal: Denies: back pain Skin: Denies: rash Neurological: Denies: headache EKG Findings - EKG Results: EKG: interpreted by ERMD EKG shows: tachycardia (Rate approximately 140 bpm), atrial fibrillation - Blocks, [place], Hypertrophy, ST Abn: Repolarization changes or abnormalities: ST suggestive of injury Past Medical History Past Medical History: Dementia, Diabetes Mellitus, Hyperlipidemia, Hypertension, Rheumatoid Arthritis (RA) Additional Past Medical History / Comment(s): Neuropathy History of Any Multi-Drug Resistant Organisms: MRSA Date of last positivie culture/infection: 03/31/19 MDRO Source:: Toe,Left first Past Surgical History: Heart Catheterization With Stent, Orthopedic Surgery Additional Past Surgical History / Comment(s): 2 stents per patient, Right knee replacement, hernia repair, biopsy on left ear Past Anesthesia/Blood Transfusion Reactions: No Reported Reaction Additional Past Anesthesia/Blood Transfusion Reaction / Comment(s): per patient he has had a blood transfusion without reaction Date of Last Stent Placement:: unk Past Psychological History: Anxiety Smoking Status: Never smoker Past Alcohol Use History: None Reported Past Drug Use History: None Reported - Past Family History Father Additional Family Medical History / Comment(s): gastric ulcers with surgical repair. Mother Family Medical History: CVA/TIA General Exam Limitations: no limitations General appearance: alert, in no apparent distress Head exam: Present: atraumatic, normocephalic Eye exam: Present: normal appearance. Absent: scleral icterus, conjunctival injection ENT exam: Present: normal oropharynx Neck exam: Present: normal inspection Respiratory exam: Present: normal lung sounds bilaterally. Absent: respiratory distress, wheezes, rales, rhonchi, stridor, accessory muscle use Cardiovascular Exam: Present: tachycardia, irregular rhythm, normal heart sounds. Absent: systolic murmur, diastolic murmur, rubs, gallop GI/Abdominal exam: Present: soft. Absent: distended, tenderness, guarding, rebound, rigid, mass Extremities exam: Present: normal inspection, normal capillary refill, pedal edema. Absent: calf tenderness Back exam: Present: normal inspection. Absent: CVA tenderness (R), CVA tenderness (L) Neurological exam: Present: alert Skin exam: Present: warm, dry, intact, normal color. Absent: rash Course Vital Signs 05/20/21 05/20/21 05/20/21 22:49 23:44 23:56 Temperature 98.0 F Pulse Rate 149 H 144 H 116 H Respiratory 18 16 20 Rate Blood Pressure 135/94 124/91 99/60 O2 Sat by Pulse 100 100 100 Oximetry 05/21/21 05/21/21 00:05 00:15 Temperature Pulse Rate 138 H 101 H Respiratory 18 14 Rate Blood Pressure 124/84 115/71 O2 Sat by Pulse 99 99 Oximetry Disposition Clinical Impression: Atrial fibrillation with rapid ventricular response, Chest pain, Hyperglycemia Disposition: ADMITTED IP TO THIS HOSP Condition: Fair Referrals: Isis Reyes DO [Primary Care Provider] - 1-2 days
--- NOTE | 2021-05-20 23:43 | XR ---
EXAMINATION TYPE: XR chest 1V portable DATE OF EXAM: 05/20/2021 COMPARISON: 04/05/2021 HISTORY: Chest pain TECHNIQUE: FINDINGS: There is no heart failure nor confluent pneumonic infiltrate. Costophrenic angles are clear . There are chest leads. There are no hilar masses. IMPRESSION: No active cardiopulmonary disease. No change.
[2021-05-20] MEDS: DILTIAZEM 125 MG in SODIUM CHLORIDE 0.9% 100 ML IV SCH (23:53)
[2021-05-20 23:59] LABS: Anisocytosis Slight; Basophils % (A) 0 %; Eosinophils # (A) 0.3 k/uL (0-0.7); Eosinophils % (A) 2 %; HCT 34.1 % (39.0-53.0); Hypochromasia Slight; Lymphocytes % (A) 8 %; MCH 26.5 pg (25.0-35.0); MCHC 32.2 g/dL (31.0-37.0); MCV 82.2 fL (80.0-100.0); Mean Platelet Volume 7.5; Monocytes # (A) 0.3 k/uL (0-1.0); Monocytes % (A) 3 %; Neutrophils # (A) 11.2 k/uL (1.3-7.7); Neutrophils % (A) 87 %; Platelet Count 250 k/uL (150-450); Poikilocytosis Slight; RBC 4.15 m/uL (4.30-5.90); RDW 18.2 % (11.5-15.5); WBC 12.9 k/uL (3.8-10.6)
[2021-05-21 00:15] LABS: Albumin 3.7 g/dL (3.5-5.0); Calcium 8.6 mg/dL (8.4-10.2); Magnesium 1.1 mg/dL (1.6-2.3); Potassium 3.7 mmol/L (3.5-5.1); Total Bilirubin 0.5 mg/dL (0.2-1.3); Total Protein 6.6 g/dL (6.3-8.2)
[2021-05-21 00:40] LABS: Partial Thromboplastin Time 24.8 sec (22.0-30.0)
[2021-05-21] MEDS ORDERED: SODIUM CHLORIDE 0.9% 500 ML 500 ML IV STA (00:58)
[2021-05-21] MEDS ORDERED: INSULIN REGULAR 100 UNIT/ML VIAL (IV) IV STA (00:58)
[2021-05-21] MEDS ORDERED: NITROGLYCERIN SL TABS 0.4 MG TAB SUBLINGUAL PRN ×2 (01:01→11:19)
[2021-05-21] MEDS: SODIUM CHLORIDE 0.9% 1,000 ML IV SCH ×2 (01:25→01:28)
[2021-05-21] MEDS ORDERED: HEPARIN SODIUM 1,000 UN/ML (10ML VL) IV ONE (08:18)
[2021-05-21] MEDS ORDERED: HEPARIN SODIUM 1,000 UN/ML (10ML VL) IV PRN (08:18)
[2021-05-21] MEDS ORDERED: METOPROLOL TARTRATE 25 MG TAB PO SCH (09:00)
[2021-05-21] MEDS: HEPARIN SOD,PORK IN 0.45% NACL 25,000 UNIT in 0.45% NACL 1 250ML.BAG IV SCH (09:22)
[2021-05-21] MEDS: NITROGLYCERIN OINT 1 INCH/GM PACKET TOPICAL SCH ×2 (09:23→15:45)
[2021-05-21 10:52] LABS: Glucose,Whole Blood 274 mg/dL (75-99)
[2021-05-21] MEDS ORDERED: COLCHICINE 0.6 MG EACH PO PRN (11:19)
[2021-05-21] MEDS ORDERED: KETOTIFEN 0.025% OPHTH DROPS 5 ML BTL BOTH EYES PRN (11:19)
[2021-05-21] MEDS ORDERED: CALCIUM CARBONATE 500 MG CHEWABLE PO PRN (11:19)
[2021-05-21] MEDS ORDERED: HYDROcodone/APAP 5-325MG 1 EACH TAB PO PRN (11:19)
[2021-05-21] MEDS ORDERED: TRIAMCINOLONE 0.1% CREAM 80 GM TUBE TOPICAL PRN (11:19)
[2021-05-21] MEDS ORDERED: NYSTATIN 100,000UNIT/GM CREAM 30 GM TUBE TOPICAL PRN (11:19)
--- NOTE | 2021-05-21 11:32 | P.HPIM ---
History of Present Illness Patient is an 80-year-old pleasant male morbidly obese with history of sleep apnea chronic diastolic dysfunction came in with the complaints of skipping beats and chest pressure like sensation patient does have history of atrial fibr illation and the patient was in A. fib patient also has mildly elevated troponin to 0.7. Patient was started on Cardizem carotid artery was consulted patient is was given IV heparin because of which is Eliquis is being held. Patient denied orthopnea paroxysmal nocturnal dyspnea. Patient chest pressure is presently better heart rate is controlled on Cardizem patient usually takes Coreg at home . The normal ejection fraction the past and patient is on oral Lasix. REVIEW OF SYSTEMS: CONSTITUTIONAL: No fever, no malaise, no fatigue. HEENT: No recent visual problems or hearing problems. Denied any sore throat. CARDIOVASCULAR: No chest pain, orthopnea, PND, no palpitations, no syncope. PULMONARY: No shortness of breath, no cough, no hemoptysis. GASTROINTESTINAL: No diarrhea, no nausea, no vomiting, no abdominal pain. NEUROLOGICAL: No headaches, no weakness, no numbness. HEMATOLOGICAL: Denies any bleeding or petechiae. GENITOURINARY: Denies any burning micturition, frequency, or urgency. MUSCULOSKELETAL/RHEUMATOLOGICAL: Denies any joint pain, swelling, or any muscle pain. ENDOCRINE: Denies any polyuria or polydipsia. The rest of the 14-point review of systems is negative. PHYSICAL EXAMINATION: GENERAL: The patient is alert and oriented x3, not in any acute distress. Well developed, well nourished. HEENT: Pupils are round and equally reacting to light. EOMI. No scleral icterus. No conjunctival pallor. Normocephalic, atraumatic. No pharyngeal erythema. No thyromegaly. CARDIOVASCULAR: S1 and S2 present. No murmurs, rubs, or gallops. PULMONARY: Chest is clear to auscultation, no wheezing or crackles. ABDOMEN: Soft, nontender, nondistended, normoactive bowel sounds. No palpable organomegaly. MUSCULOSKELETAL: No joint swelling or deformity. EXTREMITIES: No cyanosis, clubbing, or pedal edema. NEUROLOGICAL: Gross neurological examination did not reveal any focal deficits. SKIN: No rashes. Assessment and plan -Chest pain: Seconded to atrial fibrillation with rapid and regular rate patient will be continued on Cardizem, patient will be started on metoprolol 50 twice a day and try to wean off Cardizem patient is on IV heparin at this time. -Atrial fibrillation with rapid and regular rate patient has paroxysmal A. fib presently rapid ventricular rate -Mildly elevated troponins can be related to A. fib -Type 2 diabetes mellitus for which patient is on very high-dose of insulin which will be resumed along with sliding scale -History of chronic gout for which patient is on allopurinol and as needed colchicine which was resumed. -Diabetic neuropathy for which patient is on Neurontin with continued excellent- hypertension -History of coronary artery disease with stents in the past DVT prophylaxis: She is presently on IV heparin Past Medical History Past Medical History: Dementia, Diabetes Mellitus, Hyperlipidemia, Hypertension, Rheumatoid Arthritis (RA) Additional Past Medical History / Comment(s): Neuropathy History of Any Multi-Drug Resistant Organisms: MRSA Date of last positivie culture/infection: 03/31/19 MDRO Source:: Toe,Left first Past Surgical History: Heart Catheterization With Stent, Orthopedic Surgery Additional Past Surgical History / Comment(s): 2 stents per patient, Right knee replacement, hernia repair, biopsy on left ear Past Anesthesia/Blood Transfusion Reactions: No Reported Reaction Additional Past Anesthesia/Blood Transfusion Reaction / Comment(s): per patient he has had a blood transfusion without reaction Date of Last Stent Placement:: unk Past Psychological History: Anxiety Smoking Status: Never smoker Past Alcohol Use History: None Reported Past Drug Use History: None Reported - Past Family History Father Additional Family Medical History / Comment(s): gastric ulcers with surgical repair. Mother Family Medical History: CVA/TIA Medications and Allergies Home Medications Medication Instructions Recorded Confirmed Type Acetaminophen/Diphenhydramine 2 tab PO HS 01/13/19 05/21/21 History [Tylenol PM 500-25mg] Atorvastatin [Lipitor] 40 mg PO HS 01/13/19 05/21/21 History Cholecalciferol [Vitamin D3 (25 25 mcg PO HS 01/13/19 05/21/21 History Mcg = 1000 Iu)] Donepezil [Aricept] 10 mg PO DAILY 01/13/19 05/21/21 History Fluticasone Nasal [place] [Flonase 2 spr EA NOSTRIL DAILY 01/13/19 05/21/21 History Nasal [place]] Insulin Detemir [Levemir Flextouch 34 unit SQ BID 01/13/19 05/21/21 History Pen] Insulin Lispro [humaLOG Kwikpen] 16 unit SQ AC-BRKFST 01/13/19 05/21/21 History Insulin Lispro [humaLOG Kwikpen] 20 unit SQ AC-LUNCH 01/13/19 05/21/21 History Insulin Lispro [humaLOG Kwikpen] 24 unit SQ AC-SUPPER 01/13/19 05/21/21 History Nitroglycerin Sl Tabs [Nitrostat] 0.4 mg SL Q5M PRN 01/13/19 05/21/21 History [place]-3 Fatty Acids/Fish Oil [Fish 1 cap PO AC-LUNCH 01/13/19 05/21/21 History Oil 1,000 mg Softgel] Tamsulosin [Flomax] 0.4 mg PO AC-SUPPER 01/13/19 05/21/21 History metFORMIN HCL [Glucophage] 1,000 mg PO AC-LUNCH 01/13/19 05/21/21 History Tolterodine Tartrate [Detrol LA] 4 mg PO DAILY 05/26/19 05/21/21 History Apixaban [Eliquis] 5 mg PO BID tab 06/02/19 05/21/21 Rx Furosemide [Lasix] 40 mg PO DAILY #30 tablet 06/02/19 05/21/21 Rx Gabapentin [Neurontin] 300 mg PO ACHS #4 cap 06/02/19 05/21/21 Rx Allopurinol [Zyloprim] 200 mg PO BID 11/27/20 05/21/21 History carvediloL [Coreg] 6.25 mg PO BID 11/27/20 05/21/21 History Cyanocobalamin (Vitamin B-12) 1,000 mcg PO HS 01/27/21 05/21/21 History [Vitamin B-12] HYDROcodone/APAP 5-325MG [[place] 1 tab PO DAILY PRN 01/27/21 05/21/21 History 5-325] Insulin Lispro [humaLOG Kwikpen] See Protocol SQ AC-TID PRN 01/27/21 05/21/21 History Ascorbic Acid [Vitamin C with Veronica 1,000 mg PO DAILY 04/05/21 05/21/21 History Hips] Calcium Carbonate [Tums] 500 mg PO QID PRN 04/05/21 05/21/21 History Docusate [Colace] 300 mg PO HS 04/05/21 05/21/21 History Pantoprazole [Protonix] 40 mg PO AC-BID 04/05/21 05/21/21 History Psyllium Husk 100% [Metamucil 6 gm PO DAILY 04/05/21 05/21/21 History Packet] Triamcinolone 0.1% Cream [Kenalog 1 applic TOPICAL DAILY PRN 04/05/21 05/21/21 History 0.1% Cream] Colchicine 0.6 - 1.2 mg PO Q12H PRN 05/21/21 05/21/21 History Glucagon Emergency Kit 1 mg IM DAILY PRN 05/21/21 05/21/21 History Magnesium Oxide [Mag-Ox] 400 mg PO BID 05/21/21 05/21/21 History Nystatin 100,000Unit/gm Cream 1 applic TOPICAL BID PRN 05/21/21 05/21/21 History [Mycostatin Cream] Olopatadine HCl [Patanol 0.1%] 1 drop BOTH EYES BID PRN 05/21/21 05/21/21 History Pyridoxine [Vitamin B-6] 50 mg PO DAILY 05/21/21 05/21/21 History Allergies Allergy/AdvReac Type Severity Reaction Status Date / Time adhesive Allergy Rash/Hives Verified 05/21/21 08:55 clarithromycin [From Biaxin] Allergy Rash/Hives Verified 05/21/21 08:55 egg Allergy allergy Verified 05/21/21 08:55 testing ibuprofen [From Motrin] Allergy Unknown Verified 05/21/21 08:55 Penicillins Allergy Rash/Hives Verified 05/21/21 08:55 Physical Exam Vitals: Vital Signs Temp Pulse Resp BP Pulse Ox 05/21/21 09:26 102 H 05/21/21 08:17 98 05/21/21 08:06 98.3 F 97 26 H 122/80 99 05/21/21 06:20 96 20 126/69 98 05/21/21 05:07 123 H 17 127/73 100 05/21/21 04:00 92 16 108/62 100 05/21/21 03:00 108 H 17 113/63 99 05/21/21 02:00 121 H 17 113/63 99 05/21/21 01:30 106 H 18 102/66 100 05/21/21 01:00 107 H 16 123/84 100 05/21/21 00:30 128 H 18 146/70 98 05/21/21 00:15 101 H 14 115/71 99 05/21/21 00:05 138 H 18 124/84 99 05/20/21 23:56 116 H 20 99/60 100 05/20/21 23:44 144 H 16 124/91 100 05/20/21 22:49 98.0 F 149 H 18 135/94 100 Intake and Output 05/20/21 05/21/21 05/21/21 22:59 06:59 14:59 Intake Total 55.833 Balance 55.833 Intake: Intake, IV Titration 55.833 Amount Diltiazem 125 mg In 55.833 Sodium Chloride 0.9% 100 ml @ 5 MG/HR 5 mls/hr IV .Q24H [facility] Rx#:[id number] Other: Weight 129.274 kg Results CBC & Chem 7: 05/20/21 23:40 05/20/21 23:40 Labs: Abnormal Lab Results - Last 24 Hours (Table) 05/20/21 05/20/21 05/21/21 Range/Units 23:40 23:40 02:20 WBC 12.9 H (3.8-10.6) k/uL RBC 4.15 L (4.30-5.90) m/uL Hgb 11.0 L (13.0-17.5) gm/dL Hct 34.1 L (39.0-53.0) % RDW 18.2 H (11.5-15.5) % Neutrophils # 11.2 H (1.3-7.7) k/uL Glucose 304 H (74-99) mg/dL POC Glucose (mg/dL) (75-99) mg/dL Magnesium 1.1 L (1.6-2.3) mg/dL Troponin I 0.184 H* (0.000-0.034) ng/mL 05/21/21 05/21/21 Range/Units 05:06 10:51 WBC (3.8-10.6) k/uL RBC (4.30-5.90) m/uL Hgb (13.0-17.5) gm/dL Hct (39.0-53.0) % RDW (11.5-15.5) % Neutrophils # (1.3-7.7) k/uL Glucose (74-99) mg/dL POC Glucose (mg/dL) 274 H (75-99) mg/dL Magnesium (1.6-2.3) mg/dL Troponin I 0.709 H* (0.000-0.034) ng/mL
[2021-05-21] MEDS: INSULIN ASPART (NovoLOG) 100 UNIT/ML VIAL SQ SCH ×5 (11:50→20:52)
[2021-05-21] MEDS: metFORMIN 500 MG TAB PO SCH (12:05)
[2021-05-21] MEDS: MAGNESIUM SULFATE-D5W PMX 1 GM in DEXTROSE/WATER 1 100ML.BAG IVPB SCH ×3 (12:05→15:11)
[2021-05-21] MEDS: allopurinoL 100 MG TAB PO SCH ×2 (12:05→21:28)
[2021-05-21] MEDS: GABAPENTIN 300 MG CAP PO SCH ×3 (12:05→21:04)
[2021-05-21] MEDS ORDERED: NON FORMULARY DRUG (Omega-3 Fatty Acids/Fish Oil [Fish Oil 1,000 Mg Softgel] 1 EACH Capsul PO SCH (12:30)
--- NOTE | 2021-05-21 12:37 | ECHOF ---
Referral Reason:Chest pain- VO Dr Duffy MEASUREMENTS -------- HEIGHT: 167.6 cm WEIGHT: 129.3 kg BP: IVSd: 1.7 cm (0.6 - 1.1) LVIDd: 3.7 cm (3.9 - 5.3) LVPWd: 1.8 cm (0.6 - 1.1) IVSs: 2.2 cm LVIDs: 2.4 cm LVPWs: 2.6 cm Ao Diam: 3.1 cm (2.0 - 3.7) AV Cusp: 0.9 cm (1.5 - 2.6) LA Diam: 3.0 cm (2.7 - 3.8) AR PHT: 747 ms RAP: 5.00 mmHg RVSP: 9.35 mmHg FINDINGS -------- This was a technically difficult study with suboptimal views. The left ventricular size is normal. There is moderate concentric left ventricular hypertrophy. O verall left ventricular systolic function is normal with, an EF between 55 - 60 %. The RV was not well visualized. The left atrial size is normal. The right atrium was not well visualized. Lumason used Aortic valve is trileaflet and is moderately thickened. There is mild aortic valve sclerosis. The re is mild aortic regurgitation. The mitral valve is normal. Mild mitral regurgitation is present. The tricuspid valve appears structurally normal. Mild tricuspid regurgitation present. Right vent ricular systolic pressure is normal at < 35 mmHg. There is no pulmonic regurgitation present. The aortic root size is normal. IVC Not well visulized. There is no pericardial effusion. CONCLUSIONS -------- 1. The left ventricular size is normal. 2. There is moderate concentric left ventricular hypertrophy. 3. Overall left ventricular systolic function is normal with, an EF between 55 - 60 %. 4. Aortic valve is trileaflet and is moderately thickened. 5. There is mild aortic valve sclerosis. 6. There is mild aortic regurgitation. 7. Mild mitral regurgitation is present. 8. Mild tricuspid regurgitation present. 9. There is no pericardial effusion. CLIENT TECHNICAL SUPPORT ASSOCIATE: Aubree Tobias RD
--- NOTE | 2021-05-21 14:14 | CONS ---
CONSULTATION CHIEF COMPLAINT: Chest pain and shortness of breath. HISTORY OF PRESENT ILLNESS: Andrade is an 80-year-old gentleman with history of coronary artery disease, status post prior angioplasty in [place], [id number] diabetes, hypertension, gastroesophageal reflux disease, dyslipidemia, and atrial fibrillation who presented to the hospital complaining of chest tightness. He describes it as a precordial chest pressure mild to moderate intensity at rest without definite radiation to neck, arm or back. This started about 2-3 days ago. It was worse yesterday. Hence, he came into the hospital. EKG shows atrial fibrillation with poorly controlled ventricular rate and ST-T wave changes suggestive of subendocardial ischemia. The patient has history of sleep apnea and is on a BiPAP machine at home. At the time of my evaluation, his heart rate is better controlled. He is chest pain-free and hemodynamically stable. PAST MEDICAL HISTORY: Significant for coronary artery disease status post prior angioplasty, hypertension, diabetes, dyslipidemia and permanent atrial fibrillation. MEDICATIONS: Medications at home include: Eliquis 5 b.i.d., vitamin C, Lipitor 40 daily, Tums, Colace, Aricept, Nexium, Flonase, Neurontin, Lasix, insulin, Protonix, Flomax, carvedilol, and metformin. ALLERGIES: ALLERGY TO IBUPROFEN, PENICILLIN, AND BIAXIN. FAMILY HISTORY: Negative for premature coronary artery disease. SOCIAL HISTORY: Negative for current smoking, EtOH abuse or drug abuse. REVIEW OF SYSTEMS: HEENT is unremarkable. CARDIAC as described above. RESPIRATORY as described above. GI negative. GENITOURINARY: Negative. ALLERGY: None. SKIN negative. MUSCULOSKELETAL: Significant for arthritis. PSYCHOSOCIAL: Negative. ENDOCRINE: Negative. CONSTITUTIONAL: Negative. SEROLOGY TECHNICIAN: Negative. Rest of the system review is not relevant. EXAM: Patient is afebrile. Heart rate is 97 beats per minute. Blood pressure is 120/80, respiratory is 20. NECK: There is no jugular venous distention. Carotid upstroke is normal. There is no bruit. CHEST exam reveals good air entry bilaterally. HEART exam reveals first and second heart sounds, irregular rhythm and a systolic murmur at the left lower sternal border. ABDOMEN: Soft. Exam of EXTREMITIES reveals mild edema. Peripheral pulses are felt. LAB: Show a hemoglobin of 11, platelet count is 250, potassium is 3.7, creatinine is 0.96. Coronavirus test is negative. Troponin is mildly elevated at 0.01, 0.1, and 0.7. ASSESSMENT: 1. Acute non ST-segment elevation myocardial infarction. 2. Permanent atrial fibrillation with poorly controlled ventricular rate. 3. History of coronary artery disease status post angioplasty. 4. Hypertension. 5. Diabetes. 6. Dyslipidemia. PLAN: We will treat the patient with IV heparin, control the heart rate with Cardizem. Resume the beta tj, start him on nitroglycerin paste and I will consider cardiac catheterization on him tomorrow. I will obtain a 2D echo. MMODL / IJN: [id number] /
[2021-05-21] MEDS: DILTIAZEM 125 MG in SODIUM CHLORIDE 0.9% 100 ML IV SCH (15:12)
[2021-05-21 17:23] LABS: Glucose,Whole Blood 343 mg/dL (75-99)
[2021-05-21] MEDS: PANTOPRAZOLE 40 MG TABLET PO SCH (18:17)
[2021-05-21 18:19] LABS: Glucose,Whole Blood 318 mg/dL (75-99)
[2021-05-21] MEDS: TAMSULOSIN 0.4 MG CAP.ER.24H PO SCH (18:21)
[2021-05-21 20:46] LABS: Glucose,Whole Blood 269 mg/dL (75-99)
[2021-05-21] MEDS ORDERED: ATORVASTATIN 40 MG TAB PO SCH (21:00)
[2021-05-21] MEDS: INSULIN DETEMIR (LEVEMIR) 100 UNIT/ML SYR SQ SCH (21:03)
[2021-05-21] MEDS: CHOLECALCIFEROL 25 MCG (1000 IU) TABLET PO SCH (21:04)
[2021-05-21] MEDS: METOPROLOL TARTRATE 50 MG TAB PO SCH (21:04)
[2021-05-21] MEDS: MAGNESIUM OXIDE 400 MG TAB PO SCH (21:04)
[2021-05-21] MEDS: CYANOCOBALAMIN 500 MCG TAB PO SCH (21:28)
[2021-05-21] MEDS: DOCUSATE 100 MG CAP PO SCH (21:28)
[2021-05-22] MEDS: DILTIAZEM 125 MG in SODIUM CHLORIDE 0.9% 100 ML IV SCH (01:36)
[2021-05-22] MEDS: SODIUM CHLORIDE 0.9% 1,000 ML IV SCH ×4 (01:39→17:45)
[2021-05-22] MEDS: NITROGLYCERIN OINT 1 INCH/GM PACKET TOPICAL SCH ×3 (01:50→17:56)
[2021-05-22 06:13] LABS: Glucose,Whole Blood 205 mg/dL (75-99)
[2021-05-22] MEDS: INSULIN ASPART (NovoLOG) 100 UNIT/ML VIAL SQ SCH ×7 (06:59→22:08)
[2021-05-22] MEDS: GABAPENTIN 300 MG CAP PO SCH ×4 (07:00→22:07)
[2021-05-22] MEDS: HEPARIN SOD,PORK IN 0.45% NACL 25,000 UNIT in 0.45% NACL 1 250ML.BAG IV SCH ×3 (07:00→15:38)
[2021-05-22] MEDS: PANTOPRAZOLE 40 MG TABLET PO SCH ×2 (07:00→17:56)
[2021-05-22] MEDS: INSULIN DETEMIR (LEVEMIR) 100 UNIT/ML SYR SQ SCH ×2 (07:16→22:09)
[2021-05-22] MEDS ORDERED: ATORVASTATIN 80 MG TAB PO STA (08:10)
[2021-05-22] MEDS ORDERED: ASPIRIN 325 MG TAB PO STA (08:10)
[2021-05-22] MEDS ORDERED: ALPRAZolam 0.5 MG TAB PO PRN (08:10)
[2021-05-22] MEDS ORDERED: ALPRAZolam 0.25 MG TAB PO PRN (08:10)
[2021-05-22] MEDS ORDERED: NITROGLYCERIN SL TABS 0.4 MG TAB SUBLINGUAL PRN (08:10)
[2021-05-22] MEDS: OXYBUTYNIN 10 MG TAB.ER.24 PO SCH (09:39)
[2021-05-22] MEDS: PYRIDOXINE 50 MG TAB PO SCH (09:39)
[2021-05-22] MEDS: allopurinoL 100 MG TAB PO SCH ×2 (09:39→22:08)
[2021-05-22] MEDS: METOPROLOL TARTRATE 50 MG TAB PO SCH ×2 (09:40→22:07)
[2021-05-22] MEDS: MAGNESIUM OXIDE 400 MG TAB PO SCH ×2 (09:41→22:08)
[2021-05-22] MEDS: FUROSEMIDE 40 MG TAB PO SCH (09:41)
[2021-05-22 10:23] LABS: INR 1.1 (<1.2); Partial Thromboplastin Time 40.7 sec (22.0-30.0); Prothrombin Time 11.2 sec (9.0-12.0)
[2021-05-22] MEDS: FLUTICASONE 50MCG/SPRAY NASAL 16GM EA NOSTRIL SCH (10:38)
[2021-05-22 10:39] LABS: Anisocytosis Slight; Basophils % (A) 0 %; Eosinophils # (A) 0.1 k/uL (0-0.7); Eosinophils % (A) 1 %; HCT 30.3 % (39.0-53.0); HGB 9.9 gm/dL (13.0-17.5); Hypochromasia Slight; Lymphocytes # (A) 1.1 k/uL (1.0-4.8); Lymphocytes % (A) 8 %; MCH 27.2 pg (25.0-35.0); MCHC 32.7 g/dL (31.0-37.0); MCV 83.1 fL (80.0-100.0); Mean Platelet Volume 8.6; Monocytes # (A) 0.6 k/uL (0-1.0); Monocytes % (A) 4 %; Neutrophils # (A) 11.2 k/uL (1.3-7.7); Neutrophils % (A) 86 %; Platelet Count 249 k/uL (150-450); Poikilocytosis Slight; RBC 3.65 m/uL (4.30-5.90); RDW 18.4 % (11.5-15.5); WBC 13.1 k/uL (3.8-10.6)
[2021-05-22] MEDS: SODIUM CHLORIDE 0.9% 1,000 ML in EMPTY BAG 1 BAG IV SCH ×2 (10:46→17:46)
[2021-05-22 11:22] LABS: Glucose,Whole Blood 241 mg/dL (75-99)
[2021-05-22] MEDS: metFORMIN 500 MG TAB PO SCH (11:38)
[2021-05-22] MEDS ORDERED: LIDOCAINE 1% INJ 10MG/ML (20 ML MDV) ONE (11:59)
[2021-05-22] MEDS ORDERED: VERAPAMIL 2.5 MG/ML 2 ML AMP ONE (11:59)
[2021-05-22] MEDS ORDERED: HEPARIN SODIUM 1,000 UN/ML (10ML VL) ONE (12:10)
[2021-05-22] MEDS ORDERED: .fentaNYL (PF) 50 MCG/ML 2 ML AMP IVP ONE (12:15)
[2021-05-22] MEDS ORDERED: LIDOCAINE 1% INJ 10MG/ML (20 ML MDV) SQ ONE (12:17)
[2021-05-22] MEDS ORDERED: VERAPAMIL SYRINGE (5 MG/10 ML) INTRAARTER ONE (12:20)
[2021-05-22] MEDS ORDERED: HEPARIN SODIUM 1,000 UN/ML (10ML VL) IV ONE (12:25)
[2021-05-22] MEDS ORDERED: IV FLUID CONTINUATION 1,000 ML IV ONE (12:33)
[2021-05-22] MEDS ORDERED: IOPAMIDOL-370 125ML BTL INJ ONE (12:37)
[2021-05-22] MEDS ORDERED: RX INFO: IV CONTRAST WAS GIVEN 1 EACH MISC MISCELLANE PRN (12:43)
[2021-05-22] MEDS ORDERED: SODIUM CHLORIDE 0.9% 1,000 ML IV SCH (12:45)
[2021-05-22 14:36] LABS: Anisocytosis Slight; Basophils % (A) 0 %; Eosinophils # (A) 0.2 k/uL (0-0.7); Eosinophils % (A) 2 %; HCT 29.1 % (39.0-53.0); HGB 9.3 gm/dL (13.0-17.5); Hypochromasia Moderate; Lymphocytes % (A) 9 %; MCH 26.5 pg (25.0-35.0); MCV 82.8 fL (80.0-100.0); Mean Platelet Volume 7.9; Monocytes # (A) 0.4 k/uL (0-1.0); Monocytes % (A) 3 %; Neutrophils # (A) 9.5 k/uL (1.3-7.7); Neutrophils % (A) 85 %; Platelet Count 209 k/uL (150-450); Poikilocytosis Slight; RBC 3.51 m/uL (4.30-5.90); RDW 18.3 % (11.5-15.5); WBC 11.2 k/uL (3.8-10.6)
--- NOTE | 2021-05-22 14:37 | P.GSCN ---
<Aubree Coronado - Last Filed: 05/22/21 13:49> History of Present Illness Consult date: 05/22/21 Reason for Consult: Triple-vessel coronary artery disease, non-STEMI this admission, surgical revasc ularization recommendations Requesting physician: Ariel Beach History of present illness: This is an 80-year-old morbidly obese inactive gentleman who follows on an outpatient basis with Dr. Arizmendi for primary care. 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 He presented to [facility] emergency room with complaints of substernal chest pain which began a couple of days ago, it had increased in intensity and was associated with shortness of breath and heart palpitations so the patient presented to the emergency room for evaluation and treatment. Chest x-ray was completed demonstrating no acute process. EKG was completed demonstrating A. fib with RVR with heart rate [address] changes. Lab work demonstrated WBC 12.9, hemoglobin 11, creatinine 0.96, magnesium 1.1, glucose 304, and troponin which was initially 0.017 and which elevated to 0.709. The patient was ruled in for non-STEMI and was admitted for further evaluation and treatment with consultation placed to cardiology. The patient did have a transthoracic echocardiogram completed yesterday demonstrating normal left ventricular systolic function with EF 55-60%, mild aortic insufficiency, mild mitral and tricuspid regurgitation. The patient was recommended to undergo heart catheterization which was completed today and which demonstrated severe triple-vessel coronary artery disease. Consultation was placed to Dr. Blanco from cardiothoracic surgery for surgical revascularization recommendations. Review of Systems Review of systems was completed and was negative except as noted - Cardiovascular Reports as per HPI, Reports chest pain, Reports decreased exercise tolerance, Reports dyspnea on exertion, Reports leg edema, Reports rapid heart beat, Reports shortness of breath Past Medical History Past Medical History: Atrial Fibrillation, Coronary Artery Disease (CAD), Chest Pain / Angina, Heart Failure, Dementia, Diabetes Mellitus, GERD/Reflux, Hyperlipidemia, Hypertension, Myocardial Infarction (MD), Rheumatoid Arthritis (RA), Sleep Apnea/CPAP/BIPAP Additional Past Medical History / Comment(s): Neuropathy, bronchitis, low dementia, nodule on left lung - monitoring 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 MDRO Source:: Toe,Left first Past Surgical History: Ear Surgery, Heart Catheterization With Stent, Orthopedic Surgery Additional Past Surgical History / Comment(s): 3 stents per patient, Right knee replacement, hernias?, biopsy on left ear - "slow growing cancer", [place] [facility] [place] - grafted Past Anesthesia/Blood Transfusion Reactions: No Reported Reaction Additional Past Anesthesia/Blood Transfusion Reaction / Comm: per patient he has had a blood transfusion without reaction Date of Last Stent Placement:: unk Past Psychological History: No Psychological Hx Reported Smoking Status: Former smoker Past Alcohol Use History: None Reported Past Drug Use History: None Reported Additional History: Quit smoking approximately 25 years ago - Past Family History Father Additional Family Medical History / Comment(s): gastric ulcers with surgical repair. Mother Family Medical History: CVA/TIA Medications and Allergies Home Medications Medication Instructions Recorded Confirmed Type Acetaminophen/Diphenhydramine 2 tab PO HS 01/13/19 05/21/21 History [Tylenol PM 500-25mg] Atorvastatin [Lipitor] 40 mg PO HS 01/13/19 05/21/21 History Cholecalciferol [Vitamin D3 (25 25 mcg PO HS 01/13/19 05/21/21 History Mcg = 1000 Iu)] Donepezil [Aricept] 10 mg PO DAILY 01/13/19 05/21/21 History Fluticasone Nasal [place] [Flonase 2 spr EA NOSTRIL DAILY 01/13/19 05/21/21 History Nasal [place]] Insulin Detemir [Levemir Flextouch 34 unit SQ BID 01/13/19 05/21/21 History Pen] Insulin Lispro [humaLOG Kwikpen] 16 unit SQ AC-BRKFST 01/13/19 05/21/21 History Insulin Lispro [humaLOG Kwikpen] 20 unit SQ AC-LUNCH 01/13/19 05/21/21 History Insulin Lispro [humaLOG Kwikpen] 24 unit SQ AC-SUPPER 01/13/19 05/21/21 History Nitroglycerin Sl Tabs [Nitrostat] 0.4 mg SL Q5M PRN 01/13/19 05/21/21 History [place]-3 Fatty Acids/Fish Oil [Fish 1 cap PO AC-LUNCH 01/13/19 05/21/21 History Oil 1,000 mg Softgel] Tamsulosin [Flomax] 0.4 mg PO AC-SUPPER 01/13/19 05/21/21 History metFORMIN HCL [Glucophage] 1,000 mg PO AC-LUNCH 01/13/19 05/21/21 History Tolterodine Tartrate [Detrol LA] 4 mg PO DAILY 05/26/19 05/21/21 History Apixaban [Eliquis] 5 mg PO BID tab 06/02/19 05/21/21 Rx Furosemide [Lasix] 40 mg PO DAILY #30 tablet 06/02/19 05/21/21 Rx Gabapentin [Neurontin] 300 mg PO ACHS #4 cap 06/02/19 05/21/21 Rx Allopurinol [Zyloprim] 200 mg PO BID 11/27/20 05/21/21 History carvediloL [Coreg] 6.25 mg PO BID 11/27/20 05/21/21 History Cyanocobalamin (Vitamin B-12) 1,000 mcg PO HS 01/27/21 05/21/21 History [Vitamin B-12] HYDROcodone/APAP 5-325MG [Rake 1 tab PO DAILY PRN 01/27/21 05/21/21 History 5-325] Insulin Lispro [humaLOG Kwikpen] See Protocol SQ AC-TID PRN 01/27/21 05/21/21 History Ascorbic Acid [Vitamin C with Veronica 1,000 mg PO DAILY 04/05/21 05/21/21 History Hips] Calcium Carbonate [Tums] 500 mg PO QID PRN 04/05/21 05/21/21 History Docusate [Colace] 300 mg PO HS 04/05/21 05/21/21 History Pantoprazole [Protonix] 40 mg PO AC-BID 04/05/21 05/21/21 History Psyllium Husk 100% [Metamucil 6 gm PO DAILY 04/05/21 05/21/21 History Packet] Triamcinolone 0.1% Cream [Kenalog 1 applic TOPICAL DAILY PRN 04/05/21 05/21/21 History 0.1% Cream] Colchicine 0.6 - 1.2 mg PO Q12H PRN 05/21/21 05/21/21 History Glucagon Emergency Kit 1 mg IM DAILY PRN 05/21/21 05/21/21 History Magnesium Oxide [Mag-Ox] 400 mg PO BID 05/21/21 05/21/21 History Nystatin 100,000Unit/gm Cream 1 applic TOPICAL BID PRN 05/21/21 05/21/21 History [Mycostatin Cream] Olopatadine HCl [Patanol 0.1%] 1 drop BOTH EYES BID PRN 05/21/21 05/21/21 History Pyridoxine [Vitamin B-6] 50 mg PO DAILY 05/21/21 05/21/21 History Allergies Allergy/AdvReac Type Severity Reaction Status Date / Time adhesive Allergy Rash/Hives Verified 05/21/21 08:55 clarithromycin [From Biaxin] Allergy Rash/Hives Verified 05/21/21 08:55 egg Allergy allergy Verified 05/21/21 08:55 testing ibuprofen [From Motrin] Allergy Unknown Verified 05/21/21 08:55 Penicillins Allergy Rash/Hives Verified 05/21/21 08:55 Surgical - Exam Vital Signs Temp Pulse Resp BP Pulse Ox 98.0 F 149 H 18 135/94 100 05/20/21 22:49 05/20/21 22:49 05/20/21 22:49 05/20/21 22:49 05/20/21 22:49 CONSTITUTIONAL: Awake and alert, appears comfortable, cooperative, well- developed, well-nourished, no pain, no acute distress, morbidly obese EYES: Pupils equal, round, reactive to light, normal ocular movement ENT: Moist mucous membranes without oral lesions present, edentulous NECK: No masses, no bruits, trachea midline, thick neck RESPIRATORY: Lungs sounds diminished to auscultation bilaterally. Respirations even, slightly labored with speech. Currently on 2 L nasal cannula with oxygen saturation 98%. Strong cough. No chest wall deformities. No clubbing or cyanosis present CARDIOVASCULAR: S1, S2 present. Regular rate and rhythm, sinus rhythm on te lemetry. Palpable peripheral pulses bilaterally. Bilateral lower extremity edema present. No calf pain or tenderness noted. GASTROINTESTINAL: Abdomen soft, nontender, nondistended, obese without masses or organomegaly noted. There is no rebound or guarding present. Active bowel sounds present 4 quadrants. GENITOURINARY: Deferred INTEGUMENTARY: Skin is warm and dry with evidence of good perfusion. Right radial heart catheterization site without redness or drainage, T band in place NEUROLOGIC: Cranial nerves II through XII intact, normal coordination, no obvious motor or sensory deficits, speech is normal MUSKULOSKELETAL: Able to move all extremities, strength equal bilaterally, normal posture PSYCHIATRIC: Alert and oriented to person place and time, appropriate affect, intact judgment and insight Results - Labs 05/22/21 09:24 05/20/21 23:40 Abnormal Lab Results - Last 24 Hours (Table) 05/21/21 05/21/21 05/21/21 Range/Units 17:14 18:04 20:45 WBC (3.8-10.6) k/uL RBC (4.30-5.90) m/uL Hgb (13.0-17.5) gm/dL Hct (39.0-53.0) % RDW (11.5-15.5) % Neutrophils # (1.3-7.7) k/uL APTT (22.0-30.0) sec POC Glucose (mg/dL) 343 H 318 H 269 H (75-99) mg/dL 05/22/21 05/22/21 05/22/21 Range/Units 06:12 09:24 09:24 WBC 13.1 H (3.8-10.6) k/uL RBC 3.65 L (4.30-5.90) m/uL Hgb 9.9 L (13.0-17.5) gm/dL Hct 30.3 L (39.0-53.0) % RDW 18.4 H (11.5-15.5) % Neutrophils # 11.2 H (1.3-7.7) k/uL APTT 40.7 H (22.0-30.0) sec POC Glucose (mg/dL) 205 H (75-99) mg/dL 05/22/21 Range/Units 11:20 WBC (3.8-10.6) k/uL RBC (4.30-5.90) m/uL Hgb (13.0-17.5) gm/dL Hct (39.0-53.0) % RDW (11.5-15.5) % Neutrophils # (1.3-7.7) k/uL APTT (22.0-30.0) sec POC Glucose (mg/dL) 241 H (75-99) mg/dL - Imaging Chest x-ray: report reviewed, image reviewed EKG: image reviewed Additional studies: Heart catheterization and echocardiogram films reviewed Assessment and Plan Assessment: 1. Severe triple-vessel coronary artery disease, non-STEMI this admission 2. Atrial fibrillation with rapid ventricular response, present on admission, currently sinus 3. History of coronary artery disease status post previous PCI 4. Hypertension 5. Hyperlipidemia 6. Persistent atrial fibrillation on Eliquis for anticoagulation 7. Insulin-dependent diabetes with peripheral neuropathy 8. Dementia, on Aricept 9. Obstructive sleep apnea with home CPAP use 10. Left lower extremity larkin with skin graft placement 11. Frequent falls 12. 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 Previous tobacco dependence Plan: The patient was seen and examined at the bedside in the intensive care unit. Chart/diagnostics were reviewed. The case was discussed between Dr. Blanco and Dr. Beach. The usual perioperative course of open heart surgery was discussed in detail with the patient, risks and benefits were reviewed, all questions were answered. Preoperative testing was initiated. Once all testing has been completed STS risk score will be calculated and discussed with the patient. Continue aspirin, statin, beta tj therapy, IV heparin. Patient does need better blood sugar control. We will contact his daughter to update with plan of care. Medical management of other comorbidities per primary care service. More recommendations to follow. Thank you Dr. Beach for this consult. Time with Patient: Greater than 30 <Albina Brandt - Last Filed: 05/22/21 18:04> Surgical - Exam Vital Signs Temp Pulse Resp BP Pulse Ox 98.0 F 149 H 18 135/94 100 05/20/21 22:49 05/20/21 22:49 05/20/21 22:49 05/20/21 22:49 05/20/21 22:49 Results - Labs 05/22/21 14:09 05/22/21 14:09 Abnormal Lab Results - Last 24 Hours (Table) 05/21/21 05/21/21 05/22/21 Range/Units 18:04 20:45 06:12 WBC (3.8-10.6) k/uL RBC (4.30-5.90) m/uL Hgb (13.0-17.5) gm/dL Hct (39.0-53.0) % RDW (11.5-15.5) % Neutrophils # (1.3-7.7) k/uL APTT (22.0-30.0) sec BUN (9-20) mg/dL Creatinine (0.66-1.25) mg/dL Glucose (74-99) mg/dL POC Glucose (mg/dL) 318 H 269 H 205 H (75-99) mg/dL Troponin I (0.000-0.034) ng/mL Total Protein (6.3-8.2) g/dL Albumin (3.5-5.0) g/dL Triglycerides (0.00-149.00) mg/dL HDL Cholesterol (40.00-60.00) mg/dL 05/22/21 05/22/21 05/22/21 Range/Units 09:24 09:24 09:24 WBC 13.1 H (3.8-10.6) k/uL RBC 3.65 L (4.30-5.90) m/uL Hgb 9.9 L (13.0-17.5) gm/dL Hct 30.3 L (39.0-53.0) % RDW 18.4 H (11.5-15.5) % Neutrophils # 11.2 H (1.3-7.7) k/uL APTT 40.7 H (22.0-30.0) sec BUN (9-20) mg/dL Creatinine (0.66-1.25) mg/dL Glucose (74-99) mg/dL POC Glucose (mg/dL) (75-99) mg/dL Troponin I (0.000-0.034) ng/mL Total Protein (6.3-8.2) g/dL Albumin (3.5-5.0) g/dL Triglycerides 177.00 H (0.00-149.00) mg/dL HDL Cholesterol 31.40 L (40.00-60.00) mg/dL 05/22/21 05/22/21 05/22/21 Range/Units 11:20 14:09 14:09 WBC 11.2 H (3.8-10.6) k/uL RBC 3.51 L (4.30-5.90) m/uL Hgb 9.3 L (13.0-17.5) gm/dL Hct 29.1 L (39.0-53.0) % RDW 18.3 H (11.5-15.5) % Neutrophils # 9.5 H (1.3-7.7) k/uL APTT (22.0-30.0) sec BUN 26 H (9-20) mg/dL Creatinine 1.69 H (0.66-1.25) mg/dL Glucose 180 H (74-99) mg/dL POC Glucose (mg/dL) 241 H (75-99) mg/dL Troponin I (0.000-0.034) ng/mL Total Protein 6.2 L (6.3-8.2) g/dL Albumin 3.4 L (3.5-5.0) g/dL Triglycerides (0.00-149.00) mg/dL HDL Cholesterol (40.00-60.00) mg/dL 05/22/21 05/22/21 05/22/21 Range/Units 14:09 14:15 16:03 WBC (3.8-10.6) k/uL RBC (4.30-5.90) m/uL Hgb (13.0-17.5) gm/dL Hct (39.0-53.0) % RDW (11.5-15.5) % Neutrophils # (1.3-7.7) k/uL APTT 35.0 H (22.0-30.0) sec BUN (9-20) mg/dL Creatinine (0.66-1.25) mg/dL Glucose (74-99) mg/dL POC Glucose (mg/dL) 141 H (75-99) mg/dL Troponin I 0.546 H* (0.000-0.034) ng/mL Total Protein (6.3-8.2) g/dL Albumin (3.5-5.0) g/dL Triglycerides (0.00-149.00) mg/dL HDL Cholesterol (40.00-60.00) mg/dL 05/22/21 Range/Units 17:42 WBC (3.8-10.6) k/uL RBC (4.30-5.90) m/uL Hgb (13.0-17.5) gm/dL Hct (39.0-53.0) % RDW (11.5-15.5) % Neutrophils # (1.3-7.7) k/uL APTT (22.0-30.0) sec BUN (9-20) mg/dL Creatinine (0.66-1.25) mg/dL Glucose (74-99) mg/dL POC Glucose (mg/dL) 136 H (75-99) mg/dL Troponin I (0.000-0.034) ng/mL Total Protein (6.3-8.2) g/dL Albumin (3.5-5.0) g/dL Triglycerides (0.00-149.00) mg/dL HDL Cholesterol (40.00-60.00) mg/dL Diabetes panel 05/22/21 05/22/21 Range/Units 09:24 14:09 Sodium 138 (137-145) mmol/L Potassium 3.9 (3.5-5.1) mmol/L Chloride 103 (98-107) mmol/L Carbon Dioxide 24 (22-30) mmol/L BUN 26 H (9-20) mg/dL Creatinine 1.69 H (0.66-1.25) mg/dL Glucose 180 H (74-99) mg/dL Calcium 8.7 (8.4-10.2) mg/dL AST 27 (17-59) U/L ALT 17 (4-49) U/L Alkaline Phosphatase 87 (38-126) U/L Total Protein 6.2 L (6.3-8.2) g/dL Albumin 3.4 L (3.5-5.0) g/dL Triglycerides 177.00 H (0.00-149.00) mg/dL HDL Cholesterol 31.40 L (40.00-60.00) mg/dL Thyroid panel 05/22/21 Range/Units 14:09 TSH 3.160 (0.465-4.680) mIU/L Calcium panel 05/22/21 Range/Units 14:09 Calcium 8.7 (8.4-10.2) mg/dL Albumin 3.4 L (3.5-5.0) g/dL Pituitary panel 05/22/21 Range/Units 14:09 Sodium 138 (137-145) mmol/L Potassium 3.9 (3.5-5.1) mmol/L Chloride 103 (98-107) mmol/L Carbon Dioxide 24 (22-30) mmol/L BUN 26 H (9-20) mg/dL Creatinine 1.69 H (0.66-1.25) mg/dL Glucose 180 H (74-99) mg/dL Calcium 8.7 (8.4-10.2) mg/dL TSH 3.160 (0.465-4.680) mIU/L Adrenal panel 05/22/21 Range/Units 14:09 Sodium 138 (137-145) mmol/L Potassium 3.9 (3.5-5.1) mmol/L Chloride 103 (98-107) mmol/L Carbon Dioxide 24 (22-30) mmol/L BUN 26 H (9-20) mg/dL Creatinine 1.69 H (0.66-1.25) mg/dL Glucose 180 H (74-99) mg/dL Calcium 8.7 (8.4-10.2) mg/dL Total Bilirubin 0.6 (0.2-1.3) mg/dL AST 27 (17-59) U/L ALT 17 (4-49) U/L Alkaline Phosphatase 87 (38-126) U/L Total Protein 6.2 L (6.3-8.2) g/dL Albumin 3.4 L (3.5-5.0) g/dL <Meño Blanco R - Last Filed: 05/23/21 09:03> Surgical - Exam Vital Signs Temp Pulse Resp BP Pulse Ox 98.0 F 149 H 18 135/94 100 05/20/21 22:49 05/20/21 22:49 05/20/21 22:49 05/20/21 22:49 05/20/21 22:49 Results - Labs 05/23/21 07:44 05/23/21 07:44 Abnormal Lab Results - Last 24 Hours (Table) 05/22/21 05/22/21 05/22/21 Range/Units 09:24 09:24 09:24 WBC 13.1 H (3.8-10.6) k/uL RBC 3.65 L (4.30-5.90) m/uL Hgb 9.9 L (13.0-17.5) gm/dL Hct 30.3 L (39.0-53.0) % MCHC (31.0-37.0) g/dL RDW 18.4 H (11.5-15.5) % Neutrophils # 11.2 H (1.3-7.7) k/uL Lymphocytes # (1.0-4.8) k/uL APTT 40.7 H (22.0-30.0) sec BUN (9-20) mg/dL Creatinine (0.66-1.25) mg/dL Glucose (74-99) mg/dL POC Glucose (mg/dL) (75-99) mg/dL Hemoglobin A1c (4.0-6.0) % Troponin I (0.000-0.034) ng/mL Total Protein (6.3-8.2) g/dL Albumin (3.5-5.0) g/dL Triglycerides 177.00 H (0.00-149.00) mg/dL HDL Cholesterol 31.40 L (40.00-60.00) mg/dL Ur Leukocyte Esterase (Negative) Hyaline Casts (0-2) /lpf Urine Mucus (None) /hpf 05/22/21 05/22/21 05/22/21 Range/Units 11:20 14:09 14:09 WBC (3.8-10.6) k/uL RBC (4.30-5.90) m/uL Hgb (13.0-17.5) gm/dL Hct (39.0-53.0) % MCHC (31.0-37.0) g/dL RDW (11.5-15.5) % Neutrophils # (1.3-7.7) k/uL Lymphocytes # (1.0-4.8) k/uL APTT (22.0-30.0) sec BUN 26 H (9-20) mg/dL Creatinine 1.69 H (0.66-1.25) mg/dL Glucose 180 H (74-99) mg/dL POC Glucose (mg/dL) 241 H (75-99) mg/dL Hemoglobin A1c 7.7 H (4.0-6.0) % Troponin I (0.000-0.034) ng/mL Total Protein 6.2 L (6.3-8.2) g/dL Albumin 3.4 L (3.5-5.0) g/dL Triglycerides (0.00-149.00) mg/dL HDL Cholesterol (40.00-60.00) mg/dL Ur Leukocyte Esterase (Negative) Hyaline Casts (0-2) /lpf Urine Mucus (None) /hpf 05/22/21 05/22/21 05/22/21 Range/Units 14:09 14:09 14:15 WBC 11.2 H (3.8-10.6) k/uL RBC 3.51 L (4.30-5.90) m/uL Hgb 9.3 L (13.0-17.5) gm/dL Hct 29.1 L (39.0-53.0) % MCHC (31.0-37.0) g/dL RDW 18.3 H (11.5-15.5) % Neutrophils # 9.5 H (1.3-7.7) k/uL Lymphocytes # (1.0-4.8) k/uL APTT 35.0 H (22.0-30.0) sec BUN (9-20) mg/dL Creatinine (0.66-1.25) mg/dL Glucose (74-99) mg/dL POC Glucose (mg/dL) (75-99) mg/dL Hemoglobin A1c (4.0-6.0) % Troponin I 0.546 H* (0.000-0.034) ng/mL Total Protein (6.3-8.2) g/dL Albumin (3.5-5.0) g/dL Triglycerides (0.00-149.00) mg/dL HDL Cholesterol (40.00-60.00) mg/dL Ur Leukocyte Esterase (Negative) Hyaline Casts (0-2) /lpf Urine Mucus (None) /hpf 05/22/21 05/22/21 05/22/21 Range/Units 16:03 17:42 19:24 WBC (3.8-10.6) k/uL RBC (4.30-5.90) m/uL Hgb (13.0-17.5) gm/dL Hct (39.0-53.0) % MCHC (31.0-37.0) g/dL RDW (11.5-15.5) % Neutrophils # (1.3-7.7) k/uL Lymphocytes # (1.0-4.8) k/uL APTT 39.4 H (22.0-30.0) sec BUN (9-20) mg/dL Creatinine (0.66-1.25) mg/dL Glucose (74-99) mg/dL POC Glucose (mg/dL) 141 H 136 H (75-99) mg/dL Hemoglobin A1c (4.0-6.0) % Troponin I (0.000-0.034) ng/mL Total Protein (6.3-8.2) g/dL Albumin (3.5-5.0) g/dL Triglycerides (0.00-149.00) mg/dL HDL Cholesterol (40.00-60.00) mg/dL Ur Leukocyte Esterase (Negative) Hyaline Casts (0-2) /lpf Urine Mucus (None) /hpf 05/22/21 05/22/21 05/22/21 Range/Units 19:39 22:02 23:38 WBC (3.8-10.6) k/uL RBC (4.30-5.90) m/uL Hgb (13.0-17.5) gm/dL Hct (39.0-53.0) % MCHC (31.0-37.0) g/dL RDW (11.5-15.5) % Neutrophils # (1.3-7.7) k/uL Lymphocytes # (1.0-4.8) k/uL APTT 37.2 H (22.0-30.0) sec BUN (9-20) mg/dL Creatinine (0.66-1.25) mg/dL Glucose (74-99) mg/dL POC Glucose (mg/dL) 156 H (75-99) mg/dL Hemoglobin A1c (4.0-6.0) % Troponin I (0.000-0.034) ng/mL Total Protein (6.3-8.2) g/dL Albumin (3.5-5.0) g/dL Triglycerides (0.00-149.00) mg/dL HDL Cholesterol (40.00-60.00) mg/dL Ur Leukocyte Esterase Small H (Negative) Hyaline Casts 9 H (0-2) /lpf Urine Mucus Rare H (None) /hpf 05/23/21 05/23/21 05/23/21 Range/Units 06:48 07:41 07:44 WBC (3.8-10.6) k/uL RBC (4.30-5.90) m/uL Hgb (13.0-17.5) gm/dL Hct (39.0-53.0) % MCHC (31.0-37.0) g/dL RDW (11.5-15.5) % Neutrophils # (1.3-7.7) k/uL Lymphocytes # (1.0-4.8) k/uL APTT (22.0-30.0) sec BUN 23 H (9-20) mg/dL Creatinine 1.42 H (0.66-1.25) mg/dL Glucose 184 H (74-99) mg/dL POC Glucose (mg/dL) 187 H 199 H (75-99) mg/dL Hemoglobin A1c (4.0-6.0) % Troponin I (0.000-0.034) ng/mL Total Protein (6.3-8.2) g/dL Albumin (3.5-5.0) g/dL Triglycerides (0.00-149.00) mg/dL HDL Cholesterol (40.00-60.00) mg/dL Ur Leukocyte Esterase (Negative) Hyaline Casts (0-2) /lpf Urine Mucus (None) /hpf 05/23/21 05/23/21 Range/Units 07:44 07:44 WBC 13.5 H (3.8-10.6) k/uL RBC 3.78 L (4.30-5.90) m/uL Hgb 9.7 L (13.0-17.5) gm/dL Hct 31.5 L (39.0-53.0) % MCHC 30.8 L (31.0-37.0) g/dL RDW 18.2 H (11.5-15.5) % Neutrophils # 12.4 H (1.3-7.7) k/uL Lymphocytes # 0.7 L (1.0-4.8) k/uL APTT 50.6 H (22.0-30.0) sec BUN (9-20) mg/dL Creatinine (0.66-1.25) mg/dL Glucose (74-99) mg/dL POC Glucose (mg/dL) (75-99) mg/dL Hemoglobin A1c (4.0-6.0) % Troponin I (0.000-0.034) ng/mL Total Protein (6.3-8.2) g/dL Albumin (3.5-5.0) g/dL Triglycerides (0.00-149.00) mg/dL HDL Cholesterol (40.00-60.00) mg/dL Ur Leukocyte Esterase (Negative) Hyaline Casts (0-2) /lpf Urine Mucus (None) /hpf Microbiology - Last 24 Hours (Table) 05/22/21 15:43 Nasal Screen MRSA/MSSA - Preliminary Nasal Swab Diabetes panel 05/22/21 05/22/21 05/22/21 Range/Units 09:24 14:09 14:09 Sodium 138 (137-145) mmol/L Potassium 3.9 (3.5-5.1) mmol/L Chloride 103 (98-107) mmol/L Carbon Dioxide 24 (22-30) mmol/L BUN 26 H (9-20) mg/dL Creatinine 1.69 H (0.66-1.25) mg/dL Glucose 180 H (74-99) mg/dL Hemoglobin A1c 7.7 H (4.0-6.0) % Calcium 8.7 (8.4-10.2) mg/dL AST 27 (17-59) U/L ALT 17 (4-49) U/L Alkaline Phosphatase 87 (38-126) U/L Total Protein 6.2 L (6.3-8.2) g/dL Albumin 3.4 L (3.5-5.0) g/dL Triglycerides 177.00 H (0.00-149.00) mg/dL HDL Cholesterol 31.40 L (40.00-60.00) mg/dL 05/23/21 Range/Units 07:44 Sodium 140 (137-145) mmol/L Potassium 4.2 (3.5-5.1) mmol/L Chloride 103 (98-107) mmol/L Carbon Dioxide 28 (22-30) mmol/L BUN 23 H (9-20) mg/dL Creatinine 1.42 H (0.66-1.25) mg/dL Glucose 184 H (74-99) mg/dL Hemoglobin A1c (4.0-6.0) % Calcium 8.6 (8.4-10.2) mg/dL AST (17-59) U/L ALT (4-49) U/L Alkaline Phosphatase (38-126) U/L Total Protein (6.3-8.2) g/dL Albumin (3.5-5.0) g/dL Triglycerides (0.00-149.00) mg/dL HDL Cholesterol (40.00-60.00) mg/dL Thyroid panel 05/22/21 Range/Units 14:09 TSH 3.160 (0.465-4.680) mIU/L Calcium panel 05/22/21 05/23/21 Range/Units 14:09 07:44 Calcium 8.7 8.6 (8.4-10.2) mg/dL Albumin 3.4 L (3.5-5.0) g/dL Pituitary panel 05/22/21 05/23/21 Range/Units 14:09 07:44 Sodium 138 140 (137-145) mmol/L Potassium 3.9 4.2 (3.5-5.1) mmol/L Chloride 103 103 (98-107) mmol/L Carbon Dioxide 24 28 (22-30) mmol/L BUN 26 H 23 H (9-20) mg/dL Creatinine 1.69 H 1.42 H (0.66-1.25) mg/dL Glucose 180 H 184 H (74-99) mg/dL Calcium 8.7 8.6 (8.4-10.2) mg/dL TSH 3.160 (0.465-4.680) mIU/L Adrenal panel 05/22/21 05/23/21 Range/Units 14:09 07:44 Sodium 138 140 (137-145) mmol/L Potassium 3.9 4.2 (3.5-5.1) mmol/L Chloride 103 103 (98-107) mmol/L Carbon Dioxide 24 28 (22-30) mmol/L BUN 26 H 23 H (9-20) mg/dL Creatinine 1.69 H 1.42 H (0.66-1.25) mg/dL Glucose 180 H 184 H (74-99) mg/dL Calcium 8.7 8.6 (8.4-10.2) mg/dL Total Bilirubin 0.6 (0.2-1.3) mg/dL AST 27 (17-59) U/L ALT 17 (4-49) U/L Alkaline Phosphatase 87 (38-126) U/L Total Protein 6.2 L (6.3-8.2) g/dL Albumin 3.4 L (3.5-5.0) g/dL
--- NOTE | 2021-05-22 15:24 | US ---
EXAMINATION TYPE: US carotid duplex BILAT DATE OF EXAM: 05/22/2021 COMPARISON: NONE CLINICAL HISTORY: preop cardiac surgery. open heart pt, no h/o stroke EXAM MEASUREMENTS: RIGHT: Peak Systolic Velocity (PSV) cm/sec ----- Right CCA: 57.2 ----- Right ICA: 93.7 ----- Right ECA: 74.2 ICA/CCA ratio: 1.6 RIGHT: End Diastole cm/sec ----- Right CCA: 7.8 ----- Right ICA: 14.6 ----- Right ECA: 0.0 LEFT: Peak Systolic Velocity (PSV) cm/sec ----- Left CCA: 66.7 ----- Left ICA: 156 ----- Left ECA: 93.1 ICA/CCA ratio: 2.3 LEFT: End Diastole cm/sec ----- Left CCA: 11.3 ----- Left ICA: 30.6 ----- Left ECA: 0.0 VERTEBRALS (direction of flow): Right Vertebral: Antegrade Left Vertebral: unable to discern Rhythm: Normal *difficult to penetrate due to large habitus* Heterogenous plaque with no significant stenosis seen. IMPRESSION: 1. Atheromatous plaquing moderate narrowing and 16. Criteria for Assigning % of Stenosis / Diameter reduction (Estimation based on the indirect measurements of the internal carotid artery velocities (ICA PSV). 1. Normal (no stenosis)=ICA PSV < 125 cm/s: ratio < 2.0: ICA EDV<40 cm/s. 2. Less than 50% stenosis=ICA PSV < 125 cm/s: ratio < 2.0: ICA EDV<40 cm/s. 3. 50 to 69% stenosis=ICA PSV of 125 to 230 cm/s: ration 2.0 ? 4.0: ICA EDV 40-100 cm/s. 4. Greater than 70% stenosis to near occlusion= ICA PSV > 230 cm/s: ratio > 4.0: ICA EDV > 100 cm/s. 5. Near occlusion= ICA PSV velocities may be low or undetectable: variable ratio and ICA EDV. 6. Total occlusion=unable to detect flow.
--- NOTE | 2021-05-22 15:33 | P.PN ---
Subjective Progress Note Date: 05/22/21 Patient is an 80-year-old pleasant male morbidly obese with history of sleep apnea chronic diastolic dysfunction came in with the complaints of skipping beats and chest pressure like sensation patient does have history of atrial fibrillation and the patient was in A. fib patient also has mildly elevated troponin to 0.7. Patient was started on Cardizem carotid artery was consulted patient is was given IV heparin because of which is Eliquis is being held. Patient denied orthopnea paroxysmal nocturnal dyspnea. Patient chest pressure is presently better heart rate is controlled on Cardizem patient usually takes Coreg at home . The normal ejection fraction the past and patient is on oral Lasix. 05/22/2021 Patient is seen in follow-up this morning continues to be closely monitored in the ICU. Patient is currently being prepped to go to cardiac catheterization and will await report. Patient is maintained on IV heparin and IV Cardizem was discontinued. Patient denies any chest pain, palpitations, or shortness of breath. Patient is currently nothing by mouth for the procedure and denies any nausea or vomiting. Patient is weak requiring assistance with position changes and will have physical therapy evaluate the patient. Troponins continue to be elevated. Cardiology following closely. Review of systems: Constitutional: No reports of fatigue, fever, or chills Cardiovascular: No reports of chest pain or palpitations Respiratory: No reports of shortness of breath or cough GI: No reports of nausea, vomiting, or diarrhea : No reports of dysuria or retention Neurovascular: No reports of weakness or numbness All medications have been reviewed PHYSICAL EXAMINATION: GENERAL: The patient is alert and oriented x3, not in any acute distress. Well developed, well nourished. HEENT: Pupils are round and equally reacting to light. EOMI. No scleral icterus. No conjunctival pallor. Normocephalic, atraumatic. No pharyngeal erythema. No thyromegaly. CARDIOVASCULAR: S1 and S2 present. No murmurs, rubs, or gallops. PULMONARY: Chest is clear to auscultation, no wheezing or crackles. ABDOMEN: Soft, obese, nontender, nondistended, normoactive bowel sounds. No palpable organomegaly. MUSCULOSKELETAL: No joint swelling or deformity. EXTREMITIES: No cyanosis, clubbing, or pedal edema. NEUROLOGICAL: Gross neurological examination did not reveal any focal deficits. SKIN: No rashes. Assessment: -Chest pain: secondary to atrial fibrillation with rapid and regular rate home Cardizem was discontinued this morning's patient was in a controlled rhythm with cardiology following closely and will proceed with cardiac catheterization today -Atrial fibrillation with rapid and regular rate patient has paroxysmal A. fib presently rapid ventricular rate -Mildly elevated troponins can be related to A. fib -N-STEMI, triple-vessel coronary artery disease, CT surgery consulted for possible revascularization -Type 2 diabetes mellitus uncontrolled with hyperglycemia and will continue with current medication regimen and monitor closely. continue Accu-Cheks before meals and at bedtime -History of chronic gout, continue with allopurinol and colchicine as needed -Diabetic neuropathy for which patient is on Neurontin with continued -hypertension -History of coronary artery disease with stents in the past -DVT prophylaxis: on IV heparin -Full code Plan: Recommend to continue with current medications and IV Cardizem has been discontinued. Cardiothoracic surgery was consulted as patient was found to have triple-vessel coronary artery disease and recommending possible surgical interventions. Preoperative revascularization testing has been started. Patient's blood sugars continue to be mildly elevated and will continue with current medication regimen and adjust accordingly. Continue with consistent carb heart healthy diet and Accu-Cheks before meals and at bedtime. cardiology following as well and will continue to monitor closely. Prognosis is guarded. Objective - Vital Signs Vital signs: Vital Signs Temp 98.0 F 05/22/21 08:00 Pulse 68 05/22/21 08:00 Resp 23 05/22/21 08:00 BP 112/65 05/22/21 08:00 Pulse Ox 94 L 05/22/21 08:00 Intake & Output 05/21/21 05/22/21 05/22/21 18:59 06:59 18:59 Intake Total 125.000 280.931 71.734 Balance 125.000 280.931 71.734 Intake: Intake, IV Titration 125.000 280.931 71.734 Amount Diltiazem 125 mg In 125.000 116.166 Sodium Chloride 0.9% 100 ml @ 5 MG/HR 5 mls/hr IV .Q24H [facility] Rx#:[id number] Heparin Sod,Pork in 0.45% 164.765 71.734 NaCl 25,000 unit In 0.45 % NaCl 1 250ml.bag @ 7.74 UNITS/KG/HR 10.006 mls/ hr IV .Q24H [facility] Rx#: [id number] - Labs CBC & Chem 7: 05/22/21 14:09 05/20/21 23:40 Labs: Abnormal Lab Results - Last 24 Hours (Table) 05/21/21 05/21/21 05/21/21 Range/Units 10:51 17:14 18:04 POC Glucose (mg/dL) 274 H 343 H 318 H (75-99) mg/dL 05/21/21 05/22/21 Range/Units 20:45 06:12 POC Glucose (mg/dL) 269 H 205 H (75-99) mg/dL
[2021-05-22 15:37] LABS: ALT 17 U/L (4-49); AST 27 U/L (17-59); African American GFR (CKD) 43 (>60 ml/min/1.73 sqM); Albumin 3.4 g/dL (3.5-5.0); Alkaline Phosphatase 87 U/L (38-126); Anion Gap 11 mmol/L; Blood Urea Nitrogen 26 mg/dL (9-20); Calcium 8.7 mg/dL (8.4-10.2); Carbon Dioxide 24 mmol/L (22-30); Chloride 103 mmol/L (98-107); Glucose 180 mg/dL (74-99); Non-African American GFR(CKD) 37 (>60 ml/min/1.73 sqM); Potassium 3.9 mmol/L (3.5-5.1); Sodium 138 mmol/L (137-145); Total Bilirubin 0.6 mg/dL (0.2-1.3); Total Protein 6.2 g/dL (6.3-8.2)
[2021-05-22 16:05] LABS: Glucose,Whole Blood 141 mg/dL (75-99)
[2021-05-22 16:23] LABS: Chol/HDL Ratio 3.18 Ratio
--- NOTE | 2021-05-22 17:28 | CC ---
CARDIAC CATHETERIZATION REPORT Mr. Bran is an 80-year-old male with known history of coronary artery disease, status post stenting of the left circumflex and obtuse marginal branch in [place] a few years ago, history of hypertension, hyperlipidemia, diabetes mellitus and paroxysmal atrial fibrillation who presented with symptoms of chest discomfort and paroxysmal atrial fibrillation. He was found to have mild troponin elevation. He was evaluated by Dr. Duffy and recommendation was made regarding cardiac catheterization. The procedure as well as its risks and complications were discussed with the patient, who was in full understanding and agreement. PROCEDURE DESCRIPTION: Patient was brought to the rn lab in a fasting, semi-sedated state after receiving fentanyl and Benadryl and achieving a moderate conscious sedated state. Using Xylocaine anesthesia and Seldinger technique, a 6-[place] sheath was introduced in the right radial artery. Selective right and left coronary angiography was performed using 5-[place] 3.5 bend right Jeannine and 5-[place] 3.5 and subsequently 4 bend left Jeannine catheters. Multiple views were taken of the arteries, including hemiaxial views. The right Jeannine was used to cross the aortic valve and left ventricular end-diastolic pressure was calculated. Following that, catheter and sheath were removed. Hemostasis was obtained with deployment of a TR band. There was no immediate complication. Patient was returned to his room in stable condition. Of note, the patient received 5000 units of intravenous heparin as well as intra-arterial verapamil. There was no immediate complication. FINDINGS: FLUOROSCOPY: There was severe calcification involving all the coronary arteries. LEFT MAIN: This is a short-sized vessel bifurcating into left circumflex and left anterior descending artery. Left main coronary artery is heavily calcified, has a 10% to 20% plaque without any evidence of high-grade stenosis. LEFT ANTERIOR DESCENDING ARTERY: This is a large-sized vessel reaching toward the apex. The left anterior descending artery has 99% stenosis at the ostium and it gives rise to a large diagonal branch proximally that has a branching part that has diffuse intimal disease. The LAD in the mid segment has another area of stenosis of 50% to 60%. The rest of the vessel has no high-grade stenosis. LEFT CIRCUMFLEX: This is a codominant vessel, large in caliber, giving rise to one large obtuse marginal branch and distally bifurcating into PDA and posterolateral segment and branches. The ostium of the left circumflex has 99% stenosis. The ostium of the obtuse marginal branch has 90% to 95% stenosis. The distal vessel has no evidence of high-grade stenosis. RIGHT CORONARY ARTERY: This is a codominant vessel giving rise to a PDA of small to moderate caliber. The right coronary artery in the mid and mid distal segment has 99% stenosis. The rest of the vessel has no high-grade stenosis, with diffuse intimal disease. HEMODYNAMICS: There was no gradient across the aortic valve. The left ventricular end- diastolic pressure was 18 to 20 mmHg. CONCLUSION: 1. Calcified coronary arteries. 2. Severe triple-vessel coronary artery disease with ostial LAD and left circumflex severe disease. 3. Mildly elevated left ventricular end-diastolic pressure. RECOMMENDATIONS: In view of findings and anatomy, I have recommended proceeding with evaluation for coronary artery bypass grafting. Those findings and recommendations were discussed with the patient and his family, who are in full understanding and agreement. Duration of the sedation was 24 minutes. MMODL / VELMAN: [id number] /
[2021-05-22] MEDS: HEPARIN SODIUM 1,000 UN/ML (10ML VL) IV PRN (17:29)
[2021-05-22 17:55] LABS: Glucose,Whole Blood 136 mg/dL (75-99)
[2021-05-22] MEDS: TAMSULOSIN 0.4 MG CAP.ER.24H PO SCH (17:56)
[2021-05-22 20:07] LABS: Appearance,Urine Clear (Clear); Bilirubin,Urine Negative (Negative); Blood,Urine Negative (Negative); Color,Urine Light Yellow; Glucose,Urine (UA) Negative (Negative); Hyaline Casts,Urine 9 /lpf (0-2); Ketones,Urine Negative (Negative); Leukocyte Esterase,Urine Small (Negative); Mucus,Urine Rare /hpf; Nitrite,Urine Negative (Negative); Protein,Urine Negative (Negative); RBC,Urine <1 /hpf (0-5); Specific Gravity,Urine 1.027 (1.001-1.035); Squamous Epithelial Cell,Urine <1 /hpf (0-4); Urobilinogen,Urine <2.0 mg/dL (<2.0); WBC,Urine 3 /hpf (0-5)
[2021-05-22 22:03] LABS: Glucose,Whole Blood 156 mg/dL (75-99)
[2021-05-22] MEDS: ATORVASTATIN 40 MG TAB PO SCH (22:04)
[2021-05-22] MEDS: CYANOCOBALAMIN 500 MCG TAB PO SCH (22:04)
[2021-05-22] MEDS: DOCUSATE 100 MG CAP PO SCH (22:05)
[2021-05-22] MEDS: CHOLECALCIFEROL 25 MCG (1000 IU) TABLET PO SCH (22:08)
[2021-05-23] MEDS: HEPARIN SODIUM 1,000 UN/ML (10ML VL) IV PRN (00:48)
[2021-05-23] MEDS: NITROGLYCERIN OINT 1 INCH/GM PACKET TOPICAL SCH ×3 (00:48→17:11)
[2021-05-23] MEDS: SODIUM CHLORIDE 0.9% 1,000 ML in EMPTY BAG 1 BAG IV SCH ×3 (00:53→22:55)
[2021-05-23] MEDS: HEPARIN SOD,PORK IN 0.45% NACL 25,000 UNIT in 0.45% NACL 1 250ML.BAG IV SCH ×3 (00:55→19:52)
[2021-05-23 02:26] LABS: Hepatitis B Surface Antigen Nonreactive (Nonreactive); Hepatitis C IgG Antibody Nonreactive (Nonreactive)
[2021-05-23 03:40] LABS: Hepatitis A Antibody IgM Nonreactive (Nonreactive); Hepatitis B Core IgM Nonreactive (Nonreactive)
[2021-05-23 04:40] LABS: Prothrombin Time 10.7 sec (9.0-12.0)
[2021-05-23 06:49] LABS: Glucose,Whole Blood 187 mg/dL (75-99)
--- NOTE | 2021-05-23 06:58 | XR ---
EXAMINATION TYPE: XR chest 1V portable DATE OF EXAM: 05/23/2021 COMPARISON: 05/20/2021 HISTORY: Chest pain. Short of breath. TECHNIQUE: FINDINGS: Heart is enlarged. There is some pulmonary vascular congestion. Thoracic aorta is atheromatous. There are chest leads. IMPRESSION: There is probably some congestive heart failure which is new compared to recent exam.
[2021-05-23] MEDS ORDERED: HEPARIN SODIUM,PORCINE 10,000 UNIT in SODIUM CHLORIDE 0.9% 1,000 ML IRRIGATION PRN (07:00)
[2021-05-23] MEDS: GABAPENTIN 300 MG CAP PO SCH ×4 (07:00→21:02)
[2021-05-23] MEDS ORDERED: HEPARIN SODIUM,PORCINE 2,500 UNIT in SODIUM CHLORIDE 0.9% 250 ML IRRIGATION PRN (07:00)
[2021-05-23] MEDS: INSULIN DETEMIR (LEVEMIR) 100 UNIT/ML SYR SQ SCH ×2 (07:00→21:02)
[2021-05-23] MEDS: PANTOPRAZOLE 40 MG TABLET PO SCH ×2 (07:02→17:11)
[2021-05-23 07:42] LABS: Glucose,Whole Blood 199 mg/dL (75-99)
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
[2021-05-23 07:53] LABS: Anisocytosis Slight; Basophils % (A) 0 %; Eosinophils # (A) 0.1 k/uL (0-0.7); Eosinophils % (A) 1 %; HCT 31.5 % (39.0-53.0); HGB 9.7 gm/dL (13.0-17.5); Hypochromasia Moderate; Lymphocytes # (A) 0.7 k/uL (1.0-4.8); Lymphocytes % (A) 5 %; MCH 25.6 pg (25.0-35.0); MCHC 30.8 g/dL (31.0-37.0); MCV 83.2 fL (80.0-100.0); Mean Platelet Volume 8.1; Monocytes # (A) 0.3 k/uL (0-1.0); Monocytes % (A) 2 %; Neutrophils # (A) 12.4 k/uL (1.3-7.7); Neutrophils % (A) 92 %; Platelet Count 200 k/uL (150-450); Poikilocytosis Slight; RBC 3.78 m/uL (4.30-5.90); RDW 18.2 % (11.5-15.5); WBC 13.5 k/uL (3.8-10.6)
--- NOTE | 2021-05-23 07:59 | P.PN ---
<Aubree Coronado - Last Filed: 05/23/21 07:58> Subjective Progress Note Date: 05/23/21 Principal diagnosis: Severe triple-vessel coronary artery disease, non-STEMI this admission, atrial fibrillation with rapid ventricular response, present on admission. 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 He is in no acute distress. Denies any chest pain or shortness of breath at this time. His case was discussed in detail with Dr. Blanco after all preoperative testing was completed. The patient is felt to be very high risk for surgery with STS mortality risk calculated at 9.8%. Given that this patient was a very sedentary lifestyle as he mostly sits in a recliner and watches TV all day, the risks of surgery outweigh the benefits. This was discussed with the patient and his daughter whom he lives with as well as with Dr. Beach by Dr. Blanco. Objective - Vital Signs Vital signs: Vital Signs Temp 98.2 F 05/23/21 00:28 Pulse 75 05/23/21 04:00 Resp 20 05/22/21 21:45 BP 133/73 05/23/21 04:00 Pulse Ox 92 L 05/23/21 04:00 Intake & Output 05/22/21 05/23/21 05/23/21 18:59 06:59 18:59 Intake Total 353.945 401.922 400 Output Total 250 450 500 Balance 103.945 -48.078 -100 Weight 129.274 kg 130 kg Intake: IV 150 400 400 Sodium Chloride 0.9% 1, 100 400 400 000 ml @ 100 mls/hr IV . Q10H [facility] Rx#:[id number] Intake, IV Titration 203.945 1.922 Amount Diltiazem 125 mg In 79.833 Sodium Chloride 0.9% 100 ml @ 5 MG/HR 5 mls/hr IV .Q24H [facility] Rx#:[id number] Heparin Sod,Pork in 0.45% 1.922 NaCl 25,000 unit In 0.45 % NaCl 1 250ml.bag @ 7. 736 UNITS/KG/HR 10.001 mls/hr IV .Q24H [facility] Rx#: [id number] Heparin Sod,Pork in 0.45% 124.112 NaCl 25,000 unit In 0.45 % NaCl 1 250ml.bag @ 7.74 UNITS/KG/HR 10.006 mls/ hr IV .Q24H [facility] Rx#: [id number] Output: Urine 250 450 500 Other: Voiding Method Urinal Urinal - Exam CONSTITUTIONAL: Appears comfortable, cooperative, no acute distress RESPIRATORY: Lungs sounds diminished bilaterally. Respirations even, nonlabored. Currently on 5 L nasal cannula with oxygen saturation 92%. Able to achieve 1000 mL on incentive spirometry. Strong cough. CARDIOVASCULAR: S1, S2 present. Regular rate and rhythm, sinus rhythm on telemetry. Palpable peripheral pulses bilaterally. Bilateral lower extremity edema present. No calf pain or tenderness noted. GASTROINTESTINAL: Abdomen soft, nontender, nondistended, obese. Active bowel sounds present 4 quadrants. Tolerating diet. GENITOURINARY: Continues to void INTEGUMENTARY: Skin is warm and dry. Right radial heart catheterization site soft without redness or drainage NEUROLOGIC: Cranial nerves II through XII intact MUSKULOSKELETAL: Able to move all extremities, strength equal bilaterally PSYCHIATRIC: Alert and oriented to person place and time, appropriate affect - Allied health notes Allied health notes reviewed: nursing - Labs CBC & Chem 7: 05/22/21 14:09 05/22/21 14:09 Labs: Abnormal Lab Results - Last 24 Hours (Table) 05/22/21 05/22/21 05/22/21 Range/Units 09:24 09:24 09:24 WBC 13.1 H (3.8-10.6) k/uL RBC 3.65 L (4.30-5.90) m/uL Hgb 9.9 L (13.0-17.5) gm/dL Hct 30.3 L (39.0-53.0) % RDW 18.4 H (11.5-15.5) % Neutrophils # 11.2 H (1.3-7.7) k/uL APTT 40.7 H (22.0-30.0) sec BUN (9-20) mg/dL Creatinine (0.66-1.25) mg/dL Glucose (74-99) mg/dL POC Glucose (mg/dL) (75-99) mg/dL Hemoglobin A1c (4.0-6.0) % Troponin I (0.000-0.034) ng/mL Total Protein (6.3-8.2) g/dL Albumin (3.5-5.0) g/dL Triglycerides 177.00 H (0.00-149.00) mg/dL HDL Cholesterol 31.40 L (40.00-60.00) mg/dL Ur Leukocyte Esterase (Negative) Hyaline Casts (0-2) /lpf Urine Mucus (None) /hpf 05/22/21 05/22/21 05/22/21 Range/Units 11:20 14:09 14:09 WBC (3.8-10.6) k/uL RBC (4.30-5.90) m/uL Hgb (13.0-17.5) gm/dL Hct (39.0-53.0) % RDW (11.5-15.5) % Neutrophils # (1.3-7.7) k/uL APTT (22.0-30.0) sec BUN 26 H (9-20) mg/dL Creatinine 1.69 H (0.66-1.25) mg/dL Glucose 180 H (74-99) mg/dL POC Glucose (mg/dL) 241 H (75-99) mg/dL Hemoglobin A1c 7.7 H (4.0-6.0) % Troponin I (0.000-0.034) ng/mL Total Protein 6.2 L (6.3-8.2) g/dL Albumin 3.4 L (3.5-5.0) g/dL Triglycerides (0.00-149.00) mg/dL HDL Cholesterol (40.00-60.00) mg/dL Ur Leukocyte Esterase (Negative) Hyaline Casts (0-2) /lpf Urine Mucus (None) /hpf 05/22/21 05/22/21 05/22/21 Range/Units 14:09 14:09 14:15 WBC 11.2 H (3.8-10.6) k/uL RBC 3.51 L (4.30-5.90) m/uL Hgb 9.3 L (13.0-17.5) gm/dL Hct 29.1 L (39.0-53.0) % RDW 18.3 H (11.5-15.5) % Neutrophils # 9.5 H (1.3-7.7) k/uL APTT 35.0 H (22.0-30.0) sec BUN (9-20) mg/dL Creatinine (0.66-1.25) mg/dL Glucose (74-99) mg/dL POC Glucose (mg/dL) (75-99) mg/dL Hemoglobin A1c (4.0-6.0) % Troponin I 0.546 H* (0.000-0.034) ng/mL Total Protein (6.3-8.2) g/dL Albumin (3.5-5.0) g/dL Triglycerides (0.00-149.00) mg/dL HDL Cholesterol (40.00-60.00) mg/dL Ur Leukocyte Esterase (Negative) Hyaline Casts (0-2) /lpf Urine Mucus (None) /hpf 05/22/21 05/22/21 05/22/21 Range/Units 16:03 17:42 19:24 WBC (3.8-10.6) k/uL RBC (4.30-5.90) m/uL Hgb (13.0-17.5) gm/dL Hct (39.0-53.0) % RDW (11.5-15.5) % Neutrophils # (1.3-7.7) k/uL APTT 39.4 H (22.0-30.0) sec BUN (9-20) mg/dL Creatinine (0.66-1.25) mg/dL Glucose (74-99) mg/dL POC Glucose (mg/dL) 141 H 136 H (75-99) mg/dL Hemoglobin A1c (4.0-6.0) % Troponin I (0.000-0.034) ng/mL Total Protein (6.3-8.2) g/dL Albumin (3.5-5.0) g/dL Triglycerides (0.00-149.00) mg/dL HDL Cholesterol (40.00-60.00) mg/dL Ur Leukocyte Esterase (Negative) Hyaline Casts (0-2) /lpf Urine Mucus (None) /hpf 05/22/21 05/22/21 05/22/21 Range/Units 19:39 22:02 23:38 WBC (3.8-10.6) k/uL RBC (4.30-5.90) m/uL Hgb (13.0-17.5) gm/dL Hct (39.0-53.0) % RDW (11.5-15.5) % Neutrophils # (1.3-7.7) k/uL APTT 37.2 H (22.0-30.0) sec BUN (9-20) mg/dL Creatinine (0.66-1.25) mg/dL Glucose (74-99) mg/dL POC Glucose (mg/dL) 156 H (75-99) mg/dL Hemoglobin A1c (4.0-6.0) % Troponin I (0.000-0.034) ng/mL Total Protein (6.3-8.2) g/dL Albumin (3.5-5.0) g/dL Triglycerides (0.00-149.00) mg/dL HDL Cholesterol (40.00-60.00) mg/dL Ur Leukocyte Esterase Small H (Negative) Hyaline Casts 9 H (0-2) /lpf Urine Mucus Rare H (None) /hpf 05/23/21 Range/Units 06:48 WBC (3.8-10.6) k/uL RBC (4.30-5.90) m/uL Hgb (13.0-17.5) gm/dL Hct (39.0-53.0) % RDW (11.5-15.5) % Neutrophils # (1.3-7.7) k/uL APTT (22.0-30.0) sec BUN (9-20) mg/dL Creatinine (0.66-1.25) mg/dL Glucose (74-99) mg/dL POC Glucose (mg/dL) 187 H (75-99) mg/dL Hemoglobin A1c (4.0-6.0) % Troponin I (0.000-0.034) ng/mL Total Protein (6.3-8.2) g/dL Albumin (3.5-5.0) g/dL Triglycerides (0.00-149.00) mg/dL HDL Cholesterol (40.00-60.00) mg/dL Ur Leukocyte Esterase (Negative) Hyaline Casts (0-2) /lpf Urine Mucus (None) /hpf Microbiology - Last 24 Hours (Table) 05/22/21 15:43 Nasal Screen MRSA/MSSA - Preliminary Nasal Swab - Imaging and Cardiology Chest x-ray: report reviewed, image reviewed Assessment and Plan Assessment: 1. Severe triple-vessel coronary artery disease, non-STEMI this admission 2. Atrial fibrillation with rapid ventricular response, present on admission, currently sinus 3. History of coronary artery disease status post previous PCI 4. Hypertension 5. Hyperlipidemia, treated, cholesterol 100, LDL 33 6. Persistent atrial fibrillation on Eliquis for anticoagulation, last dose 05/20/2021 7. Insulin-dependent diabetes with peripheral neuropathy, hemoglobin A1c 7.7% 8. Dementia, on Aricept 9. Obstructive sleep apnea with home CPAP use 10. Left lower extremity larkin with skin graft placement 11. Frequent falls 12. 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 Previous tobacco dependence, severe COPD with FEV1 26% of predicted 14. General debility 15. Morbid obesity Plan: 1. Continue aspirin, statin, beta tj therapy 2. Wean O2 as tolerated 3. Increase activity as tolerated 4. Patient would be considered extremely high risk for surgical revascularization 5. Medical management of other comorbidities per primary care service 6. More recommendations to follow Time with Patient: Greater than 30 <Meño Blanco - Last Filed: 05/23/21 09:02> Objective - Vital Signs Vital signs: Vital Signs Temp 97.5 F L 05/23/21 08:00 Pulse 75 05/23/21 08:00 Resp 30 H 05/23/21 08:00 BP 149/81 05/23/21 08:00 Pulse Ox 92 L 05/23/21 04:00 Intake & Output 05/22/21 05/23/21 05/23/21 18:59 06:59 18:59 Intake Total 353.945 401.922 400 Output Total 250 450 500 Balance 103.945 -48.078 -100 Weight 129.274 kg 130 kg Intake: IV 150 400 400 Sodium Chloride 0.9% 1, 100 400 400 000 ml @ 100 mls/hr IV . Q10H [facility] Rx#:[id number] Intake, IV Titration 203.945 1.922 Amount Diltiazem 125 mg In 79.833 Sodium Chloride 0.9% 100 ml @ 5 MG/HR 5 mls/hr IV .Q24H [facility] Rx#:[id number] Heparin Sod,Pork in 0.45% 1.922 NaCl 25,000 unit In 0.45 % NaCl 1 250ml.bag @ 7. 736 UNITS/KG/HR 10.001 mls/hr IV .Q24H [facility] Rx#: [id number] Heparin Sod,Pork in 0.45% 124.112 NaCl 25,000 unit In 0.45 % NaCl 1 250ml.bag @ 7.74 UNITS/KG/HR 10.006 mls/ hr IV .Q24H [facility] Rx#: [id number] Output: Urine 250 450 500 Other: Voiding Method Urinal Urinal # Voids 1 - Labs CBC & Chem 7: 05/23/21 07:44 05/23/21 07:44 Labs: Abnormal Lab Results - Last 24 Hours (Table) 05/22/21 05/22/21 05/22/21 Range/Units 09:24 09:24 09:24 WBC 13.1 H (3.8-10.6) k/uL RBC 3.65 L (4.30-5.90) m/uL Hgb 9.9 L (13.0-17.5) gm/dL Hct 30.3 L (39.0-53.0) % MCHC (31.0-37.0) g/dL RDW 18.4 H (11.5-15.5) % Neutrophils # 11.2 H (1.3-7.7) k/uL Lymphocytes # (1.0-4.8) k/uL APTT 40.7 H (22.0-30.0) sec BUN (9-20) mg/dL Creatinine (0.66-1.25) mg/dL Glucose (74-99) mg/dL POC Glucose (mg/dL) (75-99) mg/dL Hemoglobin A1c (4.0-6.0) % Troponin I (0.000-0.034) ng/mL Total Protein (6.3-8.2) g/dL Albumin (3.5-5.0) g/dL Triglycerides 177.00 H (0.00-149.00) mg/dL HDL Cholesterol 31.40 L (40.00-60.00) mg/dL Ur Leukocyte Esterase (Negative) Hyaline Casts (0-2) /lpf Urine Mucus (None) /hpf 05/22/21 05/22/21 05/22/21 Range/Units 11:20 14:09 14:09 WBC (3.8-10.6) k/uL RBC (4.30-5.90) m/uL Hgb (13.0-17.5) gm/dL Hct (39.0-53.0) % MCHC (31.0-37.0) g/dL RDW (11.5-15.5) % Neutrophils # (1.3-7.7) k/uL Lymphocytes # (1.0-4.8) k/uL APTT (22.0-30.0) sec BUN 26 H (9-20) mg/dL Creatinine 1.69 H (0.66-1.25) mg/dL Glucose 180 H (74-99) mg/dL POC Glucose (mg/dL) 241 H (75-99) mg/dL Hemoglobin A1c 7.7 H (4.0-6.0) % Troponin I (0.000-0.034) ng/mL Total Protein 6.2 L (6.3-8.2) g/dL Albumin 3.4 L (3.5-5.0) g/dL Triglycerides (0.00-149.00) mg/dL HDL Cholesterol (40.00-60.00) mg/dL Ur Leukocyte Esterase (Negative) Hyaline Casts (0-2) /lpf Urine Mucus (None) /hpf 05/22/21 05/22/21 05/22/21 Range/Units 14:09 14:09 14:15 WBC 11.2 H (3.8-10.6) k/uL RBC 3.51 L (4.30-5.90) m/uL Hgb 9.3 L (13.0-17.5) gm/dL Hct 29.1 L (39.0-53.0) % MCHC (31.0-37.0) g/dL RDW 18.3 H (11.5-15.5) % Neutrophils # 9.5 H (1.3-7.7) k/uL Lymphocytes # (1.0-4.8) k/uL APTT 35.0 H (22.0-30.0) sec BUN (9-20) mg/dL Creatinine (0.66-1.25) mg/dL Glucose (74-99) mg/dL POC Glucose (mg/dL) (75-99) mg/dL Hemoglobin A1c (4.0-6.0) % Troponin I 0.546 H* (0.000-0.034) ng/mL Total Protein (6.3-8.2) g/dL Albumin (3.5-5.0) g/dL Triglycerides (0.00-149.00) mg/dL HDL Cholesterol (40.00-60.00) mg/dL Ur Leukocyte Esterase (Negative) Hyaline Casts (0-2) /lpf Urine Mucus (None) /hpf 05/22/21 05/22/21 05/22/21 Range/Units 16:03 17:42 19:24 WBC (3.8-10.6) k/uL RBC (4.30-5.90) m/uL Hgb (13.0-17.5) gm/dL Hct (39.0-53.0) % MCHC (31.0-37.0) g/dL RDW (11.5-15.5) % Neutrophils # (1.3-7.7) k/uL Lymphocytes # (1.0-4.8) k/uL APTT 39.4 H (22.0-30.0) sec BUN (9-20) mg/dL Creatinine (0.66-1.25) mg/dL Glucose (74-99) mg/dL POC Glucose (mg/dL) 141 H 136 H (75-99) mg/dL Hemoglobin A1c (4.0-6.0) % Troponin I (0.000-0.034) ng/mL Total Protein (6.3-8.2) g/dL Albumin (3.5-5.0) g/dL Triglycerides (0.00-149.00) mg/dL HDL Cholesterol (40.00-60.00) mg/dL Ur Leukocyte Esterase (Negative) Hyaline Casts (0-2) /lpf Urine Mucus (None) /hpf 05/22/21 05/22/21 05/22/21 Range/Units 19:39 22:02 23:38 WBC (3.8-10.6) k/uL RBC (4.30-5.90) m/uL Hgb (13.0-17.5) gm/dL Hct (39.0-53.0) % MCHC (31.0-37.0) g/dL RDW (11.5-15.5) % Neutrophils # (1.3-7.7) k/uL Lymphocytes # (1.0-4.8) k/uL APTT 37.2 H (22.0-30.0) sec BUN (9-20) mg/dL Creatinine (0.66-1.25) mg/dL Glucose (74-99) mg/dL POC Glucose (mg/dL) 156 H (75-99) mg/dL Hemoglobin A1c (4.0-6.0) % Troponin I (0.000-0.034) ng/mL Total Protein (6.3-8.2) g/dL Albumin (3.5-5.0) g/dL Triglycerides (0.00-149.00) mg/dL HDL Cholesterol (40.00-60.00) mg/dL Ur Leukocyte Esterase Small H (Negative) Hyaline Casts 9 H (0-2) /lpf Urine Mucus Rare H (None) /hpf 05/23/21 05/23/21 05/23/21 Range/Units 06:48 07:41 07:44 WBC (3.8-10.6) k/uL RBC (4.30-5.90) m/uL Hgb (13.0-17.5) gm/dL Hct (39.0-53.0) % MCHC (31.0-37.0) g/dL RDW (11.5-15.5) % Neutrophils # (1.3-7.7) k/uL Lymphocytes # (1.0-4.8) k/uL APTT (22.0-30.0) sec BUN 23 H (9-20) mg/dL Creatinine 1.42 H (0.66-1.25) mg/dL Glucose 184 H (74-99) mg/dL POC Glucose (mg/dL) 187 H 199 H (75-99) mg/dL Hemoglobin A1c (4.0-6.0) % Troponin I (0.000-0.034) ng/mL Total Protein (6.3-8.2) g/dL Albumin (3.5-5.0) g/dL Triglycerides (0.00-149.00) mg/dL HDL Cholesterol (40.00-60.00) mg/dL Ur Leukocyte Esterase (Negative) Hyaline Casts (0-2) /lpf Urine Mucus (None) /hpf 05/23/21 05/23/21 Range/Units 07:44 07:44 WBC 13.5 H (3.8-10.6) k/uL RBC 3.78 L (4.30-5.90) m/uL Hgb 9.7 L (13.0-17.5) gm/dL Hct 31.5 L (39.0-53.0) % MCHC 30.8 L (31.0-37.0) g/dL RDW 18.2 H (11.5-15.5) % Neutrophils # 12.4 H (1.3-7.7) k/uL Lymphocytes # 0.7 L (1.0-4.8) k/uL APTT 50.6 H (22.0-30.0) sec BUN (9-20) mg/dL Creatinine (0.66-1.25) mg/dL Glucose (74-99) mg/dL POC Glucose (mg/dL) (75-99) mg/dL Hemoglobin A1c (4.0-6.0) % Troponin I (0.000-0.034) ng/mL Total Protein (6.3-8.2) g/dL Albumin (3.5-5.0) g/dL Triglycerides (0.00-149.00) mg/dL HDL Cholesterol (40.00-60.00) mg/dL Ur Leukocyte Esterase (Negative) Hyaline Casts (0-2) /lpf Urine Mucus (None) /hpf Microbiology - Last 24 Hours (Table) 05/22/21 15:43 Nasal Screen MRSA/MSSA - Preliminary Nasal Swab Assessment and Plan Assessment: Case discussed with Dr. Brandt and Dr. Beach. Patient has multiple comorbidities which greatly increase the risk of cardiac surgery. These include morbid obesity obstructive sleep apnea, chronic venous stasis disease, poor performance performance status with essentially nonambulatory status, moderate dementia with inability to tell me what day it is or which hospital he is in, COPD with 0.6 L FEV1, etc. Patient is not a candidate for coronary bypass surgery.
[2021-05-23 08:04] LABS: Calcium 8.6 mg/dL (8.4-10.2); Potassium 4.2 mmol/L (3.5-5.1)
[2021-05-23] MEDS ORDERED: FUROSEMIDE 10 MG/ML 4 ML VIAL IV STA (08:32)
[2021-05-23] MEDS: OXYBUTYNIN 10 MG TAB.ER.24 PO SCH (08:40)
[2021-05-23] MEDS: CLOPIDOGREL 75 MG TAB PO SCH (08:40)
[2021-05-23] MEDS: METOPROLOL TARTRATE 50 MG TAB PO SCH ×2 (08:40→21:04)
[2021-05-23] MEDS: allopurinoL 100 MG TAB PO SCH ×2 (08:41→21:02)
[2021-05-23] MEDS: PYRIDOXINE 50 MG TAB PO SCH (08:41)
[2021-05-23] MEDS: ASPIRIN 81 MG PO SCH (08:41)
[2021-05-23] MEDS: MAGNESIUM OXIDE 400 MG TAB PO SCH ×2 (08:41→21:04)
[2021-05-23] MEDS: amLODIPine 5 MG TAB PO SCH (08:41)
[2021-05-23] MEDS: INSULIN ASPART (NovoLOG) 100 UNIT/ML VIAL SQ SCH ×7 (08:42→21:02)
[2021-05-23] MEDS: FUROSEMIDE 40 MG TAB PO SCH (08:47)
[2021-05-23] MEDS: FLUTICASONE 50MCG/SPRAY NASAL 16GM EA NOSTRIL SCH (08:47)
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
[2021-05-23] MEDS ORDERED: ASPIRIN 325 MG TAB PO SCH (09:00)
[2021-05-23 12:09] LABS: Glucose,Whole Blood 201 mg/dL (75-99)
--- NOTE | 2021-05-23 12:27 | PN ---
PROGRESS NOTE Mr. Bran is an 80-year-old male who presented with symptoms of chest discomfort and paroxysmal atrial fibrillation and evidence of non STEMI. He underwent cardiac catheterization, was found to have critical stenosis involving the ostium of the LAD, ostium of the left circumflex and heavily calcified segment as well as significant disease in the right coronary artery. He was seen by surgical consultation with Dr. Blanco who felt that the patient is extremely high risk for surgical intervention because his overall status is history of memory loss. I discussed his case today with his daughter, Eva regarding all the options. I discussed with her the option of using conservative treatment with medical therapy understanding the poor risk versus considering the high risk angioplasty and stenting after obtaining consultation with the team at [facility]. She would like to talk further with her family members and will let us know. GENET / ERIBERTO: [id number] / MTDD
--- NOTE | 2021-05-23 14:03 | CONS ---
TL Zafar is an 80-year-old gentleman with history of paroxysmal atrial fibrillation, who presented to hospital with an episode of atrial fibrillation with poorly controlled ventricular rate, chest pain and elevated troponins. He underwent cardiac catheterization and was found to have severe three-vessel coronary artery disease. Cardiothoracic surgery has evaluated the patient and said that he is high risk for bypass surgery. At the moment, he is still in the ICU on IV heparin, stable hemodynamically, does not have any chest pain but feels somewhat nauseous and is not feeling well. He is on nitro paste, beta blockers, aspirin. I will add Plavix to him. I will continue the IV heparin until we decide on what to do with him in terms of revascularization. EXAM: Patient is comfortable at rest. Vital signs are stable. Chest exam reveals diminished air entry at the bases. Heart exam reveals first and second heart sounds and a systolic murmur at the apex. Abdomen is soft. Examination of extremities reveals 1+ edema. Peripheral pulses are felt. Patient is somewhat tachypneic and his chest x-ray shows pulmonary congestion. I am going to give him a dose of 40 mg of Lasix. Continue aspirin, Plavix, Lipitor, start him on Norvasc 5 mg daily for blood pressure control, Lopressor 50 b.i.d. and continue the nitro paste. ASSESSMENT: 1. Acute non ST-segment elevation myocardial infarction. 2. Paroxysmal atrial fibrillation. PLAN: Patient had cardiac catheterization and has severe three-vessel coronary artery disease. I am going to talk to Dr. Beach about the multivessel high risk angioplasty. MMODL / IJN: [id number] /
--- NOTE | 2021-05-23 15:05 | P.PN ---
Subjective Progress Note Date: 05/23/21 Patient is an 80-year-old pleasant male morbidly obese with history of sleep apnea chronic diastolic dysfunction came in with the complaints of skipping beats and chest pressure like sensation patient does have history of atrial fibrillation and the patient was in A. fib patient also has mildly elevated troponin to 0.7. Patient was started on Cardizem carotid artery was consulted patient is was given IV heparin because of which is Eliquis is being held. Patient denied orthopnea paroxysmal nocturnal dyspnea. Patient chest pressure is presently better heart rate is controlled on Cardizem patient usually takes Coreg at home . The normal ejection fraction the past and patient is on oral Lasix. 05/22/2021 Patient is seen in follow-up this morning continues to be closely monitored in the ICU. Patient is currently being prepped to go to cardiac catheterization and will await report. Patient is maintained on IV heparin and IV Cardizem was discontinued. Patient denies any chest pain, palpitations, or shortness of breath. Patient is currently nothing by mouth for the procedure and denies any nausea or vomiting. Patient is weak requiring assistance with position changes and will have physical therapy evaluate the patient. Troponins continue to be elevated. Cardiology following closely. 05/23/2021 Patient is seen this morning currently on BiPAP as per nursing staff patient had some increasing shortness of breath requiring more oxygen. Patient had some infusion and altered mental status throughout the night and appears to be slightly confused. Patient is fidgeting and pulling at IVs and lines and will add Seroquel. CT surgery has evaluated the patient for possible bypass surgery although he is an extremely high risk candidate and family was made aware and will discuss further with her treatment options and plans. Patient is weak and will have physical therapy work with the patient. Patient had indwelling Singh catheter placed for incontinence and strict ORI and accidentally pulled the Singh catheter out with hematuria noted. Will monitor closely and repeat labs. CBC today is 9.7. Pulmonary following as well and chest x-ray shows CHF and will give a dose of IV Lasix. Labs: white Blood cell count is 13.5, hemoglobin is 9.7, platelets are 200, sodium was 140, potassium is 4.2, creatinine is 1.4 to, calcium is 8.6 Review of systems: Unable to obtain as patient is confused today All medications have been reviewed Active Medications Hydrocodone Bitart/Acetaminophen (Hydrocodone/Apap 5-325mg 1 Each Tab) 1 each PO DAILY PRN PRN Reason: Pain Allopurinol (Allopurinol 100 Mg Tab) 200 mg PO BID [facility] Last Admin: 05/23/21 08:41 Dose: 200 mg Documented by: Alprazolam (Alprazolam 0.25 Mg Tab) 0.25 mg PO Q6HR PRN PRN Reason: Mild Anxiety Alprazolam (Alprazolam 0.5 Mg Tab) 0.5 mg PO Q6HR PRN PRN Reason: Moderate Anxiety Last Admin: 05/23/21 08:45 Dose: 0.5 mg Documented by: Amlodipine Besylate (Amlodipine 5 Mg Tab) 5 mg PO DAILY [facility] Last Admin: 05/23/21 08:41 Dose: 5 mg Documented by: Aspirin (Aspirin 81 Mg) 81 mg PO DAILY [facility] Last Admin: 05/23/21 08:41 Dose: 81 mg Documented by: Atorvastatin Calcium (Atorvastatin 40 Mg Tab) 40 mg PO [facility] Last Admin: 05/22/21 22:04 Dose: 40 mg Documented by: Calcium Carbonate/Glycine (Calcium Carbonate 500 Mg Chewable) 500 mg PO QID PRN PRN Reason: GI Upset Last Admin: 05/21/21 18:17 Dose: 500 mg Documented by: Cholecalciferol (Cholecalciferol 25 Mcg (1000 Iu) Tablet) 25 mcg PO [facility] Last Admin: 05/22/21 22:08 Dose: 25 mcg Documented by: Clopidogrel Bisulfate (Clopidogrel 75 Mg Tab) 75 mg PO DAILY [facility] Last Admin: 05/23/21 08:40 Dose: 75 mg Documented by: Colchicine (Colchicine 0.6 Mg Each) 0.6 mg PO Q12H PRN PRN Reason: gout flair Cyanocobalamin (Cyanocobalamin 500 Mcg Tab) 1,000 mcg PO [facility] Last Admin: 05/22/21 22:04 Dose: 1,000 mcg Documented by: Docusate Sodium (Docusate 100 Mg Cap) 300 mg PO [facility] Last Admin: 05/22/21 22:05 Dose: 300 mg Documented by: Fluticasone Propionate (Fluticasone 50mcg/[place] Nasal 16gm) 2 spray EA NOSTRIL DAILY [facility] Last Admin: 05/23/21 08:47 Dose: Not Given Documented by: Furosemide (Furosemide 40 Mg Tab) 40 mg PO DAILY [facility] Last Admin: 05/23/21 08:47 Dose: Not Given Documented by: Gabapentin (Gabapentin 300 Mg Cap) 300 mg PO ACHS [facility] Last Admin: 05/23/21 12:33 Dose: 300 mg Documented by: Heparin Sodium (Porcine) (Heparin Sodium 1,000 Un/Ml (10ml Vl)) 0 unit IV PER PROTOCOL PRN; Protocol PRN Reason: Low PTT Last Admin: 05/23/21 00:48 Dose: 3,225 unit Documented by: Sodium Chloride 1,000 ml/ IV (Solution) 1,000 mls @ 129.274 mls/hr IV .Q7H45M [facility] Last Admin: 05/23/21 07:02 Dose: Not Given Documented by: Heparin Sodium (Porcine) 10, (000 unit/ Sodium Chloride) 1,001 mls @ 999 mls/hr IRRIGATION ONCE PRN PRN Reason: INTRA-OP Stop: 05/23/21 23:00 Heparin Sodium (Porcine) 2,500 (unit/ Sodium Chloride) 250.5 mls @ 250 mls/hr IRRIGATION ONCE PRN PRN Reason: INTRA-OP Stop: 05/23/21 23:00 Heparin Sodium/Sodium Chloride (25,000 unit/ Sodium Chloride) 250 mls @ 10.001 mls/hr IV .Q24H [facility]; Protocol Last Titration: 05/23/21 01:02 Dose: 14.74 units/kg/hr, 19.055 mls/hr Documented by: Insulin Aspart (Insulin Aspart (Novolog) 100 Unit/Ml Vial) 16 unit SQ AC-BRKFST [facility] Last Admin: 05/23/21 08:43 Dose: Not Given Documented by: Insulin Aspart (Insulin Aspart (Novolog) 100 Unit/Ml Vial) 20 unit SQ AC-LUNCH [facility] Last Admin: 05/23/21 12:33 Dose: 20 unit Documented by: Insulin Aspart (Insulin Aspart (Novolog) 100 Unit/Ml Vial) 24 unit SQ AC-SUPPER [facility] Last Admin: 05/22/21 17:55 Dose: 24 unit Documented by: Insulin Aspart (Insulin Aspart (Novolog) 100 Unit/Ml Vial) 0 unit SQ ACHS [facility]; Protocol Last Admin: 05/23/21 12:33 Dose: 100 unit Documented by: Insulin Detemir (Insulin Detemir (Levemir) 100 Unit/Ml Syr) 34 unit SQ B [id number] [facility] Last Admin: 05/23/21 07:00 Dose: 34 unit Documented by: Ketotifen Fumarate (Ketotifen 0.025% Ophth Drops 5 Ml Btl) 1 drops BOTH EYES BID PRN PRN Reason: Allergy Symptoms Magnesium Oxide (Magnesium Oxide 400 Mg Tab) 400 mg PO BID [facility] Last Admin: 05/23/21 08:41 Dose: 400 mg Documented by: Metformin HCl (Metformin 500 Mg Tab) 1,000 mg PO AC-LUNCH [facility] Metoprolol Tartrate (Metoprolol Tartrate 50 Mg Tab) 50 mg PO BID [facility] Last Admin: 05/23/21 08:40 Dose: 50 mg Documented by: Miscellaneous Information (Rx Info: Iv Contrast Was Given 1 Each Misc) 1 each MISCELLANE DAILY PRN PRN Reason: Per Protocol Stop: 05/24/21 12:43 Nitroglycerin (Nitroglycerin Sl Tabs 0.4 Mg Tab) 0.4 mg SUBLINGUAL Q5M PRN PRN Reason: Chest Pain Nitroglycerin (Nitroglycerin Oint 1 Inch/Gm Packet) 1 inch TOPICAL Q8HR [facility] Last Admin: 05/23/21 08:40 Dose: 1 inch Documented by: Nystatin (Nystatin 100,000unit/Gm Cream 30 Gm Tube) 1 applic TOPICAL BID PRN; Protocol PRN Reason: Rash Oxybutynin Chloride (Oxybutynin 10 Mg Tab.Er.24) 10 mg PO DAILY [facility] Last Admin: 05/23/21 08:40 Dose: 10 mg Documented by: Pantoprazole Sodium (Pantoprazole 40 Mg Tablet) 40 mg PO AC-BID [facility] Last Admin: 05/23/21 07:02 Dose: 40 mg Documented by: Pyridoxine HCl (Pyridoxine 50 Mg Tab) 50 mg PO DAILY [facility] Last Admin: 05/23/21 08:41 Dose: 50 mg Documented by: Tamsulosin HCl (Tamsulosin 0.4 Mg Cap.Er.24h) 0.4 mg PO AC-SUPPER [facility] Last Admin: 05/22/21 17:56 Dose: 0.4 mg Documented by: Triamcinolone Acetonide (Triamcinolone 0.1% Cream 80 Gm Tube) 1 applic TOPICAL DAILY PRN; Protocol PRN Reason: Rash PHYSICAL EXAMINATION: GENERAL: The patient is alert and oriented x1-2, currently sleeping. Well developed, well nourished. Orbit be obese. BiPAP mask noted HEENT: Pupils are round and equally reacting to light. EOMI. No scleral icterus. No conjunctival pallor. Normocephalic, atraumatic. No pharyngeal erythema. No thyromegaly. CARDIOVASCULAR: S1 and S2 muffled and irregular currently in sinus rhythm PULMONARY: Diminished breath sounds bilaterally and tight with no wheezing or rhonchi noted. ABDOMEN: Soft, obese, nontender, nondistended, normoactive bowel sounds. No palpable organomegaly. MUSCULOSKELETAL: No joint swelling or deformity. EXTREMITIES: No cyanosis, clubbing, or pedal edema. NEUROLOGICAL: Lethargic and confused, alert and oriented 1-2. SKIN: No rashes. Assessment: -Chest pain: secondary to atrial fibrillation with rapid and regular rate, status post cardiac catheterization revealing triple-vessel disease and CT surgery was consulted -Hematuria secondary to accidental trauma of removing indwelling Singh catheter by the patient -Severe triple-vessel coronary artery disease, CT surgery following and initiated pre-op testing and patient is high risk for surgical intervention given multiple comorbidities -N STEMI with mildly elevated troponins -Atrial fibrillation with rapid and regular rate patient has persistent atrial fibrillation history and maintained on Eliquis, currently sinus rhythm -Type 2 diabetes mellitus uncontrolled with hyperglycemia and will continue with current medication regimen and monitor closely. continue Accu-Cheks before meals and at bedtime -History of chronic gout, continue with allopurinol and colchicine as needed -Diabetic neuropathy for which patient is on Neurontin with continued -Dementia -Obstructive sleep apnea and uses CPAP at home -Gait dysfunction -History of COPD not in acute exacerbation -hypertension -Morbid obesity -History of coronary artery disease with stents in the past -History of nicotine dependence -DVT prophylaxis: on IV heparin -Full code Plan: Recommend to continue with current medications and cardiothoracic and cardiology following the pulmonary also following. Patient was extremely short of breath and dyspneic and confused and placed on BiPAP this morning and currently on 5 L via nasal cannula.. Cardiothoracic surgery following as patient was found to have triple-vessel coronary artery disease and Preoperative revascularization testing has been done and patient is extremely high risk for surgical intervention. Family was made aware and need to discuss further with other family members about treatment plan moving forward. She did have an indwelling Singh catheter for incontinence and strict I&O's and accidentally pulled the Singh out with hematuria noted and hemoglobin is stable and will monitor closely and repeat a.m. labs. Patient's blood sugars continue to be mildly elevated and will continue with current medication regimen and adjust accordingly. Continue with consistent carb heart healthy diet and Accu-Cheks before meals and at bedtime. cardiology following as well and will continue to monitor closely. Prognosis is guarded. Objective - Vital Signs Vital signs: Vital Signs Temp 97.5 F L 05/23/21 08:00 Pulse 75 05/23/21 08:00 Resp 30 H 05/23/21 08:00 BP 149/81 05/23/21 08:00 Pulse Ox 92 L 05/23/21 04:00 Intake & Output 05/22/21 05/23/21 05/23/21 18:59 06:59 18:59 Intake Total 353.945 401.922 400 Output Total 250 450 500 Balance 103.945 -48.078 -100 Weight 129.274 kg 130 kg Intake: IV 150 400 400 Sodium Chloride 0.9% 1, 100 400 400 000 ml @ 100 mls/hr IV . Q10H [facility] Rx#:[id number] Intake, IV Titration 203.945 1.922 Amount Diltiazem 125 mg In 79.833 Sodium Chloride 0.9% 100 ml @ 5 MG/HR 5 mls/hr IV .Q24H [facility] Rx#:[id number] Heparin Sod,Pork in 0.45% 1.922 NaCl 25,000 unit In 0.45 % NaCl 1 250ml.bag @ 7. 736 UNITS/KG/HR 10.001 mls/hr IV .Q24H [facility] Rx#: [id number] Heparin Sod,Pork in 0.45% 124.112 NaCl 25,000 unit In 0.45 % NaCl 1 250ml.bag @ 7.74 UNITS/KG/HR 10.006 mls/ hr IV .Q24H [facility] Rx#: [id number] Output: Urine 250 450 500 Other: Voiding Method Urinal Urinal # Voids 1 - Labs CBC & Chem 7: 05/23/21 07:44 05/23/21 07:44 Labs: Abnormal Lab Results - Last 24 Hours (Table) 05/22/21 05/22/21 05/22/21 Range/Units 09:24 09:24 09:24 WBC 13.1 H (3.8-10.6) k/uL RBC 3.65 L (4.30-5.90) m/uL Hgb 9.9 L (13.0-17.5) gm/dL Hct 30.3 L (39.0-53.0) % MCHC (31.0-37.0) g/dL RDW 18.4 H (11.5-15.5) % Neutrophils # 11.2 H (1.3-7.7) k/uL Lymphocytes # (1.0-4.8) k/uL APTT 40.7 H (22.0-30.0) sec BUN (9-20) mg/dL Creatinine (0.66-1.25) mg/dL Glucose (74-99) mg/dL POC Glucose (mg/dL) (75-99) mg/dL Hemoglobin A1c (4.0-6.0) % Troponin I (0.000-0.034) ng/mL Total Protein (6.3-8.2) g/dL Albumin (3.5-5.0) g/dL Triglycerides 177.00 H (0.00-149.00) mg/dL HDL Cholesterol 31.40 L (40.00-60.00) mg/dL Ur Leukocyte Esterase (Negative) Hyaline Casts (0-2) /lpf Urine Mucus (None) /hpf 05/22/21 05/22/21 05/22/21 Range/Units 11:20 14:09 14:09 WBC (3.8-10.6) k/uL RBC (4.30-5.90) m/uL Hgb (13.0-17.5) gm/dL Hct (39.0-53.0) % MCHC (31.0-37.0) g/dL RDW (11.5-15.5) % Neutrophils # (1.3-7.7) k/uL Lymphocytes # (1.0-4.8) k/uL APTT (22.0-30.0) sec BUN 26 H (9-20) mg/dL Creatinine 1.69 H (0.66-1.25) mg/dL Glucose 180 H (74-99) mg/dL POC Glucose (mg/dL) 241 H (75-99) mg/dL Hemoglobin A1c 7.7 H (4.0-6.0) % Troponin I (0.000-0.034) ng/mL Total Protein 6.2 L (6.3-8.2) g/dL Albumin 3.4 L (3.5-5.0) g/dL Triglycerides (0.00-149.00) mg/dL HDL Cholesterol (40.00-60.00) mg/dL Ur Leukocyte Esterase (Negative) Hyaline Casts (0-2) /lpf Urine Mucus (None) /hpf 05/22/21 05/22/21 05/22/21 Range/Units 14:09 14:09 14:15 WBC 11.2 H (3.8-10.6) k/uL RBC 3.51 L (4.30-5.90) m/uL Hgb 9.3 L (13.0-17.5) gm/dL Hct 29.1 L (39.0-53.0) % MCHC (31.0-37.0) g/dL RDW 18.3 H (11.5-15.5) % Neutrophils # 9.5 H (1.3-7.7) k/uL Lymphocytes # (1.0-4.8) k/uL APTT 35.0 H (22.0-30.0) sec BUN (9-20) mg/dL Creatinine (0.66-1.25) mg/dL Glucose (74-99) mg/dL POC Glucose (mg/dL) (75-99) mg/dL Hemoglobin A1c (4.0-6.0) % Troponin I 0.546 H* (0.000-0.034) ng/mL Total Protein (6.3-8.2) g/dL Albumin (3.5-5.0) g/dL Triglycerides (0.00-149.00) mg/dL HDL Cholesterol (40.00-60.00) mg/dL Ur Leukocyte Esterase (Negative) Hyaline Casts (0-2) /lpf Urine Mucus (None) /hpf 05/22/21 05/22/21 05/22/21 Range/Units 16:03 17:42 19:24 WBC (3.8-10.6) k/uL RBC (4.30-5.90) m/uL Hgb (13.0-17.5) gm/dL Hct (39.0-53.0) % MCHC (31.0-37.0) g/dL RDW (11.5-15.5) % Neutrophils # (1.3-7.7) k/uL Lymphocytes # (1.0-4.8) k/uL APTT 39.4 H (22.0-30.0) sec BUN (9-20) mg/dL Creatinine (0.66-1.25) mg/dL Glucose (74-99) mg/dL POC Glucose (mg/dL) 141 H 136 H (75-99) mg/dL Hemoglobin A1c (4.0-6.0) % Troponin I (0.000-0.034) ng/mL Total Protein (6.3-8.2) g/dL Albumin (3.5-5.0) g/dL Triglycerides (0.00-149.00) mg/dL HDL Cholesterol (40.00-60.00) mg/dL Ur Leukocyte Esterase (Negative) Hyaline Casts (0-2) /lpf Urine Mucus (None) /hpf 05/22/21 05/22/21 05/22/21 Range/Units 19:39 22:02 23:38 WBC (3.8-10.6) k/uL RBC (4.30-5.90) m/uL Hgb (13.0-17.5) gm/dL Hct (39.0-53.0) % MCHC (31.0-37.0) g/dL RDW (11.5-15.5) % Neutrophils # (1.3-7.7) k/uL Lymphocytes # (1.0-4.8) k/uL APTT 37.2 H (22.0-30.0) sec BUN (9-20) mg/dL Creatinine (0.66-1.25) mg/dL Glucose (74-99) mg/dL POC Glucose (mg/dL) 156 H (75-99) mg/dL Hemoglobin A1c (4.0-6.0) % Troponin I (0.000-0.034) ng/mL Total Protein (6.3-8.2) g/dL Albumin (3.5-5.0) g/dL Triglycerides (0.00-149.00) mg/dL HDL Cholesterol (40.00-60.00) mg/dL Ur Leukocyte Esterase Small H (Negative) Hyaline Casts 9 H (0-2) /lpf Urine Mucus Rare H (None) /hpf 05/23/21 05/23/21 05/23/21 Range/Units 06:48 07:41 07:44 WBC (3.8-10.6) k/uL RBC (4.30-5.90) m/uL Hgb (13.0-17.5) gm/dL Hct (39.0-53.0) % MCHC (31.0-37.0) g/dL RDW (11.5-15.5) % Neutrophils # (1.3-7.7) k/uL Lymphocytes # (1.0-4.8) k/uL APTT (22.0-30.0) sec BUN 23 H (9-20) mg/dL Creatinine 1.42 H (0.66-1.25) mg/dL Glucose 184 H (74-99) mg/dL POC Glucose (mg/dL) 187 H 199 H (75-99) mg/dL Hemoglobin A1c (4.0-6.0) % Troponin I (0.000-0.034) ng/mL Total Protein (6.3-8.2) g/dL Albumin (3.5-5.0) g/dL Triglycerides (0.00-149.00) mg/dL HDL Cholesterol (40.00-60.00) mg/dL Ur Leukocyte Esterase (Negative) Hyaline Casts (0-2) /lpf Urine Mucus (None) /hpf 05/23/21 05/23/21 Range/Units 07:44 07:44 WBC 13.5 H (3.8-10.6) k/uL RBC 3.78 L (4.30-5.90) m/uL Hgb 9.7 L (13.0-17.5) gm/dL Hct 31.5 L (39.0-53.0) % MCHC 30.8 L (31.0-37.0) g/dL RDW 18.2 H (11.5-15.5) % Neutrophils # 12.4 H (1.3-7.7) k/uL Lymphocytes # 0.7 L (1.0-4.8) k/uL APTT 50.6 H (22.0-30.0) sec BUN (9-20) mg/dL Creatinine (0.66-1.25) mg/dL Glucose (74-99) mg/dL POC Glucose (mg/dL) (75-99) mg/dL Hemoglobin A1c (4.0-6.0) % Troponin I (0.000-0.034) ng/mL Total Protein (6.3-8.2) g/dL Albumin (3.5-5.0) g/dL Triglycerides (0.00-149.00) mg/dL HDL Cholesterol (40.00-60.00) mg/dL Ur Leukocyte Esterase (Negative) Hyaline Casts (0-2) /lpf Urine Mucus (None) /hpf Microbiology - Last 24 Hours (Table) 05/22/21 15:43 Nasal Screen MRSA/MSSA - Preliminary Nasal Swab
[2021-05-23 16:51] LABS: Glucose,Whole Blood 202 mg/dL (75-99)
[2021-05-23] MEDS: TAMSULOSIN 0.4 MG CAP.ER.24H PO SCH (17:11)
[2021-05-23 20:54] LABS: Glucose,Whole Blood 138 mg/dL (75-99)
[2021-05-23] MEDS ORDERED: QUEtiapine 25 MG TAB PO SCH (21:00)
[2021-05-23] MEDS: CYANOCOBALAMIN 500 MCG TAB PO SCH (21:02)
[2021-05-23] MEDS: ATORVASTATIN 40 MG TAB PO SCH (21:02)
[2021-05-23] MEDS: CHOLECALCIFEROL 25 MCG (1000 IU) TABLET PO SCH (21:02)
[2021-05-23] MEDS: DOCUSATE 100 MG CAP PO SCH (21:02)
[2021-05-23 23:54] LABS: Glucose,Whole Blood 111 mg/dL (75-99)
[2021-05-24] MEDS ORDERED: FUROSEMIDE 10 MG/ML 10 ML VIAL IV STA (00:13)
[2021-05-24 00:22] LABS: ABG PCO2 101 mmHg (35-45); ABG PH 7.11 (7.35-7.45); Allen Test Performed? Yes
[2021-05-24 00:23] LABS: ABG Base Excess 2.1 mmol/L; ABG HCO3 32 mmol/L (21-25); ABG PO2 111 mmHg (83-108); ABG TCO2 35 mmol/L (19-24)
--- NOTE | 2021-05-24 00:26 | XR ---
EXAMINATION TYPE: XR chest 1V portable DATE OF EXAM: 05/24/2021 COMPARISON: Today HISTORY: Short of breath TECHNIQUE: Single view FINDINGS: There is pulmonary interstitial and airspace edema. There chest leads. There is slight blun ting right costophrenic angle. Heart is enlarged. IMPRESSION: There is pulmonary edema not significantly different than exam this morning. This could b e heart failure or RDS.
--- NOTE | 2021-05-24 00:43 | P.EN ---
A- team: Indication: Hypoxia, altered mental status Arrived on Scene to find: Stuporous patient in moderate respiratory distress Patient seen and examined at bedside. The chart was reviewed the case discussed in detail with the RN at the bedside. The patient was admitted for chest pain believed secondary to be A. fib with RVR. The patient underwent a cardiac cath and was found to have coronary artery disease but was maintained on medical management. The patient also had a history of obstructive sleep apnea but had not been on CPAP during his hospitalization. Upon arrival, the patient was minimally arousable to rigorous physical stimuli Vital signs reviewed: BP 140/66, pulse 67, and SpO2 95% on 15 L nonrebreather, and temp 97.6F. General: Ill-appearing male, in moderate respiratory distress, [appears at stated age] Derm: [warm], [dry] Head: [atraumatic], [normocephalic], [symmetric] Eyes: [EOMI], [no lid lag], [anicteric sclera] Mouth: [no lip lesion], [mucus membranes moist] Cardiovascular: [S1S2 reg], [no murmur], [positive posterior tibial pulse bilateral], Lungs: Poor air entry bilaterally, [no rhonchi, no rales] , [some accessory muscle use] Abdominal: [soft], [ nontender to palpation], [no guarding], [no appreciable organomegaly] Ext: [no gross muscle atrophy], 2+ bilateral lower extremity pitting edema, [no contractures] Neuro: Unable to assess Psych: Unable to assess Assessment: Acute hypoxic and hypercapnic respiratory failure Plan: ABG ordered and reviewed showing significant hypercapnia Patient started on BiPAP Lasix 80 mg IV push ordered Laboratory evaluation ordered If patient's mental status does not improve quickly, will consider intubation and transfer to MICU Notified: Primary team notified by the RN A Total of 35 minutes of critical care time was spent on the complex care of this patient.
[2021-05-24] MEDS: NITROGLYCERIN OINT 1 INCH/GM PACKET TOPICAL SCH ×3 (00:46→16:24)
[2021-05-24 00:52] LABS: Anisocytosis Slight; Basophils % (A) 0 %; Eosinophils # (A) 0.1 k/uL (0-0.7); Eosinophils % (A) 1 %; HCT 31.1 % (39.0-53.0); HGB 9.7 gm/dL (13.0-17.5); Hypochromasia Marked; Lymphocytes # (A) 1.1 k/uL (1.0-4.8); Lymphocytes % (A) 7 %; MCH 26.2 pg (25.0-35.0); MCHC 31.1 g/dL (31.0-37.0); Mean Platelet Volume 7.8; Monocytes # (A) 0.6 k/uL (0-1.0); Monocytes % (A) 4 %; Neutrophils # (A) 14.7 k/uL (1.3-7.7); Neutrophils % (A) 89 %; Platelet Count 242 k/uL (150-450); Poikilocytosis Slight; WBC 16.5 k/uL (3.8-10.6)
[2021-05-24 01:11] LABS: Calcium 8.5 mg/dL (8.4-10.2); Potassium 4.1 mmol/L (3.5-5.1)
[2021-05-24 06:07] LABS: Glucose,Whole Blood 165 mg/dL (75-99)
[2021-05-24] MEDS: GABAPENTIN 300 MG CAP PO SCH ×3 (06:26→17:14)
[2021-05-24] MEDS: INSULIN ASPART (NovoLOG) 100 UNIT/ML VIAL SQ SCH ×6 (06:28→17:15)
[2021-05-24] MEDS: INSULIN DETEMIR (LEVEMIR) 100 UNIT/ML SYR SQ SCH (08:20)
[2021-05-24] MEDS: METOPROLOL TARTRATE 50 MG TAB PO SCH (08:27)
[2021-05-24] MEDS: ASPIRIN 81 MG PO SCH (08:27)
[2021-05-24] MEDS: amLODIPine 5 MG TAB PO SCH (08:27)
[2021-05-24] MEDS: CLOPIDOGREL 75 MG TAB PO SCH (08:27)
[2021-05-24] MEDS: PANTOPRAZOLE 40 MG TABLET PO SCH (08:27)
[2021-05-24] MEDS: MAGNESIUM OXIDE 400 MG TAB PO SCH (08:27)
[2021-05-24] MEDS: FUROSEMIDE 40 MG TAB PO SCH (08:27)
[2021-05-24] MEDS: allopurinoL 100 MG TAB PO SCH (08:27)
[2021-05-24] MEDS: PYRIDOXINE 50 MG TAB PO SCH (08:28)
[2021-05-24] MEDS: OXYBUTYNIN 10 MG TAB.ER.24 PO SCH (08:28)
[2021-05-24] MEDS: FLUTICASONE 50MCG/SPRAY NASAL 16GM EA NOSTRIL SCH (08:28)
[2021-05-24] MEDS ORDERED: amLODIPine 5 MG TAB PO STA (09:18)
[2021-05-24] MEDS ORDERED: APIXABAN 5 MG TAB PO SCH (09:30)
[2021-05-24 11:36] LABS: Glucose,Whole Blood 133 mg/dL (75-99)
--- NOTE | 2021-05-24 12:04 | P.PN ---
Subjective Progress Note Date: 05/24/21 HISTORY OF PRESENT ILLNESS: This is an 80-year-old male who follows in the office with Dr. Beach. Patient was admitted to the hospital secondary to non-STEMI and atrial fibrillation with RVR. Patient underwent cardiac catheterization with Dr. Beach revealing triple vessel coronary artery disease. The patient was evaluated by cardiothoracic surgery and felt to be too high risk to undergo revascularization. Patient went into distress overnight. ABGs revealed pH 7.11 and CO2 101. Patient was placed on Bipap and given IV lasix. Patient states his breathing has improved this morning. He remains on bipap. PHYSICAL EXAM: VITAL SIGNS: Reviewed. GENERAL: Well-developed in no acute distress. NECK: Supple. No JVD or thyromegaly LUNGS: Respirations even and unlabored. Lungs diminished to auscultation bilaterally. HEART: Regular rate and rhythm. S1 and S2 heard. EXTREMITIES: Normal range of motion. No clubbing or cyanosis. Peripheral pulses intact. 2+ lower extremity edema. ASSESSMENT: Non-STEMI Persistent atrial fibrillation with RVR Acute hypercapnic respiratory failure History of CAD with previous PCI Hypertension Hyperlipidemia Obstructive sleep apnea COPD PLAN: Continue current cardiac medications Pulmonary following Continue telemetry monitoring Begin IV lasix 40mg IV Q12 hours Case was discussed with this morning with Dr. Beach and Dr. Duffy with no plans for PCI at this time and will proceed with medical management. Further recommendations pending patient course Nurse practitioner note has been reviewed by physician. Signing provider agrees with the documented findings, assessment, and plan of care. Objective - Vital Signs Vital signs: Vital Signs Temp 98 F 05/24/21 07:54 Pulse 66 05/24/21 07:54 Resp 18 05/24/21 07:54 BP 152/71 05/24/21 07:54 Pulse Ox 91 L 05/24/21 07:54 Intake & Output 05/23/21 05/24/21 05/24/21 18:59 06:59 18:59 Intake Total 709.176 Output Total 925 1120 Balance -215.824 -1120 Intake: IV 460 Sodium Chloride 0.9% 1, 460 000 ml @ 100 mls/hr IV . Q10H [facility] Rx#:[id number] Intake, IV Titration 249.176 Amount Heparin Sod,Pork in 0.45% 249.176 NaCl 25,000 unit In 0.45 % NaCl 1 250ml.bag @ 7. 736 UNITS/KG/HR 10.001 mls/hr IV .Q24H [facility] Rx#: [id number] Output: Urine 925 1120 Other: Voiding Method Indwelling Catheter External Catheter External Catheter # Voids 4 3 # Bowel Movements 1 - Labs CBC & Chem 7: 05/24/21 00:05 05/24/21 00:05 Labs: Abnormal Lab Results - Last 24 Hours (Table) 05/23/21 05/23/21 05/23/21 Range/Units 12:07 16:50 20:52 WBC (3.8-10.6) k/uL RBC (4.30-5.90) m/uL Hgb (13.0-17.5) gm/dL Hct (39.0-53.0) % RDW (11.5-15.5) % Neutrophils # (1.3-7.7) k/uL APTT (22.0-30.0) sec ABG pH (7.35-7.45) ABG pCO2 (35-45) mmHg ABG pO2 (83-108) mmHg ABG HCO3 (21-25) mmol/L ABG Total CO2 (19-24) mmol/L BUN (9-20) mg/dL Creatinine (0.66-1.25) mg/dL Glucose (74-99) mg/dL POC Glucose (mg/dL) 201 H 202 H 138 H (75-99) mg/dL Troponin I (0.000-0.034) ng/mL 05/23/21 05/24/21 05/24/21 Range/Units 23:43 00:01 00:05 WBC 16.5 H (3.8-10.6) k/uL RBC 3.70 L (4.30-5.90) m/uL Hgb 9.7 L (13.0-17.5) gm/dL Hct 31.1 L (39.0-53.0) % RDW 18.0 H (11.5-15.5) % Neutrophils # 14.7 H (1.3-7.7) k/uL APTT (22.0-30.0) sec ABG pH 7.11 L* (7.35-7.45) ABG pCO2 101 H* (35-45) mmHg ABG pO2 111 H (83-108) mmHg ABG HCO3 32 H (21-25) mmol/L ABG Total CO2 35 H (19-24) mmol/L BUN (9-20) mg/dL Creatinine (0.66-1.25) mg/dL Glucose (74-99) mg/dL POC Glucose (mg/dL) 111 H (75-99) mg/dL Troponin I (0.000-0.034) ng/mL 05/24/21 05/24/21 05/24/21 Range/Units 00:05 00:05 05:58 WBC (3.8-10.6) k/uL RBC (4.30-5.90) m/uL Hgb (13.0-17.5) gm/dL Hct (39.0-53.0) % RDW (11.5-15.5) % Neutrophils # (1.3-7.7) k/uL APTT (22.0-30.0) sec ABG pH (7.35-7.45) ABG pCO2 (35-45) mmHg ABG pO2 (83-108) mmHg ABG HCO3 (21-25) mmol/L ABG Total CO2 (19-24) mmol/L BUN 26 H (9-20) mg/dL Creatinine 1.38 H (0.66-1.25) mg/dL Glucose 111 H (74-99) mg/dL POC Glucose (mg/dL) 165 H (75-99) mg/dL Troponin I 0.264 H* (0.000-0.034) ng/mL 05/24/21 Range/Units 09:12 WBC (3.8-10.6) k/uL RBC (4.30-5.90) m/uL Hgb (13.0-17.5) gm/dL Hct (39.0-53.0) % RDW (11.5-15.5) % Neutrophils # (1.3-7.7) k/uL APTT 21.1 L (22.0-30.0) sec ABG pH (7.35-7.45) ABG pCO2 (35-45) mmHg ABG pO2 (83-108) mmHg ABG HCO3 (21-25) mmol/L ABG Total CO2 (19-24) mmol/L BUN (9-20) mg/dL Creatinine (0.66-1.25) mg/dL Glucose (74-99) mg/dL POC Glucose (mg/dL) (75-99) mg/dL Troponin I (0.000-0.034) ng/mL Microbiology - Last 24 Hours (Table) 05/22/21 15:43 Nasal Screen MRSA/MSSA - Final Nasal Swab
[2021-05-24] MEDS: FUROSEMIDE 10 MG/ML 4 ML VIAL IV SCH ×2 (12:31→16:23)
[2021-05-24 12:38] VITALS: TEMP 97.7
[2021-05-24 13:13] LABS: Appearance,Urine Clear (Clear); Bilirubin,Urine Negative (Negative); Blood,Urine Large (Negative); Color,Urine Yellow; Glucose,Urine (UA) Negative (Negative); Ketones,Urine Negative (Negative); Leukocyte Esterase,Urine Moderate (Negative); Mucus,Urine Rare /hpf; Nitrite,Urine Negative (Negative); PH, Urine 5.5 (5.0-8.0); Protein,Urine 2+ (Negative); RBC,Urine >182 /hpf (0-5); Specific Gravity,Urine 1.019 (1.001-1.035); Squamous Epithelial Cell,Urine <1 /hpf (0-4); Urobilinogen,Urine <2.0 mg/dL (<2.0); WBC,Urine 55 /hpf (0-5)
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
[2021-05-24 16:28] VITALS: BP 179/79; PULSE 73; RESP 33
[2021-05-24 16:57] LABS: Glucose,Whole Blood 170 mg/dL (75-99)
[2021-05-24] MEDS ORDERED: ATROPINE SULFATE 0.1 MG/ML 10ML SYRINGE ONE (17:50)
--- NOTE | 2021-05-25 00:24 | P.PN ---
Subjective Progress Note Date: 05/24/21 Patient is an 80-year-old pleasant male morbidly obese with history of sleep apnea chronic diastolic dysfunction came in with the complaints of skipping beats and chest pressure like sensation patient does have history of atrial fibrillation and the patient was in A. fib patient also has mildly elevated troponin to 0.7. Patient was started on Cardizem carotid artery was consulted patient is was given IV heparin because of which is Eliquis is being held. Patient denied orthopnea paroxysmal nocturnal dyspnea. Patient chest pressure is presently better heart rate is controlled on Cardizem patient usually takes Coreg at home . The normal ejection fraction the past and patient is on oral Lasix. 05/22/2021 Patient is seen in follow-up this morning continues to be closely monitored in the ICU. Patient is currently being prepped to go to cardiac catheterization and will await report. Patient is maintained on IV heparin and IV Cardizem was discontinued. Patient denies any chest pain, palpitations, or shortness of breath. Patient is currently nothing by mouth for the procedure and denies any nausea or vomiting. Patient is weak requiring assistance with position changes and will have physical therapy evaluate the patient. Troponins continue to be elevated. Cardiology following closely. 05/23/2021 Patient is seen this morning currently on BiPAP as per nursing staff patient had some increasing shortness of breath requiring more oxygen. Patient had some infusion and altered mental status throughout the night and appears to be slightly confused. Patient is fidgeting and pulling at IVs and lines and will add Seroquel. CT surgery has evaluated the patient for possible bypass surgery although he is an extremely high risk candidate and family was made aware and will discuss further with her treatment options and plans. Patient is weak and will have physical therapy work with the patient. Patient had indwelling Deutsch catheter placed for incontinence and strict ORI and accidentally pulled the Deutsch catheter out with hematuria noted. Will monitor closely and repeat labs. CBC today is 9.7. Pulmonary following as well and chest x-ray shows CHF and will give a dose of IV Lasix. 05/24/2021 Patient is seen and evaluated this morning and placed on bipap. Patient was an A -team early this morning for increasing shortness of breath and was given large dose IV lasix and started on IV lasix daily. Indwelling deutsch catheter was again replaced for strict I&0s. Patient is extremely lethargic and is responding briefly and falling back asleep quickly. Patient has continued periods of confusion and restlessness. Chest xray revealed pulmonary edema and bnp was 1830. Code status addressed with family and is no code and discussing possible comfort care. Labs: white Blood cell count is 16.5, platelets 242, hemoglobin is 9.7, sodium was 140, potassium is 4.1, creatinine is 1.38, calcium is 8.5, bnp 1830 Review of systems: Unable to obtain as patient is confused All medications have been reviewed PHYSICAL EXAMINATION: GENERAL: The patient is alert and oriented x1-2, currently sleeping. Well developed, well nourished. Morbidly obese. BiPAP mask noted HEENT: Pupils are round and equally reacting to light. EOMI. No scleral icterus. No conjunctival pallor. Normocephalic, atraumatic. No pharyngeal erythema. No thyromegaly. CARDIOVASCULAR: S1 and S2 muffled and irregular currently in sinus rhythm PULMONARY: Diminished breath sounds bilaterally and tight with rhonchi and crackles noted. ABDOMEN: Soft, obese, nontender, nondistended, normoactive bowel sounds. No palpable organomegaly. MUSCULOSKELETAL: No joint swelling or deformity. EXTREMITIES: No cyanosis, clubbing, or pedal edema. NEUROLOGICAL: Lethargic and confused, alert and oriented 1-2 for brief periods. SKIN: No rashes. Assessment: -Chest pain: secondary to atrial fibrillation with rapid and regular rate, status post cardiac catheterization revealing triple-vessel disease and CT surg best evaluated and not a surgical candidate given multiple comorbidities and high risk for mortality -Hematuria secondary to accidental trauma of removing indwelling Deutsch catheter by the patient, resolved -Severe triple-vessel coronary artery disease, not a surgical candidate -N STEMI with mildly elevated troponins -Atrial fibrillation with rapid and regular rate patient has persistent atrial fibrillation history and maintained on Eliquis, currently sinus rhythm -Type 2 diabetes mellitus uncontrolled with hyperglycemia and will continue with current medication regimen and monitor closely. continue Accu-Cheks before meals and at bedtime -History of chronic gout -Diabetic neuropathy -Dementia -Obstructive sleep apnea and uses CPAP at home -Gait dysfunction -History of COPD not in acute exacerbation -hypertension -Morbid obesity -History of coronary artery disease with stents in the past -History of nicotine dependence -DVT prophylaxis: on IV heparin -no code Plan: Recommend to continue with current medications and cardiothoracic and cardiology following and pulmonary also following. Patient was extremely short of breath and dyspneic and confused and placed on BiPAP this morning. A team was called and given IV lasix and started on IV lasix for volume overload and BNP elevated. Patient was evaluated by CT surgery and not a surgical candidate for revascularization given his high risk of mortality and multiple comorbidities. Patient is no code. Family was made aware and need to discuss further with other family members about treatment plan moving forward. Continue Accu-Cheks before meals and at bedtime. Sliding scale. Patient is not eating and extremely lethargic although arousable. Prognosis is extremely poor and guarded. Objective - Vital Signs Vital signs: Vital Signs Temp 98 F 05/24/21 07:54 Pulse 66 05/24/21 07:54 Resp 18 05/24/21 07:54 BP 152/71 05/24/21 07:54 Pulse Ox 91 L 05/24/21 07:54 Intake & Output 05/23/21 05/24/21 05/24/21 18:59 06:59 18:59 Intake Total 709.176 Output Total 925 1120 Balance -215.824 -1120 Intake: IV 460 Sodium Chloride 0.9% 1, 460 000 ml @ 100 mls/hr IV . Q10H FERNANDO Rx#:[id number] Intake, IV Titration 249.176 Amount Heparin Sod,Pork in 0.45% 249.176 NaCl 25,000 unit In 0.45 % NaCl 1 250ml.bag @ 7. 736 UNITS/KG/HR 10.001 mls/hr IV .Q24H FERNANDO Rx#: [id number] Output: Urine 925 1120 Other: Voiding Method Indwelling Catheter External Catheter # Voids 4 3 # Bowel Movements 1 - Labs CBC & Chem 7: 05/24/21 00:05 05/24/21 00:05 Labs: Abnormal Lab Results - Last 24 Hours (Table) 05/23/21 05/23/21 05/23/21 Range/Units 12:07 16:50 20:52 WBC (3.8-10.6) k/uL RBC (4.30-5.90) m/uL Hgb (13.0-17.5) gm/dL Hct (39.0-53.0) % RDW (11.5-15.5) % Neutrophils # (1.3-7.7) k/uL ABG pH (7.35-7.45) ABG pCO2 (35-45) mmHg ABG pO2 (83-108) mmHg ABG HCO3 (21-25) mmol/L ABG Total CO2 (19-24) mmol/L BUN (9-20) mg/dL Creatinine (0.66-1.25) mg/dL Glucose (74-99) mg/dL POC Glucose (mg/dL) 201 H 202 H 138 H (75-99) mg/dL Troponin I (0.000-0.034) ng/mL 05/23/21 05/24/21 05/24/21 Range/Units 23:43 00:01 00:05 WBC 16.5 H (3.8-10.6) k/uL RBC 3.70 L (4.30-5.90) m/uL Hgb 9.7 L (13.0-17.5) gm/dL Hct 31.1 L (39.0-53.0) % RDW 18.0 H (11.5-15.5) % Neutrophils # 14.7 H (1.3-7.7) k/uL ABG pH 7.11 L* (7.35-7.45) ABG pCO2 101 H* (35-45) mmHg ABG pO2 111 H (83-108) mmHg ABG HCO3 32 H (21-25) mmol/L ABG Total CO2 35 H (19-24) mmol/L BUN (9-20) mg/dL Creatinine (0.66-1.25) mg/dL Glucose (74-99) mg/dL POC Glucose (mg/dL) 111 H (75-99) mg/dL Troponin I (0.000-0.034) ng/mL 05/24/21 05/24/21 05/24/21 Range/Units 00:05 00:05 05:58 WBC (3.8-10.6) k/uL RBC (4.30-5.90) m/uL Hgb (13.0-17.5) gm/dL Hct (39.0-53.0) % RDW (11.5-15.5) % Neutrophils # (1.3-7.7) k/uL ABG pH (7.35-7.45) ABG pCO2 (35-45) mmHg ABG pO2 (83-108) mmHg ABG HCO3 (21-25) mmol/L ABG Total CO2 (19-24) mmol/L BUN 26 H (9-20) mg/dL Creatinine 1.38 H (0.66-1.25) mg/dL Glucose 111 H (74-99) mg/dL POC Glucose (mg/dL) 165 H (75-99) mg/dL Troponin I 0.264 H* (0.000-0.034) ng/mL Microbiology - Last 24 Hours (Table) 05/22/21 15:43 Nasal Screen MRSA/MSSA - Final Nasal Swab
[2021-05-25] MEDS ORDERED: amLODIPine 10 MG TAB PO SCH (09:00)
--- NOTE | 2021-05-25 13:20 | P.DS ---
Providers Date of admission: 05/21/21 01:01 Expected date of discharge: 05/25/21 Attending physician: Henry Mcghee MD Consults: 05/21/21 01:01 Consult Physician Routine Consulting Provider: Cesar Garg Consult Reason/Comments: Atrial fibrillation with rapid ventricular rate Do you want consulting provider notified?: Yes 05/22/21 12:46 Consult Physician Routine Consulting Provider: Meño Blanco Consult Reason/Comments: cabg Do you want consulting provider notified?: Already Contacted 05/22/21 13:43 Consult Physician Routine Consulting Provider: Albina Brandt Consult Reason/Comments: preop cabg clearance Do you want consulting provider notified?: Already Contacted Primary care physician: Isis Reyes Hospital Course: Preliminary cause of Severe triple vessel coronary artery disease with NSTEMI Final diagnosis -Chest pain: secondary to atrial fibrillation with rapid and regular rate, status post cardiac catheterization revealing triple-vessel disease and CT surgery evaluated and not a surgical candidate given multiple comorbidities and high risk for mortality -Hematuria secondary to accidental trauma of removing indwelling Singh catheter by the patient, resolved -Severe triple-vessel coronary artery disease, not a surgical candidate -N STEMI with mildly elevated troponins -Atrial fibrillation with rapid and regular rate patient has persistent atrial fibrillation -Type 2 diabetes mellitus uncontrolled with hyperglycemia -History of chronic gout -Diabetic neuropathy -Dementia -Obstructive sleep apnea and uses CPAP at home -Gait dysfunction -History of COPD not in acute exacerbation -hypertension -Morbid obesity -History of coronary artery disease with stents in the past -History of nicotine dependence -DVT prophylaxis -no code Discharge disposition Patient has on 05/24/2021. According to nursing documentation, time of is 1755. Please refer to previous documentation for further HPI. Hospital Course Patient was admitted with NSTEMI and underwent cardiac catheterization and found to have severe triple vessel coronary artery disease and evaluated by CT surgery and not a good candidate for revascularization due to multiple co-morbidities and is extremely high risk for mortality and clinically deteriorating. Patient was made a no code by family and to discuss possible comfort care as his respiratory status was rapidly declining as well with extensive pulmonary edema and started on lasix. Patient was found by nursing staff on bipap with no heart rate and ultimately at 1755 on 05/24/2021. Overall prognosis was extremely poor. Patient Condition at Discharge: Fair Plan - Discharge Summary Discharge Rx Participant: Yes New Discharge Prescriptions: No Action Nitroglycerin Sl Tabs [Nitrostat] 0.4 mg SL Q5M PRN PRN Reason: Chest Pain Tamsulosin [Flomax] 0.4 mg PO AC-SUPPER Fluticasone Nasal [place] [Flonase Nasal [place]] 2 spr EA NOSTRIL DAILY Donepezil [Aricept] 10 mg PO DAILY Atorvastatin [Lipitor] 40 mg PO HS Acetaminophen/Diphenhydramine [Tylenol PM 500-25mg] 2 tab PO HS Cholecalciferol [Vitamin D3 (25 Mcg = 1000 Iu)] 25 mcg PO HS Dixon-3 Fatty Acids/Fish Oil [Fish Oil 1,000 mg Softgel] 1 cap PO AC-LUNCH metFORMIN HCL [Glucophage] 1,000 mg PO AC-LUNCH Insulin Lispro [humaLOG Kwikpen] 24 unit SQ AC-SUPPER Insulin Lispro [humaLOG Kwikpen] 16 unit SQ AC-BRKFST Insulin Lispro [humaLOG Kwikpen] 20 unit SQ AC-LUNCH Insulin Detemir [Levemir Flextouch Pen] 34 unit SQ BID Tolterodine Tartrate [Detrol LA] 4 mg PO DAILY Apixaban [Eliquis] 5 mg PO BID tab Furosemide [Lasix] 40 mg PO DAILY #30 tablet Gabapentin [Neurontin] 300 mg PO ACHS #4 cap carvediloL [Coreg] 6.25 mg PO BID Insulin Lispro [humaLOG Kwikpen] See Protocol SQ AC-TID PRN PRN Reason: HIGH BLOOD SUGAR HYDROcodone/APAP 5-325MG [[place] 5-325] 1 tab PO DAILY PRN PRN Reason: Pain Cyanocobalamin (Vitamin B-12) [Vitamin B-12] 1,000 mcg PO HS Psyllium Husk 100% [Metamucil Packet] 6 gm PO DAILY Docusate [Colace] 300 mg PO HS Triamcinolone 0.1% Cream [Kenalog 0.1% Cream] 1 applic TOPICAL DAILY PRN PRN Reason: Rash Colchicine 0.6 - 1.2 mg PO Q12H PRN PRN Reason: gout flair Olopatadine HCl [Patanol 0.1%] 1 drop BOTH EYES BID PRN PRN Reason: Allergy Symptoms Allopurinol [Zyloprim] 200 mg PO BID Calcium Carbonate [Tums] 500 mg PO QID PRN PRN Reason: Gi Upset Pantoprazole [Protonix] 40 mg PO AC-BID Ascorbic Acid [Vitamin C with Veronica Hips] 1,000 mg PO DAILY Glucagon Emergency Kit 1 mg IM DAILY PRN PRN Reason: Hypoglycemia Magnesium Oxide [Mag-Ox] 400 mg PO BID Nystatin 100,000Unit/gm Cream [Mycostatin Cream] 1 applic TOPICAL BID PRN PRN Reason: Rash Pyridoxine [Vitamin B-6] 50 mg PO DAILY Discharge Medication List Acetaminophen/Diphenhydramine [Tylenol PM 500-25mg] 2 tab PO HS 01/13/19 [History] Atorvastatin [Lipitor] 40 mg PO HS 01/13/19 [History] Cholecalciferol [Vitamin D3 (25 Mcg = 1000 Iu)] 25 mcg PO HS 01/13/19 [History] Donepezil [Aricept] 10 mg PO DAILY 01/13/19 [History] Fluticasone Nasal [place] [Flonase Nasal [place]] 2 spr EA NOSTRIL DAILY 01/13/19 [History] Insulin Detemir [Levemir Flextouch Pen] 34 unit SQ BID 01/13/19 [History] Insulin Lispro [humaLOG Kwikpen] 16 unit SQ AC-BRKFST 01/13/19 [History] Insulin Lispro [humaLOG Kwikpen] 20 unit SQ AC-LUNCH 01/13/19 [History] Insulin Lispro [humaLOG Kwikpen] 24 unit SQ AC-SUPPER 01/13/19 [History] Nitroglycerin Sl Tabs [Nitrostat] 0.4 mg SL Q5M PRN 01/13/19 [History] [place]-3 Fatty Acids/Fish Oil [Fish Oil 1,000 mg Softgel] 1 cap PO AC-LUNCH 01/13/19 [History] Tamsulosin [Flomax] 0.4 mg PO AC-SUPPER 01/13/19 [History] metFORMIN HCL [Glucophage] 1,000 mg PO AC-LUNCH 01/13/19 [History] Tolterodine Tartrate [Detrol LA] 4 mg PO DAILY 05/26/19 [History] Apixaban [Eliquis] 5 mg PO BID tab 06/02/19 [Rx] Furosemide [Lasix] 40 mg PO DAILY #30 tablet 06/02/19 [Rx] Gabapentin [Neurontin] 300 mg PO ACHS #4 cap 06/02/19 [Rx] Allopurinol [Zyloprim] 200 mg PO BID 11/27/20 [History] carvediloL [Coreg] 6.25 mg PO BID 11/27/20 [History] Cyanocobalamin (Vitamin B-12) [Vitamin B-12] 1,000 mcg PO HS 01/27/21 [History] HYDROcodone/APAP 5-325MG [[place] 5-325] 1 tab PO DAILY PRN 01/27/21 [History] Insulin Lispro [humaLOG Kwikpen] See Protocol SQ AC-TID PRN 01/27/21 [History] Ascorbic Acid [Vitamin C with Veronica Hips] 1,000 mg PO DAILY 04/05/21 [History] Calcium Carbonate [Tums] 500 mg PO QID PRN 04/05/21 [History] Docusate [Colace] 300 mg PO HS 04/05/21 [History] Pantoprazole [Protonix] 40 mg PO AC-BID 04/05/21 [History] Psyllium Husk 100% [Metamucil Packet] 6 gm PO DAILY 04/05/21 [History] Triamcinolone 0.1% Cream [Kenalog 0.1% Cream] 1 applic TOPICAL DAILY PRN 04/05/21 [History] Colchicine 0.6 - 1.2 mg PO Q12H PRN 05/21/21 [History] Glucagon Emergency Kit 1 mg IM DAILY PRN 05/21/21 [History] Magnesium Oxide [Mag-Ox] 400 mg PO BID 05/21/21 [History] Nystatin 100,000Unit/gm Cream [Mycostatin Cream] 1 applic TOPICAL BID PRN 05/21/21 [History] Olopatadine HCl [Patanol 0.1%] 1 drop BOTH EYES BID PRN 05/21/21 [History] Pyridoxine [Vitamin B-6] 50 mg PO DAILY 05/21/21 [History] Follow up Appointment(s)/Referral(s): Isis Reyes DO [Primary Care Provider] - 1-2 days Discharge Disposition: - Preliminary Cause of Preliminary Cause of : Severe triple vessel coronary artery disease with NSTEMI
[2021-05-26] MEDS ORDERED: metFORMIN 500 MG TAB PO SCH (12:30)
--- NOTE | 2021-05-29 10:27 | P.VSCSTY ---
Greater Saphenous Vein Mapping This is bilateral lower extremity greater saphenous vein mapping. Date of service: 05/22/2021 Vein quality and ultrasound appearance: We see no wall changes or intraluminal thrombus.. Vein size groin right : 7.9 x 6.4 groin left: 6.7 x 6.8 High thigh right: 3.8 x 4.5 high thigh left: 4.2 x 3.4 Mid thigh right: 3.0 x 3.7 mid thigh left: 2.9 x 3.2 Above-knee right: 2.2 x 2.7 above- knee left: 2.7 x 3.6 Below knee right: 2.6 x 2.9 below-knee left: 2.3 x 3.7 Mid calf right: 1.7 x 1.7 mid calf left: 2.3 x 3.2 Ankle right: 1.8 x 2.2 ankle left: 1.4 x 1.6 Impression: Usable greater saphenous vein bilaterally. Mid calf and below on the right and ankle level on the left appear small for use as conduit..
--- NOTE | 2021-05-29 16:25 | CDI ---
Documentation Clarification Form Date: 05/29/2021 04:09:43 PM From: Swathi Suarez RN, CCDS Email: [email or web address] Admit Date: 05/21/2021 01:01:00 AM Patient Name: Andrade Bran Visit Number: [id number] Discharge Date: 05/24/2021 09:47:00 PM ATTENTION: The Clinical Documentation Specialists (CDI) and [facility] Coding Staff appreciate your assistance in clarifying documentation. Please respond to the clarification below the line at the bottom and electronically sign. The CDI & [facility] Coding staff will review the response and follow-up if needed. Please note: Queries are made part of the Legal Health Record. If you have any questions, please contact the author of this message via ITS. Dr. Clara Hale Your patient has the documented diagnosis of diastolic CHF in the progress notes. Additional information regarding the acuity of CHF is requested. History/Risk Factors: H&P: morbidly obese with history of sleep apnea chronic diastolic dysfunction came in with the complaints of skipping beats and chest pressure like sensation patient does have history of atrial fibrillation and the patient was in A. fib patient also has mildly elevated troponin to 0.7. Clinical Indicators: H&P: complaints of skipping beats and chest pressure like sensation 05/22 Consult: Reports chest pain, Reports decreased exercise tolerance, Reports dyspnea on exertion, Reports leg edema, Reports rapid heartbeat, Reports shortness of breath. Bilateral lower extremity edema present. 05/24 Pulmonary: The chest x-ray is more consistent with CHF and interstitial edema. At this point in time the patient is in CHF with pulmonary edema. Chest x-ray shows evidence of pulmonary edema. Bilateral lower extremity edema present. The patient is currently in pulmonary edema. 05/24 DS: Preliminary cause of : Severe triple vessel coronary artery disease with NSTEMI. Hospital Course: Patient was admitted with NSTEMI and underwent cardiac catheterization and found to have severe triple vessel coronary artery disease and evaluated by CT surgery and not a good candidate for revascularization due to multiple co-morbidities and is extremely high risk for mortality and clinically deteriorating. Preliminary Cause of : Severe triple vessel coronary artery disease with NSTEMI. BNP: 1853 05/21 Echocardiogram Results: The left ventricular size is normal. There is moderate concentric left ventricular hypertrophy. Overall left ventricular systolic function is normal with, an EF between 55 - 60 %. 05/23 Chest X Ray: Heart is enlarged. There is some pulmonary vascular congestion. Thoracic aorta is atheromatous. There are chest leads. There is probably some congestive heart failure which is new compared to recent exam. 05/24 CXR: There is pulmonary edema not significantly different than exam this morning. This could be heart failure or RDS Treatment: IV Lasix, IV Heparin, Heart cath In your professional opinion, can you please clarify the [acuity and type] of CHF if known? [ ] Acute Diastolic Heart Failure (preserved EF) [ ] Chronic Diastolic Heart Failure (preserved EF) [ x ] Acute on Chronic Diastolic Heart Failure (preserved EF) [ ] Other, please specify [ ] Unable to determine MTDD
== END 2021-05-24 21:47 | disposition expired ==
LOC: EC 22:38 → 3SCARD 05-21 01:01 → 2SICU 05-22 05:07 → 3SCARD 05-23 19:04
PROVIDERS: ADMIT Internal Medicine; ATTEND Internal Medicine
PROC: B2111ZZ Fluoroscopy of Multiple Coronary Arteries using Low Osmolar Contrast (ICD-10-PCS; 2021-05-22)
PROC: B2151ZZ Fluoroscopy of Left Heart using Low Osmolar Contrast (ICD-10-PCS; 2021-05-22)
PROC: 5A09457 Assistance with Respiratory Ventilation, 24-96 Consecutive Hours, Continuous Positive Airway Pressure (ICD-10-PCS; 2021-05-22)
PROC: 4A023N7 Measurement of Cardiac Sampling and Pressure, Left Heart, Percutaneous Approach (ICD-10-PCS; principal; 2021-05-22 12:00)
DX: I21.4 Non-ST elevation (NSTEMI) myocardial infarction (principal); J96.01 Acute respiratory failure with hypoxia; J96.02 Acute respiratory failure with hypercapnia; I50.33 Acute on chronic diastolic (congestive) heart failure; I48.21 Permanent atrial fibrillation; N17.9 Acute kidney failure, unspecified; T83.83XA Hemorrhage due to genitourinary prosthetic devices, implants and grafts, initial encounter; J81.1 Chronic pulmonary edema; Z66 Do not resuscitate; E11.42 Type 2 diabetes mellitus with diabetic polyneuropathy; E11.65 Type 2 diabetes mellitus with hyperglycemia; E66.01 Morbid (severe) obesity due to excess calories; E78.5 Hyperlipidemia, unspecified; F03.90 Unspecified dementia, unspecified severity, without behavioral disturbance, psychotic disturbance, mood disturbance, and anxiety; F41.9 Anxiety disorder, unspecified; G47.33 Obstructive sleep apnea (adult) (pediatric); I11.0 Hypertensive heart disease with heart failure; I25.10 Atherosclerotic heart disease of native coronary artery without angina pectoris; I25.2 Old myocardial infarction; I34.0 Nonrheumatic mitral (valve) insufficiency; K21.9 Gastro-esophageal reflux disease without esophagitis; I87.8 Other specified disorders of veins; J44.9 Chronic obstructive pulmonary disease, unspecified; M06.9 Rheumatoid arthritis, unspecified; M1A.9XX0 Chronic gout, unspecified, without tophus (tophi); R29.6 Repeated falls; Z96.651 Presence of right artificial knee joint; G62.9 Polyneuropathy, unspecified; T50.8X5A Adverse effect of diagnostic agents, initial encounter; R31.9 Hematuria, unspecified; R26.9 Unspecified abnormalities of gait and mobility; Z79.01 Long term (current) use of anticoagulants; Y92.9 Unspecified place or not applicable; Z79.4 Long term (current) use of insulin; Z79.82 Long term (current) use of aspirin; Z79.84 Long term (current) use of oral hypoglycemic drugs; Z79.899 Other long term (current) drug therapy; Z85.828 Personal history of other malignant neoplasm of skin; Z87.891 Personal history of nicotine dependence; Z91.81 History of falling; Z95.1 Presence of aortocoronary bypass graft; Z95.5 Presence of coronary angioplasty implant and graft
CPT/HCPCS: 36415; 36600; 71045; 80048; 80053; 80061; 80074; 81001; 82805; 83036; 83735; 83880; 84443; 84484; 85025; 85610; 85730; 87040; 87070; 87635; 93005; 93306; 93458; 93880; 93970; 94150; 94660; 96374; 99285